=== PATIENT | male | born 1955 | race Caucasian/White ===

== ENCOUNTER → 2020-10-07 11:42 | Outpatient (BNVA) | payer OTHER, SELFPAY | PROVIDERS: PCP Internal Medicine Geriatric Medicine; Visit Provider Internal Medicine Gastroenterology | DX: Z13.89 Encounter for screening for other disorder (principal) | CPT/HCPCS: Q3014 ==

== ENCOUNTER 2021-04-17 07:57 | Outpatient (REF) | payer OTHER, SELFPAY ==
--- NOTE | ~2021-04-17 | US_ITS ---
EXAMINATION: US ABDOMEN LIMITED WITH LIVER ELASTOGRAPHY CLINICAL INFORMATION: Nonalcoholic steatohepatitis COMPARISON: Previous exam most recent March 2020 TECHNIQUE: Real-time imaging of the abdominal viscera. Noninvasive ultrasound liver fibrosis assessment is performed using Robyn ElastPQ point quantification shear wave elastography (pSWE) with a C5-2 MHz transducer. Multiple elastography samples are obtained. FINDINGS: PANCREAS: Not well visualized due to bowel gas. LIVER: Liver echotexture is increased and slightly heterogeneous. Liver is normal in size and contour. No focal lesion or intrahepatic biliary duct dilatation. The previously identified peripheral hypoechoic area in the right lobe of the liver on previous exam is not appreciated on the current exam. The right lobe measures 16 cm in length. The left lobe measures 9 cm in length. Portal flow is normal/hepatopedal Shear wave liver elastography median stiffness is 1.7 m/s (reference: normal median stiffness is 1.3 m/s or less). IQR/median stiffness to assess sampling precision is 0.18 (reference: good quality data set is IQR/median stiffness of 0.15 or less). GALLBLADDER: The gallbladder is normal in size. There is a gallstone in the gallbladder. COMMON BILE DUCT: Normal in caliber measuring 0.4 cm in diameter. RIGHT KIDNEY: Normal. No hydronephrosis. No renal calculi or focal parenchymal lesions. The kidney measures 9.4 cm in maximum dimension. FREE FLUID: None. US/US abdomen blue w elastography IMPRESSION: 1. Impression: Increased slightly heterogeneous liver echotexture. Gallstone. Limited visualization of the pancreas. 2. Liver elastography: Slightly limited due to sampling error Suggestive of compensated advanced chronic liver disease but need further test for confirmation. This is increased compared to previous exam March 2020. REFERENCE: Society of Radiologists in Ultrasound Liver Stiffness Thresholds (2020): LIVER STIFFNESS THRESHOLDS: *Liver Stiffness equal or less than 1.3 m/s: High probability of being normal. *Liver Stiffness less than 1.7 m/s: In the absence of other known clinical signs, rules out compensated advanced chronic liver disease. *Liver Stiffness 1.7-2.1 m/s: Suggestive of compensated advanced chronic liver disease but need further test for confirmation. *Liver Stiffness over 2.1 m/s: Rules in compensated advanced chronic liver disease. *Liver Stiffness over 2.4 m/s: Suggestive of clinically significant portal hypertension. QUALITY OF DATA SET: *IQR/Median value equal or less than 0.15 implies a quality data set. *IQR/Median value over 0.15 implies a poor quality data set. SIGNIFICANT CHANGE FROM PRIOR EXAM: Significant change if liver stiffness measurement is 10% or greater from prior exam. OTHER CONSIDERATIONS: The stage of liver fibrosis may be overestimated in the setting of acute hepatitis, liver inflammation, elevated liver function tests, hepatic vascular congestion, obstructive cholestasis, non-fasting state, and infiltrative diseases such as amyloidosis and lymphoma. In some patients with NAFLD, the liver stiffness thresholds for compensated advanced chronic liver disease may be lower. In causes other than viral hepatitis and NAFLD, liver stiffness thresholds are not well established.
[2021-04-17 09:02] LABS: MANUAL DIFF FLAG NO
[2021-04-17 09:12] LABS: Basophils Percent Auto 0.3 % (0-2); Eosinophils Absolute Auto 0.1 X10*3/uL (0.0-0.4); Eosinophils Percent Auto 2.3 % (0-4); Hematocrit 42.5 % (42-52); Imm Gran Abs Auto 0.01 X10*3/uL (0.00-0.03); Imm Gran Pct Auto 0.3 % (0.0-0.4); Lymphocytes Absolute Auto 1.6 X10*3/uL (1.2-4.9); Lymphocytes Percent Auto 45.7 % (20-40); Mean Corpuscular HGB Conc 32.9 g/dl (31.0-36.0); Mean Corpuscular Volume 91.2 fL (80-98); Mean Platelet Volume 10.5 fL (9.4-12.4); Monocytes Absolute Auto 0.4 X10*3/uL (0.1-1.2); Monocytes Percent Auto 11.1 % (2-11); Neutrophils Absolute Auto 1.4 X10*3/uL (2.0-8.3); Neutrophils Percent Auto 40.3 % (45-73); Platelet Count 137 X10*3/uL (160-400); Red Blood Count 4.66 X10*6/uL (4.60-5.80); Red Cell Distribution Width 13.6 % (11.0-16.0); White Blood Count 3.5 X10*3/uL (4.8-10.8)
[2021-04-17 09:42] LABS: Alanine Aminotransferase 31 U/L (0-40); Albumin Level 4.3 g/dL (3.5-5.0); Alkaline Phosphatase 105 U/L (39-117); Anion Gap 11 (12-20); Aspartate Amino Transferase 33 U/L (5-37); Bilirubin Total 0.3 mg/dL (0.0-1.0); Blood Urea Nitrogen 12 mg/dL (9-16); Calcium 9.2 mg/dL (8.4-10.2); Carbon Dioxide 23 mmol/L (22-29); Chloride 111 mmol/L (96-108); Estimated Glomerular Filt Rate > 60; Glucose Random 106 mg/dL (60-115); Potassium 4.2 mmol/L (3.3-5.1); Sodium 141 mmol/L (135-145)
[2021-04-17 09:52] LABS: HBS Num1 2.41 mIU/mL (0-7.99); HBc Num1 0.13 S/CO (0.00-0.79); HBsAGNum1 0.15 S/CO (0.00-0.99); Hepatitis B Core Antibody Nonreactive (Nonreactive); Hepatitis B Surface Antigen Negative (Negative); ~HepC Num1 0.11 S/CO (0.00-0.79); ~Hepatitis B Surface Antibody NONREACTIVE (Nonreactive); ~Hepatitis C Antibody Nonreactive (Nonreactive)
[2021-04-17 09:53] LABS: Erythrocyte Sedimentation Rate 7 MM/HR (0-15)
[2021-04-17 10:37] LABS: Ferritin 22 ng/mL (20-250)
[2021-04-19 08:26] LABS: Hepatitis A Antibody IgM 0.28 Index (0-0.79); ~Hepatitis A Antibody IgM Nonreactive (Nonreactive)
[2021-04-19 10:22] LABS: Alpha 1 Anti-trypsin 155 mg/dL (83-199)
[2021-04-20 06:28] LABS: Zinc 87 mcg/dL (60-130)
[2021-04-20 11:52] LABS: Soluble Liver Ag Autoantibody <20.1 U (0.0-20.0)
[2021-04-20 13:06] LABS: Anti Nuclear Antibody Screen NEGATIVE (NEGATIVE)
[2021-04-21 11:51] LABS: Mitochondrial Antibodies NEGATIVE (NEGATIVE); Smooth Muscle Antibody <20 U (<20)
[2021-04-22 14:42] LABS: Transglutaminase Ab IgG <1.0 U/mL; Transglutaminase IgA <1.0 U/mL
== END 2021-04-17 07:58 | disposition home or self-care (01) ==
LOC: HO.US 07:57
PROVIDERS: PCP Internal Medicine Geriatric Medicine; Visit Provider Internal Medicine Gastroenterology
DX: K75.81 Nonalcoholic steatohepatitis (NASH) (principal); R79.82 Elevated C-reactive protein (CRP)
CPT/HCPCS: 36415; 76705; 76981; 80053; 82103; 82550; 82728; 83516; 83520; 84630; 85025; 85652; 86038; 86039; 86255; 86256; 86704; 86706; 86709; 86803; 87340

== ENCOUNTER → 2021-05-30 08:22 | Outpatient (BNVA) | payer OTHER, SELFPAY | PROVIDERS: PCP Internal Medicine Geriatric Medicine; Visit Provider Internal Medicine Gastroenterology | CPT/HCPCS: Q3014 ==

== ENCOUNTER → 2021-10-30 08:32 | Outpatient (BNVA) | payer OTHER, SELFPAY | PROVIDERS: PCP Internal Medicine Geriatric Medicine; Visit Provider Internal Medicine Gastroenterology | DX: K75.81 Nonalcoholic steatohepatitis (NASH) (principal) | CPT/HCPCS: Q3014 ==

== ENCOUNTER 2021-11-01 08:40 | Outpatient (REF) | payer OTHER, SELFPAY ==
--- NOTE | ~2021-11-01 | XR_ITS ---
EXAMINATION: XR SHOULDER-BILATERAL XR HAND-LEFT CLINICAL INFORMATION: Bilateral shoulder pain and left hand pain. COMPARISON: None TECHNIQUE: 4 views each of both shoulders. 3 views of the left hand. FINDINGS: Right shoulder: The bony alignments are intact. The cortices are intact. Articular margins, joint spaces and. The soft tissues are unremarkable. Mild diffuse osteopenia. Left shoulder: The left acromioclavicular joint is widened, measures 1.3 cm. The finding may represent old postsurgical versus posttraumatic change. The glenohumeral alignment is intact. The cortices are intact. Articular margins, joint space appear unremarkable. The soft tissues are unremarkable. Left hand: Mild diffuse osteopenia is noted. The bony alignments are intact. The cortices are intact. The articular margins, joint space and. The soft tissues are unremarkable. XR/XR shoulder RT min 2V IMPRESSION: 1. Radiographically unremarkable right shoulder and left hand except for mild diffuse osteopenia. 2. Widened acromioclavicular joint space at the left shoulder, may represent old postsurgical versus old posttraumatic changes. Otherwise unremarkable radiographic appearance of the left shoulder.
--- NOTE | ~2021-11-01 | XR_ITS ---
EXAMINATION: XR SHOULDER-BILATERAL XR HAND-LEFT CLINICAL INFORMATION: Bilateral shoulder pain and left hand pain. COMPARISON: None TECHNIQUE: 4 views each of both shoulders. 3 views of the left hand. FINDINGS: Right shoulder: The bony alignments are intact. The cortices are intact. Articular margins, joint spaces and. The soft tissues are unremarkable. Mild diffuse osteopenia. Left shoulder: The left acromioclavicular joint is widened, measures 1.3 cm. The finding may represent old postsurgical versus posttraumatic change. The glenohumeral alignment is intact. The cortices are intact. Articular margins, joint space appear unremarkable. The soft tissues are unremarkable. Left hand: Mild diffuse osteopenia is noted. The bony alignments are intact. The cortices are intact. The articular margins, joint space and. The soft tissues are unremarkable. XR/XR shoulder LT min 2V IMPRESSION: 1. Radiographically unremarkable right shoulder and left hand except for mild diffuse osteopenia. 2. Widened acromioclavicular joint space at the left shoulder, may represent old postsurgical versus old posttraumatic changes. Otherwise unremarkable radiographic appearance of the left shoulder.
--- NOTE | ~2021-11-01 | XR_ITS ---
EXAMINATION: XR SHOULDER-BILATERAL XR HAND-LEFT CLINICAL INFORMATION: Bilateral shoulder pain and left hand pain. COMPARISON: None TECHNIQUE: 4 views each of both shoulders. 3 views of the left hand. FINDINGS: Right shoulder: The bony alignments are intact. The cortices are intact. Articular margins, joint spaces and. The soft tissues are unremarkable. Mild diffuse osteopenia. Left shoulder: The left acromioclavicular joint is widened, measures 1.3 cm. The finding may represent old postsurgical versus posttraumatic change. The glenohumeral alignment is intact. The cortices are intact. Articular margins, joint space appear unremarkable. The soft tissues are unremarkable. Left hand: Mild diffuse osteopenia is noted. The bony alignments are intact. The cortices are intact. The articular margins, joint space and. The soft tissues are unremarkable. XR/XR hand LT 2V IMPRESSION: 1. Radiographically unremarkable right shoulder and left hand except for mild diffuse osteopenia. 2. Widened acromioclavicular joint space at the left shoulder, may represent old postsurgical versus old posttraumatic changes. Otherwise unremarkable radiographic appearance of the left shoulder.
[2021-11-01 09:26] LABS: MANUAL DIFF FLAG NO
[2021-11-01 09:53] LABS: Basophils Percent Auto 0.2 % (0-2); Eosinophils Absolute Auto 0.1 X10*3/uL (0.0-0.4); Eosinophils Percent Auto 1.5 % (0-4); Hematocrit 42.2 % (42.0-52.0); Hemoglobin 13.9 g/dl (14.0-18.0); Imm Gran Abs Auto 0.01 X10*3/uL (0.00-0.03); Imm Gran Pct Auto 0.2 % (0.0-0.4); Lymphocytes Absolute Auto 1.6 X10*3/uL (1.2-4.9); Mean Corpuscular HGB Conc 32.9 g/dl (31.0-36.0); Mean Corpuscular Hemoglobin 29.5 pg (27.0-33.0); Mean Corpuscular Volume 89.6 fL (80.0-98.0); Mean Platelet Volume 10.8 fL (9.4-12.4); Monocytes Absolute Auto 0.5 X10*3/uL (0.1-1.2); Monocytes Percent Auto 8.6 % (2-11); Neutrophils Absolute Auto 3.3 x10*3/uL (2.0-8.3); Neutrophils Percent Auto 60.5 % (45-73); Platelet Count 133 X10*3/uL (160-400); Red Blood Count 4.71 X10*6/uL (4.60-5.80); Red Cell Distribution Width 13.4 % (11.0-16.0); White Blood Count 5.5 X10*3/uL (4.8-10.8)
[2021-11-01 09:55] LABS: Prothrombin Time 11.9 SEC (9.9-13.0)
[2021-11-01 10:11] LABS: Alanine Aminotransferase 43 U/L (0-40); Albumin Level 4.2 g/dL (3.5-5.0); Alkaline Phosphatase 86 U/L (39-117); Aspartate Amino Transferase 36 U/L (5-37); Bilirubin Direct 0.2 mg/dL (0.0-0.5); Bilirubin Total 0.5 mg/dL (0.0-1.0); Cholesterol 138 mg/dL; HDL Cholesterol 38 mg/dL; LDL Cholesterol Calculated 75 mg/dl; Total Protein 6.9 g/dL (6.5-8.0); Triglycerides 125 mg/dL
[2021-11-01 10:14] LABS: Alanine Aminotransferase 41 U/L (0-40); Albumin Level 4.1 g/dL (3.5-5.0); Alkaline Phosphatase 85 U/L (39-117); Anion Gap 12 (12-20); Aspartate Amino Transferase 37 U/L (5-37); Bilirubin Total 0.5 mg/dL (0.0-1.0); Blood Urea Nitrogen 14 mg/dL (9-16); Calcium 9.3 mg/dL (8.4-10.2); Carbon Dioxide 23 mmol/L (22-29); Chloride 110 mmol/L (96-108); Estimated Glomerular Filt Rate > 60; Glucose Random 114 mg/dL (60-115); Potassium 4.3 mmol/L (3.3-5.1); Sodium 141 mmol/L (135-145); Total Protein 6.9 g/dL (6.5-8.0)
[2021-11-01 10:34] LABS: Ferritin 14 ng/mL (20-250)
[2021-11-01 10:49] LABS: Folate 8.9 ng/mL (> or = 4.0); Vitamin B12 200 pg/mL (200-900)
[2021-11-01 10:59] LABS: Microalbum/Creatinine Ratio Ur 7.1 ug/mg cr
== END 2021-11-01 08:41 | disposition home or self-care (01) ==
LOC: HO.LAB 08:40
PROVIDERS: Absent Provider Internal Medicine Geriatric Medicine; PCP Internal Medicine Geriatric Medicine; Visit Provider Internal Medicine Gastroenterology
DX: K75.81 Nonalcoholic steatohepatitis (NASH) (principal); E11.9 Type 2 diabetes mellitus without complications; G89.29 Other chronic pain; M25.511 Pain in right shoulder; M25.512 Pain in left shoulder; M72.0 Palmar fascial fibromatosis [Dupuytren]
CPT/HCPCS: 36415; 73030; 73120; 80053; 80061; 80076; 82043; 82248; 82607; 82728; 82746; 85025; 85610

== ENCOUNTER → 2021-12-27 08:50 | Outpatient (BNVA) | payer OTHER, SELFPAY | PROVIDERS: PCP Internal Medicine Geriatric Medicine; Visit Provider Orthopaedic Surgery | DX: M72.0 Palmar fascial fibromatosis [Dupuytren] (principal); M25.642 Stiffness of left hand, not elsewhere classified | CPT/HCPCS: 97140; 99202 ==

== ENCOUNTER 2022-01-02 08:21 | Outpatient (REF) | payer OTHER, SELFPAY ==
--- NOTE | ~2022-01-02 | US_ITS ---
EXAMINATION: US ABDOMEN WITH LIVER ELASTOGRAPHY CLINICAL INFORMATION: Non-alcoholic steatohepatitis. COMPARISON: Previous ultrasound, most recent, March 2021. TECHNIQUE: Real-time imaging of the abdominal viscera. Noninvasive ultrasound liver fibrosis assessment is performed using Robyn ElastPQ point quantification shear wave elastography (2D-SWE) with a C5-2 MHz transducer. Multiple elastography samples are obtained. FINDINGS: PANCREAS: Not well visualized due to overlying bowel gas. LIVER: Liver echotexture is increased. The liver demonstrates normal size and contour. No focal lesion or intrahepatic biliary duct dilatation. The right lobe measures 15 cm in length. The left lobe measures 8.6 cm in length. Portal flow is normal/hepatopetal. Shear wave liver elastography median stiffness is 1.7 m/s (reference: normal median stiffness is 1.3 m/s or less). IQR/median stiffness to assess sampling precision is 0.1 (reference: good quality data set is IQR/median stiffness of 0.15 or less). GALLBLADDER: Normal. Previously identified gallstone not appreciated. COMMON BILE DUCT: Normal in caliber measuring 0.3 cm in diameter. RIGHT KIDNEY: Normal. No hydronephrosis. No renal calculi or focal parenchymal lesions. The kidney measures 10.2 cm in maximum dimension. LEFT KIDNEY: Normal. No hydronephrosis. No renal calculi or focal parenchymal lesions. The kidney measures 11.2 cm in maximum dimension. SPLEEN: Normal. The spleen measures 11 cm in length. FREE FLUID: None. US/US abdomen comp w elastography IMPRESSION: 1. Echogenic liver probably representing fatty infiltration. Limited visualization of the pancreas. Previously identified gallstone not appreciated. 2. Liver elastography: Adequate liver sampling. Borderline increased liver stiffness similar to most recent exam in March 2021. REFERENCE: Society of Radiologists in Ultrasound Liver Stiffness Thresholds (2020): LIVER STIFFNESS THRESHOLDS: *Liver Stiffness equal or less than 1.3 m/s: High probability of being normal. *Liver Stiffness less than 1.7 m/s: In the absence of other known clinical signs, rules out compensated advanced chronic liver disease. *Liver Stiffness 1.7-2.1 m/s: Suggestive of compensated advanced chronic liver disease but need further test for confirmation. *Liver Stiffness over 2.1 m/s: Rules in compensated advanced chronic liver disease. *Liver Stiffness over 2.4 m/s: Suggestive of clinically significant portal hypertension. QUALITY OF DATA SET: *IQR/Median value equal or less than 0.15 implies a quality data set. *IQR/Median value over 0.15 implies a poor quality data set. SIGNIFICANT CHANGE FROM PRIOR EXAM: Significant change if liver stiffness measurement is 10% or greater from prior exam. OTHER CONSIDERATIONS: The stage of liver fibrosis may be overestimated in the setting of acute hepatitis, liver inflammation, elevated liver function tests, hepatic vascular congestion, obstructive cholestasis, non-fasting state, and infiltrative diseases such as amyloidosis and lymphoma. In some patients with NAFLD, the liver stiffness thresholds for compensated advanced chronic liver disease may be lower. In causes other than viral hepatitis and NAFLD, liver stiffness thresholds are not well established.
== END 2022-01-02 08:22 | disposition home or self-care (01) ==
LOC: HO.US 08:21
PROVIDERS: PCP Internal Medicine Geriatric Medicine; Visit Provider Internal Medicine Gastroenterology
DX: K75.81 Nonalcoholic steatohepatitis (NASH) (principal)
CPT/HCPCS: 76705; 76981

== ENCOUNTER 2022-02-09 10:35 | Emergency (ER) | payer OTHER, SELFPAY ==
[2022-02-09] VITALS (9 sets, daily range): BP systolic 127–167; BP diastolic 67–82; PULSE 55–70; RESP 16–20; TEMP 36.7–36.9; O2SAT 98–100; BMI 22.6
--- NOTE | 2022-02-09 11:18 | ECG_ITS ---
Test Reason : SYNCOPE Blood Pressure : / mmHG Vent. Rate : 059 BPM Atrial Rate : 059 BPM P-R Int : 172 ms QRS Dur : 086 ms QT Int : 436 ms P-R-T Axes : 033 032 031 degrees QTc Int : 431 ms Sinus bradycardia Otherwise normal ECG When compared to the previous EKG of No significant changes seen Referred By: Liv Maldonado Electronically Signed By:ZHEN TINOCO MD
--- NOTE | 2022-02-09 11:47 | ED_ITS ---
HPI - Syncope General Chief Complaint: Syncope Stated Complaint: SYNCOPE BEFORE CATARACT SURGERY PER EMS Time Seen by Provider: 02/09/22 11:08 Source: patient and EMS Mode of arrival: EMS Limitations: no limitations History of Present Illness HPI narrative: 66 yo male with history of seizure disorder, MCCLELLAN, GERD, cataracts, diabetes, and HLD who presents to the ER via EMS for evaluation of a possible syncopal epi sode vs possible seizure while he was at the doctor's office with plan for cataract surgery today. He reportedly was standing when he suddendly became rigid and fell to the floor. His eyes remained open and he did not lose consciousness. When he came too he was confused. His reports this is exa madaiy how he has presented in the past with his seizures. Last seizure was maybe 1 year ago. He has been compliant with his zonisamide and last took it this morning. No urinary incontinence, tongue biting or other injuries. He feels back to baseline. MD complaint: collapsed Onset (ago): minute(s) -: second(s) Description of event: post-event confusion Prodromal symptoms: none Witnessed: Yes - by Bystander Context: standing up Injuries sustained associated with event: none Current symptoms: back to baseline History: seizure disorder Treatments prior to arrival: none Related Data Home Medications Medication Instructions Recorded Confirmed fluticasone propionate 115 2 puff inhalation BID 10/30/21 mcg-salmeterol 21 mcg/actuation HFA inhaler (Advair HFA) fluticasone propionate 50 spray intranasal 10/30/21 mcg/actuation nasal spray,suspension glipizide 10 mg tablet 10 mg PO BID 10/30/21 ibuprofen 800 mg tablet 800 mg PO TID PRN low back pain 10/30/21 lancets 33 gauge (TRUEplus Lancets) #100 ea 10/30/21 metformin 500 mg tablet 500 mg PO TID 10/30/21 rosuvastatin 20 mg tablet 20 mg PO BEDTIME 10/30/21 zonisamide 100 mg capsule 0 mg PO 10/30/21 sildenafil 50 mg tablet (Viagra) 50 mg PO DAILY PRN 12/27/21 Previous Rx's Medication Instructions Recorded esomeprazole magnesium 40 mg 40 mg PO QAM #30 caps 10/30/21 capsule,delayed release pentoxifylline 400 mg 400 mg PO BID #60 tabs 10/30/21 tablet,extended release cholecalciferol (vitamin D3) 25 25 mcg PO QAM #30 caps 12/04/21 mcg (1,000 unit) capsule (Vitamin D3) Allergies Allergy/AdvReac Type Severity Reaction Status Date / Time No Known Allergies Allergy Verified 12/27/21 09:32 Review of Systems Review of Systems: Constitutional: No Fever, No Chills ENT/Mouth: No sore throat, No Rhinorrhea, No Swallowing Difficulty Eyes: No Eye Pain, No Swelling, No Redness Cardiovascular: No Chest Pain, No SOB, No Orthopnea, No Edema Respiratory: No Cough, No Sputum, No Wheezing, No dyspnea Gastrointestinal: No Nausea, No Vomiting, No Diarrhea, No abdominal Pain, No Hematochezia, No Melena Genitourinary: No Dysuria, No Urinary Frequency, No Hematuria Musculoskeletal: No joint pain, No Myalgias Skin: No Skin Lesions, No rash Neuro: No Weakness, No Numbness, No Dizziness, No Headache Psych: No Anxiety/Panic, No Depression Heme/Lymph: No Bruising, No Lymphadenopathy Endocrine: No Polyuria, No Polydipsia PMFSH Past Medical History Surgical History Hx of colonoscopy Family History Family History Brother Diabetes Sister Diabetes Social History Social History (Updated 12/27/21 @ 09:33 by MERLINE Toribio) Household Members: Spouse Alcohol intake: never Patient Tobacco Use Status: Former Tobacco user Smoked in Last 30 Days: No Use of substances other than those prescribed or required for medical reasons: No Advance Directives: No Advance Directives Information Provided: Yes Current occupational status: disabled 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 Oriented X3. No acute distress. Eyes: Pupils equal, round and reactive to light. ENT: Pharynx normal. Neck: Normal inspection. Neck supple. CVS: Bradycardic hihg 50s, regular rhythm. Pulses normal. Respiratory: No respiratory distress. Breath sounds normal. Abdomen: Soft and nontender. +BS x4 Skin: Skin warm and dry. Normal skin color. Normal skin turgor. No rashes. Extremities: No lower extremity edema. Atraumatic x4. Neuro: Oriented X 3. No motor deficit. No sensory deficit. Normal speech and cognition. CN II-XII intact. Strength equal and symmetrical throughout. Course Course Course Narrative: 66 yo male with history of seizures presents to the ER for evaluation of possible seizure vs syncopal episode. Back to baseline now with nonfocal neuro exam. HR high 50s on the monitor. Not on any cardiac meds per his report. No complaints of dizziness or lightheadedness at this time. Will check labs, EKG, orthostatics. He has been NPO for the procedure. Will give food, IVF and reassess. Reevaluation(s) Reevaluation #1: Labs showing some mild pancytopenia which she has a history of in the past. Counts are similar to prior his lactic acid is 2.3, most likely due to minor se izure activity, no evidence of infection at this time. Patient had negative orthostatic vital signs but felt lightheaded when stood up. Will give p.o. food and reassess. IV fluids are infusing. Reevaluation #2: Lactic acid normalized with IV fluids. Patient continues to feel well and at his baseline. He would like to be discharged home. At this time his symptoms and description of the events seem to be consistent with his seizures. He will follow-up with his neurologist. He is stable for discharge home with outpatient follow-up. MDM - Syncope Medical Records Attestation: I reviewed the patient's medical records. Lab Data Attestation: I reviewed the patient's lab results. Result diagrams: 02/09/22 12:05 02/09/22 12:05 Labs: Lab Results 02/09/22 02/09/22 02/09/22 Range/Units 11:43 12:05 12:05 WBC 2.8 L (4.8-10.8) X10*3/uL RBC 4.65 (4.60-5.80) X10*6/uL Hgb 13.4 L (14.0-18.0) g/dl Hct 41.5 L (42.0-52.0) % MCV 89.2 (80.0-98.0) fL MCH 28.8 (27.0-33.0) pg MCHC 32.3 (31.0-36.0) g/dl RDW 13.6 (11.0-16.0) % Plt Count 120 L (160-400) X10*3/uL MPV 10.0 (9.4-12.4) fL Immature Gran % (Auto) 0.0 (0.0-0.4) % Neut % (Auto) 58.4 (45-73) % Lymph % (Auto) 30.7 (20-40) % [place] % (Auto) 9.5 (2-11) % Eos % (Auto) 1.4 (0-4) % Baso % (Auto) 0.0 (0-2) % Lymph # (Auto) 0.9 L (1.2-4.9) X10*3/uL [place] # (Auto) 0.3 (0.1-1.2) X10*3/uL Eos # (Auto) 0.0 (0.0-0.4) X10*3/uL Baso # (Auto) 0.0 (0.0-0.2) X10*3/uL Abs Immat Gran (auto) 0.00 (0.00-0.03) X10*3/uL Absolute Neuts (auto) 1.7 L (2.0-8.3) x10*3/uL Absolute Nucleated RBC 0.000 (0.0-0.012) X10*3/uL Nucleated RBC % (auto) 0.0 (0.0-0.2) /100WBC Sodium 141 (135-145) mmol/L Potassium 4.3 (3.3-5.1) mmol/L Chloride 112 H (96-108) mmol/L Carbon Dioxide 22 (22-29) mmol/L Anion Gap 11 L (12-20) BUN 8 L (9-16) mg/dL Creatinine 0.98 (0.5-1.4) mg/dL Estim Creat Clear Calc 73.7 Estimated GFR > 60 Random Glucose 135 H (60-115) mg/dL Lactic Acid (0.5-2.0) mmol/L Lactic Acid F/U @ 2Hr (0.5-2.0) mmol/L Calcium 8.4 D (8.4-10.2) mg/dL Magnesium 1.7 (1.6-2.6) mg/dL Total Bilirubin 0.4 (0.0-1.0) mg/dL Direct Bilirubin < 0.2 (0.0-0.5) mg/dL AST 34 (5-37) U/L ALT 40 (0-40) U/L Alkaline Phosphatase 99 (39-117) U/L Total Creatine Kinase 75 (38-174) U/L Total Protein 7.0 (6.5-8.0) g/dL Albumin 4.2 (3.5-5.0) g/dL Urine Color Urine Appearance Urine pH (5.0-8.0) Ur Specific [place] (1.005-1.025) Urine Protein (NEG-TRACE) MG/DL Urine Glucose (UA) (NEG) MG/DL Urine Ketones (NEG) MG/DL Urine Blood (NEG) Urine Nitrite (NEG) Ur Leukocyte Esterase (NEG) COVID-19 ([facility]) Negative (Negative) COVID-19 Clin Com See Note 02/09/22 02/09/22 02/09/22 Range/Units 12:05 12:23 15:08 WBC (4.8-10.8) X10*3/uL RBC (4.60-5.80) X10*6/uL Hgb (14.0-18.0) g/dl Hct (42.0-52.0) % MCV (80.0-98.0) fL MCH (27.0-33.0) pg MCHC (31.0-36.0) g/dl RDW (11.0-16.0) % Plt Count (160-400) X10*3/uL MPV (9.4-12.4) fL Immature Gran % (Auto) (0.0-0.4) % Neut % (Auto) (45-73) % Lymph % (Auto) (20-40) % [place] % (Auto) (2-11) % Eos % (Auto) (0-4) % Baso % (Auto) (0-2) % Lymph # (Auto) (1.2-4.9) X10*3/uL [place] # (Auto) (0.1-1.2) X10*3/uL Eos # (Auto) (0.0-0.4) X10*3/uL Baso # (Auto) (0.0-0.2) X10*3/uL Abs Immat Gran (auto) (0.00-0.03) X10*3/uL Absolute Neuts (auto) (2.0-8.3) x10*3/uL Absolute Nucleated RBC (0.0-0.012) X10*3/uL Nucleated RBC % (auto) (0.0-0.2) /100WBC Sodium (135-145) mmol/L Potassium (3.3-5.1) mmol/L Chloride (96-108) mmol/L Carbon Dioxide (22-29) mmol/L Anion Gap (12-20) BUN (9-16) mg/dL Creatinine (0.5-1.4) mg/dL Estim Creat Clear Calc Estimated GFR Random Glucose (60-115) mg/dL Lactic Acid 2.3 H* (0.5-2.0) mmol/L Lactic Acid F/U @ 2Hr 1.9 (0.5-2.0) mmol/L Calcium (8.4-10.2) mg/dL Magnesium (1.6-2.6) mg/dL Total Bilirubin (0.0-1.0) mg/dL Direct Bilirubin (0.0-0.5) mg/dL AST (5-37) U/L ALT (0-40) U/L Alkaline Phosphatase (39-117) U/L Total Creatine Kinase (38-174) U/L Total Protein (6.5-8.0) g/dL Albumin (3.5-5.0) g/dL Urine Color YELLOW Urine Appearance CLEAR Urine pH 7.0 (5.0-8.0) Ur Specific [place] 1.010 (1.005-1.025) Urine Protein NEG (NEG-TRACE) MG/DL Urine Glucose (UA) NEG (NEG) MG/DL Urine Ketones NEG (NEG) MG/DL Urine Blood NEG (NEG) Urine Nitrite NEG (NEG) Ur Leukocyte Esterase NEG (NEG) COVID-19 ([facility]) (Negative) COVID-19 Clin Com ECG Data Attestation: I personally reviewed and interpreted this ECG as follows: ECG interpretation date: 02/09/22 ECG interpretation time: 13:23 Prior ECG tracings: available for review Interpretation: sinus bradycardia, HR 59 bpm, NV interval [address] segment elevations or depressions Critical Care Time Critical Care Time Critical Care Time: No Discharge Plan Discharge Clinical Impression: Seizure Patient Disposition: Home, Self-Care Instructions: Recurrent Seizures in Adults (ED) Additional Instructions: Your lab workup today was unremarkable. Your episodes today was most likely due to a partial seizure. Recommend continue your seizure medications as previously prescribed Recommend following up with your neurologist & your PCP If you develop new or worsening symptoms call 911 or come back to the ER for further evaluation. Prescriptions: No Action cholecalciferol (vitamin D3) [Vitamin D3] 25 mcg (1,000 unit) capsule 25 mcg PO QAM Qty: 30 4RF Advair HFA 115-21 mcg/actuation HFA aerosol inhaler 2 puff inhalation BID rosuvastatin 20 mg tablet 20 mg PO BEDTIME fluticasone propionate 50 mcg/actuation spray,suspension intranasal zonisamide 100 mg capsule 0 mg PO glipizide 10 mg tablet 10 mg PO BID metformin 500 mg tablet 500 mg PO TID ibuprofen 800 mg tablet 800 mg PO TID PRN (Reason: low back pain) (DME) lancets [TRUEplus Lancets] 33 gauge misc See Rx Instructions topical .MEDSUPPLY Qty: 100 Rx Instructions: As directed pentoxifylline 400 mg tablet extended release 400 mg PO BID Qty: 60 4RF esomeprazole magnesium 40 mg capsule,delayed release(DR/EC) 40 mg PO QAM Qty: 30 5RF sildenafil [Viagra] 50 mg tablet 50 mg PO DAILY PRN Referrals: Name,MD Uriel [Primary Care Provider] -
[2022-02-09 12:06] LABS: COVID-19 Test Negative (Negative)
[2022-02-09 12:12] LABS: MANUAL DIFF FLAG NO
[2022-02-09 12:18] LABS: Eosinophils Percent Auto 1.4 % (0-4); Hematocrit 41.5 % (42.0-52.0); Hemoglobin 13.4 g/dl (14.0-18.0); Lymphocytes Absolute Auto 0.9 X10*3/uL (1.2-4.9); Lymphocytes Percent Auto 30.7 % (20-40); Mean Corpuscular HGB Conc 32.3 g/dl (31.0-36.0); Mean Corpuscular Hemoglobin 28.8 pg (27.0-33.0); Mean Corpuscular Volume 89.2 fL (80.0-98.0); Monocytes Absolute Auto 0.3 X10*3/uL (0.1-1.2); Monocytes Percent Auto 9.5 % (2-11); Neutrophils Absolute Auto 1.7 x10*3/uL (2.0-8.3); Neutrophils Percent Auto 58.4 % (45-73); Platelet Count 120 X10*3/uL (160-400); Red Blood Count 4.65 X10*6/uL (4.60-5.80); Red Cell Distribution Width 13.6 % (11.0-16.0); White Blood Count 2.8 X10*3/uL (4.8-10.8)
[2022-02-09] MEDS: 0.9 % Sodium Chloride 1,000 ML 999 ML IVCONT (12:26)
[2022-02-09 12:30] LABS: Alanine Aminotransferase 40 U/L (0-40); Albumin Level 4.2 g/dL (3.5-5.0); Alkaline Phosphatase 99 U/L (39-117); Anion Gap 11 (12-20); Aspartate Amino Transferase 34 U/L (5-37); Bilirubin Direct < 0.2 mg/dL (0.0-0.5); Bilirubin Total 0.4 mg/dL (0.0-1.0); Blood Urea Nitrogen 8 mg/dL (9-16); Calcium 8.4 mg/dL (8.4-10.2); Carbon Dioxide 22 mmol/L (22-29); Chloride 112 mmol/L (96-108); Creatinine Clr Calc Pharmacy 73.7; Estimated Glomerular Filt Rate > 60; Glucose Random 135 mg/dL (60-115); Magnesium 1.7 mg/dL (1.6-2.6); Potassium 4.3 mmol/L (3.3-5.1); Sodium 141 mmol/L (135-145)
[2022-02-09 12:35] LABS: Appearance Urine CLEAR; Color Urine YELLOW; Glucose Urine UA NEG (NEG); Leukocyte Esterase Urine NEG (NEG); Nitrite Urine NEG (NEG); Urine Blood NEG (NEG); Urine Ketones NEG (NEG); Urine Protein NEG (NEG-TRACE)
[2022-02-09 12:38] LABS: Lactic Acid 2.3 mmol/L (0.5-2.0)
[2022-02-09 14:10] LABS: Reflex Lactate? Lactic Acid Added
[2022-02-09 15:28] LABS: ~Lactic Acid-LAB USE ONLY 1.9 mmol/L (0.5-2.0)
== END 2022-02-09 16:03 | disposition home or self-care (01) ==
PROVIDERS: Physician Assistant; Emergency Provider Emergency Medicine; PCP Internal Medicine Geriatric Medicine
DX: R56.9 Unspecified convulsions (principal); R00.1 Bradycardia, unspecified; D61.818 Other pancytopenia; Z20.822 Contact with and (suspected) exposure to COVID-19; E78.5 Hyperlipidemia, unspecified; E11.9 Type 2 diabetes mellitus without complications; K75.81 Nonalcoholic steatohepatitis (NASH); Z87.891 Personal history of nicotine dependence; Z79.899 Other long term (current) drug therapy; Z79.02 Long term (current) use of antithrombotics/antiplatelets
CPT/HCPCS: 36415; 80048; 80076; 81003; 82550; 83605; 83735; 85025; 87635; 93005; 96360; 99284; 99285

== ENCOUNTER → 2022-04-30 09:13 | Outpatient (BNVA) | payer OTHER, SELFPAY | PROVIDERS: PCP Internal Medicine Geriatric Medicine; Visit Provider Internal Medicine Gastroenterology | DX: K76.0 Fatty (change of) liver, not elsewhere classified (principal); K21.9 Gastro-esophageal reflux disease without esophagitis; Z79.899 Other long term (current) drug therapy | CPT/HCPCS: Q3014 ==

== ENCOUNTER 2022-05-15 08:23 | Outpatient (REF) | payer OTHER, SELFPAY ==
[2022-05-16 13:29] LABS: H Pylori Breath Test Negative (Negative)
== END 2022-05-15 08:24 | disposition home or self-care (01) ==
LOC: CF 08:23
PROVIDERS: PCP Internal Medicine Geriatric Medicine; Visit Provider Internal Medicine Gastroenterology
DX: Z11.2 Encounter for screening for other bacterial diseases (principal)
CPT/HCPCS: 36415; 83013; 99211

== ENCOUNTER → 2022-11-19 13:28 | Outpatient (BNVA) | payer OTHER, SELFPAY | PROVIDERS: PCP Internal Medicine Geriatric Medicine; Visit Provider Internal Medicine Gastroenterology | DX: K75.81 Nonalcoholic steatohepatitis (NASH) (principal); K74.60 Unspecified cirrhosis of liver | CPT/HCPCS: 99212 ==

== ENCOUNTER 2022-12-05 13:54 | Outpatient (REF) | payer OTHER, SELFPAY ==
--- NOTE | ~2022-12-05 | US_ITS ---
EXAMINATION: US ABDOMEN LIMITED WITH LIVER ELASTOGRAPHY CLINICAL INFORMATION: Nonalcoholic steatohepatitis. COMPARISON: None available. TECHNIQUE: Real-time imaging of the abdominal viscera. Noninvasive ultrasound liver fibrosis assessment is performed using Robyn ElastPQ point quantification shear wave elastography (2D-SWE) with a C5-2 MHz transducer. Multiple elastography samples are obtained. FINDINGS: PANCREAS: Normal. The visualized pancreatic head and body are normal in appearance. The remainder of the pancreas is obscured from visualization by the overlying bowel gas. LIVER: Normal. The liver demonstrates normal size, contour and echogenicity. No focal lesion or intrahepatic biliary duct dilatation. The right lobe measures 15.6 cm in length. The left lobe measures 9.7 cm in length. Portal flow is hepatopedal. Shear wave liver elastography median stiffness is 1.92 m/s (reference: normal median stiffness is 1.3 m/s or less). IQR/median stiffness to assess sampling precision is 0.05 (reference: good quality data set is IQR/median stiffness of .15 or less). GALLBLADDER: There is an echogenic gallstone measuring 0.6 x 0.7 x 0.8 cm visualized in supine position. No wall thickening or pericholecystic fluid collection. COMMON BILE DUCT: Normal in caliber measuring 0.39, 0.4 cm in diameter. RIGHT KIDNEY: Normal. No hydronephrosis. No renal calculi or focal parenchymal lesions. The kidney measures 9.5 cm in maximum dimension. FREE FLUID: None. US/US abdomen blue w elastography IMPRESSION: 1. Mild hepatic steatosis without focal lesion. 2. Solitary gallstone without wall thickening. 3. Liver elastography: Median liver stiffness measures 1.92 m/s, corresponds to cACLD (suggestive). REFERENCE: Society of Radiologists in Ultrasound Liver Stiffness Thresholds (2020): LIVER STIFFNESS THRESHOLDS: *Liver Stiffness equal or less than 1.3 m/s: High probability of being normal. *Liver Stiffness less than 1.7 m/s: In the absence of other known clinical signs, rules out compensated advanced chronic liver disease. *Liver Stiffness 1.7-2.1 m/s: Suggestive of compensated advanced chronic liver disease but need further test for confirmation. *Liver Stiffness over 2.1 m/s: Rules in compensated advanced chronic liver disease. *Liver Stiffness over 2.4 m/s: Suggestive of clinically significant portal hypertension. QUALITY OF DATA SET: *IQR/Median value equal or less than 0.15 implies a quality data set. *IQR/Median value over 0.15 implies a poor quality data set. SIGNIFICANT CHANGE FROM PRIOR EXAM: Significant change if liver stiffness measurement is 10% or greater from prior exam. OTHER CONSIDERATIONS: The stage of liver fibrosis may be overestimated in the setting of acute hepatitis, liver inflammation, elevated liver function tests, hepatic vascular congestion, obstructive cholestasis, non-fasting state, and infiltrative diseases such as amyloidosis and lymphoma. In some patients with NAFLD, the liver stiffness thresholds for compensated advanced chronic liver disease may be lower. In causes other than viral hepatitis and NAFLD, liver stiffness thresholds are not well established.
[2022-12-05 14:06] LABS: MANUAL DIFF FLAG NO
[2022-12-05 14:58] LABS: Basophils Percent Auto 0.2 % (0-2); Eosinophils Absolute Auto 0.1 X10*3/uL (0.0-0.4); Eosinophils Percent Auto 1.7 % (0-4); Hematocrit 42.5 % (42.0-52.0); Hemoglobin 13.8 g/dl (14.0-18.0); Imm Gran Abs Auto 0.02 X10*3/uL (0.00-0.03); Imm Gran Pct Auto 0.5 % (0.0-0.4); Lymphocytes Absolute Auto 1.7 X10*3/uL (1.2-4.9); Lymphocytes Percent Auto 40.5 % (20-40); Mean Corpuscular HGB Conc 32.5 g/dl (31.0-36.0); Mean Corpuscular Hemoglobin 28.8 pg (27.0-33.0); Mean Corpuscular Volume 88.7 fL (80.0-98.0); Mean Platelet Volume 10.9 fL (9.4-12.4); Monocytes Absolute Auto 0.4 X10*3/uL (0.1-1.2); Monocytes Percent Auto 8.8 % (2-11); Neutrophils Percent Auto 48.3 % (45-73); Platelet Count 158 X10*3/uL (160-400); Red Blood Count 4.79 X10*6/uL (4.60-5.80); Red Cell Distribution Width 13.8 % (11.0-16.0); White Blood Count 4.2 X10*3/uL (4.8-10.8)
[2022-12-05 15:51] LABS: Prothrombin Time 11.7 SEC (10.0-13.1)
[2022-12-05 16:20] LABS: Alanine Aminotransferase 30 U/L (0-40); Albumin Level 4.3 g/dL (3.5-5.0); Alkaline Phosphatase 89 U/L (39-117); Anion Gap 11 (12-20); Aspartate Amino Transferase 30 U/L (5-37); Bilirubin Total 0.4 mg/dL (0.0-1.0); Blood Urea Nitrogen 10 mg/dL (9-16); Calcium 9.5 mg/dL (8.4-10.2); Carbon Dioxide 24 mmol/L (22-29); Chloride 113 mmol/L (96-108); Estimated Glomerular Filt Rate > 60; Glucose Random 104 mg/dL (60-115); Potassium 4.4 mmol/L (3.3-5.1); Sodium 144 mmol/L (135-145); Total Protein 6.9 g/dL (6.5-8.0)
== END 2022-12-05 13:55 | disposition home or self-care (01) ==
LOC: HO.US 13:54
PROVIDERS: PCP Internal Medicine Geriatric Medicine; Visit Provider Internal Medicine Gastroenterology
DX: K74.60 Unspecified cirrhosis of liver (principal); K75.81 Nonalcoholic steatohepatitis (NASH)
CPT/HCPCS: 36415; 76705; 76981; 80053; 85025; 85610

== ENCOUNTER 2023-02-07 08:20 | Day surgery (SDC) | payer OTHER, SELFPAY ==
[2023-02-05 15:00] VITALS: BMI 22.1
--- NOTE | 2023-02-07 08:37 | HO.ANESPROP2 ---
[facility] Active Problems Active Problems: All Active Problems (Updated 02/05/23 @ 14:54 by Lalita Romano RN) Nonalcoholic steatohepatitis (MCCLELLAN) (Acute) Dupuytren's disease of palm of left hand (Acute) Stiffness of left hand joint (Acute) Past Medical History Medical History (Updated 02/05/23 @ 14:54 by Lalita Romano RN) Diabetes Elevated cholesterol GERD (gastroesophageal reflux disease) MCCLELLAN (nonalcoholic steatohepatitis) Family History Family History Brother Diabetes Sister Diabetes Family history of problems with anesthesia: No Surgical History Surgical History History of esophagogastroduodenoscopy (EGD) Hx of colonoscopy Hx of shoulder surgery Hx of shoulder surgery History of Problems with Anesthesia: No Social History Social History Household Members: Spouse Alcohol intake: never Patient Tobacco Use Status: Former Tobacco user Advance Directives: No Advance Directives Information Provided: Yes Current occupational status: disabled 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 Meds Allergies Allergy/AdvReac Type Severity Reaction Status Date / Time No Known Allergies Allergy Verified 11/19/22 13:38 Active Medications: Current Medications Lactated Ringer's (Lr) 1,000 mls @ 100 mls/hr IVCONT .Q10H [facility] Home Medications Medication Instructions Recorded Confirmed Last Taken Type fluticasone propionate 115 2 puff inhalation BID 10/30/21 02/05/23 Unknown History mcg-salmeterol 21 mcg/actuation HFA inhaler (Advair HFA) glipizide 10 mg tablet 10 mg PO BID 10/30/21 02/05/23 Unknown History ibuprofen 800 mg tablet 800 mg PO TID PRN low back pain 10/30/21 02/05/23 Unknown History lancets 33 gauge (TRUEplus Lancets) #100 ea 10/30/21 Unknown History rosuvastatin 20 mg tablet 20 mg PO BEDTIME 10/30/21 02/05/23 Unknown History zonisamide 100 mg capsule 100 mg PO BID 10/30/21 02/05/23 Unknown History sildenafil 50 mg tablet (Viagra) 50 mg PO DAILY PRN Erectile 12/27/21 02/05/23 Unknown History Dysfunction albuterol sulfate 90 mcg/actuation 90 mcg inhalation Q4H PRN Wheezing 11/19/22 02/05/23 Unknown History aerosol inhaler cyanocobalamin (vitamin B-12) 1,000 mcg sublingual DAILY 11/19/22 02/05/23 Unknown History 1,000 mcg sublingual tablet metformin 500 mg tablet,extended 1,000 mg PO BID 11/19/22 02/05/23 Unknown History release 24 hr Exam Exam Date and Time: February 07, 2023 0837 Height,Weight and Vital Signs: Height 5 ft 9 in Weight 68.039 kg Airway Mallampati Class: II TM Dist: >3cm Neck ROM: Full Assessment and Plan Assessment Anesthesia Assessment: Anesthesia Plan Discussed and Chart Reviewed Final Anesthetic Review Family History of Problems with Anesthesia: No History of Problems with Anesthesia: No NPO: Yes ASA Class: III Final Preanesthetic Review: No Changes in Pt Med Stat, Meds/Allgs Chart Reviewed, Consent Obtained/Reviewed and Anes Risks/Benef Reviewed Patient Risk: Intermediate Procedure Risk: Low Anesthetic Plan Anesthetic Plan: MAC: Disposition: Standard PACU
[2023-02-07 08:40] VITALS: BMI 22.4
[2023-02-07 08:45] VITALS: BMI 22.4
--- NOTE | 2023-02-07 08:51 | P.HPSUR_ITS ---
Pre-Procedural Eval Section A Date of Service: 02/07/23 Section B Chief Complaint: anemia, screening for varices Details of Present Illness: anemia, screening for varices Relevant Family History (Specify if Yes): No Relevant Social History: None Present Medications: see Short Stay Collaborative assessment Medical History: Significant History (Diabetes Elevated cholesterol GERD ( gastroesophageal reflux disease) MCCLELLAN (nonalcoholic steatohepatitis)) History of Previous Operations: Relevant previous surgery/procedure and date(s) (History of esophagogastroduodenoscopy (EGD) Hx of colonoscopy Hx of shoulder surgery Hx of shoulder surgery) Allergies: Allergies Allergy/AdvReac Type Severity Reaction Status Date / Time No Known Allergies Allergy Verified 11/19/22 13:38 Review of Systems Sugical H&P ROS: Negative: Constitution, Cardiovascular, Respiratory, Neurological, Psychiatric, Hem-Onc, Allergic/Immunologic, Gastrointestinal, Genitourinary, Musculoskeletal, Integumentary, Endocrine and Eyes/Ears/Nose/Throat Exam Surgical H&P Exam: Normal: HEENT, Normal: Heart, Normal: Lungs, Normal: Extremities, Normal: Abdomen, Normal: Skin and Normal: Neurological Plan Diagnosis/Plan: Unchanged I have reviewed the history and physical and performed a pertinent physical examination on my patient. No changes have occurred unless specified. EGD for anemia, screening for varices Time Spent With Patient Time: Total time managing care of this patient today ____ minutes.
[2023-02-07 08:55] LABS: Glucose, Whole Blood 104 mg/dL (60-115)
[2023-02-07 09:00] VITALS: BP 159/68; PULSE 69; RESP 18; TEMP 36.1; O2SAT 98
[2023-02-07] MEDS: Lactated Ringers 1,000 ML 100 ML IVCONT (09:08)
--- NOTE | 2023-02-07 09:16 | P.OP_ITS ---
Operative Note Operative Note Date of Service: 02/07/23 Narrative: Procedure Description: EGD Indication: anemia and variceal screening Anesthesia: MAC FLEXIBLE TRANSORAL UPPER GASTROINTESTINAL ENDOSCOPY UPPER ENDOSCOPY Consent: Indications for the procedure and potential complications of bleeding, perforation, reaction to medications and missed diagnosis were discussed with the patient and informed consent was obtained. Instrument: Olympus GIF H 190 J mid size upper endoscope Monitoring: Vital signs and clinical assessment, continuous EKG monitoring, Pulse oximetry, Carbon Dioxide monitoring and blood pressure monitoring were done throughout the procedure. Procedure: The patient was placed in the left lateral decubitis position and pre-procedure medications were administered and a bite block was placed. The endoscope was inserted into the mouth and advanced under direct vision to the third part of duodenum. A careful inspection was made as the upper endoscope was withdrawn including a retroflexed examination of the proximal stomach; Findings and interventions are described below. Findings: Larynx:normal Esophagus: GE junction at 37 cm, diaphragm hiatus at 37 cm, no varices but at the GEJ junction there was a raised irregular lesion which was friable and m easured about 12-14 mm. Biopsies were taken from it and the GEJ. Stomach: Patchy gastric erythema. Biopsies were obtained. Grade 2 flap valve on retroflexed examination of the cardia. Duodenum: Normal bulb and descending duodenum, Intervention: Biopsies as noted above Impression/Findings: esophageal mass PLAN: await bx if malignant refer thoracic surgery, and oncology, if neg then bring back and remove endoscopically
[2023-02-07 09:52] VITALS: BP 130/72; PULSE 61; RESP 20; TEMP 36.2; O2SAT 100
[2023-02-07 10:07] VITALS: BP 136/74; PULSE 55; RESP 16; O2SAT 97
[2023-02-07 10:19] VITALS: BP 141/88; PULSE 56; RESP 16; TEMP 36.3; O2SAT 99
== END 2023-02-07 10:50 | disposition home or self-care (01) ==
PROVIDERS: PCP Internal Medicine Geriatric Medicine; Visit Provider Internal Medicine Gastroenterology
PROC: 0DJ08ZZ Inspection of Upper Intestinal Tract, Via Natural or Artificial Opening Endoscopic (ICD-10-PCS; CPT 43235; principal; 2023-02-07 10:00)
DX: C16.0 Malignant neoplasm of cardia (principal); D64.9 Anemia, unspecified; K75.81 Nonalcoholic steatohepatitis (NASH); K21.9 Gastro-esophageal reflux disease without esophagitis; K44.9 Diaphragmatic hernia without obstruction or gangrene; E78.00 Pure hypercholesterolemia, unspecified; E11.9 Type 2 diabetes mellitus without complications; Z79.51 Long term (current) use of inhaled steroids; Z79.84 Long term (current) use of oral hypoglycemic drugs; Z79.899 Other long term (current) drug therapy
CPT/HCPCS: 43239; 82947; 88305; 88342; 88360; J0171

== ENCOUNTER → 2023-02-07 08:20 | Outpatient (BNV) | payer OTHER, SELFPAY | PROVIDERS: PCP Internal Medicine Geriatric Medicine; Visit Provider Internal Medicine Gastroenterology | DX: D64.9 Anemia, unspecified (principal); I85.00 Esophageal varices without bleeding; C15.9 Malignant neoplasm of esophagus, unspecified | CPT/HCPCS: 43239 ==

== ENCOUNTER → 2023-02-13 11:34 | Outpatient (BNV) | payer OTHER, SELFPAY | PROVIDERS: PCP Internal Medicine Geriatric Medicine; Visit Provider Internal Medicine | DX: C15.9 Malignant neoplasm of esophagus, unspecified (principal) | CPT/HCPCS: 99202; 99204; 99213; 99214 ==

== ENCOUNTER 2023-02-18 11:28 | Outpatient (REF) | payer OTHER, SELFPAY ==
--- NOTE | ~2023-02-18 | CT_ITS ---
EXAMINATION: CT CHEST, ABDOMEN AND PELVIS WITH CONTRAST CLINICAL INFORMATION: Staging COMPARISON: CT chest 08/05/2015 and 06/28/2014 TECHNIQUE: Multidetector volumetric imaging was performed of the chest, abdomen and pelvis following administration of 100 mL Omnipaque 300 intravenous contrast. Oral contrast was administered. Sagittal and coronal reformatted images were obtained on the technologist's workstation. This CT examination was performed using dose optimization techniques as appropriate, variously including the following: *Automated exposure control *Adjustment of mA and/or kV according to patient size (this includes techniques or standardized protocols for targeted exams where dose is matched to indication/reason for exam; i.e. extremities or head) *Use of iterative reconstruction technique DLP: 459.02 mGy-cm FINDINGS: CHEST: CHEST WALL: Unremarkable. AXILLA: No lymphadenopathy. MEDIASTINUM: Heart is normal in size. No mediastinal lymphadenopathy. Mildly enlarged right hilar node measuring 1.3 cm short axis not convincingly changed from 06/28/2014. CORONARY ARTERY CALCIFICATION: Coronary artery calcification is present. PLEURA: There is no pleural effusion. LUNGS: Mild bronchial wall thickening suggesting airways inflammation. Calcified left lower lobe pulmonary granuloma. Mild paraseptal emphysema in the left lung base similar to prior. Bandlike left basilar opacities favoring atelectasis. Left upper lobe pulmonary micronodule unchanged from 2016 therefore likely benign. No new or enlarging pulmonary nodule. ABDOMEN AND PELVIS: ABDOMINAL AND PELVIC WALL: Unremarkable. LIVER AND BILIARY TREE: Hypoattenuating hepatic parenchyma compatible with hepatic steatosis. GALLBLADDER: Suspected possible tiny noncalcified gallstone, recommend confirmation with right upper quadrant ultrasound. PANCREAS: Unremarkable. SPLEEN: Calcified splenic granuloma. ADRENAL GLANDS: Unremarkable. KIDNEYS AND URETERS: Unremarkable. GASTROINTESTINAL TRACT: Colonic diverticulosis without evidence of diverticulitis. Moderate circumferential rectal wall thickening to 9 mm without surrounding inflammatory change. Normal appendix. VASCULAR: Unremarkable. LYMPH NODES: No lymphadenopathy. FREE FLUID: No free fluid. BLADDER: Unremarkable. PELVIC VISCERA: Unremarkable. OSSEOUS STRUCTURES: Status post L4-S1 posterior spinal fusion with L5 laminectomy. CT/CT abdomen pelvis w IV con IMPRESSION: * Mildly enlarged right hilar node measuring 1.3 cm short axis not convincingly changed from 06/28/2014, therefore considered unlikely to reflect metastatic disease. No new findings to suggest metastatic disease in the chest, abdomen or pelvis. * Moderate circumferential rectal wall thickening to 9 mm without surrounding inflammatory change, recommend correlation with any symptoms of proctitis and recommend correlation with current/recent screening colonoscopy to ensure no underlying lesion. * Hepatic steatosis. * Suspected possible tiny noncalcified gallstone, recommend confirmation with right upper quadrant ultrasound. * Mild bronchial wall thickening suggesting airways inflammation with mild paraseptal emphysema.
[2023-02-18] MEDS: Barium Sulfate Oral (Mocha) 450 ML ORAL.SUSP 900 ML PO (14:05)
[2023-02-18] MEDS: iohexoL 350 MG/ML 100 ML INFUS..BTL 85 ML IV (14:06)
== END 2023-02-18 11:29 | disposition home or self-care (01) ==
LOC: HO.CT 11:28
PROVIDERS: PCP Internal Medicine Geriatric Medicine; Visit Provider Internal Medicine
DX: C15.9 Malignant neoplasm of esophagus, unspecified (principal)
CPT/HCPCS: 71260; 74177; Q9967

== ENCOUNTER 2023-03-15 09:52 | Outpatient (AMB) | payer OTHER, SELFPAY ==
--- NOTE | 2023-03-15 10:12 | MHC.OFFVIS ---
Intake Vital Signs 03/15/23 10:17 Height 5 ft 8 in Weight 152 lb BMI 23.1 BP 134/64 Blood Pressure Location Lt brachial Position Sitting Pulse 67 Intake Visit Reasons: S/p egd Intake Note: Patient follow up for EGD results. Patient cc: seizures it is getting to difficult to going up stairs due the feet pain. Medical Library Assistant Required: Yes Medical Library Assistant Name: [facility] interpeter Accompanied by: Spouse Allergies No Known Allergies Allergy (Verified 03/15/23 10:06) HPI S/p egd HPI Details 67 yr old m here for f/u Hx from patient and ? RECAP- originally pt of patric: ? 2 main issues: ? MCCLELLAN with fibrosis (AST 45, ALT-48, nml bili, nml alk phos 01/2019) ? nml iron sat,ferritin ? neg Hep C 2008, neg GUS, neg Hep B ? GERD ? rept labs : 03/2021--nml LFT, neg SLA, neg GUS, borderline ferritin LABS: 01/2022-- nml LFt, mild low plts, mild low HGB Imaging: ? us 01/2019- steatosis, with fibrosis, F3 on labs US: ?03/2021-- steatosis, gallstone noted? ? ? US 2021- borderline stiffness, steatosis, EndO: colonoscopy 2018--one TA removed H pylori breath-- neg 2021 I did an EGD on him due to anemia and he had esophgeal adenoca, Onc referred for EUS and found to have T2N0 --plan is for chemo radiaiton and surgery CT scan with fatty liver and circumferential rectal thickening INTERIM: he denies dysphagia, anxious due to cancer dx appetite is good no nausea or vomiting no blood in stool or melena no blood in urine no blood from nose or gums no tenesmus ?? ? EXAM: GENERAL: The patient is well developed and nontoxic. VITAL SIGNS:see workflow HEENT: Nonicteric sclerae, PERRLA, EOMI. Oropharynx clear. Moist mucous membranes. Conjunctivae appear well perfused. No thyroid mass. CHEST: Chest wall is nontender. HEART: Regular rate and rhythm without murmurs. LUNGS: Clear to auscultation bilaterally. ABDOMEN: Soft, positive bowel sounds, nontender, no organomegaly.no flank tenderness SKIN: No rash, no excessive bruising, petechiae, or purpura. NEUROLOGIC: Cranial nerves II-XII intact without motor/sensory deficit. Assessments ? 1. Hepatic steatosis - possible early cirrhosis with low plts 2. Gastroesophageal reflux disease, controlled 3. Elevated liver function tests-stable ?4. mild anemia prob due to esophageal ca 5. Rectal thickening on CT, no symptoms PLAN: 1/ Colonoscopy next week before he starts chemorad and make sure no CRC 2/ Will send salty and kaileyjade [facility] Medical History (Updated 03/15/23 @ 10:49 by Jhonathan Oneill MD) Diabetes Elevated cholesterol GERD (gastroesophageal reflux disease) MCCLELLAN (nonalcoholic steatohepatitis) Surgical History History of esophagogastroduodenoscopy (EGD) Hx of colonoscopy Hx of shoulder surgery Hx of shoulder surgery Family History Brother Diabetes Prostate CA Sister Diabetes Brother Heart attack Social History Household Members: Spouse Housing: House Alcohol intake: never Patient Tobacco Use Status: Former Tobacco user Tobacco use type: Cigarette service: No Current occupational status: disabled 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
[2023-03-15 10:17] VITALS: BP 134/64; PULSE 67; BMI 23.1
== END 2023-03-15 10:49 | disposition home or self-care (01) ==
PROVIDERS: Visit Provider Internal Medicine Gastroenterology
DX: C15.9 Malignant neoplasm of esophagus, unspecified (principal); K62.9 Disease of anus and rectum, unspecified
CPT/HCPCS: 99213

== ENCOUNTER → 2023-03-15 09:52 | Outpatient (BNVA) | payer OTHER, SELFPAY | PROVIDERS: Visit Provider Internal Medicine Gastroenterology | DX: C15.9 Malignant neoplasm of esophagus, unspecified (principal); K62.9 Disease of anus and rectum, unspecified | CPT/HCPCS: 99212 ==

== ENCOUNTER 2023-03-19 13:54 | Day surgery (SDC) | payer OTHER, SELFPAY ==
--- NOTE | 2023-03-19 14:12 | HO.ANESPROP2 ---
HPI - Anesthesia Eval Consult details Narrative: Colonoscopy PMFSH Active Problems Active Problems: All Active Problems (Updated 03/15/23 @ 10:49 by Jhonathan Oneill MD) Rectal abnormality (Acute) Esophageal cancer (Acute) Nonalcoholic steatohepatitis (MCCLELLAN) (Acute) Dupuytren's disease of palm of left hand (Acute) Stiffness of left hand joint (Acute) Past Medical History Medical History (Updated 03/15/23 @ 10:49 by Jhonathan Oneill MD) Diabetes Elevated cholesterol GERD (gastroesophageal reflux disease) MCCLELLAN (nonalcoholic steatohepatitis) Family History Family History Brother Diabetes Prostate CA Sister Diabetes Brother Heart attack Family history of problems with anesthesia: No Surgical History Surgical History History of esophagogastroduodenoscopy (EGD) Hx of colonoscopy Hx of shoulder surgery Hx of shoulder surgery History of Problems with Anesthesia: No Social History Social History Household Members: Spouse Housing: House Alcohol intake: never Patient Tobacco Use Status: Former Tobacco user Tobacco use type: Cigarette Advance Directives: No Advance Directives Information Provided: Yes service: No Current occupational status: disabled 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 Meds Allergies Allergy/AdvReac Type Severity Reaction Status Date / Time No Known Allergies Allergy Verified 03/15/23 10:06 Home Medications Medication Instructions Recorded Confirmed Last Taken Type fluticasone propionate 115 2 puff inhalation BID 10/30/21 03/11/23 Unknown History mcg-salmeterol 21 mcg/actuation HFA inhaler (Advair HFA) glipizide 10 mg tablet 10 mg PO BID 10/30/21 03/11/23 Unknown History ibuprofen 800 mg tablet 800 mg PO TID PRN low back pain 10/30/21 03/11/23 Unknown History lancets 33 gauge (TRUEplus Lancets) #100 ea 10/30/21 03/11/23 Unknown History rosuvastatin 20 mg tablet 20 mg PO BEDTIME 10/30/21 03/11/23 Unknown History zonisamide 100 mg capsule 100 mg PO BID 10/30/21 03/11/23 Unknown History sildenafil 50 mg tablet (Viagra) 50 mg PO DAILY PRN Erectile 12/27/21 03/11/23 Unknown History Dysfunction albuterol sulfate 90 mcg/actuation 90 mcg inhalation Q4H PRN Wheezing 11/19/22 03/11/23 Unknown History aerosol inhaler cyanocobalamin (vitamin B-12) 1,000 mcg sublingual DAILY 11/19/22 03/11/23 Unknown History 1,000 mcg sublingual tablet metformin 500 mg tablet,extended 1,000 mg PO BID 11/19/22 03/11/23 Unknown History release 24 hr Exam Exam Date and Time: March 19, 2023 1412 Airway Mallampati Class: II TM Dist: >3cm Neck ROM: Limited Heart: rrr Lungs: cta Assessment and Plan Assessment Anesthesia Assessment: Anesthesia Plan Discussed and Chart Reviewed Final Anesthetic Review Family History of Problems with Anesthesia: No History of Problems with Anesthesia: No NPO: Yes ASA Class: III Final Preanesthetic Review: No Changes in Pt Med Stat, Meds/Allgs Chart Reviewed, Consent Obtained/Reviewed and Anes Risks/Benef Reviewed Patient Risk: Intermediate Procedure Risk: Low Anesthetic Plan Anesthetic Plan: MAC: and Agree w/ Assess. and Plan Disposition: Standard PACU
[2023-03-19 14:21] VITALS: BP 126/63; PULSE 50; RESP 18; TEMP 36.2; O2SAT 98; BMI 21.4
[2023-03-19 14:24] LABS: Glucose, Whole Blood 90 mg/dL (60-115)
--- NOTE | 2023-03-19 15:07 | PC.NURSE ---
Report given to Kimberlyn BURRU RN.
--- NOTE | 2023-03-19 15:10 | MHC.SHP ---
Pre-Procedural Eval Section A Date of Service: 03/19/23 The patient is an INPATIENT: No The History & Physical has been completed within 30 days and I have reviewed it.: Yes Section B Chief Complaint: Disease of anus and rectum, unspecified Allergies: Allergies Allergy/AdvReac Type Severity Reaction Status Date / Time No Known Allergies Allergy Verified 03/15/23 10:06 Plan Diagnosis/Plan: Unchanged I have reviewed the history and physical and performed a pertinent physical examination on my patient. No changes have occurred unless specified. Time Spent With Patient Time: Total time managing care of this patient today ____ minutes.
--- NOTE | 2023-03-19 15:15 | W.PM.OPN ---
Operative Note Operative Note Date of Service: 03/19/23 Narrative: Operative Information Procedure Description: Colonoscopy Indication: abn imaging Anesthesia: MAC COLONOSCOPY Instrument: Olympus variable stiffness pediatric scope 190L Colonoscopy Monitoring: Vital signs and clinical assessment, continuous EKG monitoring, Pulse oximetry, Carbon Dioxide monitoring and blood pressure monitoring were done throughout the procedure. Colon withdrawal time was 6 minutes. Procedure: The patient was placed in the left lateral decubitis position and pre-procedure medications were administered. After a digital rectal examination of the ano-rectum, the video colonoscope was inserted into the rectum and advanced through the colon to the cecum/TI. The colonoscope was slowly withdrawn in a retrograde panoramic fashion and the colon mucosa was carefully examined including a retroflexed view of the rectum. Findings and interventions are described below. Procedure Difficulty: easy Findings: Terminal Ileum-normal Cecum:normal Ascending Colon: normal Transverse Colon - x2 sessile polyps removed with cold snare, one was 4-6 mm and the other was 9-10 mm Descending Colon:normal Sigmoid Colon: normal Rectum: Retroflexion with small internal hemorrhoids, grade I Anorectum - normal Colon preparation: Hannacroix Bowel Preparation Scale Right colon; 2 Transverse colon: 3 Left colon; 3 (0 = Unprepared colon segment with mucosa not seen due to solid stool that cannot be cleared. 1 = Portion of mucosa of the colon segment seen, but other areas of the colon segment not well seen due to staining, residual stool and/or opaque liquid. 2 = Minor amount of residual staining, small fragments of stool and/or opaque liquid, but mucosa of colon segment seen well. 3 = Entire mucosa of colon segment seen well with no residual staining, small fragments of stool or opaque liquid) Impression and Post Procedure Diagnosis: polyps internal hemorrhoids Plan: High fiber diet leaflet Avoid straining at stool, epsom salts and sitz bath, anusol supps or cream Repeat Colonoscopy in 5-6 years due to adenomatous appearing polyps or earlier if clinically indicated Above findings were reviewed with the patient and relevant handouts were provided if indicated.
[2023-03-19 15:55] VITALS: BP 111/61; PULSE 56; RESP 12; TEMP 36.6; O2SAT 98
[2023-03-19 16:10] VITALS: BP 111/61; BP 130/63; PULSE 56; PULSE 57; RESP 12; RESP 14; TEMP 36.6; O2SAT 98
== END 2023-03-19 16:46 | disposition home or self-care (01) ==
PROVIDERS: PCP Internal Medicine Geriatric Medicine; Visit Provider Internal Medicine Gastroenterology
PROC: 0DJD8ZZ Inspection of Lower Intestinal Tract, Via Natural or Artificial Opening Endoscopic (ICD-10-PCS; CPT 45378; principal; 2023-03-19 15:20)
DX: K62.9 Disease of anus and rectum, unspecified (principal); K63.5 Polyp of colon; K64.0 First degree hemorrhoids; K75.81 Nonalcoholic steatohepatitis (NASH); K74.00 Hepatic fibrosis, unspecified; C15.9 Malignant neoplasm of esophagus, unspecified; K21.9 Gastro-esophageal reflux disease without esophagitis; E11.9 Type 2 diabetes mellitus without complications; E78.00 Pure hypercholesterolemia, unspecified; Z79.51 Long term (current) use of inhaled steroids; Z79.84 Long term (current) use of oral hypoglycemic drugs; Z79.899 Other long term (current) drug therapy; Z87.891 Personal history of nicotine dependence
CPT/HCPCS: 45385; 82947; 88305; J2250

== ENCOUNTER → 2023-03-19 13:54 | Outpatient (BNV) | payer OTHER, SELFPAY | PROVIDERS: PCP Internal Medicine Geriatric Medicine; Visit Provider Internal Medicine Gastroenterology | DX: R93.3 Abnormal findings on diagnostic imaging of other parts of digestive tract (principal); D12.3 Benign neoplasm of transverse colon; K64.8 Other hemorrhoids | CPT/HCPCS: 45385 ==

== ENCOUNTER 2023-04-12 12:03 | Outpatient (AMB) | payer OTHER, SELFPAY ==
--- NOTE | 2023-04-12 12:07 | A.OFFVIS_ITS ---
Intake Vital Signs 04/12/23 12:08 Height 5 ft 8 in Weight 152 lb 8.958 oz BMI 23.2 BP 115/69 Blood Pressure Location Lt brachial Position Sitting Pulse 68 Intake Visit Reasons: S/P [place]; Dr. Oneill Intake Note: Patient presents to in office visit today in follow up of colonoscopy. Pt denies having any GI concerns today. Allergies No Known Allergies Allergy (Verified 03/15/23 10:06) HPI S/P [place]; Dr. Oneill HPI Details 67 yr old m here for f/u Hx from patient and ? RECAP- originally pt of patric: ? 2 main issues: ? MCCLELLAN with fibrosis (AST 45, ALT-48, nml bili, nml alk phos 01/2019) ? nml iron sat,ferritin ? neg Hep C 2008, neg GUS, neg Hep B ? GERD ? rept labs : 03/2021--nml LFT, neg SLA, neg GUS, borderline ferritin LABS: 01/2022-- nml LFt, mild low plts, mild low HGB Imaging: ? us 01/2019- steatosis, with fibrosis, F3 on labs US: ?03/2021-- steatosis, gallstone noted? ? ? US 2021- borderline stiffness, steatosis, EndO: colonoscopy 2018--one TA removed H pylori breath-- neg 2021 I did an EGD on him due to anemia and he had esophgeal adenoca, Onc referred for EUS and found to have T2N0 --plan is for chemo radiaiton and surgery CT scan with fatty liver and circumferential rectal thickening colonoscopy-03/19-- no cancer, small polyp removed INTERIM: he is fatigued, saw [facility], plan for chmeo vs surgery first --uncertain he denies dysphagia, appetite is good no nausea or vomiting no blood in stool or melena no blood in urine no blood from nose or gums no tenesmus ?? ? EXAM: GENERAL: The patient is well developed and nontoxic. VITAL SIGNS:see workflow HEENT: Nonicteric sclerae, PERRLA, EOMI. Oropharynx clear. Moist mucous membranes. Conjunctivae appear well perfused. No thyroid mass. CHEST: Chest wall is nontender. HEART: Regular rate and rhythm without murmurs. LUNGS: Clear to auscultation bilaterally. ABDOMEN: Soft, positive bowel sounds, nontender, no organomegaly.no flank tenderness SKIN: No rash, no excessive bruising, petechiae, or purpura. NEUROLOGIC: Cranial nerves II-XII intact without motor/sensory deficit. Assessments ? 1. Hepatic steatosis - possible early ci rrhosis with low plts--stable 2. Gastroesophageal reflux disease, cont rolled 3. stable LFT ?4. mild anemia prob due to esophageal ca 5. Rectal thickening on CT, no symptoms- -no rectal masses etc on colonoscopy PLAN: 1/ f/u 6-12 months for NAFLD 2/ get notes from [facility] re-plans for cancer treatment [facility] Medical History MCCLELLAN (nonalcoholic steatohepatitis) Elevated cholesterol Diabetes GERD (gastroesophageal reflux disease) Surgical History Hx of shoulder surgery Hx of shoulder surgery History of esophagogastroduodenoscopy (EGD) Hx of colonoscopy Family History Brother Diabetes Prostate CA Sister Diabetes Brother Heart attack Social History Household Members: Spouse Housing: House Are you a primary laboratory animal caretaker to a significant other at home: No Do you presently have visiting nurse or other home services: No Alcohol intake: never Patient Tobacco Use Status: Former Tobacco user Tobacco use type: Cigarette service: No Current occupational status: disabled 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
[2023-04-12 12:08] VITALS: BP 115/69; PULSE 68; BMI 23.2
== END 2023-04-12 12:53 | disposition home or self-care (01) ==
PROVIDERS: PCP Internal Medicine Geriatric Medicine; Visit Provider Internal Medicine Gastroenterology
DX: C15.9 Malignant neoplasm of esophagus, unspecified (principal); K75.81 Nonalcoholic steatohepatitis (NASH)
CPT/HCPCS: 99213

== ENCOUNTER → 2023-04-12 12:03 | Outpatient (BNVA) | payer OTHER, SELFPAY | PROVIDERS: PCP Internal Medicine Geriatric Medicine; Visit Provider Internal Medicine Gastroenterology | DX: C15.9 Malignant neoplasm of esophagus, unspecified (principal); K75.81 Nonalcoholic steatohepatitis (NASH) | CPT/HCPCS: 99212 ==

== ENCOUNTER 2023-05-27 09:08 | Outpatient (AMB) | payer OTHER, SELFPAY ==
--- NOTE | 2023-05-27 09:16 | A.OFFVIS_ITS ---
Intake Vital Signs 05/27/23 09:20 Height 5 ft 8 in Weight 141 lb 1.533 oz BMI 21.5 BP 105/67 Blood Pressure Location Lt brachial Position Sitting Pulse 67 Intake Visit Reasons: 1 month fu Intake Note: George presents in the office as a 1 month follow up. CC: His medications for now are on hold due to his last EGD perforation. She states that he is taking Metformin and Seizure Meds. He is doing okay just waiting for pathology results. Allergies No Known Allergies Allergy (Verified 05/27/23 09:21) HPI 1 month fu HPI Details 67 yr old m here for f/u Hx from patient and ? RECAP- originally pt of patric: ? 2 main issues: ? MCCLELLAN with fibrosis (AST 45, ALT-48, nml bili, nml alk phos 01/2019) ? nml iron sat,ferritin ? neg Hep C 2008, neg GUS, neg Hep B ? GERD ? rept labs : 03/2021--nml LFT, neg SLA, neg GUS, borderline ferritin LABS: 01/2022-- nml LFt, mild low plts, mild low HGB Imaging: ? us 01/2019- steatosis, with fibrosis, F3 on labs US: ?03/2021-- steatosis, gallstone noted? ? ? US 2021- borderline stiffness, steatosis, EndO: colonoscopy 2018--one TA removed H pylori breath-- neg 2021 I did an EGD on him due to anemia and he had esophgeal adenoca, Onc referred for EUS and found to have T2N0 --plan is for chemo radiaiton and surgery CT scan with fatty liver and circumferential rectal thickening colonoscopy-03/19-- no cancer, small polyp removed INTERIM: sounds like he had ESD for removal of the esophgeal ca but had a small perf he is recovering nicely right now he is only on liquids right now no nausea or vomiting no chest pain or abdominal pain per path there was extension into one of the the lateral mucosal margins on path EXAM: GENERAL: The patient is well developed and nontoxic. VITAL SIGNS:see workflow HEENT: Nonicteric sclerae, PERRLA, EOMI. Oropharynx clear. Moist mucous membranes. Conjunctivae appear well perfused. No thyroid mass. CHEST: Chest wall is nontender. HEART: Regular rate and rhythm without murmurs. LUNGS: Clear to auscultation bilaterally. ABDOMEN: Soft, positive bowel sounds, nontender, no organomegaly.no flank tenderness SKIN: No rash, no excessive bruising, petechiae, or purpura. NEUROLOGIC: Cranial nerves II-XII intact without motor/sensory deficit. Assessments ? 1. Hepatic steatosis - possible early ci rrhosis with low plts--stable 2. Gastroesophageal reflux disease, cont rolled 3. stable LFT? 4. mild anemia prob due to esophageal ca 5. Rectal thickening on CT, no symptoms- -no rectal masses etc on colonoscopy 6. esophageal adenoca with ESD, small fo cus at the margins PLAN: 1/ f/u 6-12 months for NAFLD 2/ f/u with [facility] for ca ---?might ne ed f/u EGD and resection or imaging PFSH Medical History MCCLELLAN (nonalcoholic steatohepatitis) Elevated cholesterol Diabetes GERD (gastroesophageal reflux disease) Surgical History Hx of shoulder surgery Hx of shoulder surgery History of esophagogastroduodenoscopy (EGD) Hx of colonoscopy Family History Brother Diabetes Prostate CA Sister Diabetes Brother Heart attack Social History Household Members: Spouse Housing: House Are you a primary health care facility administrator to a significant other at home: No Do you presently have visiting nurse or other home services: No Alcohol intake: never Patient Tobacco Use Status: Former Tobacco user Tobacco use type: Cigarette service: No Current occupational status: disabled 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
[2023-05-27 09:20] VITALS: BP 105/67; PULSE 67; BMI 21.5
== END 2023-05-27 09:59 | disposition home or self-care (01) ==
PROVIDERS: Visit Provider Internal Medicine Gastroenterology
DX: C15.9 Malignant neoplasm of esophagus, unspecified (principal); K75.81 Nonalcoholic steatohepatitis (NASH)
CPT/HCPCS: 99213

== ENCOUNTER → 2023-05-27 09:08 | Outpatient (BNVA) | payer OTHER, SELFPAY | PROVIDERS: Visit Provider Internal Medicine Gastroenterology | DX: K75.81 Nonalcoholic steatohepatitis (NASH) (principal); C15.9 Malignant neoplasm of esophagus, unspecified | CPT/HCPCS: 99212 ==

== ENCOUNTER 2023-11-18 08:50 | Outpatient (AMB) | payer OTHER, SELFPAY ==
--- NOTE | 2023-11-18 08:55 | MHC.OFFVIS ---
Vital Signs 11/18/23 08:56 Height 5 ft 8 in Weight 127 lb 13.89 oz BMI 19.4 BP 105/60 Blood Pressure Location Lt brachial Position Sitting Pulse 62 Intake Visit Reasons: 6 month follow up Intake Note: George presents in the office as a 6 month follow up. CC: States he had a surgery in [facility]. He is losing weight and states that he complains of pains in his stomach whe it is full. 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 Oropharynx clear. Moist mucous membranes. Conjunctivae appear well perfused. No thyroid mass. CHEST: Chest wall is nontender. HEART: Regular rate and rhythm without murmurs. LUNGS: Clear to auscultation bilaterally. ABDOMEN: Soft, positive bowel sounds, nontender, no organomegaly.no flank tenderness SKIN: No rash, no excessive bruising, petechiae, or purpura. NEUROLOGIC: Cranial nerves II-XII intact without motor/sensory deficit. Psych: seems low affect A?P: 1/ Esophgeal cancer s/p distal esophagectomy --seems to be low mood, might have gastroparesis, unfortunately I looked at marinol and mirtazpeine, both might affect his zonisamide (had issues with seizure control after surgery) PLAN: 1/ GES and if pos maybe trial of motegrity 2/ offered psych referral but refuses 3/ Might have to consider d/w neuro about using marinol etc PFSH Medical History MCCLELLAN (nonalcoholic steatohepatitis) Elevated cholesterol Diabetes GERD (gastroesophageal reflux disease) Surgical History Hx of shoulder surgery Hx of shoulder surgery History of esophagogastroduodenoscopy (EGD) Hx of colonoscopy Family History Brother Diabetes Prostate CA Sister Diabetes Brother Heart attack Social History Household Members: Spouse Housing: House Are you a primary resident care assistant to a significant other at home: No Do you presently have visiting nurse or other home services: No Alcohol intake: never Patient Tobacco Use Status: Former Tobacco user Tobacco use type: Cigarette service: No Current occupational status: disabled 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 Physical Exam Vital Signs: Last Vital Signs Pulse 62 11/18/23 08:56 BP 105/60 11/18/23 08:56 BMI result Body Mass Index 19.4 Assessment & Plan Assessment & Plan (1) Esophageal cancer: Code(s): C15.9 - Malignant neoplasm of esophagus, unspecified Category: Medical Plan: see above Orders: Orders NM gastric emptying study Today R68.81 - Early satiety Medications: Discontinued cholecalciferol (vitamin D3) (Vitamin D3) Discontinued Reason: Patient Completed Course 25 mcg PO QAM 30 caps 4RF cyanocobalamin (vitamin B-12) Discontinued Reason: Patient Completed Course 1,000 mcg sublingual DAILY 90 tabs 1RF
[2023-11-18 08:56] VITALS: BP 105/60; PULSE 62; BMI 19.4
== END 2023-11-18 09:32 | disposition home or self-care (01) ==
PROVIDERS: PCP Internal Medicine Geriatric Medicine; Visit Provider Internal Medicine Gastroenterology
DX: C15.9 Malignant neoplasm of esophagus, unspecified (principal)
CPT/HCPCS: 99213

== ENCOUNTER → 2023-11-18 08:50 | Outpatient (BNVA) | payer OTHER, SELFPAY | PROVIDERS: PCP Internal Medicine Geriatric Medicine; Visit Provider Internal Medicine Gastroenterology | DX: C15.9 Malignant neoplasm of esophagus, unspecified (principal); R68.81 Early satiety | CPT/HCPCS: 99212 ==

== ENCOUNTER 2023-12-12 10:00 | Outpatient (REF) | payer OTHER, SELFPAY ==
--- NOTE | ~2023-12-12 | XR_ITS ---
EXAMINATION: XR CHEST CLINICAL INFORMATION: Several day history of productive cough and fever COMPARISON: CT chest 02/18/2023 and chest radiograph 10/09/2018 TECHNIQUE: 2 views of the chest were obtained. FINDINGS: The heart and pulmonary vessels appear normal. There is no evidence of CHF The configuration of the hemidiaphragms is slightly different in a bit more flattened than seen previously and small subpulmonic pleural effusions cannot be excluded. Bibasilar atelectasis is seen, left greater than right. An early infiltrate at the left lung base cannot be excluded. No gross consolidation with air bronchograms. No lung masses or pneumothorax. XR/XR chest 2V IMPRESSION: Bibasilar atelectasis, left greater than right. An early infiltrate at the left lung base cannot be excluded.
== END 2023-12-12 10:01 | disposition home or self-care (01) ==
LOC: HO.HHCX 10:00
PROVIDERS: Visit Provider Emergency Medicine
DX: R68.89 Other general symptoms and signs (principal); J45.21 Mild intermittent asthma with (acute) exacerbation
CPT/HCPCS: 71046

== ENCOUNTER 2024-03-02 09:44 | Day surgery (SDC) | payer OTHER, SELFPAY ==
[2024-02-25 14:51] VITALS: BMI 19.3
--- NOTE | 2024-02-27 15:39 | P.CONAN_ITS ---
Documented by User: Linda Brown NP 02/27/24 15:39 HPI - Anesthesia Eval Consult details Narrative: 68yo M for Right Cataract Extraction IOL Insertion No previous cataract on record PMFSH Active Problems Active Problems: All Active Problems (Updated 02/25/24 @ 14:44 by Lalita Romano RN) Rectal abnormality (Acute) Esophageal cancer (Acute) Stiffness of left hand joint (Acute) Dupuytren's disease of palm of left hand (Acute) Nonalcoholic steatohepatitis (MCCLELLAN) (Acute) Past Medical History Medical History Seizures MCCLELLAN (nonalcoholic steatohepatitis) Elevated cholesterol Diabetes GERD (gastroesophageal reflux disease) Family History Family History Brother Diabetes Prostate CA Sister Diabetes Brother Heart attack Family history of problems with anesthesia: No Surgical History Surgical History History of surgery of head History of back surgery Hx of shoulder surgery Hx of shoulder surgery History of esophagogastroduodenoscopy (EGD) Hx of colonoscopy History of Problems with Anesthesia: No Social History Social History Household Members: Spouse Housing: House Are you a primary neonatal critical care nurse to a significant other at home: No Do you presently have visiting nurse or other home services: No Alcohol intake: never Patient Tobacco Use Status: Former Tobacco user Tobacco use type: Cigarette Advance Directives: No (unknown) Advance Directives Information Provided: Yes service: No Current occupational status: disabled 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 Meds Allergies Allergy/AdvReac Type Severity Reaction Status Date / Time No Known Allergies Allergy Verified 03/02/24 11:23 Home Medications ?Medication ?Instructions ?Recorded ?Confirmed ?Last Taken ?Type fluticasone propionate 115 2 puff inhalation BID 10/30/21 02/25/24 Unknown History mcg-salmeterol 21 mcg/actuation HFA inhaler (Advair HFA) lancets 33 gauge (TRUEplus Lancets) #100 ea 10/30/21 02/25/24 Unknown History sildenafil 50 mg tablet (Viagra) 50 mg PO DAILY PRN Erectile 12/27/21 02/25/24 Unknown History Dysfunction albuterol sulfate 90 mcg/actuation 90 mcg inhalation Q4H PRN Wheezing 11/19/22 02/25/24 Unknown History aerosol inhaler glipizide 5 mg tablet 5 mg PO BID 04/12/23 02/25/24 Unknown History zonisamide 100 mg capsule 300 mg PO QAM 11/18/23 02/25/24 03/02/24 History metformin 500 mg tablet,extended 500 mg PO BID 02/25/24 02/25/24 Unknown History release 24 hr metoprolol tartrate 25 mg tablet 25 mg PO BID 02/25/24 02/25/24 03/02/24 History Exam Height,Weight and Vital Signs: Height 5 ft 8 in Weight 57.606 kg Assessment and Plan Assessment Anesthesia Assessment: Chart Reviewed Final Anesthetic Review Family History of Problems with Anesthesia: No History of Problems with Anesthesia: No Documented by User: Kamila Ley MD 03/02/24 12:01 [facility] Past Medical History Medical History Seizures MCCLELLAN (nonalcoholic steatohepatitis) Elevated cholesterol Diabetes GERD (gastroesophageal reflux disease) Family History Family History Brother Diabetes Prostate CA Sister Diabetes Brother Heart attack Surgical History Surgical History History of surgery of head History of back surgery Hx of shoulder surgery Hx of shoulder surgery History of esophagogastroduodenoscopy (EGD) Hx of colonoscopy Social History Social History Household Members: Spouse Housing: House Are you a primary neonatal critical care nurse to a significant other at home: No Do you presently have visiting nurse or other home services: No Alcohol intake: never Patient Tobacco Use Status: Former Tobacco user Tobacco use type: Cigarette Advance Directives: No (unknown) Advance Directives Information Provided: Yes service: No Current occupational status: disabled 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 Meds Allergies Allergy/AdvReac Type Severity Reaction Status Date / Time No Known Allergies Allergy Verified 03/02/24 11:23 Home Medications ?Medication ?Instructions ?Recorded ?Confirmed ?Last Taken ?Type fluticasone propionate 115 2 puff inhalation BID 10/30/21 02/25/24 Unknown History mcg-salmeterol 21 mcg/actuation HFA inhaler (Advair HFA) lancets 33 gauge (TRUEplus Lancets) #100 ea 10/30/21 02/25/24 Unknown History sildenafil 50 mg tablet (Viagra) 50 mg PO DAILY PRN Erectile 12/27/21 02/25/24 Unknown History Dysfunction albuterol sulfate 90 mcg/actuation 90 mcg inhalation Q4H PRN Wheezing 11/19/22 02/25/24 Unknown History aerosol inhaler glipizide 5 mg tablet 5 mg PO BID 04/12/23 02/25/24 Unknown History zonisamide 100 mg capsule 300 mg PO QAM 11/18/23 02/25/24 03/02/24 History metformin 500 mg tablet,extended 500 mg PO BID 02/25/24 02/25/24 Unknown History release 24 hr metoprolol tartrate 25 mg tablet 25 mg PO BID 02/25/24 02/25/24 03/02/24 History Exam Airway Mallampati Class: II TM Dist: >3cm Neck ROM: Full Heart: rrr Lungs: cta Assessment and Plan Assessment Anesthesia Assessment: Anesthesia Plan Discussed Final Anesthetic Review NPO: Yes ASA Class: III Final Preanesthetic Review: No Changes in Pt Med Stat, Meds/Allgs Chart Reviewed, Consent Obtained/Reviewed and Anes Risks/Benef Reviewed Patient Risk: Intermediate Procedure Risk: Low Anesthetic Plan Anesthetic Plan: MAC: Disposition: Standard PACU
[2024-03-02 11:24] VITALS: BP 139/64; PULSE 46; RESP 16; TEMP 36.4; O2SAT 96
[2024-03-02] MEDS: Cyclopentolate 1 % Ophth Sol 2 ML DRPBTL 1 DROP EYE-RIGHT ×3 (11:32→11:43)
[2024-03-02] MEDS: Tetracaine HCl/PF 0.5% Oph Sol 4 ML DROPS 1 DROP EYE-RIGHT (11:32)
[2024-03-02] MEDS: Tropicamide 1 % Ophth Sol 3 ML BTL 1 DROP EYE-RIGHT ×3 (11:34→11:44)
[2024-03-02] MEDS: Ketorolac Tromethamine 0.5% Op 10 ML DROPS 1 DROP EYE-RIGHT ×3 (11:35→11:45)
[2024-03-02] MEDS: Phenylephrine HCL 2.5% Oph SoL 2 ML BOTTLE 1 DROP EYE-RIGHT ×3 (11:36→11:47)
[2024-03-02] MEDS: Lactated Ringers 500 ML 50 ML IV (11:48)
[2024-03-02 11:54] LABS: Glucose, Whole Blood 85 mg/dL (60-115)
--- NOTE | 2024-03-02 12:37 | P.PCNO_ITS ---
Ophthalmology Procedure Procedure Date of Service: 03/02/24 Ophthalmology Viscoelastic: Healon Duet Dual Pack Pro Ophthalmology Lenses: IOL Acrysof MP - [id number] (23.5) Procedure Notes: PREOPERATIVE DIAGNOSIS: Decreased visual acuity right eye secondary to cataract POSTOPERATIVE DIAGNOSIS: Same PROCEDURE: Right cataract extraction with intraocular lens insertion SURGEON: Kamran Ca M.D. ANESTHESIA: Topical/MAC ESTIMATED BLOOD LOSS: None COMPLICATIONS: None After obtaining informed consent, the patient was brought to the operating room suite and placed in the supine position. After adequate sedation per anesthesia, topical drops of Tetracaine were given to the right eye. The eye was then prepped and draped in the usual sterile fashion. The operating room microscope was then positioned over the operative eye and a lid speculum placed. A paracentesis was created. Viscoelastic was then instilled into the anterior chamber. A three plane incision was then created temporally, utilizing a 2.85 mm keratome. Capsulotomy forceps were then utilized to create a circular tear capsulotomy. Hydrodissection and hydrodelineation were carried out until adequate mobilization of the nucleus occurred. Phacoemulsification was then utilized to remove the dense central nu cleus followed by removal of the cortical material utilizing the automated aspiration irrigation unit. Viscoelastic was instilled into the posterior capsular bag followed by placement of a posterior chamber intraocular lens without difficulty. The residual Viscoelastic was then removed utilizing the automated IA machine. The wound was checked and found to be watertight. The patient tolerated the procedure well and the lid speculum was removed. Intracameral injection of Vigamox 0.1 mL followed by a subtenon injection of Kenalog-40 0.2 mL were administered. The patient will be seen in the a.m.
--- NOTE | 2024-03-02 12:37 | MHC.SHP ---
Pre-Procedural Eval Section A - 24 Hr Update-Section A only Date of Service: 03/02/24 The patient is an INPATIENT: No Changes since office visit: No Cold of Flu in the past 2 weeks, No New Medical Problems, No Changes in Medication and No Patient answered all questions The patient has been examined within 24 hours of the surgical procedure. The History & Physical has been completed within 30 days and I have reviewed it.: Yes Section B - Complete if H&P > 30 days Chief Complaint: Age-related nuclear cataract, right eye Allergies: Allergies Allergy/AdvReac Type Severity Reaction Status Date / Time No Known Allergies Allergy Verified 03/02/24 11:23 Plan Diagnosis/Plan: Unchanged I have reviewed the history and physical and performed a pertinent physical examination on my patient. No changes have occurred unless specified. Time Spent With Patient Time: Total time managing care of this patient today ____ minutes.
[2024-03-02 13:10] VITALS: BP 139/63; PULSE 46; RESP 16; TEMP 36.3; O2SAT 98
== END 2024-03-02 13:20 | disposition home or self-care (01) ==
PROVIDERS: PCP Internal Medicine Geriatric Medicine; Visit Provider Ophthalmology
PROC: (CPT 66985; principal; 2024-03-02 12:10)
DX: H25.11 Age-related nuclear cataract, right eye (principal); H52.4 Presbyopia; Z83.511 Family history of glaucoma; H18.413 Arcus senilis, bilateral; H11.153 Pinguecula, bilateral; C15.9 Malignant neoplasm of esophagus, unspecified; E11.9 Type 2 diabetes mellitus without complications; E78.00 Pure hypercholesterolemia, unspecified; J45.909 Unspecified asthma, uncomplicated; R56.9 Unspecified convulsions; K21.9 Gastro-esophageal reflux disease without esophagitis; Z79.51 Long term (current) use of inhaled steroids; Z79.84 Long term (current) use of oral hypoglycemic drugs; Z79.899 Other long term (current) drug therapy; Z98.890 Other specified postprocedural states; Z87.891 Personal history of nicotine dependence
CPT/HCPCS: 66984; 82947; J2250; J3010; J3301; V2630

== ENCOUNTER 2024-03-16 08:51 | Day surgery (SDC) | payer OTHER, SELFPAY ==
[2024-02-25 14:55] VITALS: BMI 19.3
--- NOTE | 2024-03-12 12:45 | P.CONAN_ITS ---
Documented by User: Linda Brown NP 03/12/24 12:46 HPI - Anesthesia Eval Consult details Narrative: 68yo M for Left Cataract Extraction IOL Insertion Right eye 03/02/24: [facility] 2 PMFSH Active Problems Active Problems: All Active Problems Rectal abnormality (Acute) Esophageal cancer (Acute) Stiffness of left hand joint (Acute) Dupuytren's disease of palm of left hand (Acute) Nonalcoholic steatohepatitis (MCCLELLAN) (Acute) Past Medical History Medical History Seizures MCCLELLAN (nonalcoholic steatohepatitis) Elevated cholesterol Diabetes GERD (gastroesophageal reflux disease) Family History Family History Brother Diabetes Prostate CA Sister Diabetes Brother Heart attack Family history of problems with anesthesia: No Surgical History Surgical History History of surgery of head History of back surgery Hx of shoulder surgery Hx of shoulder surgery History of esophagogastroduodenoscopy (EGD) Hx of colonoscopy History of Problems with Anesthesia: No Social History Social History Household Members: Spouse Housing: House Are you a primary critical care clinical nurse specialist to a significant other at home: No Do you presently have visiting nurse or other home services: No Alcohol intake: never Patient Tobacco Use Status: Former Tobacco user Tobacco use type: Cigarette Use of substances other than those prescribed or required for medical reasons: No Are you DNR?: No Advance Directives: No (unknown) Advance Directives Information Provided: Yes service: No Current occupational status: disabled 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 Meds Allergies Allergy/AdvReac Type Severity Reaction Status Date / Time No Known Allergies Allergy Verified 03/16/24 09:34 Home Medications ?Medication ?Instructions ?Recorded ?Confirmed ?Last Taken ?Type fluticasone propionate 115 2 puff inhalation BID 10/30/21 03/16/24 Unknown History mcg-salmeterol 21 mcg/actuation HFA inhaler (Advair HFA) lancets 33 gauge (TRUEplus Lancets) #100 ea 10/30/21 03/16/24 Unknown History sildenafil 50 mg tablet (Viagra) 50 mg PO DAILY PRN Erectile 12/27/21 03/16/24 Unknown History Dysfunction albuterol sulfate 90 mcg/actuation 90 mcg inhalation Q4H PRN Wheezing 11/19/22 03/16/24 Unknown History aerosol inhaler glipizide 5 mg tablet 5 mg PO BID 04/12/23 03/16/24 Unknown History zonisamide 100 mg capsule 300 mg PO QAM 11/18/23 03/16/24 03/16/24 07:45 History metformin 500 mg tablet,extended 500 mg PO BID 02/25/24 03/16/24 Unknown History release 24 hr metoprolol tartrate 25 mg tablet 25 mg PO BID 02/25/24 03/16/24 03/02/24 History Exam Height,Weight and Vital Signs: Height 5 ft 8 in Weight 57.606 kg Assessment and Plan Assessment Anesthesia Assessment: Chart Reviewed Final Anesthetic Review Family History of Problems with Anesthesia: No History of Problems with Anesthesia: No Documented by User: Cesar Masters MD 03/16/24 10:01 [facility] Past Medical History Medical History Seizures MCCLELLAN (nonalcoholic steatohepatitis) Elevated cholesterol Diabetes GERD (gastroesophageal reflux disease) Family History Family History Brother Diabetes Prostate CA Sister Diabetes Brother Heart attack Surgical History Surgical History History of surgery of head History of back surgery Hx of shoulder surgery Hx of shoulder surgery History of esophagogastroduodenoscopy (EGD) Hx of colonoscopy Social History Social History Household Members: Spouse Housing: House Are you a primary critical care clinical nurse specialist to a significant other at home: No Do you presently have visiting nurse or other home services: No Alcohol intake: never Patient Tobacco Use Status: Former Tobacco user Tobacco use type: Cigarette Use of substances other than those prescribed or required for medical reasons: No Are you DNR?: No Advance Directives: No (unknown) Advance Directives Information Provided: Yes service: No Current occupational status: disabled 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 Meds Allergies Allergy/AdvReac Type Severity Reaction Status Date / Time No Known Allergies Allergy Verified 03/16/24 09:34 Home Medications ?Medication ?Instructions ?Recorded ?Confirmed ?Last Taken ?Type fluticasone propionate 115 2 puff inhalation BID 10/30/21 03/16/24 Unknown History mcg-salmeterol 21 mcg/actuation HFA inhaler (Advair HFA) lancets 33 gauge (TRUEplus Lancets) #100 ea 10/30/21 03/16/24 Unknown History sildenafil 50 mg tablet (Viagra) 50 mg PO DAILY PRN Erectile 12/27/21 03/16/24 Unknown History Dysfunction albuterol sulfate 90 mcg/actuation 90 mcg inhalation Q4H PRN Wheezing 11/19/22 03/16/24 Unknown History aerosol inhaler glipizide 5 mg tablet 5 mg PO BID 04/12/23 03/16/24 Unknown History zonisamide 100 mg capsule 300 mg PO QAM 11/18/23 03/16/24 03/16/24 07:45 History metformin 500 mg tablet,extended 500 mg PO BID 02/25/24 03/16/24 Unknown History release 24 hr metoprolol tartrate 25 mg tablet 25 mg PO BID 02/25/24 03/16/24 03/02/24 History Exam Airway Mallampati Class: II TM Dist: >3cm Neck ROM: Full Denture: Upper Loose/Missing/Broken Teeth: Lower Assessment and Plan Assessment Anesthesia Assessment: Anesthesia Plan Discussed Final Anesthetic Review NPO: Yes ASA Class: III Final Preanesthetic Review: No Changes in Pt Med Stat, Meds/Allgs Chart Reviewed, Consent Obtained/Reviewed and Anes Risks/Benef Reviewed Patient Risk: Intermediate Procedure Risk: Low Anesthetic Plan Anesthetic Plan: MAC: Disposition: Standard PACU
[2024-03-16 09:34] VITALS: BMI 19.0
[2024-03-16] MEDS: Tetracaine HCl/PF 0.5% Oph Sol 4 ML DROPS 1 DROP EYE-LEFT (09:38)
[2024-03-16 09:48] VITALS: BP 112/56; PULSE 47; RESP 16; TEMP 36.3; O2SAT 99
[2024-03-16] MEDS: Cyclopentolate 1 % Ophth Sol 2 ML DRPBTL 1 DROP EYE-LEFT ×3 (09:51→10:20)
[2024-03-16] MEDS: Phenylephrine HCL 2.5% Oph SoL 2 ML BOTTLE 1 DROP EYE-LEFT ×3 (09:56→10:22)
[2024-03-16 09:57] LABS: Glucose, Whole Blood 87 mg/dL (60-115)
[2024-03-16] MEDS: Ketorolac Tromethamine 0.5% Op 10 ML DROPS 1 DROP EYE-LEFT ×3 (09:58→10:24)
[2024-03-16] MEDS: Tropicamide 1 % Ophth Sol 3 ML BTL 1 DROP EYE-LEFT ×3 (10:00→10:26)
[2024-03-16] MEDS: Lactated Ringers 500 ML 50 ML IV (10:09)
[2024-03-16 10:20] VITALS: BP 89/52; PULSE 42
[2024-03-16] MEDS: Glycopyrrolate 0.2 MG/ML VIAL IV (10:33)
[2024-03-16 10:37] VITALS: BP 111/54; PULSE 48
--- NOTE | 2024-03-16 10:39 | PC.NURSE ---
Noted drop in HR to 31 after starting pt IV, recuperated to 40s. Notified Dr. Masters who evaluated pt including repeat BP which was significantly lower than admit BP. Glycopyrrolate ordered and administered. Pt chair reclined. BP improved. Pt offers no complaints of dizziness. Skin warm and dry.
--- NOTE | 2024-03-16 10:41 | MHC.SHP ---
Pre-Procedural Eval Section A - 24 Hr Update-Section A only Date of Service: 03/16/24 The patient is an INPATIENT: No Changes since office visit: No Cold of Flu in the past 2 weeks, No New Medical Problems, No Changes in Medication and No Patient answered all questions The patient has been examined within 24 hours of the surgical procedure. The History & Physical has been completed within 30 days and I have reviewed it.: Yes Section B - Complete if H&P > 30 days Chief Complaint: Age-related nuclear cataract, left eye Allergies: Allergies Allergy/AdvReac Type Severity Reaction Status Date / Time No Known Allergies Allergy Verified 03/16/24 09:34 Plan Diagnosis/Plan: Unchanged I have reviewed the history and physical and performed a pertinent physical examination on my patient. No changes have occurred unless specified. Time Spent With Patient Time: Total time managing care of this patient today ____ minutes.
--- NOTE | 2024-03-16 10:41 | HO.PNOPHT ---
Ophthalmology Procedure Procedure Date of Service: 03/16/24 Ophthalmology Viscoelastic: Healon Duet Dual Pack Pro Ophthalmology Lenses: IOL Acrysof MP - [id number] (23.5) Procedure Notes: PREOPERATIVE DIAGNOSIS: Decreased visual acuity left eye secondary to cataract POSTOPERATIVE DIAGNOSIS: Same PROCEDURE: Left cataract extraction with intraocular lens insertion SURGEON: Kamran Ca M.D. ANESTHESIA: Topical/MAC ESTIMATED BLOOD LOSS: None COMPLICATIONS: None After obtaining informed consent, the patient was brought to the operation room suite and placed in the supine position. After adequate sedation per anesthesia, topical drops of Tetracaine were given to the left eye. The eye was then prepped and draped in the usual sterile fashion. The operating room microscope was then positioned over the operative eye and a lid speculum placed. A paracentesis was created. Viscoelastic was then instilled into the anterior chamber. A three plane incision was then created temporally, utilizing a 2.85 mm keratome. Capsulotomy forceps were then utilized to create a circular tear capsulotomy. Hydrodissection and hydrodelineation were carried out until adequate mobilization of the nucleus occurred. Phacoemulsification was then utilized to remove the dense central nucleus followed by removal of the cortical material utilizing the automated aspiration irrigation unit. Viscoat elastic was instilled into the posterior capsular bag followed by placement of a posterior chamber intraocular lens without difficulty. The residual Viscoat elastic was then removed utilizing the automated IA machine. The wound was check and found to be watertight. The patient tolerated the procedure well and the lid speculum was removed. Intracameral injection of Vigamox 0.1 mL followed by a subtenon injection of Kenalog-40 0.2 mL were administered. The patient will be seen in the a.m.
[2024-03-16 10:43] VITALS: BP 111/58; PULSE 51
[2024-03-16 11:12] VITALS: BP 107/60; PULSE 54; RESP 16; TEMP 36.3; O2SAT 99
[2024-03-16 11:32] VITALS: BP 104/54; PULSE 53; RESP 16; TEMP 36.3; O2SAT 99
== END 2024-03-16 11:30 | disposition home or self-care (01) ==
PROVIDERS: PCP Internal Medicine Geriatric Medicine; Visit Provider Ophthalmology
PROC: (CPT 66985; principal; 2024-03-16 10:30)
DX: H25.12 Age-related nuclear cataract, left eye (principal); E11.9 Type 2 diabetes mellitus without complications; J45.909 Unspecified asthma, uncomplicated
CPT/HCPCS: 66984; 82947; J1596; J2250; J3301; V2630

== ENCOUNTER 2024-05-04 09:08 | Outpatient (AMB) | payer OTHER, SELFPAY ==
--- NOTE | 2024-05-04 09:09 | MHC.OFFVIS ---
Vital Signs 05/04/24 09:12 Height 5 ft 7 in Weight 119 lb 0.794 oz BMI 18.6 BP 135/70 Blood Pressure Location Lt brachial Position Sitting Pulse 47 L Intake Visit Reasons: 6 month follow up Intake Note: George presents in the office as a 6 month follow up. CC: Allergies No Known Allergies Allergy (Verified 05/04/24 09:14) HPI HPI 6 month follow up: Details: 68 yr old m with esophageal cancer RECAP: HE had distal esophagectomy 07/20 he did not require chemo or XRT he has been having poor appetite and fullness INTERIM: he is feeling better no relapse of the cancer he has good energy, occ tiredness no issues with swallowing he denies nausea or vomiting weight has been low, appetite is variable EXAM: GENERAL: The patient is well developed and nontoxic-- VITAL SIGNS:see workflow HEENT: Nonicteric sclerae, PERRLA, EOMI. Oropharynx clear. Moist mucous membranes. Conjunctivae appear well perfused. No thyroid mass. CHEST: Chest wall is nontender. HEART: Regular rate and rhythm without murmurs. LUNGS: Clear to auscultation bilaterally. ABDOMEN: Soft, positive bowel sounds, nontender, no organomegaly.no flank tenderness SKIN: No rash, no excessive bruising, petechiae, or purpura. NEUROLOGIC: Cranial nerves II-XII intact without motor/sensory deficit. Psych: seems low affect A?P: 1/ Esophageal cancer s/p distal esophagectomy --seems to be low mood, might have gastroparesis, unfortunately I looked at marinol and mirtazpeine, both might affect his zonisamide (had issues with seizure control after surgery) PLAN: 1/ [place] neuro about using marinol or remeron etc[place] [facility] [place] cont with high protein diet, get labs from [facility] Medical History Seizures MCCLELLAN (nonalcoholic steatohepatitis) Elevated cholesterol Diabetes GERD (gastroesophageal reflux disease) Surgical History History of surgery of head History of back surgery Hx of shoulder surgery Hx of shoulder surgery History of esophagogastroduodenoscopy (EGD) Hx of colonoscopy Family History Brother Diabetes Prostate CA Sister Diabetes Brother Heart attack Social History Household Members: Spouse Housing: House Are you a primary rn medicare to a significant other at home: No Do you presently have visiting nurse or other home services: No Alcohol intake: never Patient Tobacco Use Status: Former Tobacco user Tobacco use type: Cigarette service: No Current occupational status: disabled 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
[2024-05-04 09:12] VITALS: BP 135/70; PULSE 47; BMI 18.6
== END 2024-05-04 09:42 | disposition home or self-care (01) ==
PROVIDERS: PCP Internal Medicine Geriatric Medicine; Visit Provider Internal Medicine Gastroenterology
DX: C15.9 Malignant neoplasm of esophagus, unspecified (principal)
CPT/HCPCS: 99213

== ENCOUNTER → 2024-05-04 09:08 | Outpatient (BNVA) | payer OTHER, SELFPAY | PROVIDERS: PCP Internal Medicine Geriatric Medicine; Visit Provider Internal Medicine Gastroenterology | DX: C15.9 Malignant neoplasm of esophagus, unspecified (principal); Z90.49 Acquired absence of other specified parts of digestive tract | CPT/HCPCS: 99212 ==

== ENCOUNTER 2024-07-17 12:40 | Outpatient (REF) | payer OTHER, SELFPAY ==
--- NOTE | ~2024-07-17 | XR_ITS ---
EXAMINATION: XR CHEST CLINICAL INFORMATION: Dyspnea on exertion COMPARISON: Chest x-ray from 12/12/[address] from 02/18/2023 TECHNIQUE: 2 views of the chest were obtained. FINDINGS: Heart is normal in size. There is hyperexpansion of the lung parenchyma with some chronic blunting of the bilateral costophrenic angles and chronic fibrotic/emphysematous changes in the lung bases, left greater than right. No focal airspace opacities or pleural effusions XR/XR chest 2V IMPRESSION: Chronic changes as described above. No acute process. Electronically signed by: Max Urbina MD 07/19/2024 10:51 AM EST
== END 2024-07-17 12:41 | disposition home or self-care (01) ==
LOC: HO.HHCX 12:40
PROVIDERS: Visit Provider Internal Medicine Geriatric Medicine
DX: R06.09 Other forms of dyspnea (principal)
CPT/HCPCS: 71046

== ENCOUNTER 2024-07-17 13:57 | Outpatient (REF) | payer OTHER, SELFPAY ==
[2024-07-17 16:08] LABS: MANUAL DIFF FLAG NO
[2024-07-17 16:16] LABS: Eosinophils Absolute Auto 0.1 X10*3/uL (0.0-0.4); Eosinophils Percent Auto 1.7 % (0-4); Hemoglobin 11.7 g/dl (14.0-18.0); Imm Gran Abs Auto 0.01 X10*3/uL (0.00-0.03); Imm Gran Pct Auto 0.3 % (0.0-0.4); Lymphocytes Absolute Auto 0.9 X10*3/uL (1.2-4.9); Lymphocytes Percent Auto 31.8 % (20-40); Mean Corpuscular HGB Conc 32.5 g/dl (31.0-36.0); Mean Corpuscular Hemoglobin 28.6 pg (27.0-33.0); Mean Platelet Volume 10.6 fL (9.4-12.4); Monocytes Absolute Auto 0.4 X10*3/uL (0.1-1.2); Monocytes Percent Auto 12.5 % (2-11); Neutrophils Absolute Auto 1.6 x10*3/uL (2.0-8.3); Neutrophils Percent Auto 53.7 % (45-73); Platelet Count 162 X10*3/uL (160-400); Red Blood Count 4.09 X10*6/uL (4.60-5.80); Red Cell Distribution Width 14.3 % (11.0-16.0); White Blood Count 2.9 X10*3/uL (4.8-10.8)
[2024-07-17 17:11] LABS: Alanine Aminotransferase 36 U/L (0-40); Albumin Level 3.9 g/dL (3.5-5.0); Alkaline Phosphatase 141 U/L (39-117); Anion Gap 11 (12-20); Aspartate Amino Transferase 35 U/L (5-37); Bilirubin Total 0.2 mg/dL (0.0-1.0); Blood Urea Nitrogen 18 mg/dL (9-16); Calcium 8.9 mg/dL (8.4-10.2); Carbon Dioxide 24 mmol/L (22-29); Chloride 111 mmol/L (96-108); Estimated Glomerular Filt Rate 55; Glucose Random 136 mg/dL (60-115); Potassium 4.4 mmol/L (3.3-5.1); Sodium 142 mmol/L (135-145); Total Protein 7.1 g/dL (6.5-8.0)
== END 2024-07-17 13:58 | disposition home or self-care (01) ==
LOC: HO.HHCL 13:57
PROVIDERS: Visit Provider Internal Medicine Geriatric Medicine
DX: R06.09 Other forms of dyspnea (principal)
CPT/HCPCS: 36415; 80053; 85025

== ENCOUNTER → 2024-08-13 08:53 | Outpatient (REF) | payer OTHER, SELFPAY ==
--- NOTE | 2024-08-13 08:59 | CA_ITS ---
Transthoracic Echocardiogram Patient (Last, First, Middle): George Johnson A Gender: Male Date of : 1955 Age: 68 Procedure Date: 08/13/2024 Procedure Type: Transthoracic Echocardiogram Location: OP Height: 170.18 cm Weight: 53.52 kg BSA: 1.62 m2 Heart Rate: bpm BP: 137 / 70 mmHg Life Specialist: ELIF Referring MD: Uriel Woodruff MD Boat Carpenter Mechanic: Arun Pacheco MD Symptoms: [id number] Study Quality: Adequate ECG Rhythm: Sinus Conclusions: - 1. Normal LV ejection fraction of 60 65% with grade 1 diastolic dysfunction 2. Normal cardiac valvular Dopplers 3. Mildly dilated aortic root at 4.2 cm 4. No gross pericardial effusion 5. Normal RV systolic pressure Findings Left Ventricle Normal left ventricular size, thickness, and systolic function. The visually estimated ejection fraction is between 60-65%. Spectral Doppler is indicative of an impaired relaxation filling pattern. E/E prime ratio is <8, consistent with normal filling pressures. Evidence suggests grade I (mild) diastolic dysfunction. Right Ventricle Normal right ventricular cavity size and systolic function. Atria Both atria are normal in size. There is no evidence of interatrial shunt. Aortic Valve Normal aortic valve structure and function. There is no aortic valve stenosis. There is no aortic valve regurgitation. Mitral Valve Normal mitral valve structure and function. There is trace mitral valve regurgitation. There is no mitral valve stenosis. Pulmonic Valve The pulmonic valve is likely normal. Tricuspid Valve Normal tricuspid valve structure. There is trace tricuspid valve regurgitation. The right ventricular systolic pressure is normal. The right ventricular systolic pressure is 19 mmHg. Normal right atrial pressure. There is no evidence of pulmonary hypertension. Great Vessels The pulmonary artery was not well visualized. There is mild dilatation of the sinuses of Valsalva and no dilatation of the ascending aorta measuring 3.40 cm. Venous The inferior vena cava is normal in size and collapses greater than 50% with inspiration. Pericardium/Pleural There is no evidence of pericardial effusion. Prior Study Comparison No prior study available for comparison. Measurements 2D Linear Measurements IVSd: 1.03 0.6-0.9/0.6-1.0 cm LVIDd: 4.37 3.9-5.3/4.2-5.9 cm LVIDd Index: 2.70 2.4-3.2/2.2-3.1 cm/m2 LVIDs: 2.64 2.0-3.6 cm LVPWd: 0.75 0.7-1.1 cm LA Diam: 2.60 2.7-3.8/3.0-4.0 cm LAIDs Index: 1.60 1.5-2.3 cm/m2 LV Mass: 154.89 67-162/88-224 g LV Mass Index: 95.61 43-95/49-115 g/m2 LVOT Diam: 2.10 3.0+(-)1.3 cm 2D Systolic Function EF 4C: 66.30 >55% EF 2C: 65.70 >55% EF BiP: 65.60 >55% Mitral Valve MV Pk E: 0.65 MV PK A: 0.59 MV Decel Time: 229.00 E/A: 1.10 E'Lateral: 9.79 E'Medial: 7.07 E/E' Med: 9.20 E/E' Lat: 6.60 PHT: 67.00 MVA PHT: 3.28 Decel [place]: 2.83 Aortic Valve AoV Pk Freeman: 1.25 AoV Mn Freeman: 0.91 AoV VTI: 0.26 AoV Pk Grad: 6.00 Aov Mn Grad: 4.00 ANAIS Cont.VTI: 2.73 LVOT LVOT Pk Freeman: 1.12 LVOT Mn Freeman: 0.74 LVOT VTI: 0.20 LVOT Pk Grad: 5.00 LVOT Mn Grad: 3.00 LVOT Diam: 2.10 LVOT Area: 3.46 Diastolic Function MV Pk E: 0.65 MV Pk A: 0.59 E/A: 1.10 E'Medial: 7.07 E/E' Med: 9.20 E' Laterial: 9.79 E/E' Lat: 6.60 Right Ventricle TAPSE (mm): 31.10 TVS' Freeman: 17.50 Tricuspid Valve TR Pk Freeman: 2.01 TR Pk Grad: 16.00 RA Press: 3.00 RVSP: 19.00 Great Vessels Aorta Sinus of Valsalva: 4.26 2.0-3.[address] [place]: 3.18 1.7-3.4 cm Ao Asc: 3.40 2.1-3.4 cm Updated in Other Vendor System with Status of Final Arun Pacheco MD electronically signed on 08/14/2024 1:48:24 PM with status of Final
== END ==
LOC: HO.CARD 08:53
PROVIDERS: Visit Provider Internal Medicine Geriatric Medicine
DX: R06.09 Other forms of dyspnea (principal)
CPT/HCPCS: 93306

== ENCOUNTER → 2024-08-13 08:59 | Outpatient (BNV) | payer OTHER, SELFPAY | PROVIDERS: Visit Provider Internal Medicine Cardiovascular Disease | DX: I51.89 Other ill-defined heart diseases (principal) | CPT/HCPCS: 93306 ==

== ENCOUNTER 2024-09-07 08:01 | Outpatient (REF) | payer OTHER, SELFPAY ==
--- OUTSIDE RECORDS SUMMARY | 2024-09-07 08:05 | XMS_ITS | Clinical Summary ---
Author Organization [employer] Address [address] [facility] [address] [place] [address] Care Team Providers Care Director Of Personnel Name Role Phone Name, Uriel AARON Primary Care Provider [phone] Juana Samuels PharmD Unavailable [phone] Allergies No known active allergies Medications glucose 4 g chewable tabletIndication s:Type 2 diabetes mellitus with other specified complication, without long-term current use of insulin ([facility]) Chew 4 tablets (16 g) if needed for low blood sugar. 20 tablet 5 023 Active pentoxifylline (Trental) 400 MG ER tablet Take 1 tablet by mouth 2 times daily. 024 Active esomeprazole (NexIUM) [address] capsule Take 1 capsule (40 mg) by mouth before breakfast. Do not open capsule. 30 capsule 11 024 Active zonisamide (Zonegran) 100 MG capsule Take 3 capsules (300 mg) by mouth in the morning. 024 2024 Active Alcohol Swabs (Alcohol Pads) 70 % pads Use to clean skin prior to insulin use 100 each 11 024 Active Spacer/Aero-Hold ing Chambers (OptiChamber Sheri) misc 1 each every 4 (four) hours if needed (asthma). 1 each 024 Active Blood Pressure kit 1 each 2 times daily. 1 kit 024 2024 Active FREESTYLE LITE test strip TEST BLOOD SUGAR TWICE DAILY 100 strip 11 024 Active TRUEplus Lancets 33G misc USE DIRECTED TO TEST BLOOD SUGAR TWICE DAILY 100 each 11 024 Active amLODIPine (Norvasc) 5 MG tablet Take 1 tablet by mouth Once per day. Active glucagon (Baqsimi Two Pack) 3 MG/DOSE nasal powderIndication s:Type 2 diabetes mellitus without complication, without long-term current use of insulin (CMS/HCC) Administer 3 mg via 1 device into the nostril for hypoglycemia with loss of consciousness. If no response after 15 minutes administer an additional dose via 2nd device into other nostril. 2 each 1 Active Blood Glucose Monitoring Suppl (FreeStyle Lite) device Inject 1 each under the skin 2 times daily. Use to test blood sugar twice daily as directed 1 each Active albuterol 108 (90 Base) MCG/ACT inhaler INHALE 2 PUFFS BY MOUTH EVERY 4 TO 6 HOURS NEEDED 8.5 g 2 Active metFORMIN XR (Glucophage-XR) 500 MG 24 hr tabletIndication s:Type 2 diabetes mellitus without complication, without long-term current use of insulin (CMS/HCC) Take 1 tablet (500 mg) by mouth with breakfast and with evening meal. Do not crush, chew, or split. 60 tablet 5 Active fluticasone-salm eterol (Advair HFA) 115-21 MCG/ACT inhalerIndicatio ns:Mild intermittent asthma, uncomplicated INHALE 2 PUFFS BY MOUTH TWICE DAILY IN THE MORNING AND IN THE EVENING. RINSE MOUTH AFTER EACH USE. 12 g 6 Active ketorolac (Acular) 0.5 % ophthalmic solution INSTILL 1 DROP INTO THE AFFECTED EYE(S) THREE TIMES DAILY DIRECTED, START 2 DAYS BEFORE SURGERY, TAPER DIRECTED 023 2024 Discontinued(M ed list cleanup (will not trigger notification to Pharmacy)) Acetaminophen Childrens 160 MG/5ML solution 22.5 mL by Per J Tube route every 6 (six) hours. 024 2024 Discontinued(M ed list cleanup (will not trigger notification to Pharmacy)) gabapentin (Neurontin) 250 MG/5ML solution 6 mL by Per J Tube route every 8 (eight) hours. 024 2024 Discontinued(M ed list cleanup (will not trigger notification to Pharmacy)) oxyCODONE (Roxicodone) 5 MG/5ML solution 5 mL by Per J Tube route every 4 (four) hours if needed for severe pain. 024 2024 Discontinued(M ed list cleanup (will not trigger notification to Pharmacy)) glucagon (Baqsimi Two Pack) 3 MG/DOSE nasal powderIndication s:Type 2 diabetes mellitus without complication, without long-term current use of insulin ([facility]) Administer 3 mg via 1 device into the nostril for hypoglycemia with loss of consciousness. If no response after 15 minutes administer an additional dose via 2nd device into other nostril. 2 each 1 024 2024 Discontinued(R eorder (will not trigger notification to Pharmacy)) albuterol 108 (90 Base) MCG/ACT inhaler INHALE 2 PUFFS BY MOUTH EVERY 4 TO 6 HOURS NEEDED 8.5 g 3 024 2024 Discontinued(R eorder (will not trigger notification to Pharmacy)) B-D ULTRAFINE III SHORT PEN 31G X 8 MM misc USE TO INJECT INSULIN TWO TIMES A DAY OR DIRECTED 100 each 11 024 2024 Discontinued(M ed list cleanup (will not trigger notification to Pharmacy)) metFORMIN XR (Glucophage-XR) 500 MG 24 hr tablet TAKE 1 TABLET BY MOUTH TWICE DAILY IN THE MORNING AND IN THE EVENING WITH FOOD 2024 Discontinued(R eorder (will not trigger notification to Pharmacy)) fluticasone-salm eterol (Advair HFA) 115-21 MCG/ACT inhalerIndicatio ns:Mild intermittent asthma, uncomplicated INHALE 2 PUFFS BY MOUTH TWICE DAILY IN THE MORNING AND IN THE EVENING 12 g 6 024 2024 Discontinued(R eorder (will not trigger notification to Pharmacy)) amLODIPine (Norvasc) 2.5 MG tablet Take 2 tablets (5 mg) by mouth Once per day. 60 tablet 11 024 2024 Discontinued(M ed list cleanup (will not trigger notification to Pharmacy)) Active Problems Problem Noted Date Diagnosed Date NEAL (obstructive sleep apnea) 06/17/2024 Rectal abnormality 06/12/2023 06/12/2023 Acquired hammer toe of right foot 03/06/2023 Dupuytren's disease of palm of left hand 023 Stiffness of left hand joint 03/06/2023 Type 2 diabetes mellitus wit hout complication, without long-term current use of insulin 03/06/2023 Esophageal cancer 02/13/2023 Overview (02/13/2023): Gastroesophageal junction mass, biopsy: ??Superficial fragments of adenocarcinoma, ? moderately differentiated, involving gastroesophageal mucosa (see comment). EGD done at [facility] 02/07/2023 Neutropenia 08/23/2022 Non-alcoholic cirrhosis 08/23/2022 Nonalcoholic steatohepatitis ([place]) 08/23/2022 History of intracranial hemorrhage 08/23/2022 Overview (08/23/2022): subaracnoid hemorrhage from ruptured jeff aneurysm in the 1989 Mild cognitive disorder 01/13/2021 Seizure 10/09/2018 Hyperlipidemia 05/09/2012 Chronic nonalcoholic liver disease 01/23/2012 Diabetes mellitus 01/23/2012 Impotence of organic origin 01/23/2012 Intermittent asthma 01/23/2012 Encounters Date Type Department Care Team Description 08/09/[address] [facility] [address] [place] [address] Name, MD Uriel 07/27/2024 10:30 AM EST Office Visit [facility] [address] [place] [address] Vicente Reyes DMD Tooth fracture with loss of restorative material (Primary Dx) 07/17/2024 11:00 AM EST Office Visit [facility] [address] [place] [address] Name, MD Uriel Type 2 diabetes mellitus without complication, without long-term current use of insulin ([facility]) (Primary Dx); Dyspnea on exertion; Bradycardia; NEAL (obstructive sleep apnea) 07/17/[address] [facility] [address] [place] [address] Demetrio Lizarraga [place] DME- CPAP-NOTES 07/17/[address] [address] Uriel Woodruff MD 07/15/[address] [address] Elizabeth Landaverde, DEIDRA 07/15/[address] [address] Elizabeth Landaverde, DEIDRA 07/09/[address] [address] NameUriel MD Notes 07/07/[address] [address] NameUriel MD 07/01/2024 9:00 AM EST Office Visit [facility] [address] [place] [address] Vicente Reyes, DMD Dental abscess (Primary Dx) 06/30/[address] [address] NameUriel MD Durable Medical Equipment 06/23/[address] [address] Uriel Woodruff MD Durable Medical Equipment 06/18/[address] [address] Uriel Woodruff MD Durable Medical Equipment 06/15/[address] [address] NameUriel MD Durable Medical Equipment from Last 3 Months Immunizations Name Administration Dates Next Due Hep A, Adult 07/01/2023 Hep B, adult 08/16/2009, 7,08/19/2006,07/19 Moderna Covid-19 Vaccine 6+ Bivalent 08/23/2022 Pfizer Covid-19 Vaccine 12+ 09/02/2024 Pneumococcal Conjugate PCV 20 04/30/2022 Pneumococcal Polysaccharide PPSV23 05/31/2008 RSV Bivalent 07/01/2023 TD (adult), 2 Lf tetanus tox oid, preservative free, adsorbed 05/08/2007 Tdap 10/01/2014 Zoster, Recombinant 01/23/2022,11/21/2021 Social History Tobacco Use Types Packs/Day Years Used Date Smoking Tobacco: Former Cigarettes Smokeless Tobacco: Never Tobacco Cessation:Counseling Given: Not Answered Alcohol Use Standard Drinks/Week Comments Defer 0 (1 standard drink = 0.6 oz pur e alcohol) Depression Answer Date Recorded Patient Health Questionnaire-9 Score 0 08/30/2023 Patient Health Questionnaire-9 Score 0 08/30/2023 Last PHQ-9: Questionnaire Data Not on file 0 08/30/2023 Housing Stability Answer Date Recorded What is your housing situation today? I have williamanu rueda 05/13/[address] you li ve. Do you have problems with any of the following? None of the above 05/13/2023 Food Insecurity Answer Date Recorded Within the past 12 months, y ou worried that your food would run out before you got money to buy more: Never True 05/13/2023 Within the past 12 months,th e food you bought just didn't last and you didn't have enough money to get more: Never True Transportation Answer Date Recorded In the past 12 months, has l ack of transportation kept you from medical appts, meetings, work or from getting things needed for daily living? No 05/13/2023 Utilities Answer Date Recorded In the past 12 months, has t he electric, gas, oil or water company threatened to shut off services in your home? No 05/13/2023 Depression Answer Date Recorded Patient Health Questionnaire-2 Score 0 08/30/2023 Sex and Gender Information Value Date Recorded Sex Assigned at Male 05/28/2022 10:14 AM EDT Legal Sex Male 10:14 AM EDT Gender Identity Male 05/28/2022 10:14 AM EDT Sexual Orientation Straight 05/28/2022 10 :14 AM EDT Last Filed Vital Signs Vital Sign Reading Time Taken Comments Blood Pressure 125/65 07/17/2024 11:17 AM EST Pulse 46 07/17/2024 11:17 AM EST Temperature 36.1 ??C (96.9 ??F) 02/17/2024 1 0:08 AM EDT Respiratory Rate 14 07/17/2024 11:1 7 AM EST Oxygen Saturation 98% 07/17/2024 11: 17 AM EST Inhaled Oxygen Concentration - - Weight 56.6 kg (124 lb 12.8 oz) 024 11:17 AM EST Height 175.3 cm (5' 9 ) 07/17/2024 11:1 7 AM EST Body Mass Index 18.43 07/17/2024 11:17 AM EST Plan of Treatment Upcoming Encounters Date Type Department Care Team (Late st Contact Info) Description 09/16/2024 11:00 AM EST Office Visit [facility] [address] [place] [phone] Name, MD Uriel [address] [place] [address] 10/08/2024 9:00 AM EDT Medication Management [facility] [address] [place], [place] [phone] Juana Samuels, PharmD [address] [place] [address] Health Maintenance Due Date Last Done Comments CT Colonography 1956 Dental Prophylaxis 1956 Dental X-Ray: Bitewings 1955 FIT DNA/Cologuard 1955 FIT 1955 FOBT 1955 Sigmoidoscopy 1955 Diabetes: Foot Exam 1966 Diabetes: Urine Protein Screening 09/03/2023 09/03/2022, 11/01/2021, 04/17/2021, Additional history exists Lipid Panel 09/03/2023 09/03/2022, 05/19/2020 Eye Exam 12/13/2023 12/12/2022, 0501/2023, 12/12/2022, Additional history exists Hepatitis A Vaccines (2 of 2 - Risk 2-dose series) 12/31/2023 07/01/2023 Colonoscopy 02/19/2024 02/18/2019, 02/18/2019 Colorectal Cancer Screening 02/19/2024 Influenza Vaccine (#1) 2024 SDOH Screening 08/15/2024 08/15/2023 Depression Screening 08/30/2024 08/30/2023, 08/30/19 DTaP/Tdap/Td Vaccines (2 - Td or Tdap) 10/01/2024 10/01/2014, 05/08/2007 Diabetes: Hemoglobin A1C 10/15/2024 024, 02/17/2024, 08/30/2023, Additional history exists Dental Oral Exam 12/01/2024 06/02/2024 Alcohol/Substance Use Screening 02/16/2025 02/17/2024 Tobacco Screening 07/27/2025 07/27/2024 Dental X-Ray: Full Mouth 05/01/2026 04/30/2023 Hepatitis B Vaccines Completed 08/16/2009, 02/04/2007, 08/19/2006, Additional history exists Hepatitis C Screening Completed 04/17/2021, 020 Zoster Vaccines Completed 01/23/2022, 11/21/2021 Pneumococcal Vaccine: 50+ Years Completed 04/30/2022, 05/31/2008 RSV Patients and Patients Aged 60 years or older Completed 07/01/2023 COVID-19 Vaccine Completed 09/02/2024, , 07/17/2021, Additional history exists HIB Vaccines Aged Out No longer eligi ble based on patient's age to complete this topic HPV Vaccines Aged Out No longer eligi ble based on patient's age to complete this topic IPV Vaccines Aged Out No longer eligi ble based on patient's age to complete this topic Meningococcal Vaccine Aged Out No molly samaria eligible based on patient's age to complete this topic RSV under 20 months Aged Out No longe r eligible based on patient's age to complete this topic Rotavirus Vaccines Aged Out No longer eligible based on patient's age to complete this topic Goals Goal Patient Goal Type Associated Problems Recent Progress Patient-Stated? Author Hemoglobin A1c < 8 Result Component 6(07/17/2024 11:22 AM EST) No Juana Samuels, PharmD Record your blood sugar as directed Result Component No Juana Samuels, PharmD Procedures Procedure Name Priority Date/Time Associated Diagnosis Comments ADJUNCTIVE GENERAL SERVICES - PROFESSIONAL VISITS - CASE PRESENTATION, SUBSEQUENT TO DETAILED AND EXTENSIVE TREATMENT PLANNING Routine 07/27/2024 10:30 AM EST Tooth fracture with loss of restorative material 27 MIDF(V) RESIN-BASED COMPOSITE - 4 OR MORE SURFACES (ANTERIOR) Routine 07/27/2024 10:30 AM EST Tooth fracture with loss of restorative material 20 (V) RESTORATIVE - RESIN-BASED COMPOSITE RESTORATIONS - DIRECT - RESIN-BASED COMPOSITE - THREE SURFACES, POSTERIOR Routine 07/27/2024 10:30 AM EST Tooth fracture with loss of restorative material COMPREHENSIVE METABOLIC PANEL Routine 07/17/2024 1:58 PM EST Dyspnea on exertion CBC WITH AUTO DIFFERENTIAL Routine 07/17/2024 1:58 PM EST Dyspnea on exertion ECG 12-LEAD Routine 07/17/2024 1:14 PM EST Dyspnea on exertion XR CHEST 2 VIEWS Routine 07/17/2024 12:4 0 PM EST Dyspnea on exertion POCT GLYCATED HEMOGLOBIN, TOTAL Routine 07/17/2024 11:22 AM EST Type 2 diabetes mellitus without complication, without long-term current use of insulin (CMS/HCC) POCT GLUCOSE Routine 07/17/2024 11:21 AM EST Type 2 diabetes mellitus without complication, without long-term current use of insulin (CMS/HCC) ADJUNCTIVE GENERAL SERVICES - PROFESSIONAL VISITS - CASE PRESENTATION, SUBSEQUENT TO DETAILED AND EXTENSIVE TREATMENT PLANNING Routine 07/01/2024 9:00 AM EST Dental abscess 26 EXTRACTION, ERUPTED TOOTH OR EXPOSED ROOT (ELEVATION AND/OR FORCEPS REMOVAL) Routine 07/01/2024 9:00 AM EST Dental abscess 22 EXTRACTION, ERUPTED TOOTH OR EXPOSED ROOT (ELEVATION AND/OR FORCEPS REMOVAL) Routine 07/01/2024 9:00 AM EST Dental abscess 21 EXTRACTION, ERUPTED TOOTH OR EXPOSED ROOT (ELEVATION AND/OR FORCEPS REMOVAL) Routine 07/01/2024 9:00 AM EST Dental abscess PERIODIC ORAL EVALUATION - ESTABLISHED PATIENT Routine 06/02/2024 11:00 AM EST Edentulism Partial edentulism, class III PANORAMIC RADIOGRAPHIC IMAGE Routine 04/30/2023 11:30 AM EDT Dental abscess ALBUMIN, RANDOM URINE W/CREATININE Routine 09/03/2022 9:38 AM EST Type 2 diabetes mellitus with other specified complication, without long-term current use of insulin (CMS/HCC) Neutropenia, unspecified type (CMS/HCC) Hyperlipidemia associated with type 2 diabetes mellitus (CMS/HCC) Fear of flying Erectile dysfunction, unspecified erectile dysfunction type LIPID PANEL, STANDARD Routine 09/03/2022 9:38 AM EST Type 2 diabetes mellitus with other specified complication, without long-term current use of insulin (CMS/HCC) Neutropenia, unspecified type (CMS/HCC) Hyperlipidemia associated with type 2 diabetes mellitus (CMS/HCC) Fear of flying Erectile dysfunction, unspecified erectile dysfunction type ZZZ HISTORICAL HEPATITIS A,B,C PROFILE Routine 04/17/2021 8:40 AM EDT HM COLONOSCOPY Routine 02/18/2019 from Last 3 Months or Most Recently Relevant to Health Maintenance Results * (ABNORMAL) CBC auto differential (07/17/2024 1:58 PM EST) White Blood Count 2.9(L) 4.8 - 10.8 X10*3/uL [facility] Red Blood Count 4.09(L) 4.60 - 5.80 X10*6/uL [facility] Hemoglobin 11.7(L) 14.0 - 18.0 g/dl [facility] Hematocrit 36.0(L) 42.0 - 52.0 % [facility] Mean Corpuscular Volume 88.0 80.0 - 98.0 fL [facility] Mean Corpuscular Hemoglobin 28.6 27.0 - 33.0 pg [facility] Mean Corpuscular HGB Conc 32.5 31.0 - 36.0 g/dl [facility] Red Cell Distribution Width 14.3 11.0 - 16.0 % [facility] Platelet Count 162 160 - 400 X10*3/uL [facility] Mean Platelet Volume 10.6 9.4 - 12.4 fL [facility] Neutrophils Percent Auto 53.7 45 - 73 % [facility] Imm Gran Pct Auto 0.3 0.0 - 0.4 % [facility] Lymphocytes Percent Auto 31.8 20 - 40 % [facility] Monocytes Percent Auto 12.5(H) 2 - 11 % [facility] Eosinophils Percent Auto 1.7 0 - 4 % [facility] Basophils Percent Auto 0.0 0 - 2 % [facility] NRBC Pct Auto 0.0 0.0 - 0.2 /100WBC [facility] Neutrophils Absolute Auto 1.6(L) 2.0 - 8.3 x10*3/uL [facility] Imm Gran Abs Auto 0.01 0.00 - 0.03 X10*3/uL [facility] Lymphocytes Absolute Auto 0.9(L) 1.2 - 4.9 X10*3/uL [facility] Monocytes Absolute Auto 0.4 0.1 - 1.2 X10*3/uL [facility] Eosinophils Absolute Auto 0.1 0.0 - 0.4 X10*3/uL [facility] Basophils Absolute Auto 0.0 0.0 - 0.2 X10*3/uL [facility] NRBC Abs Auto 0.000 0.0 - 0.012 X10*3/uL [facility] Blood Venous blood specimen / Unknown 07/17/2024 1:58 PM EST 07/17/2024 4:05 PM EST us Uriel Woodruff MD LAB BLOOD ORDERABLES Final Resul t [facility] [address] [place] [phone] * (ABNORMAL) Comprehensive Metabolic Panel (07/17/2024 1:58 PM EST) Sodium 142 135 - 145 mmol/L [facility] Potassium 4.4 3.3 - 5.1 mmol/L [facility] Chloride 111(H) 96 - 108 mmol/L [facility] Carbon Dioxide 24 22 - 29 mmol/L [facility] Anion Gap 11(L) 12 - 20 [facility] Urea Nitrogen (BUN) 18(H) 9 - 16 mg/dL [facility] Creatinine, Serum 1.30 0.5 - 1.4 mg/dL [facility] Estimated Glomerular Filt Rate 55 [facility] Comment:Chronic Kidney Disea se: Estimated GFR < 60 mL/min/1.18v0Lscadx Kidney Disease: Estimated GFR < 15 mL/min/1.73m2 Glucose 136(H) 60 - 115 mg/dL [facility] Calcium 8.9 8.4 - 10.2 mg/dL [facility] Bilirubin, Total 0.2 0.0 - 1.0 mg/dL [facility] Aspartate Amino Transferase 35 5 - 37 U/L [facility] Alanine Aminotransferase 36 0 - 40 U/L [facility] Total Protein 7.1 6.5 - 8.0 g/dL [facility] Albumin Level 3.9 3.5 - 5.0 g/dL [facility] Alkaline Phosphatase 141(H) 39 - 117 U/L [facility] Blood Venous blood specimen / Unknown 07/17/2024 1:58 PM EST 07/17/2024 4:05 PM EST us Uriel Woodruff MD LAB BLOOD ORDERABLES Final Resul t [facility] [address] [place] [phone] * ECG 12 lead (07/17/2024 1:14 PM EST) Narrative Name, MD Uriel - 07/17/2024 1:14 PM EST Sinus bradychardia, HR 43, no ST segment elevation or depression us Uriel Woodruff MD ECG ORDERABLES Final Result * XR Chest 2 Views (07/17/2024 12:40 PM EST) Anatomical Region Laterality Modality Chest Radiographic Cari ging 07/17/2024 12:4 0 PM EST Narrative 07/19/2024 10:53 AM EST ?[facility] ?[address] ?[place] [address] ?XRay Report ? Signed ? Patient: Guillaume Harjit,Salvador ?MR#: [id number] ?? [id number] ? : 1955 ?Acct:[id number] ? Age/Sex: 68 / M ?ADM Date: 07/17/24 ? Loc: HO.HHCX ? Attending Dr: Uriel Woodruff MD ? Ordering Physician: Uriel Woodruff MD ?? Date of Service: 07/17/24 ?? Procedure(s): XR chest 2V ?? Accession Number(s): [id number] ? cc: Uriel Woodruff MD ? EXAMINATION: ?? XR CHEST ? CLINICAL INFORMATION: ?? Dyspnea on exertion ? COMPARISON: ?? Chest x-ray from 12/12/[address] from 02/18/2023 ? TECHNIQUE: ?? 2 views of the chest were obtained. ? FINDINGS: ?? Heart is normal in size. There is hyperexpansion of the lung parenchyma ?? with some chronic blunting of the bilateral costophrenic angles and ?? chronic fibrotic/emphysematous changes in the lung bases, left greater ?? than right. No focal airspace opacities or pleural effusions ? XR/XR chest 2V ?? IMPRESSION: ?? Chronic changes as described above. No acute process. ? Electronically signed by: ??Max Urbina MD ??07/19/2024 10:51 AM EST RP ? Dictated By: ?Max Urbina MD ? Signed By: ?<Electronically signed by Max Urbina MD in OV> ? 07/19/24 1051 ? DD/ 1240 ? TD/TT: 07/17/24 1250 ? Filter Operator: ? Procedure Note Arnold Holland - 07/19/[address] [address] XRay Report Signed Patient: George Jonhson AMR#: [id number] : 7Acct:[id number] Age/Sex: 68 / MADM Date: 07/17/24 Loc: HO.HHCX Attending Dr: Uriel Woodruff MD Ordering Physician: Uriel Woodruff MD Date of Service: 07/17/24 Procedure(s): XR chest 2V Accession Number(s): [id number] cc: Uriel Woodruff MD EXAMINATION: XR CHEST CLINICAL INFORMATION: Dyspnea on exertion COMPARISON: Chest x-ray from 12/12/[address] from 02/18/2023 TECHNIQUE: 2 views of the chest were obtained. FINDINGS: Heart is normal in size. There is hyperexpansion of the lung parenchyma with some chronic blunting of the bilateral costophrenic angles and chronic fibrotic/emphysematous changes in the lung bases, left greater than right. No focal airspace opacities or pleural effusions XR/XR chest 2V IMPRESSION: Chronic changes as described above. No acute process. Electronically signed by: Max Urbina MD 07/19/2024 10:51 AM EST Dictated By: Max Urbina MD Signed By: <Electronically signed by Max Urbina MD in OV> 07/19/24 1051 DD/ 1240 TD/TT: 07/17/24 1250 Filter Operator: us Uriel Woodruff MD IMG XR PROCEDURES Edited Result - Final * (ABNORMAL) POCT HGB A1C (07/17/2024 11:22 AM EST) Hemoglobin A1C 6.0 4.0 - 6.0 % QC Media Lot # [id number] Lot# Expiration Date , Blood 07/17/2024 11:2 2 AM EST Result Jordyn Woodruff MD POINT OF CARE TEST ENTER/EDIT OR DERABLES Final Result * POCT Glucose (07/17/2024 11:21 AM EST) Glucose Blood, POC 163 60 - 200 mg/dL QC Media Lot # [id number] Lot# Expiration Date 53,025 Blood Capillary blood specimen / Unknown 07/17/2024 11:21 AM EST Result Jordyn Woodruff MD POINT OF CARE TEST ENTER/EDIT OR DERABLES Final Result * Albumin, Random Urine W/Creatinine (09/03/2022 9:38 AM EST) Creatinine, Random Urine 153 20 - 320 mg/dL [facility] Albumin, Urine 1.2 See Note: mg/dL [facility] Comment: Reference Range: Reference Range Not established Albumin/Creatinin e Ratio, Random Urine 8 <30 mcg/mg creat [facility] Comment: The ADA defines abnormalities in albumin excretion as follows: Albuminuria Category ?Result (mcg/mg creatinine) Normal to Mildly increased ?? <30 Moderately increased ? 30-299 Severely increased ? > OR = 300 The ADA recommends that at least two of three specimens collected within a 3-6 month period be abnormal before considering a patient to be within a diagnostic category. 09/03/2022 9:38 AM EST 09/03/2022 9:39 AM EST Narrative [facility] - 09/03/2022 9:24 PM EST FASTING:YES FASTING: YES us Uriel Woodruff MD LAB URINE ORDERABLES Final Resul t [facility] [address], [place] [address] [facility] [address] [facility], ([address]) [place] [address] * (ABNORMAL) Lipid Panel, Standard (09/03/2022 9:38 AM EST) Cholesterol, Total 150 <200 mg/dL [facility] HDL Cholesterol 45 > OR = 40 mg/dL [facility] Triglycerides 154(H) <150 mg/dL [facility] LDL Cholesterol 79 mg/dL (calc) [facility] Comment: Reference range: <100 Desirable range <100 mg/dL for primary prevention; ?? <70 mg/dL for patients with CHD or diabetic patients with > or = 2 CHD risk factors. LDL-C is now calculated using the Marck calculation, which is a validated novel method providing better accuracy than the Friedewald equation in the estimation of LDL-C. Ivan ENCARNACION et al. SAVANAH. 2013;310(19): 3562-6813 (http://education.Integrated Diagnostics.Snackr/faq/EKR259) Chol/HDLC Ratio 3.3 <5.0 (calc) [facility] [place] [facility] Non-HDL Cholesterol 105 <130 mg/dL (calc) [employer] Comment: For patients with diabetes plus 1 major ASCVD risk factor, treating to a non-HDL-C goal of <100 mg/dL (LDL-C of <70 mg/dL) is considered a therapeutic option. Blood Venous blood specimen / Unknown 09/03/2022 9:38 AM EST 09/03/2022 9:39 AM EST Narrative QUEST - 09/03/2022 9:24 PM EST FASTING:YES FASTING: YES us Uriel Woodruff MD LAB BLOOD ORDERABLES Final Resul t Performing Organization Address City/[facility]/ZIP Co de Phone Number [address], [place] [address] [facility] [place] [facility] [address] [facility], ([address]) [place] [address] * Hepatitis A,B,C Profile (04/17/2021 8:40 AM EDT) Hepatitis B Core Antibody Nonreactive Nonreactive [facility] Hepatitis B Surface Antibody NONREACTIVE Nonreactive [facility] Comment:Nonreactive: < 8.00 mIU/mL Hepatitis B Surface Antigen Negative Negative [facility] Hepatitis C Antibody Nonreactive Nonreactive [facility] Comment: Antibodies to HCV not detected; does not exclude early acute HCV infection. 04/17/2021 8:40 AM EDT us Librado Provider HISTORICAL/NON ORDERABLE LABS Final Result Performing Organization Address City/[facility]/ZIP Co de Phone Number [facility] [address] * (ABNORMAL) Hm Colonoscopy (02/18/2019) Colonoscopy Abnormal(A ) Normal us Uriel Woodruff MD HEALTH MAINTENANCE Final Result from Last 3 Months or Most Recently Relevant to Health Maintenance Insurance [facility] - SCO DENTAL - [facility] Care Teams Director Of Personnel Relationship Specialty Start Date End Date Name, MD Uriel [address] [place] [address] [phone] PCP - General Family Medicine 05/10/20 Juana Samuels, MagnusD [address] [place] [address] [phone] Pharmacist Internal Medicine 09/02/24
--- OUTSIDE RECORDS SUMMARY | 2024-09-07 08:05 | XMS_ITS | Encounter Summary ---
Author Organization [employer] Address [address] [facility] [address]t [place] [address] Care Team Providers Care Subway Operator Name Role Phone Name, Uriel AARON Primary Care Provider [phone] Puia Juana PharmD Unavailable [phone] Puia, Juana PharmD Unavailable [phone] Reason for Visit * Reason Onset Date Comments Durable Medical Equipment 07/10/2023 Encounter Details Date Type Department Care Team (Late st Contact Info) Description 07/10/2023 Telephone [facility] [address] [place] [address] Name, MD Uriel [address] [place] [address] Durable Medical Equipment Social History Tobacco Use Types Packs/Day Years Used Date Smoking Tobacco: Former Cigarettes Smokeless Tobacco: Never Alcohol Use Standard Drinks/Week Comments Defer 0 (1 standard drink = 0.6 oz pur e alcohol) Housing Stability Answer Date Recorded What is your housing situation today? I have william rueda 05/13/[address] you [...] Date Recorded Patient Health Questionnaire-2 Score 0 08/23/2022 Sex and Gender Information Value Date Recorded Sex Assigned at Male 05/28/2022 10:14 AM EDT Legal Sex Male 10:14 AM EDT Gender Identity Male 05/28/2022 10:14 AM EDT Sexual Orientation Straight 05/28/2022 10 :14 AM EDT documented as of this encounter Miscellaneous Notes * Telephone Encounter - Brit Rose - 07/10/2023 12:33 PM EST TC from Francia with [facility] requesting a Hospital bed and Lift Recliner due to pt having an upcoming surgery on 07/24/2023 and will not be able to move or have much mobility. Please fax Script over to [facility] @ [phone] Please if any questions please Contact Francia @ [phone] documented in this encounter Plan of Treatment Upcoming Encounters Date Type Department Care Team (Late st Contact Info) Description 09/16/2024 11:00 AM EST Office Visit [address] [address] Name, MD Uriel [address] [place] [address] 10/08/2024 9:00 AM EDT Medication Management [facility] [address] [place] [address] Juana Samuels PharmD [address] [place] [address] documented as of this encounter Goals Goal Patient Goal Type Associated Problems Recent Progress Patient-Stated? Author Hemoglobin A1c < 8 Result Component 6(07/17/2024 11:22 AM EST) No Juana Samuels PharmSincere Record your blood sugar as directed Result Component No Juana Samuels PharmD documented as of this encounter Visit Diagnoses Not on filedocumented in this encounter Care Teams Subway Operator Relationship Specialty Start Date End Date Name, MD Uriel [address] [place] [address] PCP - General Family Medicine 05/10/20 Juana Samuels PharmD [address] [place] [address] Pharmacist Internal Medicine 05/03/22 09/01/23 Juana Samuels PharmD [address] [place] [phone] Pharmacist Internal Medicine 09/02/24 documented as of this encounter
--- OUTSIDE RECORDS SUMMARY | 2024-09-07 08:05 | XMS_ITS | Data Portability ---
Author Organization [employer] [facility], Ar in - [facility] Address [address] [place] [phone] Care Team Providers Care Efficiency Expert Name Role Phone [facility] Referring Provider [facility] Referring Provider Assessment No assessment recorded. Plan of Treatment Reminders Order Date Submit Date Provider Last Modified By Organization Details Last Modified Time Details Appointments None recorded. Lab rapid SARS CoV 2 Ag, QL IA, respiratory specimen 2021 [facility], [address] [place] [address], [id number], 10:40:23 rapid flu (A+B) 2021 022 [facility], [address] [place] [address], [id number], 10:40:23 Referral None recorded. Procedures None recorded. Surgeries None recorded. Imaging None recorded. Medication Orders prednisone 20 mg tablet 2021 [facility] [place] [facility], [address] [place] [address], [id number], 10:50:55 azithromyci n 500 mg tablet 2021 [facility] [place] [facility], [address] [place] [address], [id number], 10:50:56 prednisone 20 mg tablet 2021 022 [email or web address] Not available 10:39:50 azithromyci n 500 mg tablet 2021 022 [email or web address] Not available 10:39:50 Patient TargetsNo targets recorded. Patient InstructionsNo instructions recorded. Reason for Referral None Reported. Results Created Date Observation Date Name Description Value Unit Range Abnormal Flag Note LastModifiedBy Organization Detail LastModifiedTime 03/09/20 22 03/09/2022 rapid flu (A+B) Flu negati ve Not Available Main - [facility] ed [address] [place] [address], [id number], 03/09/2022 10:40:03 03/09/20 22 03/09/2022 rapid SARS CoV 2 Ag, QL IA, respi rator y speci men rapid SARS CoV 2 Ag, QL IA, respiratory specimen negati ve Not Available Main - [facility] ed [address] [place] [address], [id number], 03/09/2022 10:39:59 Result Notes None recorded. Medical Equipment None Reported. Medications Name Sig Start Date Stop Date Status Note LastModified by Organization Details LastModified Time medbox status USE DIRECTED active Not Available Not Available No t Available glipizide 10 mg tablet TAKE 1 TABLET BY MOUTH TWICE DAILY IN THE MORNING AND IN THE EVENING BEFORE MEALS active Not Available Not Available No t Available prednisone 20 mg tablet TAKE 3 TABLETS BY MOUTH DAILY FOR FOUR DAYS active Not Available Not Available No t Available Viagra 50 mg tablet TAKE 1 TABLET 1 HOUR BEFORE SEXUAL RELATIONS ONCE DAILY NEEDED. active Not Available Not Available N ot Available Sudogest 30 mg tablet TAKE 1 TABLET BY MOUTH EVERY TWELVE HOURS NEEDED active Not Available Not Available No t Available pentoxifylli ne ER 400 mg tablet,exten ded release TAKE 1 TABLET BY MOUTH TWICE DAILY IN THE MORNING AND IN THE EVENING active Not Available Not Available No t Available zonisamide 100 mg capsule TAKE 1 CAPSULE BY MOUTH TWICE DAILY IN THE MORNING AND IN THE EVENING active Not Available Not Available No t Available esomeprazole magnesium 40 mg capsule,jim yed release TAKE 1 CAPSULE BY MOUTH EVERY MORNING active Not Available Not Available No t Available cyanocobalam in (vit B-12) 1,000 mcg sublingual tablet TAKE 1 TABLET BY MOUTH EVERY MORNING (DISSOLVE) active Not Available Not Available N ot Available lorazepam 1 mg tablet TAKE 1 TABLET BY MOUTH DIRECTED 1 HOUR BEFORE PROCEDURE active Not Available Not Available No t Available albuterol sulfate HFA 90 mcg/actuatio n aerosol inhaler INHALE 2 PUFFS BY MOUTH EVERY 4 TO 6 HOURS NEEDED active Not Available Not Available No t Available fluticasone propionate 50 mcg/actuatio n nasal spray,suspen nereida USE 2 SPRAYS IN EACH NOSTRIL ONCE DAILY IN THE MORNING active Not Available Not Available No t Available metformin ER 500 mg tablet,exten ded release 24 hr TAKE 2 TABLETS BY MOUTH TWICE DAILY IN THE MORNING AND EVENING WITH FOOD active Not Available Not Available No t Available azithromycin 500 mg tablet TAKE 1 TABLET BY MOUTH DAILY FOR FOUR DAYS active Not Available Not Available No t Available Vitamin D3 25 mcg (1,000 unit) capsule TAKE 1 CAPSULE BY MOUTH EVERY MORNING active Not Available Not Available No t Available metformin ER 750 mg tablet,exten ded release 24 hr TAKE 1 TABLET BY MOUTH EVERY EVENING WITH DINNER active Not Available Not Available Not Available rosuvastatin 20 mg tablet TAKE 1 TABLET BY MOUTH EVERY EVENING active Not Available Not Available No t Available Advair HFA 115 mcg-21 mcg/actuatio n aerosol inhaler INHALE 2 PUFFS BY MOUTH TWICE DAILY IN THE MORNING AND IN THE EVENING RINSE MOUTH AFTER USING. active Not Available Not Available No t Available FreeStyle Lite Strips TEST BLOOD SUGAR TWICE DAILY active Not Available Not Available No t Available TRUEplus Lancets 33 gauge TEST BLOOD SUGAR TWICE DAILY active Not Available Not Available No t Available Trulicity 0.75 mg/0.5 mL subcutaneous pen injector INJECT ONE PEN (=0.75MG) SUBCUTANEOU SLY ONCE A WEEK DIRECTED active Not Available Not Available No t Available Vitals Date Recorded Oxygen saturation Oxygen saturation in Arterial blood by Pulse oximetry Body temperature Respiratory rate Heart rate Systolic blood pressure Diastolic blood pressure Provider Name and Address Organization Details Last Updated DateTime 2 98 % 98 % 98.2 [degF] 16 /min 103 /min 132 mm[Hg] 52 mm[Hg] Not Available [facility] - production 10:58:52 Social History None recorded. Functional Status None recorded. Mental Status None recorded. Family History Nothing Reported. Medical History No medical history recorded. Past Encounters Encounter ID Performer Location Encounter Start Date Encounter Closed Date Diagnosis/Indication Diagnosis SNOMED-CT Code Diagnosis ICD10 Code Diagnosis Note [id number] Magen Solo MD Main - [facility] [address] [place] [phone] 03/09/2022 10:33:10 04/19/2022 13:36:49 Respiratory tract congestion and cough 465971636 R05.9 Approximat edith five days of malaise, low grade fevers, and productive cough. Per vp treasurer, rhochorous throughout . Most likely bronchitis vs viral pneumonia given diffuse lung findings and low-grade fever. Less likely asthma exacerbati on given lack of wheezing. Less likely bacterial pneumonia given lack of focal rales, high grade fever, or significan t hypoxemia. Will prescribe steroid burst, course of azithromyc in to cover for atypicals. Call his PCP first thing saturday or call us back sooner if worsening. Health Concerns Section Related Observation LastModified by Organization Detai ls LastModified Time None Recorded Concern Status LastModified by Organization Details LastModified Time None Recorded Advance Directives Directive None Recorded Payers Encounter Date Sequence Insurance Name Policy Number Policy Miller Covered Member ID Miller Member ID Guarantor Name 03/09/2022 1 [facility] - DOS PRIOR TO 2022 - DUAL ELIGIBLE (MEDICARE REPLACEMENT/ADV ANTAGE - HMO) George Guillaume [id number] George Guillaume Notes Date Note Type Note Provider Name and Address Organization Details Recorded Time 03/09/2022 text/html HPI: Patient with history of Seizure Disorder, ruptured Alonzo aneurysm repaired. Asthma with daily use BID Advair. Started with cough and congestion on Saturday night. Yellow phlegm.T 101 last night. .................. .................. .................. .................. .................. .................. .................. ............... CRC Nursing Assessment: Comments: CRC RN did not require any additional information to process this visit. .................. .................. .................. .................. .................. .................. .................. ............... Enrollment Nurse Note: Vitals, resp assessment, rapid covid, rapid flu, 500mg azithro, 60mg prednisone PO .................. .................. .................. .................. .................. .................. .................. ............... Disposition: Fulfilled Magen Solo MD [address] [facility],[address] [facility], [place], [address], [employer] 03/09/2022 11:11:27
--- OUTSIDE RECORDS SUMMARY | 2024-09-07 08:05 | XMS_ITS | Encounter Summary ---
Author Organization [employer] [facility] Address [address] [place] [address] 7t [place] [address] Care Team Providers Care Chucking Lathe Operator Name Role Phone Name, Uriel AARON Primary Care Provider [phone] Puia, Juana PharmD Unavailable [phone] Puia, Juana PharmD Unavailable Reason for Visit * Reason Comments Med Refill Encounter Details Date Type Department Care Team (Late st Contact Info) Description 09/23/2022 Refill [facility] [address] [place] [address] Puia, Juana, PharmD [address] [place], [place] [phone] Type 2 diabetes mellitus with other specified complication, without long-term current use of insulin ([facility]) (Primary Dx) Social History Tobacco Use Types Packs/Day Years Used Date Smoking Tobacco: Never Smokeless Tobacco: Never Depression Answer Date Recorded Patient Health Questionnaire-2 Score 0 08/23/2022 Sex and Gender Information Value Date Recorded Sex Assigned at Male 05/28/2022 10:14 AM EDT Legal Sex Male 10:14 AM EDT Gender Identity Male 05/28/2022 10:14 AM EDT Sexual Orientation Straight 05/28/2022 10 :14 AM EDT documented as of this encounter Plan of Treatment Upcoming Encounters Date Type Department Care Team (Late Contact Info) Description 09/16/2024 11:00 AM EST Office Visit [facility] [address] [place], [place] [phone] Name, MD Uriel [address] [place] [address] 10/08/2024 9:00 AM EDT Medication Management [facility] [address] [place], [place] [phone] Juana Samuels PharmD [address] [place] [address] documented as of this encounter Visit Diagnoses Diagnosis Type 2 diabetes mellitus with other specified complication, without long-term current use of insulin ([facility])- Primary documented in this encounter Care Teams Chucking Lathe Operator Relationship Specialty Start Date End Date Name, MD Uriel [address] [place] [address] [phone] PCP - General Family Medicine 05/10/20 Juana Samuels PharmD [address] [place] [phone] Pharmacist Internal Medicine 05/03/22 09/01/23 Juana Samuels PharmD [address] [place] [phone] Pharmacist Internal Medicine 09/02/24 documented as of this encounter
--- OUTSIDE RECORDS SUMMARY | 2024-09-07 08:05 | XMS_ITS | Encounter Summary ---
Author Organization [employer] Address [address] [facility] 7t [place] [address] Care Team Providers Care Aviation Mechanic Name Role Phone Name, Uriel AARON Primary Care Provider [phone] Juana Samuels PharmD Unavailable [phone] Reason for Visit * Reason Comments Med Refill Encounter Details Date Type Department Care Team ([facility] st Contact Info) Description 08/09/2024 Refill [facility] [address] [place], [place] [phone] Name, MD Uriel [address] [place] [address] Social History Tobacco Use Types Packs/Day Years [...] Description 09/16/2024 11:00 AM EST Office Visit [facility] [address] [place] [phone] Name, MD Uriel [address] [place] [address] 10/08/2024 9:00 AM EDT Medication Management [facility] [address] [place] [phone] Juana Samuels, PharmD [address] [place] [phone] documented as of this encounter Goals Goal Patient Goal Type Associated Problems Recent Progress Patient-Stated? Author Hemoglobin A1c < 8 Result Component 6(07/17/2024 11:22 AM EST) No Puia, Juana, PharmD Record your blood sugar as directed Result Component No Puia, Juana, PharmD documented as of this encounter Visit Diagnoses Not on filedocumented in this encounter Additional Health Concerns Assessment Noted Time PHQ-9 Depression Total Score: 0 08/30/19 24 9:27 AM EST documented as of this encounter Care Teams Aviation Mechanic Relationship Specialty Start Date End Date Uriel Woodruff MD [address] [place] [phone] PCP - General Family Medicine 05/10/20 Puia, Juana, PharmD [address] [place] [address] Pharmacist Internal Medicine 09/02/24 documented as of this encounter
--- OUTSIDE RECORDS SUMMARY | 2024-09-07 08:05 | XMS_ITS | Encounter Summary ---
Author Organization [employer] Address 75 [facility] 7t [place] [address] Care Team Providers Care Plate Shop Helper Name Role Phone Name, Uriel AARON Primary Care Provider Juana Samuels PharmD Unavailable [phone] Reason for Visit * Reason Onset Date Comments [facility] 10/09/2023 Durable Medical Equipment 10/09/2023 Diabet ic shoes Encounter Details Date Type Department Care Team (Late st Contact Info) Description 10/09/2023 Telephone [facility] [address] [place] [address] Name, MD Uriel [address] [place] [address] VNA ; Durable Medical Equipment (Diabetic shoes) Social History Tobacco Use Types Packs/Day Years [...] encounter Miscellaneous Notes * Telephone Encounter - Merrill Carpenter - 10/09/2023 3:10 PM EDT Tc from [facility] with [facility] calling to let pcp know pt has been discharged from the agency. If any questions please contact Lianet at [phone] documented in this encounter Plan of Treatment Upcoming Encounters Date Type Department Care Team (Late st Contact Info) Description 09/16/2024 11:00 AM EST Office Visit [facility] [address] [place] [phone] Name, MD Uriel [address] [place] [phone] 10/08/2024 9:00 AM EDT Medication Management [facility] [address] [place] [address] Juana Samuels, PharmD [address] [place] [address] documented as of this encounter Goals Goal [...] documented as of this encounter Care Teams Plate Shop Helper Relationship Specialty Start Date End Date Name, MD Uriel [address] [place] [address] PCP - General Family Medicine 05/10/20 Juana Samuels, PharmD [address] [place] [address] Pharmacist Internal Medicine 09/02/24 documented as of this encounter
--- OUTSIDE RECORDS SUMMARY | 2024-09-07 08:05 | XMS_ITS | Patient Health Record ---
Author Organization [facility] Address [address] [place] [address] Care Team Providers Care Lubricating Engineer Name Role Phone Name Uriel AARON Primary Care Provider Melba Chin Unavailable [phone] Allergies No Known Allergies Reason For Referral No Information Medications Medication SIG (Take, Route, Frequency, Duration) Notes Start Date End Date Status glipiZIDE 10 MG 1 tablet 30 minutes before breakfast Orally Once a day Active Esomeprazole Magnesium 40 MG 1 capsule Orally Once a day Active metFORMIN HCl ER 500 MG 1 tablet with evening meal Orally Once a day Active metFORMIN HCl Active OxyCONTIN Not-Taking Zonisamide 100 MG 1 capsule Orally Once a day Active Gabapentin Not-Takin g Pentoxifylline ER 400 MG 1 tablet with meals Orally Twice a day Active Insulin Not-Taking Extra Depth Orthopedic Shoes, (1) Pair With (3) Pair Custom Heat Molded Multidensity Innersoles Dx: NIDDM/PVD(E11.51), Hammertoe Foot Deformity(M20.41,M20 .42), Preulcerative Skin Lesion(s)(L85.1) Wear Daily for 365 days Active Baqsimi Two Pack 3 MG/DOSE USE 1 SPRAY (3MG) IN ONE NOSTRIL FOR A PATIENT WITH SEVERE HYPOGLYCEMIA WHO IS NOT RESPONSIVE AND UNABLE SELF-TREAT WITH GLUCOSE. AFTERWARDS TURN ON SIDE. MAY REPEAT IN 15MINUTES IF PATIENT DOES NOT RESPOND. Nasal for 1 E119,Unavail able Not-Taking Advair HFA 115-21 MCG/ACT Inhalation for 30 Active Vitamin D3 25 MCG (1000 UT) 1 capsule Orally Once a day Not-Taking Trulicity Not-Taking Metoprolol Tartrate 25 MG Oral for 30 Active Vitamin B-12 1000 MCG 1 tablet Orally On ce a day Not-Taking Ventolin HFA 108 (90 Base) MCG/ACT INHALE 2 PUFFS BY MOUTH EVERY 4 TO 6 HOURS NEEDED Inhalation for 17 Active Rosuvastatin Calcium 20 MG 1 tablet Orally Once a day Not-Taking Extra Depth Orthopedic Shoes (1 Pair) with Customized Heat Molded Multidensity Innersoles (3 Pair) as directed Dx: NIDDM/Polyneuropathy (E11.42), Hammertoe Foot Deformity (M20.41,M20.42), Preulcerative Skin Lesion(s) (L85.1 09/06/2023 Active Immunizations Vaccine Route Administration Date Status Comme nts Influenza Unknown 02/07/2024 Refused Social History Tobacco Use: Social History Observation Description Date Details (start date - stop date) Former Smoker NA - NA Tobacco Use/Smoking Question Answer Notes Are you a: former smoker Additional Findings: Tobacco Non-User Current no n-smoker Alcohol Screen Question Answer Notes Did you have a drink containing alcohol in the p ast year? No Points 0 Interpretation Negative Tobacco use other than smoking: Question Answer Notes Are you an other tobacco user? No Problems Problem Type SNOMED Code ICD Code Onset Dates Problem Status W/U Status Risk Notes Problem Acquired hammer toe of right foot (78844392715188 05) Other hammer toe(s) (acquired), right foot (M20.41) Active confirmed Problem Acquired hammer toe of left foot (41513029046328 03) Other hammer toe(s) (acquired), left foot (M20.42) Active confirmed Problem [id number] Type 2 diabetes mellitus without complication, without long-term current use of insulin (E11.9) Active confirmed Vital Signs Height 5ft 9in in 06/24/2024 Weight 123 lbs 06/24/2024 BMI 18.16 kg/m2 06/24/2024 Encounters Encounter Location Date Provider Diagnosis [facility] [address] [place] [address] 11/15/2023 Melba Raya Type 2 diabetes mellitus without complication, without long-term current use of insulin E11.9 ; Tinea unguium B35.1 ; Pain in toe of left foot M79.675 and Pain in toe of right foot M79.[address] [facility] [address] 02/07/2024 Melba Raya Type 2 diabetes mellitus without complication, without long-term current use of insulin E11.9 ; Tinea unguium B35.1 ; Pain in toe of left foot M79.675 and Pain in toe of right foot M79.674 [facility] [address] 04/22/2024 Melba Raya Tinea unguium B35.1 ; Ingrown nail L60.0 ; Type 2 diabetes mellitus without complication, without long-term current use of insulin E11.9 ; Pain in toe of left foot M79.675 and Pain in toe of right foot M79.674 [facility] [address] 06/24/2024 Melba Raya Tinea unguium B35.1 ; Ingrown nail L60.0 ; Type 2 diabetes mellitus without complication, without long-term current use of insulin E11.9 ; Pain in toe of left foot M79.675 and Pain in toe of right foot M79.674 [facility] [address] [address] 01/31/2024 Melba Raya Assessments Encounter Date Diagnosis (ICD Code) Assessment Notes Treatment Notes Treatment Clinical Notes Section Notes 11/15/2023 Type 2 diabetes mellitus without complication, without long-term current use of insulin (ICD-10 - E11.9) 02/07/2024 Type 2 diabetes mellitus without complication, without long-term current use of insulin (ICD-10 - E11.9) 04/22/2024 Tinea unguium (ICD-10 - B35.1) 04/22/2024 Ingrown nail (ICD-10 - L60.0) 06/24/2024 Tinea unguium (ICD-10 - B35.1) 11/15/2023 Tinea unguium (ICD-10 - B35.1) 11/15/2023 Pain in toe of left foot (ICD-10 - M79.675) 04/22/2024 Type 2 diabetes mellitus without complication, without long-term current use of insulin (ICD-10 - E11.9) 06/24/2024 Ingrown nail (ICD-10 - L60.0) 02/07/2024 Tinea unguium (ICD-10 - B35.1) 02/07/2024 Pain in toe of left foot (ICD-10 - M79.675) 04/22/2024 Pain in toe of left foot (ICD-10 - M79.675) 06/24/2024 Type 2 diabetes mellitus without complication, without long-term current use of insulin (ICD-10 - E11.9) 11/15/2023 Pain in toe of right foot (ICD-10 - M79.674) 04/22/2024 Pain in toe of right foot (ICD-10 - M79.674) 06/24/2024 Pain in toe of left foot (ICD-10 - M79.675) 02/07/2024 Pain in toe of right foot (ICD-10 - M79.674) 06/24/2024 Pain in toe of right foot (ICD-10 - M79.674) 11/15/2023 Other Plan Of Treatment Next Appt Details Provider Name:Melba miller, 09/09/2024 09:00:00 AM, [address] [place] [address], [phone], Insurance Providers Payer Name Payer Address Payer Phone Subscriber Number Group Number Insured Name Patient Relationship to Insured Coverage Start Date Coverage End Date [facility] [employer] Claims [address] [facility] RAJIV Zun[place] [id number] George Guillaume Self - patient is the insured Medical (General) History Medical History History ICD Code Anxiety asthma Back,Hip,and Knee pain Cataracts Diabetic Epilepsy/Seizures Fatty liver Reflux ( GERD) Chicken pox Joint implants/screws Esophageal cancer Surgical History Surgery Date(Month/Year) Esophageal surgery- feeding tube 3 cataract surgery 2023
--- OUTSIDE RECORDS SUMMARY | 2024-09-07 08:05 | XMS_ITS ---
Author Organization [facility] Address [address] [place] [address] Care Team Providers Care Surgical Physician Assistant Name Role Phone Name Uriel AARON Primary Care Provider Melba Chin Unavailable [phone] Allergies No Known Allergies REASON FOR VISIT pcp-01/2024, At Risk Footcare, Ingrown Nail Medications Medication SIG (Take, Route, Frequency, Duration) Notes Start Date End Date Status Baqsimi Two Pack 3 MG/DOSE USE 1 SPRAY (3MG) IN ONE NOSTRIL FOR A PATIENT WITH SEVERE HYPOGLYCEMIA WHO IS NOT RESPONSIVE AND UNABLE SELF-TREAT WITH GLUCOSE. AFTERWARDS TURN ON SIDE. MAY REPEAT IN 15MINUTES IF PATIENT DOES NOT RESPOND. Nasal for 1 E119,Unavail able Not-Taking Vitamin D3 25 MCG (1000 UT) 1 capsule Orally Once a day Not-Taking Vitamin B-12 1000 MCG 1 tablet Orally On ce a day Not-Taking Rosuvastatin Calcium 20 MG 1 tablet Orally Once a day Not-Taking Trulicity Not-Taking Esomeprazole Magnesium 40 MG 1 capsule Orally Once a day Active metFORMIN HCl ER 500 MG 1 tablet with evening meal Orally Once a day Active OxyCONTIN Not-Taking Gabapentin Not-Takin g Insulin Not-Taking glipiZIDE 10 MG 1 tablet 30 minutes before breakfast Orally Once a day Active Advair HFA 115-21 MCG/ACT Inhalation for 30 Active Metoprolol Tartrate 25 MG Oral for 30 Active Ventolin HFA 108 (90 Base) MCG/ACT INHALE 2 PUFFS BY MOUTH EVERY 4 TO 6 HOURS NEEDED Inhalation for 17 Active Extra Depth Orthopedic Shoes (1 Pair) with Customized Heat Molded Multidensity Innersoles (3 Pair) as directed Dx: NIDDM/Polyneuropathy (E11.42), Hammertoe Foot Deformity (M20.41,M20.42), Preulcerative Skin Lesion(s) (L85.1 09/06/2023 Active metFORMIN HCl Active Zonisamide 100 MG 1 capsule Orally Once a day Active Pentoxifylline ER 400 MG 1 tablet with meals Orally Twice a day Active Extra Depth Orthopedic Shoes, (1) Pair With (3) Pair Custom Heat Molded Multidensity Innersoles Dx: NIDDM/PVD(E11.51), Hammertoe Foot Deformity(M20.41,M20 .42), Preulcerative Skin Lesion(s)(L85.1) Wear Daily for 365 days Active Social History Tobacco Use: Social History Observation [...] Are you an other tobacco user? No Vital Signs Height 5ft 9in in 06/24/2024 Weight 123 lbs 06/24/2024 BMI 18.16 kg/m2 06/24/2024 Encounters Encounter Location Date Provider Diagnosis [facility] [address] [address] 06/24/2024 Melba Raya Tinea unguium B35.1 ; Ingrown nail L60.0 ; Type 2 diabetes mellitus without complication, without long-term current use of insulin E11.9 ; Pain in toe of left foot M79.675 and Pain in toe of right foot M79.674 Assessments Encounter Date Diagnosis (ICD Code) Assessment Notes Treatment Notes Treatment Clinical Notes Section Notes 06/24/2024 Tinea unguium (ICD-10 - B35.1) 06/24/2024 Ingrown nail (ICD-10 - L60.0) 06/24/2024 Type 2 diabetes mellitus without complication, without long-term current use of insulin (ICD-10 - E11.9) 06/24/2024 Pain in toe of left foot (ICD-10 - M79.675) 06/24/2024 Pain in toe of right foot (ICD-10 - M79.674) Plan Of Treatment Next Appt Details Follow Up: 2 Months, Reason: Provider Name:Melba miller, 09/09/2024 09:00:00 AM, [address] [place], [address], Procedure Notes * Category Sub-Category Detail Notes Debride Nail 6-10 Nail debridement Nail debridem ent performed extensively to reduce/remove overall nail length and girth, subungual debris, and necrotic tissue, by manual and electrical means with use of a nail nipper and/or dremel, to more viable healthy nail plate or bed tissue 6-10. Silver nitrate used for any petechial bleeding as necessary. Patient chooses, no pharmaceutical tx (15736) Progress Notes * George CHANDRA ADOB:1955 (68 yo M)Acc No.[id number]:06/24/2024 Progress Note Patient:?George CHANDRA Provider:?Melba Raya DPM :1955???Age:68 Y???Sex:Male Alexis e:06/24/2024 Address:[address] [place], [place] [id number] Pcp:Uriel Woodruff MD Subjective: * Chief Complaints: * ???Pcp-t Risk Footca reIngrown Nail * HPI: ???At Risk footcare:?Pt States Last PCP Visit:?Date?02/11/2024 * ROS:?General/Constitutional:?Nausea?denies, denies.?Vomiting?denies, denies.?Hunger Thirst?denies, denies.?Loss appetite?denies, denies.?Chills?denies, denies.?Fatigue?denies, denies.?Fever?denies, denies.?Night Sweats denies, denies.?Unexplained weight loss?denies, denies.?Unexplained weight gain?denies, denies.?HEENTM:?Dentures?admits, admits.?Dizziness?denies, denies.?Glasses/contacts?admits, admits.?Retinopathy?denies, denies.?Blurred/double vision?admits, admits.?TMJ?denies, denies.?Discharge/drainage?denies, denies.?Implants?denies, denies.?Sore throat?denies, denies.?Dental implants?denies, denies.?Hard of hearing ?denies, denies.?Difficulty chewing/swallowing/speaking?denies, denies.?Nose bleeds?denies, denies.?Sore mouth?denies, denies.?Respiratory:?On Oxygen?denies, denies.?Pneumonia/pleurisy?denies, denies.?Bronchitis?denies, denies.?Emphysema?denies, denies.?Coughing?denies, denies.?Cough blood?denies, denies.?Shortness of breath?denies, denies.?Wheezing?denies, denies.?Cardiovascular:?Pacemaker?denies, denies.?MVP?denies, denies.?WPW?denies, denies.?CHF?denies, denies.?Heart attack?denies, denies.?Septal defect?denies, denies.?Rapid beat?denies, denies.?Chest pain ?denies, denies.?Atrial Fib.?denies, denies.?Murmur/Palpitations?denies, denies.?Gastrointestinal:?Hemorrhoids?denies, denies.?Stomach/Abdominal pain?denies, denies.?Dark blood stool?denies, denies.?Irritable bowel ?denies, denies.?Constipation?denies, denies.?Diarrhea?denies, denies.?Hematology:?Swelling?denies, denies.?Clots?denies, denies.?Varicose Veins?denies, denies.?Bruising?denies, denies.?Bleeding problem?denies, denies.?Genitourinary:?Blood urine?denies, denies.?Frequent/Painfu/urination/bladder control?denies, denies.?Kidney stones?denies, denies.?Infection (UTI)?denies, denies.?Nephropathy?denies, denies.?sex trans dis (STD)?denies, denies.?Prostate?denies, denies.?Musculoskeletal:?Hammertoes?denies, denies.?Bunions?denies, denies.?Back Pain?admits, admits.?Muscle Cramps/ Resting?denies, denies.?Muscle cramps / walking?denies, denies.?Generalized aches and pains?denies, denies.?Weakness?denies, denies.?Integ.:?Arnold?denies, denies.?Scars?denies, denies.?Corns/calluses?denies, denies.?Ingrown nails?admits, admits.?Painful nails?admits,admits.?Open Sores?denies, denies.?Rashes?denies, denies.?Neurologic:?Difficulty sleeping?denies, denies.?Brain disorder?denies, denies.?Numbness?denies, denies.?Balance trouble?denies, denies.?Confusion?denies, denies.?Fainting/blackouts?denies, denies.?Tingling?denies, denies.?Tremors?denies, denies.? * Medical History:? * Surgical History:?Esophageal surgery- feeding tube 07/24/23cataract surgery 2023 * Hospitalization/Major Diagno stic Procedure:?Denies Past Hospitalization * Family History:?Mother: dece ased, diagnosed with Diabetic - NIDDM.?Father: , diagnosed with Diabetic - NIDDM.?Siblings: Brother - Prostate Cancer, diagnosed with Diabetic - NIDDM, Unspecified heart disease.? * Social History:?Tobacco Use:?Tobacco Use/Smoking?Are you a:?former smoker ?Additional Findings: Tobacco Non-User?Current non-smoker ?Tobacco use other than smoking?Are you an other tobacco user??No ???Drugs/Alcohol:?Drugs?Have you used drugs other than those for medical reasons in the past 12 months??No ?Alcohol Screen?Did you have a drink containing alcohol in the past year??No ?Points?0 ?Interpretation?Negative ???Miscellaneous:?Caffeine: yes, frequency: 1 cup a day. ?Children: yes, 4. ?Exercise: yes, walking. ?Marital status: . ?Occupation: Disabled. * Medications:?TakingmetFORMIN HCl Zonisamide 100 MG Capsule 1 capsule Orally Once a day Pentoxifylline ER 400 MG Tablet Extended Release 1 tablet with meals Orally Twice a day Extra Depth Orthopedic Shoes, (1) Pair With (3) Pair Custom Heat Molded Multidensity Innersoles . 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), Hammertoe Foot Deformity (M20.41,M20.42), Preulcerative Skin Lesion(s) (L85.1 glipiZIDE 10 MG Tablet 1 tablet 30 minutes before breakfast Orally Once a day Esomeprazole Magnesium 40 MG Capsule Delayed Release 1 capsule Orally Once a day metFORMIN HCl ER 500 MG Tablet Extended Release 24 Hour 1 tablet with evening meal Orally Once a day Taking metFORMIN HCl Taking Zonisamide 100 MG Capsule 1 capsule Orally Once a day Taking Pentoxifylline ER 400 MG Tablet Extended Release 1 tablet with meals Orally Twice a day Taking Extra Depth Orthopedic Shoes, (1) Pair With (3) Pair Custom Heat Molded Multidensity Innersoles . 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 AFTERWARDS TURN ON SIDE. MAY REPEAT IN 15MINUTES IF PATIENT DOES NOT RESPOND. Nasal , Notes to Pharmacist: E119,UnavailableVitamin D3 25 MCG (1000 UT) Capsule 1 capsule Orally Once a day Vitamin B-12 1000 MCG Tablet 1 tablet Orally Once a day Rosuvastatin Calcium 20 MG Tablet 1 tablet Orally Once a day Trulicity Medication List reviewed and reconciled with the patientNot-Taking/PRN OxyCONTIN Not-Taking/PRN Gabapentin Not- Taking/PRN Insulin Not-Taking/PRN Baqsimi Two Pack 3 MG/DOSE Powder USE 1 SPRAY (3MG) IN ONE NOSTRIL FOR A PATIENT WITH SEVERE HYPOGLYCEMIA WHO IS NOT RESPONSIVE AND UNABLE SELF-TREAT WITH GLUCOSE. AFTERWARDS TURN ON SIDE. MAY REPEAT IN 15MINUTES IF PATIENT DOES NOT RESPOND. Nasal , Notes to Pharmacist: E119,UnavailableNot-Taking/PRN Vitamin D3 25 MCG (1000 UT) Capsule 1 capsule Orally Once a day Not-Taking/PRN Vitamin B-12 1000 MCG Tablet 1 tablet Orally Once a day Not-Taking/PRN Rosuvastatin Calcium 20 MG Tablet 1 tablet Orally Once a day Not-Taking/PRN Trulicity Medication List reviewed and reconciled with the patient * Allergies:?N.K.D.A.yes[Aller gies Verified] Objective: * Vitals:?Ht: 5ft 9in, Wt:123, BMI:18.16, Shoe size: 9-9.5, BS: 74, Ht-cm: 175.26 cm, Wt-k.79 kg. * ???Past Orders: ???Lab:HEMOGLOBIN A1C (GLYCO HEMOGLOBIN) (Order Date - 08/29/2023) (Collection Date & Time - 08/29/2023) ? Value Reference Range ?HEMOGLOBIN A1C (HH) 8.1 * Examination: ???Ophthalmology Referral: ?DIABETES EYE EXAM?Orthopedic: ?MUSCLE STRENGTH:?5/5 all groups in a symmetrical fashion, B/L.?DIGITAL DEFORMITIES:?Digital contracture, PIPJ, 2-5 B/L, incompl-reducible to push-up test, no over, nor underlapping, with evidence of shoe producing skin irritation.?FOOTWEAR:?worn, non-supportive, shoe gear properties exacerbate patient's foot/toe deformity , shoe gear properties exacerbate patients foot/toe deformity.?General Examination: ?FOOT EXAM:?Footwear Evaluation?Nails: ?NAILS are:?Elongated, overgrown, dystrophic, lytic, greater than 3mm thick, discolored and friable with crumbly malodorous subungual debris, with pain on palpation 1-5 B/L.?Dermatologic: ?SKIN FINDINGS:?Skin exam reveals normal texture, elasticity, and turgor. There are no masses. The interspaces are clear, B/L.?Neurological: ?SENSORY:?Neurological exam reveals intact sensorium, pain sensation normal, vibration sensation intact, pinprick sensation is normal in the lower extremities, Pt denies, anesthesia, burning, paresthesia, tingling, B/L.?Vascular: ?DP PULSES(B):?3/4, B/L.?PT PULSES(B):?3/4, B/L.?CAPILLARY FILL TIME:?immediate, all digits, B/L.?TROPHIC CONDITION-TEXTURE/ELASTICITY/TURGOR/HAIR GROWTH(B):?normal, B/L.?TEMPERTURE GRADIENT(C):?normal, warm to cool, proximal to distal, B/L, B/L.?PIGMENTATION:?normal, B/L.?EDEMA(C):?absent, B/L.?Ingrown Nail: ?INSPECTION:?Reveals nail incurvation, mild pain on palpation, groove hypertrophy, Medial nail border, TA.? Assessment: * Assessment: 1.?Tinea unguium - B35.1???2 .?Ingrown nail - L60.0 (Primary)???3.?Type 2 diabetes mellitus without complication, without long-term current use of insulin - E11.9???4.?Pain in toe of left foot - M79.675???5.?Pain in toe of right foot - M79.674??? Plan: * Treatment: * Procedures:?Debride Nail 6-10:?Nail debridement?Nail debridement performed extensively to reduce/remove overall nail length and girth, subungual debris, and necrotic tissue, by manual and electrical means with use of a nail nipper and/or dremel, to more viable healthy nail plate or bed tissue 6-10. Silver nitrate used for any petechial bleeding as necessary. Patient chooses, no pharmaceutical tx ([id number]).? * Procedure Codes:?00887 DEBRI DE NAIL, 6 OR MORE, Modifiers: XS * Preventive Medicine:? ??Counseling:?Discussion:?-12: Office or other outpatient visit for the evaluation and management of an established patient, which required a medically appropriate history and/or examination and STRAIGHTFORWARD level of MEDICAL DECISION MAKING, 1 SELF-LIMITED OR MINOR PROBLEM, MINIMAL- NO AMOUNT/COMPLEXITY OF DATA TO BE REVIEWED/ANALYZED, AND MINIMAL RISK OF COMPLICATION/MORBIDITY. The visit on the day of the encounter encompassed interpreting the data and educating the patient as to the nature of their condition, treatment options available according to their individual PMH, meds, allergies, and overall health/living conditions, as well as any potential risks or complications that may occur from a failure to adhere to, and participate in, the recommended course of therapy. The discussion included a complete verbal, and/or written explanation of the examination results, any x-rays taken, the proposed diagnosis, and outline of the treatment plan. A schedule for future care needs was also explained. The patient verbalized an understanding of the instructions at this time and agreed to be an active participant in their treatment. If the patient should think of any questions or concerns after the visit, I have encouraged the patient to call the office.?Abscess/Paraonychia/Ingrown Nails:?We discussed the possible etiologies (genetic, improper nail care, shoe gear, nail trauma) which may lead to ingrown nails and/or paronychial infections. We discussed and reviewed palliative/nonsurgical/deferring definitive treatment (vs) undergoing the treatment procedures of nail avulsion(s) or PNA, which may prevent recurrence and give more lasting results. The possible risks/complications such as worsened condition/delayed healing/nonhealing/failure/recurrence/infection, the potential benefits/advantages of decreased pain/deformity, as well as alterative treatment options including applying nail softening agents/nail groove packing were discussed. No guarantees were given regarding any outcome for any procedure. The patient was educated in the length of time for the affected nail to regrow once completely healed from a nail avulsion procedure. Once the condition has completely healed, the patient was consulted on proper nail care. Patient questions such as details of each procedure, varying time to heal, activity post procedure, and shoe gear were discussed and the answers were verbally confirmed fully understood, Pt defers NA today due to Thanksgiving tomorrow, pt relates some releif with nail cutting and filling. Advised pt to call if any increased pain or signs of infection.? * Follow Up:?2 Months * Images: * Sign off status: Completed true * Provider:?Melba Raya DPM Date:? Generated for Pavel osborn/Jairon/Sam on:?09/07/2024 08:05 AM EST History and Physical Notes * HPI (History of Present Illness) Category Sub-Category Detail Notes Category Not es At Risk footcare Pt States Last PCP Visit: Date: 4 Examination Category Sub-Category Detail Notes Category Not es Ingrown Nail INSPECTION: Reveals nail inc urvation, mild pain on palpation, groove hypertrophy, Medial nail border, TA Neurological SENSORY: Neurological exa m reveals intact sensorium, pain sensation normal, vibration sensation intact, pinprick sensation is normal in the lower extremities, Pt denies, anesthesia, burning, paresthesia, tingling, B/L Dermatologic SKIN FINDINGS: Skin exam reveal s normal texture, elasticity, and turgor. There are no masses. The interspaces are clear, B/L Orthopedic FOOTWEAR: worn, non-suppor tive, shoe gear properties exacerbate patient's foot/toe deformity , shoe gear properties exacerbate patients foot/toe deformity DIGITAL DEFORMITIES: Digital contracture , PIPJ, 2-5 B/L, incompl-reducible to push-up test, no over, nor underlapping, with evidence of shoe producing skin irritation MUSCLE STRENGTH: 5/5 all groups in a symmetrical fashion, B/L General Examination FOOT EXAM: Lower Extrem ity Neurological Exam performed:: Yes Footwear Evaluation Footwear Evaluation performe d:: Yes Ophthalmology Referral DIABETES EYE EXAM Procedure Perform ed:: Yes ?Date of Exam Performed: 02/27/2024 Findings of Diabetic Eye Exam:: no retin opathy Vascular DP PULSES (B): 3/4, B/L PT PULSES (B): 3/4, B/L CAPILLARY FILL TIME: immediate, all digi ts, B/L TEMPERTURE GRADIENT (C): normal, warm to cool, proximal to distal, B/L, B/L TROPHIC CONDITION-TEXTURE/ELASTICITY/TURGOR/HAIR GROWTH (B): normal, B/L EDEMA (C): absent, B/L PIGMENTATION: normal, B/L Nails NAILS are: Elongated, overg rown, dystrophic, lytic, greater than 3mm thick, discolored and friable with crumbly malodorous subungual debris, with pain on palpation 1-5 B/L
--- OUTSIDE RECORDS SUMMARY | 2024-09-07 08:05 | XMS_ITS | Encounter Summary ---
Author Organization [email or web address] Address [address] [facility] [address] [place] [address] Care Team Providers Care Application Integrator Name Role Phone Name, Uriel AARON Primary Care Provider [phone] Puia, Juana PharmD Unavailable [phone] Puia, Juana PharmD Unavailable [phone] Reason for Visit * Reason Comments Med Refill Encounter Details Date Type Department Care Team (Late st Contact Info) Description 08/15/2023 Refill [facility] [address] [place], [place] [id number] Name, MD Uriel [address] [place] [address] Allergic rhinitis, unspecified seasonality, unspecified trigger Social History Tobacco Use Types Packs/Day Years [...] 09/16/2024 11:00 AM EST Office Visit [facility] [address] [place] [phone] Name, MD Uriel [address] [place] [phone] 10/08/2024 9:00 AM EDT Medication Management [address] [address] PuiaEdvinJuana, PharmD [address] [place] [phone] documented as of this encounter Goals Goal Patient Goal Type Associated Problems Recent Progress Patient-Stated? Author Hemoglobin A1c < 8 Result Component 6(07/17/2024 11:22 AM EST) No Puia, Juana, PharmD Record your blood sugar as directed Result Component No Puia, Juana, PharmD documented as of this encounter Visit Diagnoses Diagnosis Allergic rhinitis, unspecified seasonality, unspecified trigger documented in this encounter Care Teams Application Integrator Relationship Specialty Start Date End Date NameUriel MD [address] [place] [phone] PCP - General Family Medicine 05/10/20 Puia, Juana, PharmD [address] [place] [phone] Pharmacist Internal Medicine 05/03/22 09/01/23 Juana Samuels, PharmD [address] [place] [phone] Pharmacist Internal Medicine 09/02/24 documented as of this encounter
--- OUTSIDE RECORDS SUMMARY | 2024-09-07 08:05 | XMS_ITS ---
[facility] Address [address] [place] [address] Care Team Providers Care Payable Processor Name Role Phone Name Uriel AARON Primary Care Provider Melba Chin Unavailable [phone] Allergies No Known Allergies REASON FOR VISIT pcp-01/2024, At Risk Footcare, Ingrown Nail Medications Medication SIG (Take, Route, Frequency, Duration) Notes Start Date End Date Status Rosuvastatin Calcium 20 MG 1 tablet Orally Once a day Not-Taking glipiZIDE 10 MG 1 tablet 30 minutes before breakfast Orally Once a day Active metFORMIN HCl ER 500 MG 1 tablet with evening meal Orally Once a day Active Esomeprazole Magnesium 40 MG 1 capsule Orally Once a day Active Trulicity Not-Taking Vitamin B-12 1000 MCG 1 tablet Orally On ce a day Not-Taking Baqsimi Two Pack 3 MG/DOSE USE 1 SPRAY (3MG) IN ONE NOSTRIL FOR A PATIENT WITH SEVERE HYPOGLYCEMIA WHO IS NOT RESPONSIVE AND UNABLE SELF-TREAT WITH GLUCOSE. AFTERWARDS TURN ON SIDE. MAY REPEAT IN 15MINUTES IF PATIENT DOES NOT RESPOND. Nasal for 1 E119,Unavail able Not-Taking Vitamin D3 25 MCG (1000 UT) 1 capsule Orally Once a day Not-Taking Gabapentin Not-Takin g Insulin Not-Taking Advair HFA 115-21 MCG/ACT Inhalation for 30 Active Extra Depth Orthopedic Shoes (1 Pair) with Customized Heat Molded Multidensity Innersoles (3 Pair) as directed Dx: NIDDM/Polyneuropathy (E11.42), Hammertoe Foot Deformity (M20.41,M20.42), Preulcerative Skin Lesion(s) (L85.1 09/06/2023 Active OxyCONTIN Not-Taking Metoprolol Tartrate 25 MG Oral for 30 Active Ventolin HFA 108 (90 Base) MCG/ACT INHALE 2 PUFFS BY MOUTH EVERY 4 TO 6 HOURS NEEDED Inhalation for 17 Active Pentoxifylline ER 400 MG 1 tablet with meals Orally Twice a day Active Extra Depth Orthopedic Shoes, (1) Pair With (3) Pair Custom Heat Molded Multidensity Innersoles Dx: NIDDM/PVD(E11.51), Hammertoe Foot Deformity(M20.41,M20 .42), Preulcerative Skin Lesion(s)(L85.1) Wear Daily for 365 days Active metFORMIN HCl Active Zonisamide 100 MG 1 capsule Orally Once a day Active Social History Tobacco Use: Social History [...] No Vital Signs Height 5ft 9in in 04/22/2024 Weight 124 lbs 04/22/2024 BMI 18.31 kg/m2 04/22/2024 Encounters Encounter Location Date Provider Diagnosis [facility] [address] [place] [address] 04/22/2024 Melba Raya Tinea unguium B35.1 ; Ingrown nail L60.0 ; Type 2 diabetes mellitus without complication, without long-term current use of insulin E11.9 ; Pain in toe of left foot M79.675 and Pain in toe of right foot M79.674 Assessments Encounter Date Diagnosis (ICD Code) Assessment Notes Treatment Notes Treatment Clinical Notes Section Notes 04/22/2024 Tinea unguium (ICD-10 - B35.1) 04/22/2024 Ingrown nail (ICD-10 - L60.0) 04/22/2024 Type 2 diabetes mellitus without complication, without long-term current use of insulin (ICD-10 - E11.9) 04/22/2024 Pain in toe of left foot (ICD-10 - M79.675) 04/22/2024 Pain in toe of right foot (ICD-10 - M79.674) Plan Of Treatment Next Appt Details Follow Up: 2 Months, Reason: Provider Name:Melba miller, 09/09/2024 09:00:00 AM, [address] [place] [address], [phone], Procedure Notes * Category Sub-Category Detail Notes Nail Avulsion Procedure A fine sterile e levator was placed between the eponychium, nail fold, and nail plate to separate the structures. A sterile nail splitter, and/or sterile 316 blade, was then used to longitudinally section the nail along its entire length through the eponychium to the area under the nail fold. The offending portion of nail was from the nail bed with a rolling action and then removed with a hemostat. No underlying bone was identified. There was minimal bleeding as hemostasis was achieved through the temporary use of either a digital tourniquet or the aforementioned local with epinephrine. A bacitracin sterile dressing was applied. Local wound aftercare instructions were discussed and dispensed. The patient was informed of both conservative and future surgical procedures to prevent recurrence. Tylenol or Motrin was recommended for pain or discomfort (14632) Anesthesia 3cc of 1 percent Lid ocaine Plain local anesthesic utilizing aseptic technique Location Lateral nail border, T5 Debride Nail 6-10 Nail debridement Nail debridem ent performed extensively to reduce/remove overall nail length and girth, subungual debris, and necrotic tissue, by manual and electrical means with use of a nail nipper and/or dremel, to more viable healthy nail plate or bed tissue 6-10. Silver nitrate used for any petechial bleeding as necessary. Patient chooses, no pharmaceutical tx (59206) Progress Notes * George CHANDRA ADOB:1955 (68 yo M)Acc No.[id number]:04/22/2024 Progress Note Patient:ItzelGeorge Chandra Provider:?Melba Raya DPM :1955???Age:68 Y???Sex:Male Alexis e:04/22/2024 Address:[address] [place], [place] [id number] Pcp:Uriel Woodruff MD Subjective: * Chief Complaints: * ???Pcp-t Risk Footca reIngrown Nail * HPI: ???At Risk footcare:?Pt States Last PCP Visit:?Date?02/11/2024 * ROS:?General/Constitutional:?Nausea?denies.?Vomiting?denies.?Hunger Thirst?denies.?Loss appetite?denies.?Chills?denies.?Fatigue?denies.?Fever?denies.?Night Sweats?denies.?Unexplained weight loss?denies.?Unexplained weight gain?denies.?HEENTM:?Dentures?admits.?Dizziness?denies.?Glasses/contacts?admits.?Retinopathy?de nies.?Blurred/double vision?admits.?TMJ?denies.?Discharge/drainage?denies.?Implants?denies.?Sore throat?denies.?Dental implants?denies.?Hard of hearing ?denies.?Difficulty chewing/swallowing/speaking?denies.?Nose bleeds?denies.?Sore mouth?denies.?Respiratory:?On Oxygen?denies.?Pneumonia/pleurisy?denies.?Bronchitis?denies.?Emphysema?denies.?C oughing?denies.?Cough blood?denies.?Shortness of breath?denies.?Wheezing?denies.?Cardiovascular:?Pacemaker?denies.?MVP?denies.?WPW?denies.?CHF?denies.?Heart attack?denies.?Septal defect?denies.?Rapid beat?denies.?Chest pain ?denies.?Atrial Fib.?denies.?Murmur/Palpitations?denies.?Gastrointestinal:?Hemorrhoids?denies.?Stomach/Abdominal pain?denies.?Dark blood stool?denies.?Irritable bowel ?denies.?Constipation?denies.?Diarrhea?denies.?Hematology:?Swelling?denies.?Clots?denies.?Varicose Veins?denies.?Bruising?denies.?Bleeding problem?denies.?Genitourinary:?Blood urine?denies.?Frequent/Painfu/urination/bladder control?denies.?Kidney stones?denies.?Infection (UTI)?denies.?Nephropathy?denies.?sex trans dis (STD)?denies.?Prostate?denies.?Musculoskeletal:?Hammertoes?denies.?Bunions?denies.?Back Pain?admits.?Muscle Cramps/ Resting?denies.?Muscle cramps / walking?denies.?Generalized aches and pains?denies.?Weakness?denies.?Integ.:?Arnold?denies.?Scars?denies.?Corns/calluses?denies.?Ingrown nails?admits.?Painful nails?admits.?Open Sores?denies.?Rashes?denies.?Neurologic:?Difficulty sleeping?denies.?Brain disorder?denies.?Numbness?denies.?Balance trouble?denies.?Confusion?denies.?Fainting/blackouts?denies.?Tingling?denies.?Tr emors?denies.? * Medical History:? * Surgical History:?Esophageal surgery- feeding tube 07/24/23cataract surgery 2023 * Hospitalization/Major Diagno stic Procedure:?Denies Past Hospitalization * Family History:?Mother: dece ased, diagnosed with Diabetic - NIDDM.?Father: , diagnosed with Diabetic - NIDDM.?Siblings: Brother - Prostate Cancer, diagnosed with Unspecified heart disease, Diabetic - NIDDM.? * Social History:?Tobacco Use:?Tobacco Use/Smoking?Are you a:?former [...] MG Capsule 1 capsule Orally Once a dayPentoxifylline ER 400 MG Tablet Extended Release 1 tablet with meals Orally Twice a dayExtra Depth Orthopedic Shoes, (1) Pair With (3) Pair Custom Heat Molded Multidensity Innersoles . Dx: NIDDM/PVD(E11.51), Hammertoe Foot Deformity(M20.41,M20.42), Preulcerative Skin Lesion(s)(L85.1) Wear DailyAdvair HFA 115-21 MCG/ACT Aerosol Inhalation Metoprolol Tartrate 25 MG Tablet Oral Ventolin HFA 108 (90 Base) MCG/ACT Aerosol Solution INHALE 2 PUFFS BY MOUTH EVERY 4 TO 6 HOURS NEEDED Inhalation Extra Depth Orthopedic Shoes (1 Pair) with Customized Heat Molded Multidensity Innersoles (3 Pair) as directed Dx: NIDDM/Polyneuropathy (E11.42), Hammertoe Foot Deformity (M20.41,M20.42), Preulcerative Skin Lesion(s) (L85.1glipiZIDE 10 MG Tablet 1 tablet 30 minutes before breakfast Orally Once a dayEsomeprazole Magnesium 40 MG Capsule Delayed Release 1 capsule Orally Once a daymetFORMIN HCl ER 500 MG Tablet Extended Release 24 Hour 1 tablet with evening meal Orally Once a dayTaking metFORMIN HCl Taking Zonisamide 100 MG Capsule 1 capsule Orally Once a dayTaking Pentoxifylline ER 400 MG Tablet Extended Release 1 tablet with meals Orally Twice a dayTaking Extra Depth Orthopedic Shoes, (1) Pair With (3) Pair Custom Heat Molded Multidensity Innersoles . Dx: NIDDM/PVD(E11.51), Hammertoe Foot Deformity(M20.41,M20.42), Preulcerative Skin Lesion(s)(L85.1) Wear DailyTaking Advair HFA 115-21 MCG/ACT Aerosol Inhalation Taking Metoprolol Tartrate 25 MG Tablet Oral Taking Ventolin HFA 108 (90 Base) MCG/ACT Aerosol Solution INHALE 2 PUFFS BY MOUTH EVERY 4 TO 6 HOURS NEEDED Inhalation Taking Extra Depth Orthopedic Shoes (1 Pair) with Customized Heat Molded Multidensity Innersoles (3 Pair) as directed Dx: NIDDM/Polyneuropathy (E11.42), Hammertoe Foot Deformity (M20.41,M20.42), Preulcerative Skin Lesion(s) (L85.1Taking glipiZIDE 10 MG Tablet 1 tablet 30 minutes before breakfast Orally Once a dayTaking Esomeprazole Magnesium 40 MG Capsule Delayed Release 1 capsule Orally Once a dayTaking metFORMIN HCl ER 500 MG Tablet Extended Release 24 Hour 1 tablet with evening meal Orally Once a dayNot- Taking/PRNOxyCONTIN Gabapentin Insulin Baqsimi Two Pack 3 MG/DOSE Powder USE 1 SPRAY (3MG) IN ONE NOSTRIL FOR A PATIENT WITH SEVERE HYPOGLYCEMIA WHO IS NOT RESPONSIVE AND UNABLE SELF- TREAT WITH GLUCOSE. AFTERWARDS TURN ON SIDE. MAY REPEAT IN 15MINUTES IF PATIENT DOES NOT RESPOND. Nasal , Notes: E119,UnavailableVitamin D3 25 MCG (1000 UT) Capsule 1 capsule Orally Once a dayVitamin B-12 1000 MCG Tablet 1 tablet Orally Once a dayRosuvastatin Calcium 20 MG Tablet 1 tablet Orally Once a dayTrulicity Medication List reviewed and reconciled with the patientNot-Taking/PRN OxyCONTIN Not-Taking/PRN Gabapentin Not-Taking/PRN Insulin Not-Taking/PRN Baqsimi Two Pack 3 MG/DOSE Powder USE 1 SPRAY (3MG) IN ONE NOSTRIL FOR A PATIENT WITH SEVERE HYPOGLYCEMIA WHO IS NOT RESPONSIVE AND UNABLE SELF-TREAT WITH GLUCOSE. AFTERWARDS TURN ON SIDE. MAY REPEAT IN 15MINUTES IF PATIENT DOES NOT RESPOND. Nasal , Notes: E119,UnavailableNot-Taking/PRN Vitamin D3 25 MCG (1000 UT) Capsule 1 capsule Orally Once a dayNot-Taking/PRN Vitamin B-12 1000 MCG Tablet 1 tablet Orally Once a dayNot-Taking/PRN Rosuvastatin Calcium 20 MG Tablet 1 tablet Orally Once a dayNot-Taking/PRN Trulicity Medication List reviewed and reconciled with the patient * Allergies:?N.K.D.A.yes[Aller gies Verified] Objective: * Vitals:?Ht: 5ft 9in, Wt:124, BMI:18.31, Shoe size: 9-9.5, BS: 64, Ht-cm: 175.26 cm, Wt-k.25 kg. * ???Past Orders: ???Lab:HEMOGLOBIN A1C (GLYCO HEMOGLOBIN) (Order Date - 08/29/2023) (Collection Date - 08/29/2023) ? Value Reference Range ?HEMOGLOBIN [...] B/L.?PIGMENTATION:?normal, B/L.?EDEMA(C):?absent, B/L.?Ingrown Nail: ?INSPECTION:?Reveals nail incurvation, pain on palpation, groove hypertrophy, Lateral nail border, T5.? Assessment: * Assessment: 1.?Tinea unguium - B35.1?2.? Ingrown nail - L60.0 (Primary)?3.?Type 2 diabetes mellitus without complication, without long-term current use of insulin - E11.9?4.?Pain in toe of left foot - M79.675?5.?Pain in toe of right foot - M79.674? Plan: * Treatment: * Procedures:?Debride Nail 6-10:?Nail debridement?Nail debridement performed extensively to reduce/remove overall nail length and girth, subungual debris, and necrotic tissue, by manual and electrical means with use of a nail nipper and/or dremel, to more viable healthy nail plate or bed tissue 6-10. Silver nitrate used for any petechial bleeding as necessary. Patient chooses, no pharmaceutical tx (89473).?Nail Avulsion:?Location?Lateral nail border, T5.?Anesthesia?3cc of 1 percent Lidocaine Plain local anesthesic utilizing aseptic technique.?Procedure?A fine sterile elevator was placed between the eponychium, nail fold, and nail plate to separate the structures. A sterile nail splitter, and/or sterile 316 blade, was then used to longitudinally section the nail along its entire length through the eponychium to the area under the nail fold. The offending portion of nail was from the nail bed with a rolling action and then removed with a hemostat. No underlying bone was identified. There was minimal bleeding as hemostasis was achieved through the temporary use of either a digital tourniquet or the aforementioned local with epinephrine. A bacitracin sterile dressing was applied. Local wound aftercare instructions were discussed and dispensed. The patient was informed of both conservative and future surgical procedures to prevent recurrence. Tylenol or Motrin was recommended for pain or discomfort (79234).? * Procedure Codes:?67310 DEBRI DE NAIL, 6 OR MORE, Modifiers: XS 58946 Avulsion Plate, Modifiers: XS * Follow Up:?2 Months * Images: * Sign off status: Completed true * Provider:?Melba Raya, ASUNCION Date:? Generated for Pavel osborn/Jairon/Sam on:?09/07/2024 08:05 AM EST History and Physical Notes * HPI (History of Present Illness) Category Sub-Category Detail Notes Category Not es At Risk footcare Pt States Last PCP Visit: Date: 4 Examination Category Sub-Category Detail Notes Category Not es Ingrown Nail INSPECTION: Reveals nail inc urvation, pain on palpation, groove hypertrophy, Lateral nail border, T5 Neurological SENSORY: Neurological exa m reveals intact [...] d:: Yes Ophthalmology Referral DIABETES EYE EXAM Diabetic Retinopa thy Screening:: Yes Findings of Diabetic Eye Exam:: retinopa thy Vascular DP PULSES (B): 3/4, B/L PT [...]
--- OUTSIDE RECORDS SUMMARY | 2024-09-07 08:05 | XMS_ITS | Encounter Summary ---
Author Organization [employer] Address [address] [facility] [address]t [place] [address] Care Team Providers Care Shoe Salesman Name Role Phone Name, Uriel AARON Primary Care Provider [phone] Juana Samuels PharmD Unavailable [phone] Reason for Visit * Reason Comments Med Refill Encounter Details Date Type Department Care Team ([facility] st Contact Info) Description 09/07/2023 Refill [facility] [address] [place], [place] [phone] Name, MD Uriel [address] [place] [address] Social History Tobacco Use Types Packs/Day Years [...] Description 09/16/2024 11:00 AM EST Office Visit [facility] [address] [place] [phone] Name, MD Uriel [address] [place] [address] 10/08/2024 9:00 AM EDT Medication Management [facility] [address] [place] [address] Juana Samuels, PharmD [address] [place] [address] documented as of this encounter Goals Goal [...] documented as of this encounter Care Teams Shoe Salesman Relationship Specialty Start Date End Date Uriel Woodruff MD [address] [place] [phone] PCP - General Family Medicine 05/10/20 Puia, Juana, PharmD [address] [place] [address] Pharmacist Internal Medicine 09/02/24 documented as of this encounter
--- OUTSIDE RECORDS SUMMARY | 2024-09-07 08:05 | XMS_ITS | Encounter Summary ---
Author Organization [facility] Address [address] [place] [address] [address] [place] [address] Care Team Providers Care Dog Day Care Attendant Name Role Phone NameUriel MD Primary Care Provider [phone] Puia, Juana PharmD Unavailable Puia, Juana PharmD Unavailable Encounter Details Date Type Department Care Team ([facility] Contact Info) Description 01/07/2023 Abstract [facility] [address] [place] [phone] Uriel Woodruff MD [address] [place] [address] Social History Tobacco Use Types Packs/Day Years Used Date Smoking Tobacco: Former Cigarettes Smokeless Tobacco: Never Depression Answer Date Recorded Patient Health Questionnaire-2 Score 0 08/23/2022 Sex and Gender Information Value Date Recorded Sex Assigned at Male 05/28/2022 10:14 AM EDT Legal Sex Male 10:14 AM EDT Gender Identity Male 05/28/2022 10:14 AM EDT Sexual Orientation Straight 05/28/2022 10 :14 AM EDT COVID-19 Exposure Response Date Recorded In the last 10 days, have yo u been in contact with someone who was confirmed or suspected to have Coronavirus/COVID-19? No / Unsure 12/12/2022 9:47 AM EDT documented as of this encounter Plan of Treatment Upcoming Encounters Date Type Department Care Team ([facility] Contact Info) Description 09/16/2024 11:00 AM EST Office Visit [facility] [address] [place] [phone] [place] [address] 10/08/2024 9:00 AM EDT Medication Management [facility] [place]ira [place] [phone] Juana Samuels PharmD [address] [place] [address] documented as of this encounter Procedures Procedure Name Priority Date/Time Associated Diagnosis Comments COLONOSCOPY Routine 02/18/2019 2:11 PM EDT documented in this encounter Results * Colonoscopy (02/18/2019 2:11 PM EDT) Colonoscopy Normal Normal Narrative Elsa Christopher - 02/18/2019 2:11 PM EDT Recommended 5 year follow up ( [facility] ) Historical Provider HEALTH MAINTENANCE Final Result documented in this encounter Visit Diagnoses Not on filedocumented in this encounter Care Teams Dog Day Care Attendant Relationship Specialty Start Date End Date Name, MD Uriel [place] [id number] PCP - General Family Medicine 05/10/20 Juana Samuels [place] [address] Pharmacist Internal Medicine 05/03/22 09/01/23 [place] [address] Pharmacist Internal Medicine 09/02/24 documented as of this encounter
--- OUTSIDE RECORDS SUMMARY | 2024-09-07 08:06 | XMS_ITS | Encounter Summary ---
Author Organization [employer] Address [address] [facility] [address] [place] [address] Care Team Providers Care Rod Finisher Name Role Phone Name, Uriel AARON Primary Care Provider [phone] Juana Samuels PharmD Unavailable [phone] Reason for Visit * Reason Onset Date Comments FYI 05/26/2024 Encounter Details Date Type Department Care Team ([facility] st Contact Info) Description 05/26/2024 Telephone [facility] [address] [place] [address] Name, MD Uriel [address] [place] [address] FYI Social History Tobacco Use Types Packs/Day Years [...] encounter Miscellaneous Notes * Telephone Encounter - Leah Costa - 05/26/2024 9:31 AM EDT Tc from [facility] with [facility] medication management requesting PCP to review pt's diabetic status and pt possibly benefiting from being prescribed a statin drug. For any questions please call [facility] at [phone] *Advised caller message sent to provider. documented in this encounter Plan of Treatment Upcoming Encounters Date Type Department Care Team (Late st Contact Info) Description 09/16/2024 11:00 AM EST Office Visit [facility] [address] [place] [phone] Name, MD Uriel [address] [place] [address] 10/08/2024 9:00 AM EDT Medication Management [facility] [address] [place] [phone] Juana Samuels PharmD [address] [place] [address] documented as of this encounter Goals Goal [...] documented as of this encounter Care Teams Rod Finisher Relationship Specialty Start Date End Date Name, MD Uriel [address] [place] [address] PCP - General Family Medicine 05/10/20 Juana Samuels, PharmD [address] [place] [address] Pharmacist Internal Medicine 09/02/24 documented as of this encounter
--- OUTSIDE RECORDS SUMMARY | 2024-09-07 08:06 | XMS_ITS | Encounter Summary ---
Author Organization [employer] Address [address] [facility] [address] [place] [address] Care Team Providers Care Personnel Security Assistant Name Role Phone Name, Uriel AARON Primary Care Provider [phone] Juana Samuels PharmD Unavailable [phone] Reason for Visit * Reason Onset Date Comments Durable Medical Equipment 05/29/2023 Transf er Chair Encounter Details Date Type Department Care Team ([facility] st Contact Info) Description 05/29/2023 Telephone [facility] [address] [place] [address] Name, MD Uriel [address] [place] [address] Durable Medical Equipment (Transfer Chair ) Social History Tobacco Use Types Packs/Day Years [...] encounter Miscellaneous Notes * Telephone Encounter - Viridiana Carpenter - 05/30/2023 9:11 AM EDT Order for DME has been generated and placed on provider desk for review and siganture * Telephone Encounter - Ariadna Brown - 05/29/2023 1:19 PM EDT Tc paige Schilling from [facility] requesting a script for a Transport wheel chair with DX code ( unsteady gate R26.81 ) Fax number [phone] documented in this encounter Plan of Treatment Upcoming Encounters Date Type Department Care Team (Late st Contact Info) Description 09/16/2024 11:00 AM EST Office Visit [facility] [address] [place] [phone] Name, MD Uriel [address] [place] [address] 10/08/2024 9:00 AM EDT Medication Management [facility] [address] [place] [address] Juana Samuels, PharmD [address] [place] [address] documented as of this encounter Goals Goal Patient Goal Type Associated Problems Recent Progress Patient-Stated? Author Hemoglobin A1c < 8 Result Component 6(07/17/2024 11:22 AM EST) No Juana Samuels PharmSincere Record your blood sugar as directed Result Component No Juana Samuels PharmD documented as of this encounter Visit Diagnoses Not on filedocumented in this encounter Care Teams Personnel Security Assistant Relationship Specialty Start Date End Date Name, MD Uriel [address] [place] [address] PCP - General Family Medicine 05/10/20 Juana Samuels PharmD [address] [place] [address] Pharmacist Internal Medicine 05/03/22 09/01/23 documented as of this encounter
--- OUTSIDE RECORDS SUMMARY | 2024-09-07 08:06 | XMS_ITS ---
Author Organization [facility] Address [address] [place] [address] Care Team Providers Care Parquetry Floor Layer Name Role Phone Name Uriel AARON Primary Care Provider Melba Chin Unavailable [phone] Allergies No Known Allergies REASON FOR VISIT At Risk Footcare Medications Medication SIG (Take, Route, Frequency, Duration) Notes Start Date End Date Status metFORMIN HCl ER 500 MG 1 tablet with evening meal Orally Once a day Not-Taking Trulicity Not-Taking Esomeprazole Magnesium 40 MG 1 capsule Orally Once a day Not-Taking glipiZIDE 10 MG 1 tablet 30 minutes before breakfast Orally Once a day Not-Taking Rosuvastatin Calcium 20 MG 1 tablet Orally Once a day Not-Taking Vitamin B-12 1000 MCG 1 tablet Orally On ce a day Not-Taking Vitamin D3 25 MCG (1000 UT) 1 capsule Orally Once a day Not-Taking Baqsimi Two Pack 3 MG/DOSE USE 1 SPRAY (3MG) IN ONE NOSTRIL FOR A PATIENT WITH SEVERE HYPOGLYCEMIA WHO IS NOT RESPONSIVE AND UNABLE SELF-TREAT WITH GLUCOSE. AFTERWARDS TURN ON SIDE. MAY REPEAT IN 15MINUTES IF PATIENT DOES NOT RESPOND. Nasal for 1 E119,Unavail able Not-Taking Insulin Not-Taking Gabapentin Not-Takin g OxyCONTIN Not-Taking Extra Depth Orthopedic Shoes (1 Pair) with Customized Heat Molded Multidensity Innersoles (3 Pair) as directed Dx: NIDDM/Polyneuropathy (E11.42), Hammertoe Foot Deformity (M20.41,M20.42), Preulcerative Skin Lesion(s) (L85.1 09/06/2023 Active Ventolin HFA 108 (90 Base) MCG/ACT INHALE 2 PUFFS BY MOUTH EVERY 4 TO 6 HOURS NEEDED Inhalation for 17 Active Metoprolol Tartrate 25 MG Oral for 30 Active Advair HFA 115-21 MCG/ACT Inhalation for 30 Active Extra Depth Orthopedic Shoes, (1) Pair With (3) Pair Custom Heat Molded Multidensity Innersoles Dx: NIDDM/PVD(E11.51), Hammertoe Foot Deformity(M20.41,M20 .42), Preulcerative Skin Lesion(s)(L85.1) Wear Daily for 365 days Active Pentoxifylline ER 400 MG 1 tablet with meals Orally Twice a day Active Zonisamide 100 MG 1 capsule Orally Once a day Active metFORMIN HCl Active Immunizations Vaccine Route Administration Date Status Comme nts Influenza Unknown 02/07/2024 Refused Social History Tobacco Use: Social History Observation Description Date Details (start date - stop date) Former Smoker NA - NA Tobacco Use/Smoking Question Answer Notes Are you a: former smoker Additional Findings: Tobacco Non-User Current no n-smoker Tobacco use other than smoking: Question Answer Notes Are you an other tobacco user? No Vital Signs Height 5ft9in in 02/07/2024 Weight 127 lbs 02/07/2024 BMI 18.75 kg/m2 02/07/2024 Encounters Encounter Location Date Provider Diagnosis [facility] [address] [address] 02/07/2024 Melba Raya Type 2 diabetes mellitus without complication, without long-term current use of insulin E11.9 ; Tinea unguium B35.1 ; Pain in toe of left foot M79.675 and Pain in toe of right foot M79.674 Assessments Encounter Date Diagnosis (ICD Code) Assessment Notes Treatment Notes Treatment Clinical Notes Section Notes 02/07/2024 Type 2 diabetes mellitus without complication, without long-term current use of insulin (ICD-10 - E11.9) 02/07/2024 Tinea unguium (ICD-10 - B35.1) 02/07/2024 Pain in toe of left foot (ICD-10 - M79.675) 02/07/2024 Pain in toe of right foot (ICD-10 - M79.674) Plan Of Treatment Next Appt Details Follow Up: 2 Months, Reason: Provider Name:Melba miller, 09/09/2024 09:00:00 AM, [address] [place], [address], Procedure Notes * Category Sub-Category Detail Notes [...] as necessary. Patient chooses, no pharmaceutical tx (76066) Progress Notes * George CHANDRA ADOB:1955 (68 yo M)Acc No.[id number]:02/07/2024 Progress Note Patient:?George Chandra Provider:?Melba Raya DPM :1955???Age:68 Y???Sex:Male Alexis e:02/07/2024 Address:[address] [place], [place] [id number] Pcp:Uriel Woodruff MD Subjective: * Chief Complaints: * ???At Risk Footcare * HPI: ???At Risk footcare:?Pt States Last PCP Visit:?Date?10/28/2023 * ROS:?General/Constitutional:?Nausea?denies, denies, denies, denies, denies.?Vomiting?denies, denies, denies, denies, denies.?Hunger Thirst?denies, denies, denies, denies, denies.?Loss appetite?denies, denies, denies, denies, denies.?Chills?denies, denies, denies, denies, denies.?Fatigue?denies, denies, denies, denies, denies.?Fever?denies, denies, denies, denies, denies.?Night Sweats?denies, denies, denies, denies, denies.?Unexplained weight loss?denies, denies, denies, denies, denies.?Unexplained weight gain?denies, denies, denies, denies, denies.?HEENTM:?Dentures?admits, admits, admits, admits, admits.?Dizziness?denies, denies, denies, denies, denies.?Glasses/contacts?admits, admits, admits, admits, admits.?Retinopathy?denies, denies, denies, denies, denies.?Blurred/double vision?admits, admits, admits, admits, admits.?TMJ?denies, denies, denies, denies, denies.?Discharge/drainage?denies, denies, denies, denies, denies.?Implants?denies, denies, denies, denies, denies.?Sore throat?denies, denies, denies, denies, denies.?Dental implants?denies, denies, denies, denies, denies.?Hard of hearing ?denies, denies, denies, denies, denies.?Difficulty chewing/swallowing/speaking?denies, denies, denies, denies, denies.?Nose bleeds?denies, denies, denies, denies, denies.?Sore mouth?denies, denies, denies, denies, denies.?Respiratory:?On Oxygen?denies, denies, denies, denies, denies.?Pneumonia/pleurisy?denies, denies, denies, denies, denies.?Bronchitis?denies, denies, denies, denies, denies.?Emphysema?denies, denies, denies, denies, denies.?Coughing?denies, denies, denies, denies, denies.?Cough blood?denies, denies, denies, denies, denies.?Shortness of breath?denies, denies, denies, denies, denies.?Wheezing?denies, denies, denies, denies, denies.?Cardiovascular:?Pacemaker?denies, denies, denies, denies, denies.?MVP?denies, denies, denies, denies, denies.?WPW?denies, denies, denies, denies, denies.?CHF?denies, denies, denies, denies, denies.?Heart attack?denies, denies, denies, denies, denies.?Septal defect?denies, denies, denies, denies, denies.?Rapid beat?denies, denies, denies, denies, denies.?Chest pain ?denies, denies, denies, denies, denies.?Atrial Fib.?denies, denies, denies, denies, denies.?Murmur/Palpitations?denies, denies, denies, denies, denies.?Gastrointestinal:?Hemorrhoids?denies, denies, denies, denies, denies.?Stomach/Abdominal pain?denies, denies, denies, denies, denies.?Dark blood stool?denies, denies, denies, denies, denies.?Irritable bowel ?denies, denies, denies, denies, denies. Constipation?denies, denies, denies, denies, denies.?Diarrhea?denies, denies, denies, denies, denies.?Hematology:?Swelling?denies, denies, denies, denies, denies.?Clots?denies, denies, denies, denies, denies.?Varicose Veins?denies, denies, denies, denies, denies.?Bruising?denies, denies, denies, denies, denies.?Bleeding problem?denies, denies, denies, denies, denies.?Genitourinary:?Blood urine?denies, denies, denies, denies, denies.?Frequent/Painfu/urination/bladder control?denies, denies, denies, denies, denies.?Kidney stones?denies, denies, denies, denies, denies.?Infection (UTI)?denies, denies, denies, denies, denies.?Nephropathy?denies, denies, denies, denies, denies.?sex trans dis (STD)?denies, denies, denies, denies, denies.?Prostate?denies, denies, denies, denies, denies.?Musculoskeletal:?Hammertoes?denies, denies, denies, denies, denies.?Bunions?denies, denies, denies, denies, denies.?Back Pain?admits, admits, admits, admits, admits.?Muscle Cramps/ Resting?denies, denies, denies, denies, denies.?Muscle cramps / walking?denies, denies, denies, denies, denies.?Generalized aches and pains?denies, denies, admits, denies, denies.?Weakness?denies, denies, denies, denies, denies.?Integ.:?Arnold?denies, denies, denies, denies, denies.?Scars?denies, denies, denies, denies, denies.?Corns/calluses?denies, denies, denies, denies, denies.?Ingrown nails?admits, admits, admits, admits, admits.?Painful nails?admits,admits,admits,admits,admits.?Open Sores?denies, denies, denies, denies, denies.?Rashes?denies, denies, denies, denies, denies.?Neurologic:?Difficulty sleeping?denies, denies, denies, denies, denies.?Brain disorder?denies, denies, denies, denies, denies.?Numbness?denies, denies, denies, denies, denies.?Balance trouble?denies, denies, denies, denies, denies.?Confusion?denies, denies, denies, denies, denies.?Fainting/blackouts?denies, denies, denies, denies, denies.?Tingling?denies, denies, denies, denies, denies.?Tremors?denies, denies, denies, denies, denies.? * Medical History:? * Surgical History:?Esophageal surgery- feeding tube 07/24/23 * Hospitalization/Major Diagno stic Procedure:?Denies Past Hospitalization * Family History:?Mother: dece ased, diagnosed with Diabetic - NIDDM.?Father: , diagnosed with Diabetic - NIDDM.?Siblings: Brother - Prostate Cancer, diagnosed with Diabetic - NIDDM, Unspecified heart disease.? * Social History:?Tobacco Use:?Tobacco Use/Smoking?Are you a:?former smoker ?Additional Findings: Tobacco Non-User?Current non-smoker ?Tobacco use other than smoking?Are you an other tobacco user??No ???Miscellaneous:?Caffeine: yes, frequency: 1 cup a day. [...] Foot Deformity (M20.41,M20.42), Preulcerative Skin Lesion(s) (L85.1Taking metFORMIN HCl Taking Zonisamide 100 MG Capsule [...] Hammertoe Foot Deformity (M20.41,M20.42), Preulcerative Skin Lesion(s) (L85.1Not-Taking/PRNOxyCONTIN Gabapentin Insulin Baqsimi Two Pack 3 MG/DOSE [...] MG Tablet 1 tablet Orally Once a dayglipiZIDE 10 MG Tablet 1 tablet 30 minutes before breakfast Orally Once a dayEsomeprazole Magnesium 40 MG Capsule Delayed Release 1 capsule Orally Once a dayTrulicity metFORMIN HCl ER 500 MG Tablet Extended Release 24 Hour 1 tablet with evening meal Orally Once a dayMedication List reviewed and reconciled with the patientNot-Taking/PRN [...] Tablet 1 tablet Orally Once a dayNot-Taking/PRN glipiZIDE 10 MG Tablet 1 tablet 30 minutes before breakfast Orally Once a dayNot-Taking/PRN Esomeprazole Magnesium 40 MG Capsule Delayed Release 1 capsule Orally Once a dayNot-Taking/PRN Trulicity Not- Taking/PRN metFORMIN HCl ER 500 MG Tablet Extended Release 24 Hour 1 tablet with evening meal Orally Once a dayMedication List reviewed and reconciled with the patient * Allergies:?N.K.D.A.yes[Aller gies Verified] Objective: * Vitals:?Ht: 5ft9in, Wt:127, BMI:18.75, Shoe size: 9-9.5, BS: 95, Ht-cm: 175.26 cm, Wt-k.61 kg. * ???Past Orders: ???Lab:HEMOGLOBIN A1C (GLYCO [...] denies, anesthesia, burning, paresthesia, tingling, B/L.?Vascular: ?DP PULSES:?3/4, B/L.?PT PULSES:?3/4, B/L.?CAPILLARY FILL TIME:?immediate, all digits, B/L.?SKIN TEMPERTURE GRADIENT OF THE LOWER EXTERMITIES:?normal, warm to cool, proximal to distal, B/L, B/L.?HAIR GROWTH/TEXTURE/ELASTICITY/TURGOR:?normal, B/L.?PIGMENTATION:?normal, B/L.?EDEMA:?absent, B/L.? Assessment: * Assessment: 1.?Type 2 diabetes mellitus without complication, without long-term current use of insulin - E11.9?2.?Tinea unguium - B35.1 (Primary)?3.?Pain in toe of left foot - M79.675?4.?Pain in toe of right foot - M79.674? [...] as necessary. Patient chooses, no pharmaceutical tx (25297).? * Immunizations:? Influenza (Not administered - Refused: Patient decision) * Procedure Codes:?52322 DEBRI DE NAIL, 6 OR MORE, Modifiers: XS * Follow Up:?2 Months * Images: * Sign off status: Completed true * Provider:?Melba Raay DPM Date:?06/2024 Generated for Pavel osborn/Jairon/Lupisitting on:?09/07/2024 08:06 AM EST History and Physical Notes * HPI (History of Present Illness) Category Sub-Category Detail Notes Category Not es At Risk footcare Pt States Last PCP Visit: Date: 4 Examination Category Sub-Category Detail Notes Category Not es Neurological SENSORY: Neurological exa m reveals intact [...] Screening:: Yes Findings of Diabetic Eye Exam:: no retin [...]
--- OUTSIDE RECORDS SUMMARY | 2024-09-07 08:06 | XMS_ITS | Encounter Summary ---
Author Organization [employer] Address [address] [facility] [address] [place] [address] Care Team Providers Care Ready To Wear Department Manager Name Role Phone Name, Uriel AARON Primary Care Provider [phone] Puia Juana PharmD Unavailable [phone] Puia, Juana PharmD Unavailable [phone] Reason for Visit * Reason Onset Date Comments Clearance 06/11/2023 Encounter Details Date Type Department Care Team (Late st Contact Info) Description 06/11/2023 Telephone [facility] [address] [place] [address] Name, MD Uriel [address] [place] [address] Clearance Social History Tobacco Use Types Packs/Day Years [...] encounter Miscellaneous Notes * Telephone Encounter - Suresh Viatle RN - 06/11/2023 3:02 PM EST T/C to Bhavna for below message, Bhavna was informed that pt. Had Hos. Follow up apt. Pt. Was not schedule for pre-op apt. Bhavna Verbally agreed and understood. * Telephone Encounter - Henna Lugo - 06/11/2023 12:54 PM EST Tc from [facility] with [facility] requesting clearance for pt surgery, pt has a Pre OP visit on 05/23/2023 and Bhavna has this appt notes but states there is no clearance on the notes. Please send clearance documented in this encounter Plan of Treatment Upcoming Encounters Date Type Department Care Team (Late st Contact Info) Description 09/16/2024 11:00 AM EST Office Visit [facility] [address] [place] [phone] Name, MD Uriel [address] [place] [phone] 10/08/2024 9:00 AM EDT Medication Management [facility] [address] [place] [phone] Juana Samuels, PharmD [address] [place] [address] documented as of this encounter Goals Goal Patient Goal Type Associated Problems Recent Progress Patient-Stated? Author Hemoglobin A1c < 8 Result Component 6(07/17/2024 11:22 AM EST) No Juana Samuels, PharmD Record your blood sugar as directed Result Component No Juana Samuels PharmD documented as of this encounter Visit Diagnoses Not on filedocumented in this encounter Care Teams Ready To Wear Department Manager Relationship Specialty Start Date End Date Name, MD Uriel [address] [place] [address] PCP - General Family Medicine 05/10/20 Juana Samuels PharmD [address] [place] [phone] Pharmacist Internal Medicine 05/03/22 09/01/23 Juana Samuels PharmD [address] [place] [phone] Pharmacist Internal Medicine 09/02/24 documented as of this encounter
--- OUTSIDE RECORDS SUMMARY | 2024-09-07 08:06 | XMS_ITS | Data Portability ---
Author Organization [facility] [employer], [employer] Address [address] [place] [phone] Care Team Providers Care [employer] Operations Man Name Role Phone NAME, NARINDER Referring Provider Unavailable NAME, NARINDER Primary Care Provider [phone] DIETER GARCIA Creative Intern Assessment Encounter Date Assessment Date Assessment LastModified by Organization Details LastModified Time 01/11/2021 01/11/2021 IMPRESSION: Seizure-free on zonisamide 100 mg twice a day. Context: Previous seizure (versus pseudoseizure/anxi ety attack) in anxiety provoking situation spring 2019. Good seizure control before that since 2 episodes in November 2015 of position specific episodes of stiffness of limbs and shaking of lower limbs and speech arrest, followed by several minutes of gait ataxia. Zonisamide which had been helping for previous episodes had been decreased through patient miscommunication before those events, as opposed to increased. 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 TO REVIEW, SEIZURE VERSUS ANXIETY ATTACK/PSEUDOSEIZU RE: He has had events in anxiety provoking circumstances, boarding an airplane. The events were similar to the event in my office at initial consultation: Speech arrest, staring, shaking of legs. At that time I did not observe any jerking quality, more a tremor quality of his legs and his arms did not have consistent stiffness. Perhaps these are panic attacks. Perhaps zonisamide is treating the panic attacks. Given my uncertainty and the benefit of zonisamide, I will continue the zonisamide, with an additional dose as needed for anxiety provoking circumstances that are anticipated. They understand there may be some tiredness side effect. ZONISAMIDE DOSING REVIEW: The events were controlled on Zonegran 200 mg twice a day in 2007, 7 years before his initial consultation with me. I believe it possible that a smaller dose could control the events, assuming they are seizures; he has not followed by directions wants to try a reduction in dose. There are no significant side effects. I will not try again. 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 His is continuing to monitor medications closely. REVIEW OF DIAGNOSTIC PATHWAY AND HISTORY OF SYMPTOMS AND TREATMENT: Brain MRI and EEG reflect data of chronic changes status post aneurysmal bleed and aneurysmal clipping. PLAN George Guillaume January 11, 2021 CONTINUE zonisamide 100 mg twice a day Also, take an additional 100 mg capsule about 1 hour before going on an airplane or any other time when you or your anticipate an anxiety provoking episode. (Your prescription has been increased so that there are enough capsules to do this.) Your will watch you take the medication at each dose. Please continue to take Nexium (esomeprazole)--th e medicine for your heartburn--one hour before your morning dose of zonisamide. Follow-up in 11 months kevin Not available 01/11/2021 10:33:43 01/03/2022 01/03/2022 IMPRESSION: Seizure-free on zonisamide 100 mg twice a day. Context: --Previous seizure (versus pseudoseizure/anxi ety attack) in anxiety provoking situation spring 2019. --Good seizure control before that since 2 episodes in November 2015 of position specific episodes of stiffness of limbs and shaking of lower limbs and speech arrest, followed by several minutes of gait ataxia. --Zonisamide which had been helping for previous episodes had been decreased through patient miscommunication before those events, as opposed to increased. 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 He has had no further episodes and there are no side effects from zonisamide. 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 TO REVIEW, SEIZURE VERSUS ANXIETY ATTACK/PSEUDOSEIZU RE: He has had events in anxiety provoking circumstances, boarding an airplane. The events were similar to the event in my office at initial consultation: Speech arrest, staring, shaking of legs. At that time I did not observe any jerking quality, more a tremor quality of his legs and his arms did not have consistent stiffness. Perhaps these are panic attacks. Perhaps zonisamide is treating the panic attacks. Given my uncertainty and the benefit of zonisamide, I will continue the zonisamide, with an additional dose as needed for anxiety provoking circumstances that are anticipated. They understand there may be some tiredness side effect. ZONISAMIDE DOSING REVIEW: The events were controlled on Zonegran 200 mg twice a day in 2007, 7 years before his initial consultation with me. I believe it possible that a smaller dose could control the events, assuming they are seizures; he has not followed by directions wants to try a reduction in dose. There are no significant side effects. I will not try again. 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 His is continuing to monitor medications closely. REVIEW OF DIAGNOSTIC PATHWAY AND HISTORY OF SYMPTOMS AND TREATMENT: Brain MRI and EEG reflect data of chronic changes status post aneurysmal bleed and aneurysmal clipping. PLAN George Guillaume January 03, 2022 CONTINUE zonisamide 100 mg twice a day Also, take an additional 100 mg capsule about 1 hour before going on an airplane or any other time when you or your anticipate an anxiety provoking episode. (Your prescription has been increased so that there are enough capsules to do this.) Your will watch you take the medication at each dose. Please continue to take Nexium (esomeprazole)--th e medicine for your heartburn--one hour before your morning dose of zonisamide. Follow-up in 11 months kevin Not available 01/03/2022 13:27:19 09/12/2022 09/12/2022 IMPRESSION: Seizure-free on zonisamide 100 mg twice a day. Context: --Previous seizure (versus pseudoseizure/anxi ety attack) in anxiety provoking situation spring 2019. --Good seizure control before that since 2 episodes in November 2015 of position specific episodes of stiffness of limbs and shaking of lower limbs and speech arrest, followed by several minutes of gait ataxia. --Zonisamide which had been helping for previous episodes had been decreased through patient miscommunication before those events, as opposed to increased. -- context of a 1996 context aneurysmal intracranial bleed with enduring memory deficits, and gait ataxia that slowly but imperfectly resolved over several years. --Two episodes, January and April 2022, the second observed by his , typical in character, and both typical in association with stressors. I remain unsure whether there is seizure related. As further events occur, this time to, each with stressors, I become more swayed that events are anxiety related rather than electrical seizure related. They lessened in frequency markedly with zonisamide which I prescribed for seizures but which theoretically may help anxiety. There are no side effects. I will continue the zonisamide without change. I will add lorazepam 1 mg as needed for procedures. They will use this patient in the context of rescheduling cataract surgery. TO REVIEW, SEIZURE VERSUS ANXIETY ATTACK/PSEUDOSEIZU RE: He has had events in anxiety provoking circumstances, boarding an airplane. The events were similar to the event in my office at initial consultation: Speech arrest, staring, shaking of legs. At that time I did not observe any jerking quality, more a tremor quality of his legs and his arms did not have consistent stiffness. Perhaps these are panic attacks. Perhaps zonisamide is treating the panic attacks. Given my uncertainty and the benefit of zonisamide, I will continue the zonisamide, with an additional dose as needed for anxiety provoking circumstances that are anticipated. They understand there may be some tiredness side effect. ZONISAMIDE DOSING REVIEW: The events were controlled on Zonegran 200 mg twice a day in 2007, 7 years before his initial consultation with me. I believe it possible that a smaller dose could control the events, assuming they are seizures; he has not followed by directions wants to try a reduction in dose. There are no significant side effects. I will not try again. 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 His is continuing to monitor medications closely. REVIEW OF DIAGNOSTIC PATHWAY AND HISTORY OF SYMPTOMS AND TREATMENT: Brain MRI and EEG reflect data of chronic changes status post aneurysmal bleed and aneurysmal clipping. PLAN George Guillaume September 12, 2022 Lorazepam 1 mg as needed 1 hour before procedure. 4 pills are prescribed. I explained that there may be significant drowsiness and some filling this. He should not pursue anything that might be dangerous for 24 hours after taking the medication. We reviewed that he does not drive. CONTINUE zonisamide 100 mg twice a day Also, take an additional 100 mg capsule about 1 hour before going on an airplane or any other time when you or your anticipate an anxiety provoking episode. (Your prescription has been increased so that there are enough capsules to do this.) Your will watch you take the medication at each dose. Please continue to take Nexium (esomeprazole)--th e medicine for your heartburn--one hour before your morning dose of zonisamide. Follow-up in 10 months kevin Not available 09/12/2022 10:26:24 Plan of Treatment Reminders Order Date Submit Date Provider Last Modified By Organization Details Last Modified Time Details Appointments None recorded. Lab None recorded. Referral None recorded. Procedures None recorded. Surgeries None recorded. Imaging None recorded. Medication Orders zonisamide 100 mg capsule 2020 021 [facility], [address] [place] [address], [id number], 1 10:25:34 zonisamide 100 mg capsule 2021 022 [facility], [address] [place] [address], [id number], 2 13:21:24 zonisamide 100 mg capsule 2022 023 [facility], [address] [place] [address], [id number], 3 09:51:18 lorazepam 1 mg tablet 2022 023 [facility], [address] [place] [address], [id number], 3 09:51:18 Patient TargetsNo targets recorded. Patient Instructions Encounter Date Encounter Id Patient Instructions Last Modified By Organization Details Last Modified Time 09/12/2022 [id number] Chronic illness posing threat to bodily function including driving, drug therapy requiring intensive monitoring for toxicity mrossen Not available 09/12/2022 10:26:00 Reason for Referral None Reported. Procedures Surgical History Date Name Laterality Status Provider Name and Address Organization Details Recorded Time 09/12/2022 DATA REVIEW completed Chris Arias MD [address] [place] [address] LORENA vIy, [phone], [facility] 09/12/2022 09:34:17 01/03/2022 DATA REVIEW completed Chris Arias MD [address] [place] [address] LORENA Ivy, [phone], [facility] 01/03/2022 13:11:53 01/11/2021 DATA REVIEW completed Chris Arias MD [address] [place] [address] LORENA Ivy, [phone], [facility] 01/11/2021 10:36:00 Imaging Results None recorded. Procedure Notes None recorded. Medical Equipment None Reported. Medications Name Sig Start Date Stop Date Status Note LastModified by Organization Details LastModified Time medbox status USE DIRECTED active Not Available Not Available No t Available amoxicillin 500 mg capsule TAKE 1 CAPSULE BY MOUTH EVERY 8 HOURS UNTIL FINISHED active Not Available Not Available No t Available metformin 500 mg tablet TAKE 2 TABLETS BY MOUTH ONCE DAILY IN THE MORNING WITH BREAKFAST and TAKE 1 TABLET BY MOUTH EVERY EVENING WITH DINNER active Not Available Not Available Not Available ibuprofen 800 mg tablet TAKE 1 TABLET BY MOUTH THREE TIMES DAILY NEEDED BACK PAIN active Not Available Not Available No t Available FreeStyle Lancets 28 gauge active Not Available Not Available Not Available glipizide 10 mg tablet TAKE 1 [...] Not Available Not Available N ot Available oxycodone 5 mg/5 mL oral solution active Not Available Not Available Not Available gabapentin 250 mg/5 mL oral solution active Not Available Not Available Not Available peg-electrol yte solution 420 gram oral solution MIX WITH WATER AND DRINK 8 OUNCES EVERY 10 MINUTES DIRECTED UNTIL FECAL EFFLUENT IS CLEAR. DO NOT EXCEED 1/2 BOTTLE. active Not Available Not Available Not Available Sudogest 30 mg tablet TAKE 1 TABLET BY MOUTH EVERY TWELVE HOURS NEEDED active Not Available Not Available No t Available pentoxifylli ne ER 400 mg tablet,exten ded release TAKE 1 TABLET BY MOUTH TWICE DAILY IN THE MORNING AND IN THE EVENING active Not Available Not Available No t Available ketorolac 0.5 % eye drops INSTILL 1 DROP IN THE AFFECTED EYE THREE TIMES DAILY DIRECTED. START 2 DAYS BEFORE PROCEDURE .TAPER DIRECTED active Not Available Not Available No t Available zonisamide 100 mg capsule TAKE 1 CAPSULE BY MOUTH TWICE DAILY IN THE MORNING AND IN THE EVENING active Not Available Not Available No t Available lorazepam 0.5 mg tablet TAKE 1 TABLET BY MOUTH 30 MINUTES BEFORE SURGERY active Not Available Not Available No t Available esomeprazole magnesium 40 mg capsule,jim yed release TAKE 1 CAPSULE BY MOUTH EVERY MORNING active Not Available Not Available No t Available glucose 4 gram chewable tablet CHEW 4 TABLETS NEEDED FOR low blood sugar (LESS THAN 70mg/dL) active Not Available Not Available No t Available cyanocobalam in (vit B-12) 1,000 mcg sublingual tablet TAKE 1 TABLET BY MOUTH EVERY MORNING (DISSOLVE) active Not Available Not Available N ot Available lorazepam 1 mg tablet TAKE 1 TABLET BY MOUTH DIRECTED 1 HOUR BEFORE PROCEDURE active Not Available Not Available No t Available ibuprofen 600 mg tablet TAKE 1 TABLET BY MOUTH EVERY 6 HOURS NEEDED FOR MILD PAIN active Not Available Not Available No t Available albuterol sulfate HFA 90 mcg/actuatio n aerosol inhaler INHALE 2 PUFFS BY MOUTH EVERY 4 TO 6 HOURS NEEDED active Not Available Not Available No t Available ondansetron 4 mg disintegrati ng tablet DISSOLVE 1 TABLET BY MOUTH EVERY 8 HOURS NEEDED FOR NAUSEA AND VOMITING active Not Available Not Available No t Available fluticasone propionate 50 mcg/actuatio n nasal spray,suspen nreeida USE 2 SPRAYS IN EACH NOSTRIL ONCE DAILY IN THE MORNING active Not Available Not Available No t Available metformin ER 500 mg tablet,exten ded release 24 hr TAKE 1 TABLET BY MOUTH TWICE DAILY IN THE MORNING AND IN THE EVENING WITH FOOD active Not Available Not Available No t Available glipizide 5 mg tablet TAKE 1 TO 2 TABLETS BY MOUTH TWICE DAILY IN THE MORNING AND IN THE EVENING DIRECTED active Not Available Not Available No [...] Available Not Available No t Available metformin 500 mg/5 mL oral solution TAKE 5 ML BY MOUTH TWICE DAILY IN THE MORNING AND IN THE EVENING WITH FOOD active Not Available Not Available No t Available mirtazapine 7.5 mg tablet TAKE 1 TABLET BY MOUTH EVERY DAY active Not Available Not Available No t Available BD Ultra-Fine Short Pen Needle 31 gauge x 5/16 active Not Available Not Available Not Available Advair HFA 115 mcg-21 mcg/actuatio n aerosol inhaler INHALE 2 PUFFS BY MOUTH TWICE DAILY IN THE MORNING AND IN THE EVENING RINSE MOUTH AFTER USING. active Not Available Not Available No t Available esomeprazole magnesium DR 40 mg granules delayed release for susp active Not Available Not Available Not Available FreeStyle Lite Strips TEST BLOOD SUGAR TWICE DAILY active Not Available Not Available No t Available Lantus Solostar U-100 Insulin 100 unit/mL (3 mL) subcutaneous pen active Not Available Not Available Not Available Ora-Plus oral suspension active Not Available Not Available N ot Available TRUEplus Lancets 33 gauge USE DIRECTED TO TEST BLOOD SUGAR TWICE DAILY active Not Available Not Available No t Available Humulin N NPH U-100 Insulin KwikPen 100 unit/mL (3 mL) subcutaneous active Not Available Not Available Not Available Trulicity 0.75 mg/0.5 mL subcutaneous pen injector INJECT ONE PEN (=0.75MG) SUBCUTANEOU SLY ONCE A WEEK DIRECTED. active Not Available Not Available No t Available Baqsimi 3 mg/actuation nasal spray USE 1 SPRAY (3MG) IN ONE NOSTRIL FOR A PATIENT WITH SEVERE HYPOGLYCEMI A WHO IS NOT RESPONSIVE AND UNABLE SELF-TREAT WITH GLUCOSE. AFTERWARDS TURN ON SIDE. MAY REPEAT IN 15MINUTES IF PATIENT DOES NOT RESPOND. active Not Available Not Available No t Available Children's Acetaminophe n 160 mg/5 mL oral liquid active Not Available Not Available Not Available Zonisade 100 mg/5 mL oral suspension TAKE 5ml (100mg) BY MOUTH TWICE DAILY active Not Available Not Available No t Available Vitals None Recorded Social History None recorded. Functional Status None recorded. Mental Status None recorded. Family History Nothing Reported. Medical History No medical history recorded. 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 Abnormal gait 99467538 R 26.81 Ruptured b erry aneurysm 624817080 I60.11 [id number] Chris Arias MD [facility] [address] [place] [address] [place] [phone] 01/03/2022 12:54:35 01/03/2022 13:45:17 Focal onset impaired awareness epileptic seizure 202176689 G40.209 Mild neuro cognitive disorder 224725434 G31.84 Abnormal gait 50673767 R 26.81 Ruptured b erry aneurysm 578589436 I60.11 [id number] Chris Arias MD [facility] [address] [place] [address] [place] [address] 09/12/2022 09:25:19 09/12/2022 10:37:48 Focal onset impaired awareness epileptic seizure 964697158 G40.209 Mild neuro cognitive disorder 723797675 G31.84 Abnormal gait 83317905 R 26.81 Ruptured b erry aneurysm 396222711 I60.11 Health Concerns Section Related Observation LastModified by Organization Detai ls LastModified Time None Recorded Concern Status LastModified by Organization Details LastModified Time None Recorded Advance Directives Directive None Recorded Payers Encounter Date Sequence Insurance Name Policy Number Policy Miller Covered Member ID Miller Member ID Guarantor Name 01/11/2021 1 [facility] - DOS PRIOR TO 2022 - DUAL ELIGIBLE (MEDICARE REPLACEMENT/ADV ANTAGE - HMO) George Guillaume [id number] George Guillaume 01/03/2022 1 [facility] - DOS PRIOR TO 2022 - DUAL ELIGIBLE (MEDICARE REPLACEMENT/ADV ANTAGE - HMO) George Guillaume [id number] George Guillaume 09/12/2022 1 [facility] PRIOR TO 10/27/2022 - DUAL ELIGIBLE (MEDICARE REPLACEMENT/ADV ANTAGE - HMO) George Guillaume [id number] George Guillaume Notes Date Note Type Note Provider Name and Address Organization Details Recorded Time 01/11/2021 text/html Follow-up for ep isodes atypical tremor versus seizure versus anxiety attack status post 1996 subarachnoid hemorrhage. He is accompanied by his . George, boyfriend of his daughter, is not present. Since November 16, 2019 neurology follow-up encounter, one year and 2 months ago, he has had none of his stereo typical episodes of gait imbalance, wide eyes, shaking of legs and nonresponsiveness. The last episode was one or 2 months before that October 2019 follow-up. He continues on zonisamide 100 mg twice a day without missing medication? w ith the help of his managing medication. There has been no worsening of his cognitive dysfunction status post aneurysmal bleed so there has been no additional burden on his the caregiving perspective. He continues without side effect and he takes Nexium before his morning dose which has helped with resolution of nausea side effect previously. He has not had to take an extra dose of zonisamide as there have been no anxiety provoking situations such as boarding an airplane over the past year. He has started pentoxifylline for some abdominal pain and abdominal pain has resolved. He has no other new medical conditions or medication changes. They have been staying mostly inside and his mood has been doing okay in the context of the Covid epidemic. Presenting symptomatology was reviewed from August 26, 2014 initial consultation: In 1996, he had episodic vomiting, followed by head pain at some point afterwards. He was admitted to the hospital with diagnosis of subarachnoid hemorrhage. He had a 3.5 months hospital and rehabilitation stay. He has metal wire in his head. Residual deficits included memory dysfunction, gait imbalance, and seizure. He was followed by Dr. Loya, neurology, with seizures controlled on Zonegran 200 mg twice a day, until 2007, when antiseizure medication was stopped as he was having no seizures. At that point, his balance has slowly improved to baseline where he walks without falling or stumbling, without his noticing any imbalance. His memory deficits were unchanged however. He has trouble remembering events even a few minutes in the past. His mood after the hemorrhage has been one of keeping to himself--he previously had been a very social person. However his would not say that he is depressed or overly anxious. He says that he is not depressed. In April 2014, he began having events concerning to his for seizure. An event always starts when he is standing. His eyes open his arms stiffen like previously, his legs shake bilaterally. He makes a sound but does not talk. An event lasts for one or 2 min. Afterwards, he has gait imbalance similar to the gait imbalance he used to have in the early years of his recovery period. He has fallen once. After several minutes, his gait returns to normal baseline He has not injured himself. Events have been happening once to several times per week. Except that they seem to happen when he has been standing for an extended period of time, she can take up no trigger. He does not have a sign that an event is about to happen. He followed up with primary care and then Dr. Troncoso, neurology and a succession of antiseizure medications were tried. Dilantin caused weight loss and was discontinued. Carbatrol and Tegretol did not help. She does not know the final dose. He missed an appointment and was discharged from the practice of Dr. Troncoso. He has not been on Tegretol since then. His does not know the final dose. Chris Arias MD [address] [place] [address] L[place], [phone], [facility] 01/11/2021 10:36:09 01/03/2022 text/html Follow-up for ep isodes atypical tremor versus seizure versus anxiety attack status post 1997 subarachnoid hemorrhage. He is accompanied by his , Nupur. George, boyfriend of his daughter, is not present. Since January 11, 2021 neurology follow-up encounter, just under 1 year ago, he is doing very well. He has had none of his stereotypical episodes of gait imbalance, white eyes, shaking legs and nonresponsiveness. The last one was ~1-2 months before October 2019 follow-up. He continues on zonisamide 100 mg twice a day without missing medication? w ith the help of his managing medication. He continues without side effect context Nexium before his morning dose which has helped with nausea side effect previously. 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 Therefore, his 's caretaking responsibilities are unchanged. She is is not feeling overwhelmed. They still are not going out context COVID epidemic. Therefore, they have not needed the extra zonisamide that is prescribed as needed for an anxiety provoking experiences such as an airplane ride. He has had no major medical events. He has no new medical diagnoses. No other healthcare provider has changed any medications. The last medication change was leading to the December 2020 neurology follow-up when another provider started and showed signs of seen for abdominal pain which resolved. His mood is good. Presenting symptomatology was reviewed from August 26, 2014 initial consultation: In 1996, he had episodic vomiting, followed by head pain at some point afterwards. He was admitted to the hospital with diagnosis of subarachnoid hemorrhage. He had a 3.5 months hospital and rehabilitation stay. He has metal wire in his head. Residual deficits included memory dysfunction, gait imbalance, and seizure. He was followed by Dr. Loya, neurology, with seizures controlled on Zonegran 200 mg twice a day, until 2007, when antiseizure medication was stopped as he was having no seizures. At that point, his balance has slowly improved to baseline where he walks without falling or stumbling, without his noticing any imbalance. His memory deficits were unchanged however. He has trouble remembering events even a few minutes in the past. His mood after the hemorrhage has been one of keeping to himself--he previously had been a very social person. However his would not say that he is depressed or overly anxious. He says that he is not depressed. In April 2014, he began having events concerning to his for seizure. An event always starts when he is standing. His eyes open his arms stiffen like previously, his legs shake bilaterally. He makes a sound but does not talk. An event lasts for one or 2 min. Afterwards, he has gait imbalance similar to the gait imbalance he used to have in the early years of his recovery period. He has fallen once. After several minutes, his gait returns to normal baseline He has not injured himself. Events have been happening once to several times per week. Except that they seem to happen when he has been standing for an extended period of time, she can take up no trigger. He does not have a sign that an event is about to happen. He followed up with primary care and then Dr. Troncoso, neurology and a succession of antiseizure medications were tried. Dilantin caused weight loss and was discontinued. Carbatrol and Tegretol did not help. She does not know the final dose. He missed an appointment and was discharged from the practice of Dr. Troncoso. He has not been on Tegretol since then. His does not know the final dose. Chris Arias MD [address] [place] [address], [phone], [facility] 01/03/2022 13:28:11 09/12/2022 text/html Follow-up for ep isodes atypical tremor versus seizure versus anxiety attack status post 1997 subarachnoid hemorrhage. He is accompanied by his , Nupur. George, boyfriend of his daughter, is not present.Since January 03, 2022 neurology follow-up encounter, he has had two of his seizure events, one in January 2022 around the time that his brother ; and one in April in the office of ophthalmology where they were preparing to do cataract surgery. They changed course and decided to hold off on cataract surgery until there was neurology consultation on this event.He does not remember either event. She was in [place] (for the ) away from him when the first event happened and does not remember details. She came in from the parking lot to observe part of the April 2022 event and it was typical: Speech arrest, staring, shaking of legs and arms, without jerking quality or consistent stiffness. It lasted a few minutes. He was without any symptoms afterwards. >>>>>>>>>>>>>>>>>>>Jonas hector 2021 neurology follow-up encounter review:Since January 11, 2021 neurology follow-up encounter, just under 1 year ago, he is doing very well. He has had none of his stereotypical episodes of gait imbalance, white eyes, shaking legs and nonresponsiveness. The last one was ~1-2 months before October 2019 follow-up. He continues on zonisamide 100 mg twice a day without missing medication? w ith the help of his managing medication. He continues without side effect context Nexium before his morning dose which has helped with nausea side effect previously. 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 Therefore, his 's caretaking responsibilities are unchanged. She is is not feeling overwhelmed. They still are not going out context COVID epidemic. Therefore, they have not needed the extra zonisamide that is prescribed as needed for an anxiety provoking experiences such as an airplane ride. He has had no major medical events. He has no new medical diagnoses. No other healthcare provider has changed any medications. The last medication change was leading to the December 2020 neurology follow-up when another provider started and showed signs of seen for abdominal pain which resolved. His mood is good. Presenting symptomatology was reviewed from August 26, 2014 initial consultation: In 1996, he had episodic vomiting, followed by head pain at some point afterwards. He was admitted to the hospital with diagnosis of subarachnoid hemorrhage. He had a 3.5 months hospital and rehabilitation stay. He has metal wire in his head. Residual deficits included memory dysfunction, gait imbalance, and seizure. He was followed by Dr. Loya, neurology, with seizures controlled on Zonegran 200 mg twice a day, until 2007, when antiseizure medication was stopped as he was having no seizures. At that point, his balance has slowly improved to baseline where he walks without falling or stumbling, without his noticing any imbalance. His memory deficits were unchanged however. He has trouble remembering events even a few minutes in the past. His mood after the hemorrhage has been one of keeping to himself--he previously had been a very social person. However his would not say that he is depressed or overly anxious. He says that he is not depressed. In April 2014, he began having events concerning to his for seizure. An event always starts when he is standing. His eyes open his arms stiffen like previously, his legs shake bilaterally. He makes a sound but does not talk. An event lasts for one or 2 min. Afterwards, he has gait imbalance similar to the gait imbalance he used to have in the early years of his recovery period. He has fallen once. After several minutes, his gait returns to normal baseline He has not injured himself. Events have been happening once to several times per week. Except that they seem to happen when he has been standing for an extended period of time, she can take up no trigger. He does not have a sign that an event is about to happen. He followed up with primary care and then Dr. Troncoso, neurology and a succession of antiseizure medications were tried. Dilantin caused weight loss and was discontinued. Carbatrol and Tegretol did not help. She does not know the final dose. He missed an appointment and was discharged from the practice of Dr. Troncoso. He has not been on Tegretol since then. His does not know the final dose. Chris Arias MD [address] [place], [place] [address], [phone], [facility] 09/12/2022 10:26:30
[2024-09-07 11:30] LABS: Cholesterol 190 mg/dL (<200); HDL Cholesterol 51 mg/dL (>40); LDL Cholesterol Calculated 114 mg/dL (<100); Triglycerides 126 mg/dL (<150)
[2024-09-07 11:37] LABS: Creatinine Urine 194.22 mg/dL; Microalbum/Creatinine Ratio Ur 11.3 ug/mg cr (<30)
[2024-09-07 11:55] LABS: Vitamin B12 358 pg/mL (200-900)
== END 2024-09-07 08:02 | disposition home or self-care (01) ==
LOC: HO.HHCL 08:01
PROVIDERS: Visit Provider Internal Medicine Geriatric Medicine
DX: E11.9 Type 2 diabetes mellitus without complications (principal); I10 Essential (primary) hypertension; E78.5 Hyperlipidemia, unspecified
CPT/HCPCS: 36415; 80061; 82043; 82570; 82607

== ENCOUNTER 2024-11-02 08:49 | Outpatient (REF) | payer OTHER, SELFPAY ==
[2024-11-02 10:04] LABS: MANUAL DIFF FLAG NO
[2024-11-02 10:07] LABS: Eosinophils Percent Auto 0.8 % (0-4); Hematocrit 35.1 % (42.0-52.0); Hemoglobin 11.7 g/dl (14.0-18.0); Imm Gran Abs Auto 0.01 X10*3/uL (0.00-0.03); Imm Gran Pct Auto 0.3 % (0.0-0.4); Lymphocytes Absolute Auto 0.5 X10*3/uL (1.2-4.9); Lymphocytes Percent Auto 12.7 % (20-40); Mean Corpuscular HGB Conc 33.3 g/dl (31.0-36.0); Mean Corpuscular Hemoglobin 28.4 pg (27.0-33.0); Mean Corpuscular Volume 85.2 fL (80.0-98.0); Mean Platelet Volume 9.2 fL (9.4-12.4); Monocytes Absolute Auto 0.4 X10*3/uL (0.1-1.2); Monocytes Percent Auto 9.1 % (2-11); Neutrophils Absolute Auto 3.1 x10*3/uL (2.0-8.3); Neutrophils Percent Auto 77.1 % (45-73); Platelet Count 203 X10*3/uL (160-400); Red Blood Count 4.12 X10*6/uL (4.60-5.80); Red Cell Distribution Width 15.1 % (11.0-16.0)
[2024-11-02 10:32] LABS: Alanine Aminotransferase 34 U/L (0-40); Albumin Level 3.9 g/dL (3.5-5.0); Alkaline Phosphatase 222 U/L (39-117); Anion Gap 13 (12-20); Aspartate Amino Transferase 29 U/L (5-37); Bilirubin Total 0.3 mg/dL (0.0-1.0); Blood Urea Nitrogen 24 mg/dL (9-16); Calcium 9.6 mg/dL (8.4-10.2); Carbon Dioxide 23 mmol/L (22-29); Chloride 108 mmol/L (96-108); Estimated Glomerular Filt Rate > 60; Glucose Random 184 mg/dL (60-115); Magnesium 1.9 mg/dL (1.6-2.6); Sodium 140 mmol/L (135-145); Total Protein 7.6 g/dL (6.5-8.0)
--- OUTSIDE RECORDS SUMMARY | 2024-11-02 10:37 | XMS_ITS | Encounter Summary ---
Author Organization [employer] Address [address] [facility] 7t [place] [address] Care Team Providers Care Roundhouse Supervisor Name Role Phone Name, Uriel AARON Primary Care Provider [phone] Juana Samuels PharmD Unavailable [phone] Reason for Visit * Reason Comments Med Refill Encounter Details Date Type Department Care Team ([facility] st Contact Info) Description 09/07/2023 Refill [facility]ICINE [address] [place], [place] [id number] Name, MD Uriel [address] [place] [address] Social History Tobacco Use Types Packs/Day Years [...] Description 11/12/2024 8:00 AM EDT Office Visit [facility] ADULT DENTAL [address] [place] [address] Vicente Reyes, DMD [address] [place] [address] 12/15/2024 9:00 AM EDT Office Visit [facility] [address] [place] [address] Name, MD Uriel [address] [place] [address] 01/08/2025 9:00 AM EDT Telemedicine [facility] [address] [place] [address] Juana Samuels, PharmD [address] [place] [address] documented as of this encounter Goals Goal [...] documented as of this encounter Care Teams Roundhouse Supervisor Relationship Specialty Start Date End Date Name, MD Uriel [address] [place] [address] PCP - General Family Medicine 05/10/20 Juana Samuels PharmD [address] [place] [address] Pharmacist Internal Medicine 09/02/24 documented as of this encounter
--- OUTSIDE RECORDS SUMMARY | 2024-11-02 10:37 | XMS_ITS | Encounter Summary ---
Author Organization [employer] Address [address] [facility] 7t [place] [address] Care Team Providers Care Drafting Detailer Name Role Phone Name, Uriel AARON Primary Care Provider [phone] Juana Samuels PharmD Unavailable [phone] Reason for Visit * Reason Onset Date Comments VNA 10/09/2023 Durable Medical Equipment 10/09/2023 Diabet ic shoes Encounter Details Date Type Department Care Team (Late st Contact Info) Description 10/09/2023 Telephone [facility] MEDICINE [address] [place] [address] Name, MD Uriel [address] [place] [address] VNA ; Durable Medical Equipment (Diabetic shoes) [...] - 10/09/2023 3:10 PM EDT Tc from [facility] with [facility] calling to let pcp know pt has been discharged from the agency. If any questions please contact Lianet at [phone] documented in this encounter Plan of Treatment Upcoming Encounters Date Type Department Care Team (Late st Contact Info) Description 11/12/2024 8:00 AM EDT Office Visit [facility] CHC ADULT DENTAL [address] [place] [address] Vicente Reyes, DMD [address] [place] [address] 12/15/2024 9:00 AM EDT Office Visit [facility] MEDICINE [address] [place] [address] Name, MD Uriel [address] [place] [address] 01/08/2025 9:00 AM EDT Telemedicine [facility] MEDICINE [address] [place] [address] Juana Samuels, PharmD [address] [place] [address] documented as of this encounter Goals Goal [...] documented as of this encounter Care Teams Drafting Detailer Relationship Specialty Start Date End Date Name, MD Uriel [address] [place] [address] PCP - General Family Medicine 05/10/20 Juana Samuels PharmD [address] [place] [address] Pharmacist Internal Medicine 09/02/24 documented as of this encounter
--- OUTSIDE RECORDS SUMMARY | 2024-11-02 10:37 | XMS_ITS | Encounter Summary ---
Author Organization [employer] Address [address] [facility] 7t [place] [address] Care Team Providers Care Network Specialist Name Role Phone Name, Uriel AARON Primary Care Provider [phone] Puia Juana PharmD Unavailable [phone] Puia, Juana PharmD Unavailable [phone] Reason for Visit * Reason Onset Date Comments Durable Medical Equipment 07/10/2023 Encounter Details Date Type Department Care Team (Late st Contact Info) Description 07/10/2023 Telephone [facility] MEDICINE [address] [place] [address] Name, MD Uriel [address] [place] [address] Durable Medical Equipment Social History Tobacco Use [...] 12:33 PM EST TC from Francia with [facility] requesting a Hospital bed and Lift Recliner due to pt having an upcoming surgery on 07/24/2023 and will not be able to move or have much mobility. Please fax Script over to [facility] @ [phone] Please if any questions please Contact [employer] @ [phone] [phone] documented in this encounter Plan of Treatment Upcoming Encounters Date Type Department Care Team (Late st Contact Info) Description 11/12/2024 8:00 AM EDT Office Visit [facility] CHC ADULT DENTAL [address] [place] [address] Vicente Reyes, DMD [address] [place] [address] 12/15/2024 9:00 AM EDT Office Visit [facility] MEDICINE [address] [place] [address] Name, MD Uriel [address] [place] [address] 01/08/2025 9:00 AM EDT Telemedicine [facility] MEDICINE [address] [place] [address] Juana Samuels, MagnusD [address] [place] [address] documented as of this encounter Goals Goal Patient Goal Type Associated Problems Recent Progress Patient-Stated? Author Hemoglobin A1c < 8 Result Component 6.7( 5 11:05 AM EST) No Juana Samuels PharmSincere Record your blood sugar as directed Result Component No Juana Samuels PharmD documented as of this encounter Visit Diagnoses Not on filedocumented in this encounter Care Teams Network Specialist Relationship Specialty Start Date End Date Name, MD Uriel [address] [place] [address] PCP - General Family Medicine 05/10/20 Juana Samuels PharmD [address] [place] [address] Pharmacist Internal Medicine 05/03/22 09/01/23 Juana Samuels PharmD [address] [place] [address] Pharmacist Internal Medicine 09/02/24 documented as of this encounter
--- OUTSIDE RECORDS SUMMARY | 2024-11-02 10:37 | XMS_ITS | Encounter Summary ---
Author Organization [employer] Address [address] [facility] 7t [place] [address] Care Team Providers Care Network Control Operator Name Role Phone Name, Uriel AARON Primary Care Provider [phone] Puia Juana PharmD Unavailable [phone] Puia, Juana PharmD Unavailable [phone] Reason for Visit * Reason Onset Date Comments Clearance 06/11/2023 Encounter Details Date Type Department Care Team (Late st Contact Info) Description 06/11/2023 Telephone [facility] MEDICINE [address] [place] [address] Name, MD Uriel [address] [place] [address] Clearance Social History Tobacco Use Types Packs/Day [...] Description 11/12/2024 8:00 AM EDT Office Visit [facility] CHC ADULT DENTAL [address] [place] [address] Vicente Reyes, COSMO [address] [place] [address] 12/15/2024 9:00 AM EDT Office Visit [facility] MEDICINE [address] [place] [address] Name, MD Uriel [address] [place] [address] 01/08/2025 9:00 AM EDT Telemedicine [facility] MEDICINE [address] [place] [address] Juana Samuels PharmD [address] [place] [address] documented as of this encounter Goals Goal Patient Goal Type Associated Problems Recent Progress Patient-Stated? Author Hemoglobin A1c < 8 Result Component 6.7( 11:05 AM EST) No Juana Samuels, PharmD Record your blood sugar as directed Result Component No Juana Samuels PharmD documented as of this encounter Visit Diagnoses Not on filedocumented in this encounter Care Teams Network Control Operator Relationship Specialty Start Date End Date Name, MD Uriel [address] [place] [address] PCP - General Family Medicine 05/10/20 Juana Samuels, PharmD [address] [place] [address] Pharmacist Internal Medicine 05/03/22 09/01/23 Juana Samuels, PharmD [address] [place] [address] Pharmacist Internal Medicine 09/02/24 documented as of this encounter
--- OUTSIDE RECORDS SUMMARY | 2024-11-02 10:37 | XMS_ITS | Encounter Summary ---
Author Organization [employer] Address [address] [facility] 7t [place] [address] Care Team Providers Care Admissions Clinician Name Role Phone Name, Uriel AARON Primary Care Provider [phone] Juana Samuels PharmD Unavailable [phone] Reason for Visit * Reason Onset Date Comments FYI 05/26/2024 Encounter Details Date Type Department Care Team ([facility] st Contact Info) Description 05/26/2024 Telephone [facility] MED[facility]INE [address] [place] [address] Name, MD Uriel [address] [place] [address] FYI Social History Tobacco Use Types Packs/Day [...] For any questions please call Loy at [phone] *Advised caller message sent to provider. documented in this encounter Plan of Treatment Upcoming Encounters Date Type Department Care Team (Late st Contact Info) Description 11/12/2024 8:00 AM EDT Office Visit [facility] ADULT DENTAL [address] [place] [address] Vicente Reyes, DMD 505 [place] [address] 12/15/2024 9:00 AM EDT Office Visit [facility] MED[facility]INE [address] [place] [address] Name, MD Uriel [address] [place] [address] 01/08/2025 9:00 AM EDT Telemedicine [facility] [address] [place] [address] Juana Samuels, PharmD [address] [place] [phone] documented as of this encounter Goals Goal [...] documented as of this encounter Care Teams Admissions Clinician Relationship Specialty Start Date End Date Name, MD Uriel [address] [place] [address] PCP - General Family Medicine 05/10/20 Juana Samuels PharmD [address] [place] [address] Pharmacist Internal Medicine 09/02/24 documented as of this encounter
--- OUTSIDE RECORDS SUMMARY | 2024-11-02 10:37 | XMS_ITS | Encounter Summary ---
Author Organization [employer] Address 75 [facility] 7t [place] [address] Care Team Providers Care Data Architect Manager Name Role Phone Name, Uriel AARON Primary Care Provider [phone] Juana Samules PharmD Unavailable [phone] Encounter Details Date Type Department Care Team (Late st Contact Info) Description 11/02/2024 Orders Only GENERIC EXTERNAL DATA DEPARTMENT Provider, Generic External Data Social History Tobacco Use Types Packs/Day Years [...] housing situation today? I have william rueda 09/16/[address] you li [...] 8:00 AM EDT Office Visit [facility] CHC ADULT DENTAL [address] [place], [place] [phone] Vicente Reyes, DMD [address] [place] [address] 12/15/2024 9:00 AM EDT Office Visit [facility] MEDICINE [address] [place] [address] Name, MD Uriel [address] [place] [address] 01/08/2025 9:00 AM EDT Telemedicine [address] [address] Puia, Juana, PharmD [address] [place] [address] Pending Results Name Type Priority Associated Diagnoses Date /Time Comprehensive Metabolic Panel Lab Routine 11/02/2024 9:51 AM EDT Magnesium Lab Routine 11/02/2024 9:5 1 AM EDT documented as of this encounter Goals Goal Patient Goal Type Associated Problems Recent Progress Patient-Stated? Author Hemoglobin A1c < 8 Result Component 6.7( 11:05 AM EST) No Puia, Juana, PharmD Record your blood sugar as directed Result Component No Puia, Juana, PharmD documented as of this encounter Procedures Procedure Name Priority Date/Time Associated Diagnosis Comments CBC WITH AUTO DIFFERENTIAL Routine 11/02/2024 9:51 AM EDT MAGNESIUM Routine 11/02/2024 9:51 AM EDT COMPREHENSIVE METABOLIC PANEL Routine 11/02/2024 9:51 AM EDT documented in this encounter Results * (ABNORMAL) CBC auto differential (11/02/2024 9:51 AM EDT) White Blood Count 4.0(L) 4.8 - 10.8 X10*3/uL [facility] Red Blood Count 4.12(L) 4.60 - 5.80 X10*6/uL [facility] Hemoglobin 11.7(L) 14.0 - 18.0 g/dl [facility] Hematocrit 35.1(L) 42.0 - 52.0 % [facility] Mean Corpuscular Volume 85.2 80.0 - 98.0 fL [facility] Mean Corpuscular Hemoglobin 28.4 27.0 - 33.0 pg [facility] Mean Corpuscular HGB Conc 33.3 31.0 - 36.0 g/dl [facility] Red Cell Distribution Width 15.1 11.0 - 16.0 % [facility] Platelet Count 203 160 - 400 X10*3/uL [facility] Mean Platelet Volume 9.2(L) 9.4 - 12.4 fL [facility] Neutrophils Percent Auto 77.1(H) 45 - 73 % [facility] Imm Gran Pct Auto 0.3 0.0 - 0.4 % [facility] Lymphocytes Percent Auto 12.7(L) 20 - 40 % [facility] Monocytes Percent Auto 9.1 2 - 11 % [facility] Eosinophils Percent Auto 0.8 0 - 4 % [facility] Basophils Percent Auto 0.0 0 - 2 % [facility] NRBC Pct Auto 0.0 0.0 - 0.2 /100WBC [facility] Neutrophils Absolute Auto 3.1 2.0 - 8.3 x10*3/uL [facility] Imm Gran Abs Auto 0.01 0.00 - 0.03 X10*3/uL [facility] Lymphocytes Absolute Auto 0.5(L) 1.2 - 4.9 X10*3/uL [facility] Monocytes Absolute Auto 0.4 0.1 - 1.2 X10*3/uL [facility] Eosinophils Absolute Auto 0.0 0.0 - 0.4 X10*3/uL [facility] Basophils Absolute Auto 0.0 0.0 - 0.2 X10*3/uL [facility] NRBC Abs Auto 0.000 0.0 - 0.012 X10*3/uL [facility] 11/02/2024 9:51 AM EDT 11/02/2024 10:02 AM EDT us Generic External Data Provider LAB BLOOD ORDERAB LES Final Result [facility] [address] [place] [phone] [phone] documented in this encounter Visit Diagnoses Not on filedocumented in this encounter Additional Health Concerns Assessment Noted Time PHQ-9 Depression Total Score: 11 025 11:36 AM EST documented as of this encounter Care Teams Data Architect Manager Relationship Specialty Start Date End Date Name, MD Uriel [address] [place] [address] PCP - General Family Medicine 05/10/20 Juana Samuels PharmD [address] [place] [address] Pharmacist Internal Medicine 09/02/24 documented as of this encounter
--- OUTSIDE RECORDS SUMMARY | 2024-11-02 10:37 | XMS_ITS | Encounter Summary ---
Author Organization [employer] Address 75 [facility] 7t [place] [address] Care Team Providers Care Driver Education Road Instructor Name Role Phone Name, Uriel AARON Primary Care Provider Puia, Juana PharmD Unavailable Puia, Juana PharmD Unavailable [phone] Encounter Details Date Type Department Care Team (Late st Contact Info) Description 01/07/2023 Abstract [facility] MED[facility]INE [address] [place] [address] Name, MD Uriel [address] [place] [address] Social History Tobacco Use Types Packs/Day Years [...] 8:00 AM EDT Office Visit [facility] CHC ADULT DENTAL [address] [place] [address] Vicente Reyes, DMD [address] [place] [address] 12/15/2024 9:00 AM EDT Office Visit [facility] [place] [address] Name, [place] [address] 01/08/2025 9:00 AM EDT Telemedicine [facility] [place] [address] Juana Samuels, [place] [address] documented as of this encounter Procedures Procedure Name Priority Date/Time Associated Diagnosis Comments COLONOSCOPY Routine 02/18/2019 2:11 PM EDT documented in this encounter Results * Colonoscopy (02/18/2019 2:11 PM EDT) Colonoscopy Normal Normal Narrative Elsa Christopher - 02/18/2019 2:11 PM EDT Recommended 5 year follow up ( [facility] [place] us Historical Provider HEALTH MAINTENANCE Final Result documented in this encounter Visit Diagnoses Not on filedocumented in this encounter Care Teams Driver Education Road Instructor Relationship Specialty Start Date End Date Name, [place] [address] PCP - General Family Medicine 05/10/20 Juana Samuels, [place] [address] Pharmacist Internal Medicine 05/03/22 09/01/23 Juana Samuels, [place] [address] Pharmacist Internal Medicine 09/02/24 documented as of this encounter
--- OUTSIDE RECORDS SUMMARY | 2024-11-02 10:37 | XMS_ITS | Clinical Summary ---
Author Organization [employer] Address [address] [facility] 7t [place] [address] Care Team Providers Care Heel Emery Buffer Name Role Phone Name, Uriel AARON Primary Care Provider [phone] Juana Samuels PharmD Unavailable [phone] Allergies No known active allergies Medications glucose 4 g chewable tabletIndication s:Type 2 diabetes mellitus with other specified complication, without long-term current use of insulin (CMS/[facility]) Chew 4 tablets (16 g) if needed [...] complication, without long-term current use of insulin ([facility]) Take 1 tablet (500 mg) by mouth [...] gastroesophageal mucosa (see comment). EGD done at [facility] 02/07/2023 Neutropenia 08/23/2022 Non-alcoholic cirrhosis 08/23/2022 Nonalcoholic steatohepatitis ([place]) 08/23/2022 History of intracranial hemorrhage 08/23/2022 Overview (08/23/2022): subaracnoid hemorrhage from ruptured jeff aneurysm in the 1989 Mild cognitive disorder 01/13/2021 Seizure 10/09/2018 Hyperlipidemia 05/09/2012 Chronic nonalcoholic liver disease 01/23/2012 Diabetes mellitus 01/23/2012 Impotence of organic origin 01/23/2012 Intermittent asthma 01/23/2012 Encounters Date Type Department Care Team Description 11/02/2024 Orders Only GENERIC EXTERNAL DATA DEPARTMENT Provider, Generic External Data 10/08/2024 9:00 AM EDT Telemedicine [facility] [address] [place] [address] Juana Samuels, PharmD Type 2 diabetes mellitus without complication, without long-term current use of insulin (CMS/HCC) (Primary Dx) 10/08/2024 Telephone [facility] [address] [place] [address] Juana Samuels, PharmSincere 09/17/2024 Telephone [facility] [address] [place] [address] Uriel Woodruff MD 09/16/2024 11:00 AM EST Office Visit [facility] [address] [place] [address] Uriel Woodruff MD Type 2 diabetes mellitus without complication, without long-term current use of insulin (CMS/HCC) (Primary Dx); Dysphagia, unspecified type; Weight loss; History of esophageal cancer; Encounter for immunization 09/15/2024 Telephone [facility] P[facility]S [address] [place], [place] [phone] Uriel Woodruff MD chartprep 09/12/2024 Refill [facility] [address] [place] [address] Uriel Woodruff MD 09/11/2024 Telephone [facility] [address] [place] [address] Name, MD Uriel Durable Medical Equipment (boost) 09/08/2024 Orders Only [facility] ADULT DENTAL [address] [place] [address] Vicente Reyes, COSMO 09/07/2024 Orders Only [facility] [address] [place], [place] [phone] NameUriel MD 08/09/2024 Refill [facility] [address] [place] [address] Name, MD Uriel from Last 3 Months [...] Description 11/12/2024 8:00 AM EDT Office Visit [facility] ADULT DENTAL 505 [place] [address] Vicente Reyes, DMD [address] [place] [address] 12/15/2024 9:00 AM EDT Office Visit [facility] [address] [place] [address] Name, MD Uriel [address] [place] [address] 01/08/2025 9:00 AM EDT Telemedicine [facility] [address] [place] [address] Juana Samuels, PharmD [address] [place], [place] [phone] Health Maintenance Due Date Last Done Comments [...] Additional history exists Lipid Panel 09/07/2025 09/07/2024, 02/0 12/2022, 05/19/2020 Depression Screening 09/16/2025 09/16/2024, 09/16/19 25 [...] Procedure Name Priority Date/Time Associated Diagnosis Comments MAGNESIUM Routine 11/02/2024 9:51 AM EDT COMPREHENSIVE METABOLIC PANEL Routine 11/02/2024 9:51 AM EDT CBC WITH AUTO DIFFERENTIAL Routine 11/02/2024 9:51 AM EDT POCT GLYCATED HEMOGLOBIN, TOTAL Routine 09/16/2024 11:05 AM EST Type 2 diabetes mellitus without complication, without long-term current use of insulin ([facility]) POCT GLUCOSE Routine 09/16/2024 11:04 AM EST Type 2 diabetes mellitus without complication, without long-term current use of insulin ([facility]) VITAMIN B12 Routine 09/07/2024 8:10 AM EST [...] Maintenance Results * (ABNORMAL) CBC auto differential (11/02/2024 9:51 AM EDT) White Blood Count 4.0(L) 4.8 - 10.8 X10*3/uL [facility] Red Blood Count 4.12(L) 4.60 - 5.80 X10*6/uL [facility] Hemoglobin 11.7(L) 14.0 - 18.0 g/dl [facility] Hematocrit 35.1(L) 42.0 - 52.0 % [facility] Mean Corpuscular Volume 85.2 80.0 - 98.0 fL [facility] Mean Corpuscular Hemoglobin 28.4 27.0 - 33.0 pg [facility] Mean Corpuscular HGB Conc 33.3 31.0 - 36.0 g/dl [facility] Red Cell Distribution Width 15.1 11.0 - 16.0 % [facility] Platelet Count 203 160 - 400 X10*3/uL [facility] Mean Platelet Volume 9.2(L) 9.4 - 12.4 fL [facility] Neutrophils Percent Auto 77.1(H) 45 - 73 % [facility] Imm Gran Pct Auto 0.3 0.0 - 0.4 % [facility] Lymphocytes Percent Auto 12.7(L) 20 - 40 % [facility] Monocytes Percent Auto 9.1 2 - 11 % [facility] Eosinophils Percent Auto 0.8 0 - 4 % [facility] Basophils Percent Auto 0.0 0 - 2 % [facility] NRBC Pct Auto 0.0 0.0 - 0.2 /100WBC [facility] Neutrophils Absolute Auto 3.1 2.0 - 8.3 x10*3/uL [facility] Imm Gran Abs Auto 0.01 0.00 - 0.03 X10*3/uL [facility] Lymphocytes Absolute Auto 0.5(L) 1.2 - 4.9 X10*3/uL [facility] Monocytes Absolute Auto 0.4 0.1 - 1.2 X10*3/uL [facility] Eosinophils Absolute Auto 0.0 0.0 - 0.4 X10*3/uL [facility] Basophils Absolute Auto 0.0 0.0 - 0.2 X10*3/uL [facility] NRBC Abs Auto 0.000 0.0 - 0.012 X10*3/uL [facility] 11/02/2024 9:51 AM EDT 11/02/2024 10:02 AM EDT us Generic External Data Provider LAB BLOOD ORDERAB LES Final Result [facility] [address] [place] [phone] * (ABNORMAL) POCT HGB A1C (09/16/2024 11:05 AM EST) Hemoglobin A1C 6.7(A) 4.0 - 6.0 % QC Media Lot # [id number] Lot# Expiration Date [id number] Blood 09/16/2024 11:0 5 AM EST us Urielrajwinder Woodruff MD POINT OF CARE TEST ENTER/EDIT OR DERABLES Final Result * (ABNORMAL) POCT Glucose (09/16/2024 11:04 AM EST) Glucose Blood, POC 218(A) 60 - 200 mg/dL QC Media Lot # [id number] Lot# Expiration Date Blood Capillary blood specimen / Unknown 09/16/2024 11:04 AM EST us Uriel Woodruff MD POINT OF CARE TEST ENTER/EDIT OR DERABLES Final Result * Albumin, Random Urine W/Creatinine (09/07/2024 8:10 AM EST) Creatinine, Urine 194.22 mg/dL [facility] Microalbumin Urine 22.0 mg/L [facility] Microalbum Creatinine Ratio Ur 11.3 <30 ug/mg cr [facility] Comment:Albumin/Creatinine R atio Reference Ranges: Normal: < 30 ug/mg creatinine Microalbuminuria: 30 - 300 ug/mg creatinineClinical Albuminuria: > 300 ug/mg creatinine 09/07/2024 8:10 AM EST 09/07/2024 11:02 AM EST us Uriel Woodruff MD LAB URINE ORDERABLES Final Resul t Performing Organization Address [facility] Co de Phone Number [facility] [address] [place] [address] [phone] * Vitamin B12 (09/07/2024 8:10 AM EST) Vitamin B12 358 200 - 900 pg/mL [facility] Comment:NORMAL 200-900 PG/M L INDETERMINATE 160-199 PG/ML DEFICIENT < 160 PG/ML 09/07/2024 8:10 AM EST 09/07/2024 11:01 AM EST us Uriel Woodruff MD LAB BLOOD ORDERABLES Final Resul t Performing Organization Address City/[facility] Co de Phone Number [facility] [address] [place] [phone] [phone] * (ABNORMAL) Lipid Panel, Standard (09/07/2024 8:10 AM EST) Triglycerides 126 <150 mg/dL [facility] Comment:Desirable Triglyceri de: less than 150 mg/dLBorderline High Triglyceride 150-199 mg/dLHigh Triglyceride: 200-499 mg/dLVery High Triglyceride: greater than or equal to 5OO mg/dL Cholesterol 190 <200 mg/dL [facility] Comment:Desirable Cholestero l: less than 200 mg/dLBorderline High Cholesterol: 200-239 mg/dLHigh Cholesterol: greater than 239 mg/dL LDL Cholesterol Calculated 114(H) <100 mg/dL [facility] Comment:Desirable LDL: less than 100 mg/dLNear Optimal/Above Optimal LDL: 110- 129 mg/dLBorderline High LDL: 130-159 mg/dLHigh LDL: 160-189 mg/dLVery High LDL: greater than or equal to 190 mg/dL HDL Cholesterol 51 >40 mg/dL [facility] Comment:Desirable HDL: great er than 40 mg/dL Note: This HDL assay may give artificially low results in patients with liver disease. 09/07/2024 8:10 AM EST 09/07/2024 11:01 AM EST us Uriel Name MD LAB BLOOD ORDERABLES Final Resul t [facility] [address] [place] [phone] * Hepatitis A,B,C Profile (04/17/2021 8:40 [...] HCV infection. 04/17/2021 8:40 AM EDT us Historical Provider HISTORICAL/NON ORDERABLE LABS Final Result [facility] [address] [place] [address] * (ABNORMAL) Colonoscopy (02/18/2019) Colonoscopy Abnormal(A ) Normal us Uriel Woodruff MD HEALTH MAINTENANCE Final Result from Last 3 Months or Most Recently Relevant to Health Maintenance Insurance - [facility] Care Teams Heel Emery Buffer Relationship Specialty Start Date End Date Name, MD Uriel [address] [place] [address] PCP - General Family Medicine 05/10/20 Juana Samuels PharmD [address] [place] [address] Pharmacist Internal Medicine 09/02/24
--- OUTSIDE RECORDS SUMMARY | 2024-11-02 10:37 | XMS_ITS | Encounter Summary ---
Author Organization [employer] Address [address] [place] [address] 7t [place] [address] Care Team Providers Care Machine Printer Hose Name Role Phone Name, Uriel AARON Primary Care Provider [phone] Puia, Juana PharmD Unavailable [phone] Puia, Juana PharmD Unavailable Reason for Visit * Reason Comments Med Refill Encounter Details Date Type Department Care Team (Late st Contact Info) Description 09/23/2022 Refill [facility] MED[facility]INE [address] [place] [address] Puia, Juana, PharmD [address] [place] [address] Type 2 diabetes mellitus with other specified complication, without long-term current use of insulin ([facility]) (Primary Dx) Social History Tobacco Use Types [...] Description 11/12/2024 8:00 AM EDT Office Visit [facility] CH[facility] ADULT DENTAL [address] [place], [place] [phone] Vicente Reyes, COSMO [address] [place], [place] [phone] 12/15/2024 9:00 AM EDT Office Visit [facility] [place] [address] Name, MD Uriel [facility] [place] [address] 01/08/2025 9:00 AM EDT Telemedicine [facility] [place] [address] Juana Samuels PharmD [facility] [place] [address] documented as of this encounter Visit Diagnoses Diagnosis Type 2 diabetes mellitus with other specified complication, without long-term current use of insulin ([facility])- Primary documented in this encounter Care Teams Machine Printer Hose Relationship Specialty Start Date End Date Name, MD Uriel [facility] [place] [address] PCP - General Family Medicine 05/10/20 Juana Samuels PharmD [facility] [place] [address] Pharmacist Internal Medicine 05/03/22 09/01/23 Juana Samuels PharmD [facility] [place] [address] Pharmacist Internal Medicine 09/02/24 documented as of this encounter
--- OUTSIDE RECORDS SUMMARY | 2024-11-02 10:37 | XMS_ITS | Encounter Summary ---
Author Organization [employer] Address 75 [facility] 7t [place] [address] Care Team Providers Care Atomic Process Engineer Name Role Phone Name, Uriel AAORN Primary Care Provider [phone] Juana Samuels PharmD Unavailable [phone] Reason for Visit * Reason Comments Med Refill Encounter Details Date Type Department Care Team ([facility] st Contact Info) Description 08/09/2024 Refill [facility] MEDICINE [address] [place], [place] [phone] Name, MD Uriel [address] [place] [address] Social History Tobacco Use Types Packs/Day Years [...] 8:00 AM EDT Office Visit [facility] CHC ADULT DENTAL [address] [place] [address] Vicente Reyes, DMD [address] [place] [address] 12/15/2024 9:00 AM EDT Office Visit [facility] MEDICINE [address] [place] [address] Name, MD Uriel [address] [place] [address] 01/08/2025 9:00 AM EDT Telemedicine [facility]INE [address] [place] [address] Juana Samuels, PharmD [address] [place] [address] documented as of this encounter Goals Goal [...] documented as of this encounter Care Teams Atomic Process Engineer Relationship Specialty Start Date End Date Name, MD Uriel [address] [place] [address] PCP - General Family Medicine 05/10/20 Juana Samuels PharmD [address] [place] [address] Pharmacist Internal Medicine 09/02/24 documented as of this encounter
--- OUTSIDE RECORDS SUMMARY | 2024-11-02 10:37 | XMS_ITS | Encounter Summary ---
Author Organization [employer] Address 75 [facility] 7t [place] [address] Care Team Providers Care Flat Sorting Machine Clerk Name Role Phone Name, Uriel AARON Primary Care Provider [phone] Puia, Juana PharmD Unavailable [phone] Puia, Juana PharmD Unavailable [phone] Reason for Visit * Reason Comments Med Refill Encounter Details Date Type Department Care Team (Late st Contact Info) Description 08/15/2023 Refill [facility]EDS [address] [place], [place] [phone] Name, MD Uriel [address] [place] [address] Allergic rhinitis, unspecified seasonality, unspecified trigger Social [...] Description 11/12/2024 8:00 AM EDT Office Visit [facility] CH[facility] ADULT DENTAL [address] [place], [place] [phone] Vicente Reyes, DMD 505 [place] [address] 12/15/2024 9:00 AM EDT Office Visit [facility] MEDICINE [address] [place] [phone] NameUriel MD [address] [place] [address] 01/08/2025 9:00 AM EDT Telemedicine [facility] [address] [place] [address] Puia, Juana, PharmD [address] [place] [address] documented as of this encounter Goals Goal Patient Goal Type Associated Problems Recent Progress Patient-Stated? Author Hemoglobin A1c < 8 Result Component 6.7( 11:05 AM EST) No Puia, Juana, PharmD Record your blood sugar as directed Result Component No Puia, Juana, PharmD documented as of this encounter Visit Diagnoses Diagnosis Allergic rhinitis, unspecified seasonality, unspecified trigger documented in this encounter Care Teams Flat Sorting Machine Clerk Relationship Specialty Start Date End Date NameUriel MD [address] [place] [address] PCP - General Family Medicine 05/10/20 Juana Samuels PharmD [address] [place] [address] Pharmacist Internal Medicine 05/03/22 09/01/23 Juana Samuels PharmD [address] [place] [address] Pharmacist Internal Medicine 09/02/24 documented as of this encounter
[2024-11-02 10:49] LABS: Ferritin 53 ng/mL (20-250); Vitamin D 25-OH Total 33.8 ng/mL (>30)
[2024-11-02 10:59] LABS: Folate 5.5 ng/mL (> or = 4.0); Vitamin B12 561 pg/mL (200-900)
[2024-11-04 18:39] LABS: Zinc 72 mcg/dL (60-130)
[2024-11-05 19:19] LABS: Vitamin A 56 mcg/dL (38-98)
[2024-11-06 01:04] LABS: Alpha-Tocopherol 14.4 mg/L (5.7-19.9); Beta-Gamma Tocopherol <1.0 mg/L (<=4.3)
[2024-11-06 20:58] LABS: Vitamin K1 530 pg/mL (130-1500)
[2024-11-07 05:24] LABS: Vitamin B6 5.5 ng/mL (2.1-21.7)
[2024-11-07 08:19] LABS: Nicotinamide <20 ng/mL (see note); Vit B3 - Nicotinic Acid <20 ng/mL (see note); Vitamin B5 (Pantothenic Acid) 44 ng/mL (<275)
[2024-11-11 16:00] LABS: Vitamin B1 8 nmol/L (8-30)
== END 2024-11-02 08:50 | disposition home or self-care (01) ==
LOC: HO.LAB 08:49
PROVIDERS: PCP Internal Medicine Geriatric Medicine; Visit Provider Internal Medicine Gastroenterology
DX: C15.9 Malignant neoplasm of esophagus, unspecified (principal); E46 Unspecified protein-calorie malnutrition; K75.81 Nonalcoholic steatohepatitis (NASH)
CPT/HCPCS: 36415; 80053; 82306; 82607; 82728; 82746; 83735; 84207; 84425; 84446; 84590; 84591; 84597; 84630; 85025; 99212

== ENCOUNTER 2024-11-02 08:49 | Outpatient (AMB) | payer OTHER, SELFPAY ==
--- NOTE | 2024-11-02 08:53 | A.OFFVIS_ITS ---
Vital Signs 11/02/24 09:01 Height 5 ft 9 in Weight 112 lb 6.972 oz BMI 16.6 BP 112/61 Blood Pressure Location Lt brachial Position Sitting Pulse 86 Intake Visit Reasons: 6 months f/u Intake Note: George presents in the office as a 6 month follow up. CC: States that the weight loss is a big problem. Had an EGD a few weeks ago. Hands have been very cold - sometimes he has constipation but denies other GI concerns. Pulley Mortiser Operator Required: Yes Allergies No Known Allergies Allergy (Verified 05/04/24 09:14) HPI HPI 6 months f/u: Details: 68 yr old m with esophageal cancer RECAP: HE had distal esophagectomy 07/20 he did not require chemo or XRT he has been having poor appetite and fullness INTERIM: he is in remission for his esophageal cancer but still losing weight taking protein shakes told by surgeon might need G tube he did require balloon dilation waiting to see neuro for f/u for seizure and memory issues EXAM: GENERAL: The patient is thin VITAL SIGNS:see workflow HEENT: Nonicteric sclerae, PERRLA, EOMI. Oropharynx clear. Moist mucous membranes. Conjunctivae appear well perfused. No thyroid mass. CHEST: Chest wall is nontender. HEART: Regular rate and rhythm without murmurs. LUNGS: Clear to auscultation bilaterally. ABDOMEN: Soft, positive bowel sounds, nontender, no organomegaly.no flank tenderness SKIN: No rash, no excessive bruising, petechiae, or purpura. NEUROLOGIC: Cranial nerves II-XII intact without motor/sensory deficit. Psych: seems low affect A?P: 1/ Esophageal cancer s/p distal esophagectomy --seems to be low mood, might have gastroparesis, unfortunately I looked at marinol and mirtazpeine last time, both might affect his zonisamide (had issues with seizure control after surgery) PLAN: 1/ d/w neuro about using marinol or remeron etc--Dr Ceja at [facility]-- will ask 2/ cont with high protein diet, f/u with surgery over there if needs G tube 3/ advised to take multivitamin, will check vitamin levels PFSH Medical History Seizures MCCLELLAN (nonalcoholic steatohepatitis) Elevated cholesterol Diabetes GERD (gastroesophageal reflux disease) Surgical History History of surgery of head History of back surgery Hx of shoulder surgery Hx of shoulder surgery History of esophagogastroduodenoscopy (EGD) Hx of colonoscopy Family History Brother Diabetes Prostate CA Sister Diabetes Brother Heart attack Social History Household Members: Spouse Housing: House Are you a primary healthcare risk control consultant to a significant other at home: No Do you presently have visiting nurse or other home services: No Alcohol intake: never Patient Tobacco Use Status: Former Tobacco user Tobacco use type: Cigarette service: No Current occupational status: disabled 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 Physical Exam Vital Signs: Last Vital Signs Pulse 86 11/02/24 09:01 BP 112/61 11/02/24 09:01 BMI result Body Mass Index 16.6 Assessment & Plan Assessment & Plan (1) Esophageal cancer: Code(s): C15.9 - Malignant neoplasm of esophagus, unspecified Category: Medical Plan: as above (2) Malnutrition: Code(s): E46 - Unspecified protein-calorie malnutrition Category: Medical Plan: as above Orders: Orders Vitamin A Today C15.9 - Malignant neoplasm of esophagus, unspecified, E46 - Unspecified protein-calorie malnutrition Vitamin B6 Today C15.9 - Malignant neoplasm of esophagus, unspecified, E46 - Unspecified protein-calorie malnutrition Vitamin C Today C15.9 - Malignant neoplasm of esophagus, unspecified, E46 - Unspecified protein-calorie malnutrition Vitamin D 25-OH Total Today C15.9 - Malignant neoplasm of esophagus, unspecified, E46 - Unspecified protein-calorie malnutrition Complete Blood Count Auto Diff Today C15.9 - Malignant neoplasm of esophagus, unspecified, E46 - Unspecified protein-calorie malnutrition Comprehensive Met. Panel Today C15.9 - Malignant neoplasm of esophagus, unspecified, E46 - Unspecified protein-calorie malnutrition, K75.81 - Nonalcoholic steatohepatitis (MCCLELLAN) Vitamin B1 Today C15.9 - Malignant neoplasm of esophagus, unspecified, E46 - Unspecified protein-calorie malnutrition Vitamin B12 and Folate Today C15.9 - Malignant neoplasm of esophagus, unspecified, E46 - Unspecified protein-calorie malnutrition Vitamin B3 (Niacin) Today C15.9 - Malignant neoplasm of esophagus, unspecified, E46 - Unspecified protein-calorie malnutrition Vitamin B5 (Pantothenic Acid) Today C15.9 - Malignant neoplasm of esophagus, unspecified, E46 - Unspecified protein-calorie malnutrition Vitamin E Today C15.9 - Malignant neoplasm of esophagus, unspecified, E46 - Unspecified protein-calorie malnutrition Vitamin K1 Today C15.9 - Malignant neoplasm of esophagus, unspecified, E46 - Unspecified protein-calorie malnutrition Zinc Today C15.9 - Malignant neoplasm of esophagus, unspecified, E46 - Unspecified protein-calorie malnutrition Ferritin Today C15.9 - Malignant neoplasm of esophagus, unspecified, E46 - Unspecified protein-calorie malnutrition Magnesium Today C15.9 - Malignant neoplasm of esophagus, unspecified, E46 - Unspecified protein-calorie malnutrition Medications: Refilled pentoxifylline ER 400 mg PO BID 60 ea 4RF esomeprazole magnesium 40 mg PO QAM 30 caps 5RF Coding Level of Care Code Est Pt Level 3 (58234) Diagnoses Esophageal cancer C15.9 Malnutrition E46
[2024-11-02 09:01] VITALS: BP 112/61; PULSE 86; BMI 16.6
--- OUTSIDE RECORDS SUMMARY | 2024-11-02 09:37 | XMS_ITS | Patient Health Record ---
Author Organization [facility] Address [address] [place] [address] Care Team Providers Care Human Resources Receptionist Name Role Phone Name Uriel AARON Primary Care Provider Melba Chin Unavailable [phone] Allergies No Known Allergies Reason For Referral No Information Medications Medication SIG (Take, Route, Frequency, Duration) Notes Start Date End Date Status Metoprolol Tartrate 25 MG Oral for 30 Active Vitamin B-12 1000 MCG 1 tablet Orally On ce a day Not-Taking Ventolin HFA 108 (90 Base) MCG/ACT INHALE 2 PUFFS BY MOUTH EVERY 4 TO 6 HOURS NEEDED Inhalation for 17 Active Zonisamide 100 MG 1 capsule Orally [...] day Active metFORMIN HCl Active OxyCONTIN Not-Taking Rosuvastatin Calcium 20 MG 1 tablet Orally Once a day Not-Taking Extra Depth Orthopedic Shoes (1 Pair) with Customized Heat Molded Multidensity Innersoles (3 Pair) as directed Dx: NIDDM/Polyneuropathy (E11.42), Hammertoe Foot Deformity (M20.41,M20.42), Preulcerative Skin Lesion(s) (L85.1 09/06/2023 Active Trulicity Not-Taking Immunizations Vaccine Route Administration Date Status Comme nts Influenza Unknown 02/07/2024 Refused Social History Tobacco Use: Social History Observation Description Date Details (start date - stop date) Never Smoker NA - NA Alcohol Screen Question Answer Notes Did you have a drink containing alcohol in the p ast year? No Points 0 Interpretation Negative Tobacco use other than smoking: Question Answer Notes Are you an other tobacco user? No Tobacco Control (Standard) Question Answer Notes Tobacco use: Nonsmoker Problems Problem Type SNOMED Code ICD Code Onset Dates Problem Status W/U Status Risk Notes Problem Acquired hammer toe of right foot (38188352057876 05) Other hammer toe(s) (acquired), right foot (M20.41) Active confirmed Problem Acquired hammer toe of left foot (79777258845508 03) Other hammer toe(s) (acquired), left foot (M20.42) Active confirmed Problem 199368681 Type 2 diabetes mellitus without complication, without long-term current use of insulin (E11.9) Active confirmed Vital Signs Blood pressure diastolic 78 mm Hg 09/09/2024 Height 5ft9in in 09/09/2024 Blood pressure systolic 121 mm Hg 09/09/2024 Weight 113 lbs 09/09/2024 BMI 16.69 kg/m2 09/09/2024 Encounters Encounter Location Date Provider Diagnosis [facility] [address] [place] [address] 11/15/2023 Melba Raya Type 2 diabetes mellitus without complication, without long-term current use of insulin E11.9 ; Tinea unguium B35.1 ; Pain in toe of left foot M79.675 and Pain in toe of right foot M79.[address] [address] 02/07/2024 Melba Raya Type 2 diabetes mellitus without complication, without long-term current use of insulin E11.9 ; Tinea unguium B35.1 ; Pain in toe of left foot M79.675 and Pain in toe of right foot M79.[address] [address] 04/22/2024 Melba Navarretea Tinea unguium B35.1 ; Ingrown nail L60.0 ; Type 2 diabetes mellitus without complication, without long-term current use of insulin E11.9 ; Pain in toe of left foot M79.675 and Pain in toe of right foot M79.[address] [address] 06/24/2024 Melba Raya Tinea unguium B35.1 ; Ingrown nail L60.0 ; Type 2 diabetes mellitus without complication, without long-term current use of insulin E11.9 ; Pain in toe of left foot M79.675 and Pain in toe of right foot M79.[address] [address] 09/09/2024 Melba Raya Tinea unguium B35.1 ; Ingrown nail L60.0 ; Type 2 diabetes mellitus without complication, without long-term current use of insulin E11.9 ; Pain in toe of left foot M79.675 and Pain in toe of right foot M79.674 [facility] [address] [address] 01/31/2024 Melba Raya Assessments Encounter Date Diagnosis [...] B35.1) 11/15/2023 Tinea unguium (ICD-10 - B35.1) 09/09/2024 Tinea unguium (ICD-10 - B35.1) 09/09/2024 Ingrown nail (ICD-10 - L60.0) 11/15/2023 Pain in toe of left foot [...] toe of right foot (ICD-10 - M79.674) 09/09/2024 Type 2 diabetes mellitus without complication, without long-term current use of insulin (ICD-10 - E11.9) 09/09/2024 Pain in toe of left foot (ICD-10 - M79.675) 04/22/2024 Pain in toe of right foot (ICD-10 - M79.674) 06/24/2024 Pain in toe of left foot (ICD-10 - M79.675) 02/07/2024 Pain in toe of right foot (ICD-10 - M79.674) 06/24/2024 Pain in toe of right foot (ICD-10 - M79.674) 09/09/2024 Pain in toe of right foot (ICD-10 - M79.674) 11/15/2023 Other Plan Of Treatment Next Appt Details Provider Name:Melba miller, 11/27/2024 01:30:00 PM, [address] [place], [address], Insurance Providers Payer Name Payer Address Payer Phone Subscriber Number Group Number Insured Name Patient Relationship to Insured Coverage Start Date Coverage End Date [facility] [employer] Claims [address] [place] [id number] George Guillaume Self - patient is the insured Medical (General) History Medical History History ICD Code Anxiety asthma Back,Hip,and Knee pain Cataracts Diabetic Epilepsy/Seizures Fatty liver Reflux ( GERD) Chicken pox Joint implants/screws Esophageal cancer Surgical History Surgery Date(Month/Year) Esophageal surgery- feeding tube 3 cataract surgery 2023
--- OUTSIDE RECORDS SUMMARY | 2024-11-02 09:37 | XMS_ITS | Encounter Summary ---
Author Organization [facility] Address [address] [facility] [address] [place] [address] Care Team Providers Care Rn Palliative Care Name Role Phone Name, Uriel AARON Primary Care Provider [phone] Juana Samuels PharmD Unavailable [phone] Reason for Visit * Reason Comments Med Refill Encounter Details Date Type Department Care Team ([facility] st Contact Info) Description 09/07/2023 Refill [facility] [address] [place], [place] [phone] Name, MD Uriel [address] [place] [address] Social History Tobacco Use Types Packs/Day Years [...] Care Team (Late st Contact Info) Description 11/12/2024 8:00 AM EDT Office Visit [facility] [address] [place] [address] Vicente Reyes, DMD [address] [place] [address] 12/15/2024 9:00 AM EDT Office Visit [facility] [address] [place] [address] Name, MD Uriel [address] [place] [address] 01/08/2025 9:00 AM EDT Telemedicine [facility] [address] [place] [address] Juana Samuels, PharmD [address] [place] [address] documented as of this encounter Goals Goal Patient Goal Type Associated Problems Recent Progress Patient-Stated? Author Hemoglobin A1c < 8 Result Component 6.7( 11:05 AM EST) No PuiaEdvinJuana, PharmD Record your blood sugar as directed Result Component No Juana Samuels, PharmD documented as of this encounter Visit Diagnoses Not on filedocumented in this encounter Additional Health Concerns Assessment Noted Time PHQ-9 Depression Total Score: 0 08/30/19 24 9:27 AM EST documented as of this encounter Care Teams Rn Palliative Care Relationship Specialty Start Date End Date Name, MD Uriel [address] [place] [address] PCP - General Family Medicine 05/10/20 Juana Samuels PharmD [address] [place] [address] Pharmacist Internal Medicine 09/02/24 documented as of this encounter
--- OUTSIDE RECORDS SUMMARY | 2024-11-02 09:37 | XMS_ITS ---
Author Organization [facility] Address [address] [place] [address] Care Team Providers Care Radio Engineer Name Role Phone Name Uriel AARON Primary Care Provider Melba Chin Unavailable [phone] Allergies No Known Allergies REASON FOR VISIT [...] 06/24/2024 Encounters Encounter Location Date Provider Diagnosis [facility] [address] [address] 06/24/2024 Melba Raya Tinea unguium B35.1 ; [...] Up: 2 Months, Reason: Provider Name:Melba miller, 11/27/2024 01:30:00 PM, [address] [place], [address], Procedure Notes * Category Sub-Category Detail Notes [...] as necessary. Patient chooses, no pharmaceutical tx (05186) Progress Notes * George CHANDRA ADOB:1955 (68 yo M)Acc No.[id number]:06/24/2024 Progress Note Patient:?George CHANDRA Provider:?Melba Raya DPM :1955???Age:68 Y???Sex:Male Alexis e:06/24/2024 Address:[address] [place], [place] [id number] Pcp:Uriel Woodruff MD Subjective: * Chief Complaints: [...] 8.1 * Examination: ???Ophthalmology Referral: ?DIABETES EYE EXAM?Procedure Performed:?Yes ?Date of Exam Performed?02/27/2024 ?Findings of Diabetic Eye Exam:?no retinopathy?Orthopedic: ?MUSCLE STRENGTH:?5/5 all groups in a symmetrical fashion, B/L.?DIGITAL DEFORMITIES:?Digital contracture, PIPJ, 2-5 B/L, incompl-reducible to push-up test, no over, nor underlapping, with evidence of shoe producing skin irritation.?FOOTWEAR:?worn, non-supportive, shoe gear properties exacerbate patient's foot/toe deformity , shoe gear properties exacerbate patients foot/toe deformity.?General Examination: ?FOOT EXAM:?Lower Extremity Neurological Exam performed:?Yes ?Footwear Evaluation?Footwear Evaluation performed:?Yes?Nails: ?NAILS are:?Elongated, overgrown, dystrophic, lytic, greater than [...] as necessary. Patient chooses, no pharmaceutical tx (07449).? * Procedure Codes:?02050 DEBRI DE NAIL, 6 OR MORE, Modifiers: [...] Raya DPM Date:? Generated for Pavel osborn/Jairon/Sam on:?11/02/2024 09:37 AM EDT History and Physical Notes * HPI (History [...] masses. The interspaces are clear, B/L Orthopedic FOOTWEAR EVALUATION: worn, non-s upportive, shoe gear properties exacerbate patient's foot/toe deformity [...]
--- OUTSIDE RECORDS SUMMARY | 2024-11-02 09:37 | XMS_ITS ---
Author Organization [facility] Address [address] [place] [address] Care Team Providers Care Patternmaker All Around Name Role Phone Name Uriel AARON Primary Care Provider Melba Chin Unavailable [phone] Allergies No Known Allergies REASON FOR VISIT [...] 04/22/2024 Encounters Encounter Location Date Provider Diagnosis [facility] [address] [place] [address] 04/22/2024 Melba Raya Tinea unguium B35.1 ; [...] Reason: Provider Name:Melba miller, 11/27/2024 01:30:00 PM, [address] [place] [address], [phone], Procedure Notes * Category Sub-Category Detail Notes [...] Motrin was recommended for pain or discomfort (20729) Anesthesia 3cc of 1 percent Lid ocaine [...] as necessary. Patient chooses, no pharmaceutical tx (00598) Progress Notes * George CHANDRA ADOB:1955 (68 yo M)Acc No.[id number]:04/22/2024 Progress Note Patient:ElvisChandraGeorge faustin Provider:?Melba Raya DPM :1955???Age:68 Y???Sex:Male Alexis e:04/22/2024 Address:[address] [place], [place] [id number] Pcp:Uriel Woodruff MD Subjective: * Chief Complaints: [...] 8.1 * Examination: ???Ophthalmology Referral: ?DIABETES EYE EXAM?Diabetic Retinopathy Screening:?Yes ?Findings of Diabetic Eye Exam:?retinopathy?Orthopedic: ?MUSCLE STRENGTH:?5/5 all groups in a symmetrical [...] as necessary. Patient chooses, no pharmaceutical tx (27558).?Nail Avulsion:?Location?Lateral nail border, T5.?Anesthesia?3cc of 1 percent [...] Motrin was recommended for pain or discomfort (53682).? * Procedure Codes:?69175 DEBRI DE NAIL, 6 OR MORE, Modifiers: XS 95218 Avulsion Plate, Modifiers: XS * Follow Up:?2 [...]
--- OUTSIDE RECORDS SUMMARY | 2024-11-02 09:37 | XMS_ITS | Encounter Summary ---
Author Organization [employer] Address [address] [facility] 7t [place] [address] Care Team Providers Care Coiled Tubing Supervisor Name Role Phone Name, Uriel AARON Primary Care Provider [phone] Juana Samuels PharmD Unavailable [phone] Reason for Visit * Reason Comments Med Refill Encounter Details Date Type Department Care Team ([facility] st Contact Info) Description 08/09/2024 Refill [facility] MEDICINE [address] [place], [place] [phone] Name, MD Uriel 230 [place] [address] Social History Tobacco Use Types Packs/Day Years [...] Description 11/12/2024 8:00 AM EDT Office Visit [facility] CHC ADULT DENTAL [address] [place] [address] Vicente Reyes, DMD 505 [place] [address] 12/15/2024 9:00 AM EDT Office Visit [facility] MEDICINE [address] [place] [address] Name, MD Uriel [address] [place] [address] 01/08/2025 9:00 AM EDT Telemedicine [facility] MEDICINE [address] [place] [address] Juana Samuels, PharmD [address] [place] [address] documented as of this encounter Goals Goal [...] documented as of this encounter Care Teams Coiled Tubing Supervisor Relationship Specialty Start Date End Date Name, MD Uriel [address] [place] [address] PCP - General Family Medicine 05/10/20 Juana Samuels PharmD [address] [place] [address] Pharmacist Internal Medicine 09/02/24 documented as of this encounter
--- OUTSIDE RECORDS SUMMARY | 2024-11-02 09:37 | XMS_ITS | Encounter Summary ---
Author Organization [employer] Address [address] [facility] 7t [place] [address] Care Team Providers Care Preparation Supervisor Canning Name Role Phone Name, Uriel AARON Primary Care Provider [phone] Puia, Juana PharmD Unavailable Puia, Juana PharmD Unavailable Encounter Details Date Type Department Care Team (Late st Contact Info) Description 01/07/2023 Abstract [facility] MEDICINE [address] [place] [address] Name, MD Uriel [address] [place] [address] Social History Tobacco Use Types Packs/Day Years [...] Description 11/12/2024 8:00 AM EDT Office Visit [facility] CHC ADULT DENTAL [address] [place] [address] Vicente Reyes, DMD [address] [place] [address] 12/15/2024 9:00 AM EDT Office Visit [facility] [place] [address] Name, [place] [address] 01/08/2025 9:00 AM EDT Telemedicine [facility] [place] [address] Juana Samuels, [place] [address] documented as of this encounter Procedures Procedure Name Priority Date/Time Associated Diagnosis Comments COLONOSCOPY Routine 02/18/2019 2:11 PM EDT documented in this encounter Results * Colonoscopy (02/18/2019 2:11 PM EDT) Colonoscopy Normal Normal Narrative Elsa Christopher - 02/18/2019 2:11 PM EDT Recommended 5 year follow up ( [facility] us Historical Provider HEALTH MAINTENANCE Final Result documented in this encounter Visit Diagnoses Not on filedocumented in this encounter Care Teams Preparation Supervisor Canning Relationship Specialty Start Date End Date Name, [place] [address] PCP - General Family Medicine 05/10/20 Juana Samuels, [place] [address] Pharmacist Internal Medicine 05/03/22 09/01/23 Juana Samuels, [place] [address] Pharmacist Internal Medicine 09/02/24 documented as of this encounter
--- OUTSIDE RECORDS SUMMARY | 2024-11-02 09:37 | XMS_ITS | Encounter Summary ---
Author Organization [employer] Address [address] [facility] 7t [place] [address] Care Team Providers Care Heel Reducer Name Role Phone Name, Uriel AARON Primary Care Provider [phone] Juana Samuels PharmD Unavailable [phone] Reason for Visit * Reason Onset Date Comments VNA 10/09/2023 Durable Medical Equipment 10/09/2023 Diabet ic shoes Encounter Details Date Type Department Care Team (Late st Contact Info) Description 10/09/2023 Telephone [facility] MEDICINE [address] [place] [address] Name, MD Uriel [address] [place] [address] VNA ; Durable Medical Equipment (Diabetic shoes) [...] Miscellaneous Notes * Telephone Encounter - Merrill Carpetner - 10/09/2023 3:10 PM EDT Tc from [facility] with [facility] calling to let pcp know pt has been discharged from the agency. If any questions please contact Lianet at [phone] documented in this encounter Plan of Treatment Upcoming Encounters Date Type Department Care Team (Late st Contact Info) Description 11/12/2024 8:00 AM EDT Office Visit [facility] CHC ADULT DENTAL [address] [place] [address] Vicente Reyes, DMD [address] [place] [address] 12/15/2024 9:00 AM EDT Office Visit [facility] MEDICINE [address] [place] [address] Name, MD Uriel [address] [place] [address] 01/08/2025 9:00 AM EDT Telemedicine [facility] MEDICINE [address] [place] [address] Juana Samuels, PharmD [address] [place] [address] documented as of this encounter Goals Goal Patient Goal Type Associated Problems Recent Progress Patient-Stated? Author Hemoglobin A1c < 8 Result Component 6.7( 5 11:05 AM EST) No Juana Samuels, PharmSincere Record your blood sugar as directed Result Component No Juana Samuels PharmSincere documented as of this encounter Visit Diagnoses Not on filedocumented in this encounter Additional Health Concerns Assessment Noted Time PHQ-9 Depression Total Score: 0 08/30/19 24 9:27 AM EST documented as of this encounter Care Teams Heel Reducer Relationship Specialty Start Date End Date Name, MD Uriel [address] [place] [address] PCP - General Family Medicine 05/10/20 Juana Samuels PharmD [address] [place] [address] Pharmacist Internal Medicine 09/02/24 documented as of this encounter
--- OUTSIDE RECORDS SUMMARY | 2024-11-02 09:37 | XMS_ITS | Encounter Summary ---
Author Organization [employer] Address [address] [place] [address] 7t [place] [address] Care Team Providers Care Inspector Hot Forgings Name Role Phone Name, Uriel AARON Primary Care Provider [phone] Puia, Juana PharmD Unavailable [phone] Puia, Juana PharmD Unavailable [phone] Reason for Visit * Reason Comments Med Refill Encounter Details Date Type Department Care Team (Late st Contact Info) Description 09/23/2022 Refill [facility] MEDICINE [address] [place] [address] Puia, Juana, PharmD 230 [place] [address] Type 2 diabetes mellitus with other specified complication, without long-term current use of insulin ([facility]) (Primary Dx) Social History Tobacco Use Types [...] Description 11/12/2024 8:00 AM EDT Office Visit [facility] CHC ADULT DENTAL 505 [place], [place] [phone] Vicente Reyes, COSMO 505 [place], [place] [phone] 12/15/2024 9:00 AM EDT Office Visit [facility] [place] [address] Name, MD Uriel [facility] [place] [address] 01/08/2025 9:00 AM EDT Telemedicine [facility] [place] [address] Juana Samuels PharmD [facility] [place] [address] documented as of this encounter Visit Diagnoses Diagnosis Type 2 diabetes mellitus with other specified complication, without long-term current use of insulin ([facility])- Primary documented in this encounter Care Teams Inspector Hot Forgings Relationship Specialty Start Date End Date Name, MD Uriel [facility] [place] [address] PCP - General Family Medicine 05/10/20 Juana Samuels PharmD [facility] [place] [address] Pharmacist Internal Medicine 05/03/22 09/01/23 Juana Samuels PharmD [facility] [place] [address] Pharmacist Internal Medicine 09/02/24 documented as of this encounter
--- OUTSIDE RECORDS SUMMARY | 2024-11-02 09:38 | XMS_ITS | Encounter Summary ---
Author Organization [email or web address] Address [address] [facility] 7t [place] [address] Care Team Providers Care Sulphate Tester Name Role Phone Name, Uriel AARON Primary Care Provider [phone] Puia, Juana PharmD Unavailable [phone] Puia, Juana PharmD Unavailable [phone] Reason for Visit * Reason Comments Med Refill Encounter Details Date Type Department Care Team (Late st Contact Info) Description 08/15/2023 Refill [facility] CHC MED & PEDS [address] [place], [place] [phone] Name, MD Uriel [address] [place] [address] Allergic rhinitis, unspecified seasonality, unspecified trigger Social [...] Description 11/12/2024 8:00 AM EDT Office Visit [facility] CHC ADULT DENTAL 505 [place], [place] [phone] Vicente Reyes, DMD 505 [place] [address] 12/15/2024 9:00 AM EDT Office Visit [facility] MEDICINE [address] [place] [address] NameUriel MD [address] [place] [address] 01/08/2025 9:00 AM EDT Telemedicine [facility] MEDICINE [address] [place] [address] Puia, Juana, PharmD [address] [place] [address] documented as of this encounter Goals Goal Patient Goal Type Associated Problems Recent Progress Patient-Stated? Author Hemoglobin A1c < 8 Result Component 6.7( 11:05 AM EST) No Puia, Juana, PharmD Record your blood sugar as directed Result Component No Puia, Juana, PharmD documented as of this encounter Visit Diagnoses Diagnosis Allergic rhinitis, unspecified seasonality, unspecified trigger documented in this encounter Care Teams Sulphate Tester Relationship Specialty Start Date End Date NameUriel MD [address] [place] [address] PCP - General Family Medicine 05/10/20 Juana Samuels PharmD [address] [place] [address] Pharmacist Internal Medicine 05/03/22 09/01/23 Juana Samuels PharmD [address] [place] [address] Pharmacist Internal Medicine 09/02/24 documented as of this encounter
--- OUTSIDE RECORDS SUMMARY | 2024-11-02 09:38 | XMS_ITS | Data Portability ---
Author Organization [facility] [employer] Address [address] [place] [id number] Care Team Providers Care Machine Chain Maker Name Role Phone NAME, NARINDER Referring Provider Unavailable NAME, NARINDER Primary Care Provider DIETER GARCIA Personnel Clerk Assessment Encounter Date Assessment Date Assessment LastModified [...] recorded. Medication Orders zonisamide 100 mg capsule 2022 023 [facility], [address] [place] [address], [id number], 3 09:51:18 lorazepam 1 mg tablet 2022 023 [facility], [address] [place] [address], [id number], 3 09:51:18 zonisamide 100 mg capsule 2021 022 [facility], [address] [place] [address], [id number], 2 13:21:24 zonisamide 100 mg capsule 2020 021 [facility], [address] [place] [address], [id number], 1 10:25:34 Patient TargetsNo targets recorded. Patient Instructions Encounter [...] 09/12/2022 DATA REVIEW completed Chris Arias MD [address] [place] [address] LORENA Ivy, [phone], [facility] Neurology [facility] 09/12/2022 09:34:17 01/03/2022 DATA REVIEW completed Chris Arias MD [address] [place] [address] LORENA Ivy, [phone], [facility] H2020 [facility] 01/03/2022 13:11:53 01/11/2021 DATA REVIEW completed Chris Arias MD [address] [place] [address] LORENA Ivy, [phone], [facility] H2020 [facility] 01/11/2021 10:36:00 Imaging Results None recorded. 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 [id number] G31.84 Abnormal gait 40858112 R 26.81 Ruptured b erry aneurysm [id number] I60.11 5390 Chris Arias MD [facility] [address] [place] [address] [place] [id number] 01/03/2022 12:54:35 01/03/2022 13:45:17 Focal onset impaired awareness epileptic seizure [id number] G40.209 Mild neuro cognitive disorder 025242365 G31.84 Abnormal gait 51783960 R 26.81 Ruptured b erry aneurysm 356427385 I60.11 7832 Chris Arias MD [facility] [address] [place] [address] [place] [id number] 09/12/2022 09:25:19 09/12/2022 10:37:48 Focal onset impaired awareness epileptic seizure 584729715 G40.209 Mild neuro cognitive disorder 561340436 G31.84 Abnormal gait 82426972 R 26.81 Ruptured b erry aneurysm 658401242 I60.11 Health Concerns Section Related Observation LastModified by Organization Detai ls LastModified Time None Recorded Concern Status LastModified by Organization Details LastModified Time None Recorded Advance Directives Directive None Recorded Payers Encounter Date Sequence Insurance Name Policy Number Policy Miller Covered Member ID Miller Member ID Guarantor Name 01/11/2021 1 [facility] - DOS PRIOR TO 2022 - DUAL ELIGIBLE (MEDICARE REPLACEMENT/ADV ANTAGE - HMO) George Guillaume [id number] George Guillaume 01/03/2022 1 [facility] - DOS PRIOR TO 2022 - DUAL ELIGIBLE (MEDICARE REPLACEMENT/ADV ANTAGE - HMO) George Guillaume [id number] George Guillaume 09/12/2022 1 [facility] PRIOR TO 10/27/2022 - DUAL ELIGIBLE (MEDICARE REPLACEMENT/ADV ANTAGE - HMO) George Guillaume [id number] George Guillaume Notes Date Note Type Note [...] know the final dose. Chris Arias MD [address] [place] [address] LORENA Ivy, [phone], [facility] Neurology [facility] 01/11/2021 10:36:09 01/03/2022 text/html Follow-up for ep [...] know the final dose. Chris Arias MD [address] [place] [address], [phone], [facility] Neurology [facility] 01/03/2022 13:28:11 09/12/2022 text/html Follow-up for ep [...] not remember either event. She was in [place] (for the ) away from him when [...] know the final dose. Chris Arias MD [address] [place], [place] [address], [phone], [facility] Neurology [facility] 09/12/2022 10:26:30
--- OUTSIDE RECORDS SUMMARY | 2024-11-02 09:38 | XMS_ITS | Clinical Summary ---
Author Organization [employer] Address [address] [facility] 7t [place] [address] Care Team Providers Care Customs Verifier Name Role Phone Name, Uriel AARON Primary Care Provider [phone] Juana Samuels PharmD Unavailable [phone] Allergies No known active allergies Medications glucose 4 g chewable tabletIndication s:Type 2 diabetes mellitus with other specified complication, without long-term current use of insulin (CMS/[facility]) Chew 4 tablets (16 g) if needed for low blood sugar. 20 tablet 5 023 Active pentoxifylline (Trental) 400 MG ER tablet Take 1 tablet by mouth 2 times daily. 024 Active zonisamide (Zonegran) 100 MG capsule Take 3 capsules (300 mg) by mouth in the morning. 024 Active Spacer/Aero-Hold ing Chambers (OptiChamber Sheri) [...] 1 tablet by mouth Once per day. 025 Active glucagon (Baqsimi Two Pack) 3 MG/DOSE nasal powderIndication s:Type 2 diabetes mellitus without complication, without long-term current use of insulin (CMS/HCC) Administer 3 mg via 1 device into the nostril for hypoglycemia with loss of consciousness. If no response after 15 minutes administer an additional dose via 2nd device into other nostril. 2 each 1 025 Active Blood Glucose Monitoring Suppl (FreeStyle Lite) device Inject 1 each under the skin 2 times daily. Use to test blood sugar twice daily as directed 1 each 025 Active albuterol 108 (90 Base) MCG/ACT inhaler INHALE 2 PUFFS BY MOUTH EVERY 4 TO 6 HOURS NEEDED 8.5 g 2 025 Active metFORMIN XR (Glucophage-XR) 500 MG 24 hr tabletIndication s:Type 2 diabetes mellitus without complication, without long-term current use of insulin ([facility]) Take 1 tablet (500 mg) by mouth with breakfast and with evening meal. Do not crush, chew, or split. 60 tablet 5 025 Active fluticasone-salm eterol (Advair HFA) 115-21 MCG/ACT inhalerIndicatio ns:Mild intermittent asthma, uncomplicated INHALE 2 PUFFS BY MOUTH TWICE DAILY IN THE MORNING AND IN THE EVENING. RINSE MOUTH AFTER EACH USE. 12 g 6 025 Active esomeprazole (NexIUM) [address] capsule TAKE 1 CAPSULE BY MOUTH EVERY MORNING BEFORE BREAKFAST. DO NOT BREAK, CRUSH, DISSOLVE OR CHEW 30 capsule 025 Active Alcohol Swabs (Alcohol Pads) 70 % pads Use to clean skin up to three times daily prior to insulin use & BG testing 100 each 11 025 Active Alcohol Swabs (Alcohol Pads) 70 % pads Use to clean skin prior to insulin use 100 each 11 024 2024 Discontinued(R eorder (will not trigger notification to Pharmacy)) Active [...] gastroesophageal mucosa (see comment). EGD done at [facility] 02/07/2023 Neutropenia 08/23/2022 Non-alcoholic cirrhosis 08/23/2022 Nonalcoholic steatohepatitis ([place]) 08/23/2022 History of intracranial hemorrhage 08/23/2022 Overview (08/23/2022): subaracnoid hemorrhage from ruptured jeff aneurysm in the 1989 Mild cognitive disorder 01/13/2021 Seizure 10/09/2018 Hyperlipidemia 05/09/2012 Chronic nonalcoholic liver disease 01/23/2012 Diabetes mellitus 01/23/2012 Impotence of organic origin 01/23/2012 Intermittent asthma 01/23/2012 Encounters Date Type Department Care Team Description 10/08/2024 9:00 AM EDT Telemedicine [facility] [address] [place] [address] Juana Samuels, PharmD Type 2 diabetes mellitus without complication, without long-term current use of insulin (CMS/HCC) (Primary Dx) 10/08/2024 Telephone [facility] [address] [place] [address] Juana Samuels PharmD 09/17/2024 Telephone [facility] [address] [place] [address] NameUriel MD 09/16/2024 11:00 AM EST Office Visit [facility] [address] [place] [address] Name, MD Uriel Type 2 diabetes mellitus without complication, without long-term current use of insulin (CMS/HCC) (Primary Dx); Dysphagia, unspecified type; Weight loss; History of esophageal cancer; Encounter for immunization 09/15/2024 Telephone [facility] [address] [place], [place] [phone] Name, MD Uriel chartprep 09/12/2024 Refill [facility] [address] [place] [address] NameUriel MD 09/11/2024 Telephone [facility] [address] [place] [address] Name, MD Uriel Durable Medical Equipment (boost) 09/08/2024 Orders Only [facility] [address] [place], [place] [address] Vicente Reyes, DMD 09/07/2024 Orders Only [facility] [address] [facility] [place] [address] Uriel Woodruff MD 08/09/2024 Refill [facility] [address] [place] [address] Name, MD Uriel from Last 3 Months Immunizations Name Administration Dates Next Due Hep A, Adult 09/16/2024,07/01/2023 Hep B, adult 08/16/2009, 7,08/19/2006,07/19 Moderna Covid-19 [...] Answer Date Recorded Patient Health Questionnaire-9 Score 11 09/16/2024 Patient Health Questionnaire-9 Score 11 09/16/2024 Last PHQ-9: Questionnaire Data Not on file 0 09/16/2024 Housing Stability Answer Date Recorded What is your housing situation today? I have william mohit 09/16/[address] you li ve. Do you have problems with any of the following? None of the above 09/16/2024 Food Insecurity Answer Date Recorded Within the past 12 months, y ou worried that your food would run out before you got money to buy more: Never True 09/16/2024 Within the past 12 months,th e food you bought just didn't last and you didn't have enough money to get more: Never True Transportation Answer Date Recorded In the past 12 months, has l ack of transportation kept you from medical appts, meetings, work or from getting things needed for daily living? No 09/16/2024 Utilities Answer Date Recorded In the past 12 months, has t he electric, gas, oil or water company threatened to shut off services in your home? I am not sure 09/16/2024 Depression Answer Date Recorded Patient Health Questionnaire-2 Score 0 09/16/2024 Internet Access Answer Date Recorded Internet Access Q1 Yes 09/16/2024 Internet Access Q2 Not on file 09/16/2024 Sex and Gender Information Value Date Recorded Sex Assigned at Male 05/28/2022 10:14 AM EDT Legal Sex Male 10:14 AM EDT Gender Identity Male 05/28/2022 10:14 AM EDT Sexual Orientation Straight 05/28/2022 10 :14 AM EDT Last Filed Vital Signs Vital Sign Reading Time Taken Comments Blood Pressure 111/67 09/16/2024 11:03 AM EST Pulse 57 09/16/2024 11:03 AM EST Temperature 37.4 ??C (99.3 ??F) 09/16/2024 11:[address] Respiratory Rate 19 09/16/2024 11:03 AM EST Oxygen Saturation 98% 09/16/2024 11:03 AM EST Inhaled Oxygen Concentration - - Weight 53.5 kg (118 lb) 09/16/2024 11:03 AM EST Height 175.3 cm (5' 9 ) 09/16/2024 11:03 AM EST Body Mass Index 17.43 09/16/2024 11:03 AM EST Plan of Treatment Upcoming Encounters Date Type Department Care Team (Late st Contact Info) Description 11/12/2024 8:00 AM EDT Office Visit [facility] [address] [place] [address] Vicente Reyes, COSMO [address] [place] [address] 12/15/2024 9:00 AM EDT Office Visit [facility] [address] [place] [address] Name, MD Uriel [address] [place] [address] 01/08/2025 9:00 AM EDT Telemedicine [facility] [address] [place] [address] Juana Samuels, PharmD [address] [place] [address] Health Maintenance Due Date Last Done Comments CT Colonography 1956 Dental Prophylaxis 1956 Dental X-Ray: Bitewings 1956 FIT DNA/Cologuard 1956 FIT 1956 FOBT 1956 Sigmoidoscopy 1956 Diabetes: Foot Exam 1966 Eye Exam 12/13/2023 12/12/2022, 11/26, 12/12/2022, Additional history exists Colonoscopy 02/19/2024 02/18/2019, 02/18/2019 Colorectal Cancer Screening 02/19/2024 Influenza Vaccine (#1) 2024 DTaP/Tdap/Td Vaccines (2 - Td or Tdap) 10/01/2024 10/01/2014, 05/08/2007 Dental Oral Exam 12/01/2024 06/02/2024 Alcohol/Substance Use Screening 02/16/2025 02/17/2024 Depression Monitoring (PHQ-9) 03/16/2025 09/16/2024, 09/16/2024 Diabetes: Hemoglobin A1C 03/16/2025 025, 07/17/2024, 02/17/2024, Additional history exists Diabetes: Urine Protein Screening 09/07/2025 09/07/2024, 09/03/2022, 11/01/2021, Additional history exists Lipid Panel 09/07/2025 09/07/2024, 02/12/2022, 05/19/2020 Depression Screening 09/16/2025 09/16/2024, 09/16/19 25 SDOH Screening 09/16/2025 09/16/2024 Tobacco Screening 09/16/2025 09/16/2024 Dental X-Ray: Full Mouth 05/01/2026 04/30/2023 Hepatitis B Vaccines Completed 08/16/2009, 02/04/2007, 08/19/2006, Additional history exists Hepatitis C Screening Completed 04/17/2021, 020 Zoster Vaccines Completed 01/23/2022, 11/21/2021 Pneumococcal Vaccine: 50+ Years Completed 04/30/2022, 05/31/2008 RSV Patients and Patients Aged 60 years or older Completed 07/01/2023 COVID-19 Vaccine Completed 09/02/2024, , 07/17/2021, Additional history exists Hepatitis A Vaccines Completed 09/16/2024, 07/01/20 23 HIB Vaccines Aged Out No longer eligi [...] Result Component 6.7( 11:05 AM EST) No Juana Samuels PharmD Record your blood sugar as directed Result Component No Juana Samuels PharmD Procedures Procedure Name Priority Date/Time Associated Diagnosis Comments POCT GLYCATED HEMOGLOBIN, TOTAL Routine 09/16/2024 11:05 AM EST Type 2 diabetes mellitus without complication, without long-term current use of insulin ([facility]) POCT GLUCOSE Routine 09/16/2024 11:04 AM EST Type 2 diabetes mellitus without complication, without long-term current use of insulin ([facility]) VITAMIN B12 Routine 09/07/2024 8:10 AM EST ALBUMIN, RANDOM URINE W/CREATININE Routine 09/07/2024 8:10 AM EST LIPID PANEL, STANDARD Routine 09/07/2024 8:10 AM EST PERIODIC ORAL EVALUATION - ESTABLISHED PATIENT Routine 06/02/2024 11:00 AM EST Edentulism Partial edentulism, class III PANORAMIC RADIOGRAPHIC IMAGE Routine 04/30/2023 11:30 AM EDT Dental abscess ZZZ HISTORICAL HEPATITIS A,B,C PROFILE Routine 04/17/2021 8:40 AM EDT HM COLONOSCOPY Routine 02/18/2019 from Last 3 Months or Most Recently Relevant to Health Maintenance Results * (ABNORMAL) POCT HGB A1C (09/16/2024 11:05 AM EST) Hemoglobin A1C 6.7(A) 4.0 - 6.0 % QC Media Lot # [id number] Lot# Expiration Date 889,591 Blood 09/16/2024 11:0 5 AM EST Uriel Woodruff MD POINT OF CARE TEST ENTER/EDIT OR DERABLES Final Result * (ABNORMAL) POCT Glucose (09/16/2024 11:04 AM EST) Glucose Blood, POC 218(A) 60 - 200 mg/dL QC Media Lot # [id number] Lot# Expiration Date ,309,419 Blood Capillary blood specimen / Unknown 09/16/2024 11:04 AM EST Uriel Woodruff MD POINT OF CARE TEST ENTER/EDIT OR DERABLES Final Result * Albumin, Random Urine W/Creatinine (09/07/2024 8:10 AM EST) Creatinine, Urine 194.22 mg/dL [facility] Microalbumin Urine 22.0 mg/L [facility] Microalbum Creatinine Ratio Ur 11.3 <30 ug/mg cr [facility] Comment:Albumin/Creatinine R atio Reference Ranges: Normal: < 30 ug/mg creatinine Microalbuminuria: 30 - 300 ug/mg creatinineClinical Albuminuria: > 300 ug/mg creatinine 09/07/2024 8:10 AM EST 09/07/2024 11:02 AM EST us Uriel Woodruff MD LAB URINE ORDERABLES Final Resul t Performing Organization Address [facility] Co de Phone Number [facility] [address] [place] [phone] * Vitamin B12 (09/07/2024 8:10 AM EST) Vitamin B12 358 200 - 900 pg/mL [facility] Comment:NORMAL 200-900 PG/ML INDETERMINATE 160-199 PG/ML DEFICIENT < 160 PG/ML 09/07/2024 8:10 AM EST 09/07/2024 11:01 AM EST us Uriel Woodruff MD LAB BLOOD ORDERABLES Final Resul t Performing Organization Address [facility] Co de Phone Number [facility] [address] [place] [phone] * (ABNORMAL) Lipid Panel, Standard (09/07/2024 8:10 AM EST) Triglycerides 126 <150 mg/dL [facility] Comment:Desirable Triglyceri de: less than 150 mg/dLBorderline High Triglyceride 150-199 mg/dLHigh Triglyceride: 200-499 mg/dLVery High Triglyceride: greater than or equal to 5OO mg/dL Cholesterol 190 <200 mg/dL [facility] Comment:Desirable Cholestero l: less than 200 mg/dLBorderline High Cholesterol: 200-239 mg/dLHigh Cholesterol: greater than 239 mg/dL LDL Cholesterol Calculated 114(H) <100 mg/dL [facility] Comment:Desirable LDL: less than 100 mg/dLNear Optimal/Above Optimal LDL: 110- 129 mg/dLBorderline High LDL: 130-159 mg/dLHigh LDL: 160-189 mg/dLVery High LDL: greater than or equal to 190 mg/dL HDL Cholesterol 51 >40 mg/dL [facility] Comment:Desirable HDL: great er than 40 mg/dL Note: This HDL assay may give artificially low results in patients with liver disease. 09/07/2024 8:10 AM EST 09/07/2024 11:01 AM EST us Uriel Woodruff MD LAB BLOOD ORDERABLES Final Resul t [facility] [address] [place] [phone] [phone] * Hepatitis A,B,C Profile (04/17/2021 8:40 AM [...] acute HCV infection. 04/17/2021 8:40 AM EDT Historical Provider HISTORICAL/NON ORDERABLE LABS Final Result Performing Organization Address [facility] Co de Phone Number [facility] [address] * (ABNORMAL) Colonoscopy (02/18/2019) Colonoscopy Abnormal(A ) Normal us Uriel Woodruff MD HEALTH MAINTENANCE Final Result from Last 3 Months or Most Recently Relevant to Health Maintenance Insurance [facility] - [facility] Care Teams Customs Verifier Relationship Specialty Start Date End Date Name, MD Uriel [address] [place] [address] PCP - General Family Medicine 05/10/20 Juana Samuels PharmD [address] [place], [place] Pharmacist Internal Medicine 09/02/24
--- OUTSIDE RECORDS SUMMARY | 2024-11-02 09:38 | XMS_ITS | Encounter Summary ---
Author Organization [employer] Address [address] [facility] 7t [place] [address] Care Team Providers Care Fur Remodeler Name Role Phone Name, Uriel AARON Primary Care Provider [phone] Puia Juana PharmD Unavailable [phone] Puia, Juana PharmD Unavailable [phone] Reason for Visit * Reason Onset Date Comments Durable Medical Equipment 07/10/2023 Encounter Details Date Type Department Care Team (Late st Contact Info) Description 07/10/2023 Telephone [facility] [address] [place] [address] Name, MD Uriel [address] [place] [address] Durable Medical Equipment Social History Tobacco Use [...] encounter Miscellaneous Notes * Telephone Encounter - Shaangela Subramanian Milton - 07/10/2023 12:33 PM EST TC from Francia with [facility] requesting a Hospital bed and Lift Recliner due to pt having an upcoming surgery on 07/24/2023 and will not be able to move or have much mobility. Please fax Script over to [facility] @ [phone] Please if any questions please Contact Francia @ [phone] documented in this encounter Plan of Treatment Upcoming Encounters Date Type Department Care Team (Late st Contact Info) Description 11/12/2024 8:00 AM EDT Office Visit [facility] [address] [place] [address] Vicente Reyes, DMD [address] [place] [address] 12/15/2024 9:00 AM EDT Office Visit [facility] [address] [place] [address] Name, MD Uriel [address] [place] [address] 01/08/2025 9:00 AM EDT Telemedicine [facility] [address] [place] [address] Juana Samuels, MagnusD [address] [place] [address] documented as of this encounter Goals Goal Patient Goal Type Associated Problems Recent Progress Patient-Stated? Author Hemoglobin A1c < 8 Result Component 6.7( 5 11:05 AM EST) No Juana Samuels PharmSincere Record your blood sugar as directed Result Component No Juana Samuels PharmD documented as of this encounter Visit Diagnoses Not on filedocumented in this encounter Care Teams Fur Remodeler Relationship Specialty Start Date End Date Name, MD Uriel [address] [place] [address] PCP - General Family Medicine 05/10/20 Juana Samuels PharmD [address] [place] [address] Pharmacist Internal Medicine 05/03/22 09/01/23 Juana Samuels PharmD [address] [place] [address] Pharmacist Internal Medicine 09/02/24 documented as of this encounter
--- OUTSIDE RECORDS SUMMARY | 2024-11-02 09:38 | XMS_ITS | Encounter Summary ---
Author Organization [employer] Address [address] [facility] 7t [place] [address] Care Team Providers Care Technical Training Coordinator Name Role Phone Name, Uriel AARON Primary Care Provider [phone] Juana Samuels PharmD Unavailable [phone] Reason for Visit * Reason Onset Date Comments FYI 05/26/2024 Encounter Details Date Type Department Care Team ([facility] st Contact Info) Description 05/26/[address] [facility] [address] [place] [address] Name, MD Uriel [address] [place] [address] FYI Social History Tobacco Use Types Packs/Day [...] For any questions please call Loy at [phone] *Advised caller message sent to provider. documented in this encounter Plan of Treatment Upcoming Encounters Date Type Department Care Team (Late st Contact Info) Description 11/12/2024 8:00 AM EDT Office Visit [facility] [address] [place] [address] Vicente Reyes, DMD [address] [place] [address] 12/15/2024 9:00 AM EDT Office Visit [facility] [address] [place] [address] Name, MD Uriel [address] [place] [address] 01/08/2025 9:[address] [facility] [address] [place] [address] Juana Samuels, PharmD [address] [place] [phone] documented as of this encounter Goals Goal Patient Goal Type Associated Problems Recent Progress Patient-Stated? Author Hemoglobin A1c < 8 Result Component 6.7( 5 11:05 AM EST) No Juana Samuels, PharmD Record your blood sugar as directed Result Component No Juana Samuels PharmD documented as of this encounter Visit Diagnoses Not on filedocumented in this encounter Additional Health Concerns Assessment Noted Time PHQ-9 Depression Total Score: 0 08/30/19 24 9:27 AM EST documented as of this encounter Care Teams Technical Training Coordinator Relationship Specialty Start Date End Date Name, MD Uriel [address] [place] [address] PCP - General Family Medicine 05/10/20 Juana Samuels PharmD [address] [place] [address] Pharmacist Internal Medicine 09/02/24 documented as of this encounter
--- OUTSIDE RECORDS SUMMARY | 2024-11-02 09:38 | XMS_ITS | Data Portability ---
Author Organization [employer] [facility], [facility] Address [address] [place] [phone] Care Team Providers Care Supervisor Rework Name Role Phone [facility] Referring Provider [facility] Referring Provider Assessment No assessment recorded. Plan of Treatment Reminders Order Date Submit Date Provider Last Modified By Organization Details Last Modified Time Details Appointments None recorded. Lab rapid SARS CoV 2 Ag, QL IA, respiratory specimen 2021 [facility], [address] [place] [address], [id number] 10:40:23 rapid flu (A+B) 2021 [facility], [address] [place] [address], [id number] 10:40:23 Referral None recorded. Procedures None recorded. Surgeries None recorded. Imaging None recorded. Medication Orders prednisone [address] [facility], [address] [place] [address], [id number], 10:50:55 azithromyci n [address] [facility], [address] [place] [address], [id number], 10:50:56 prednisone 20 mg tablet 2021 [email or web address] Not available 10:39:50 azithromyci n 500 mg tablet 2021 [email or web address] Not available 10:39:50 Patient TargetsNo targets recorded. Patient InstructionsNo instructions recorded. Reason for Referral None Reported. Results Created Date Observation Date Name Description Value Unit Range Abnormal Flag Note LastModifiedBy Organization Detail LastModifiedTime 03/09/20 22 03/09/2022 rapid flu (A+B) Flu negati ve Not Available Main - [facility] ed [address] [place] [address], [id number] 03/09/2022 10:40:03 03/09/20 22 03/09/2022 rapid SARS CoV 2 Ag, QL IA, respi rator y speci men rapid SARS CoV 2 Ag, QL IA, respiratory specimen negati ve Not Available Main - [facility] ed [address] [place] [address], [id number] 03/09/2022 10:39:59 Result Notes None recorded. Medical [...] /min 132 mm[Hg] 52 mm[Hg] Not Available [employer] - production 2 10:58:52 Social History None recorded. Functional Status None recorded. Mental Status None recorded. Family History Nothing Reported. Medical History No medical history recorded. Past Encounters Encounter ID Performer Location Encounter Start Date Encounter Closed Date Diagnosis/Indication Diagnosis SNOMED-CT Code Diagnosis ICD10 Code Diagnosis Note [id number] Magen Solo MD Main - inst [address] [place] [phone] 03/09/2022 10:33:10 04/19/2022 13:36:49 Respiratory tract congestion and cough 553718576 R05.9 Approximat edith five days of malaise, low grade fevers, and productive cough. Per quality control, rhochorous throughout . Most likely bronchitis vs [...] Miller Member ID Guarantor Name 03/09/2022 1 [facility] - DOS PRIOR TO 2022 - DUAL ELIGIBLE (MEDICARE REPLACEMENT/ADV ANTAGE - HMO) George Guillaume [id number] George Guillaume Notes Date Note Type Note [...] .................. .................. .................. .................. .................. .................. ............... Launch Operator Note: Vitals, resp assessment, rapid covid, rapid flu, 500mg azithro, 60mg prednisone PO .................. .................. .................. .................. .................. .................. .................. ............... Disposition: Fulfilled Magen Solo MD [address] [facility],[address], [place], [phone], [email or web address], JAVON 03/09/2022 11:11:27
--- OUTSIDE RECORDS SUMMARY | 2024-11-02 09:38 | XMS_ITS | Encounter Summary ---
Author Organization [employer] Address [address] [facility] 7t [place] [address] Care Team Providers Care Regional Vice President Life Sales Name Role Phone Name, Uriel AARON Primary Care Provider [phone] Puia Juana PharmD Unavailable [phone] Puia, Juana PharmD Unavailable [phone] Reason for Visit * Reason Onset Date Comments Clearance 06/11/2023 Encounter Details Date Type Department Care Team (Late st Contact Info) Description 06/11/2023 Telephone [facility] MEDICINE [address] [place] [address] Name, MD Uriel [address] [place] [address] Clearance Social History Tobacco Use Types Packs/Day [...] Miscellaneous Notes * Telephone Encounter - Suresh Vitale RN - 06/11/2023 3:02 PM EST T/C [...] Description 11/12/2024 8:00 AM EDT Office Visit [facility] CH[facility] ADULT DENTAL [address] [place] [address] Vicente Reyes, COSMO [address] [place] [address] 12/15/2024 9:00 AM EDT Office Visit [facility] MEDICINE [address] [place] [address] Name, MD Uriel [address] [place] [address] 01/08/2025 9:00 AM EDT Telemedicine [facility] MED[facility]INE [address] [place] [address] Juana Samuels PharmD [address] [place] [address] documented as of this encounter Goals Goal Patient Goal Type Associated Problems Recent Progress Patient-Stated? Author Hemoglobin A1c < 8 Result Component 6.7( 11:05 AM EST) No Juana Samuels, PharmD Record your blood sugar as directed Result Component No Juana Samuels PharmD documented as of this encounter Visit Diagnoses Not on filedocumented in this encounter Care Teams Regional Vice President Life Sales Relationship Specialty Start Date End Date Name, MD Uriel [address] [place] [address] PCP - General Family Medicine 05/10/20 Juana Samuels, PharmD [address] [place] [address] Pharmacist Internal Medicine 05/03/22 09/01/23 Juana Samuels, PharmD [address] [place] [address] Pharmacist Internal Medicine 09/02/24 documented as of this encounter
--- OUTSIDE RECORDS SUMMARY | 2024-11-02 09:38 | XMS_ITS ---
Author Organization [facility] Address [address] [place] [address] Care Team Providers Care Service Car Operator Name Role Phone Name Uriel AARON Primary Care Provider Melba Chin Unavailable [phone] Allergies No Known Allergies REASON FOR VISIT At Risk Footcare, Ingrown Nail Medications Medication SIG (Take, Route, Frequency, Duration) Notes Start Date End Date Status Vitamin B-12 1000 MCG 1 tablet Orally On ce a day Not-Taking Gabapentin Not-Takin g Insulin Not-Taking Baqsimi Two Pack 3 MG/DOSE USE 1 SPRAY (3MG) IN ONE NOSTRIL FOR A PATIENT WITH SEVERE HYPOGLYCEMIA WHO IS NOT RESPONSIVE AND UNABLE SELF-TREAT WITH GLUCOSE. AFTERWARDS TURN ON SIDE. MAY REPEAT IN 15MINUTES IF PATIENT DOES NOT RESPOND. Nasal for 1 E119,Unavail able Not-Taking Vitamin D3 25 MCG (1000 UT) 1 capsule Orally Once a day Not-Taking Extra Depth Orthopedic Shoes (1 Pair) with Customized Heat Molded Multidensity Innersoles (3 Pair) as directed Dx: NIDDM/Polyneuropathy (E11.42), Hammertoe Foot Deformity (M20.41,M20.42), Preulcerative Skin Lesion(s) (L85.1 09/06/2023 Active glipiZIDE 10 MG 1 tablet 30 minutes before breakfast Orally Once a day Active Esomeprazole Magnesium 40 MG 1 capsule Orally Once a day Active metFORMIN HCl ER 500 MG 1 tablet with evening meal Orally Once a day Active OxyCONTIN Not-Taking Metoprolol Tartrate 25 MG [...] Lesion(s)(L85.1) Wear Daily for 365 days Active Advair HFA 115-21 MCG/ACT Inhalation for 30 Active Rosuvastatin Calcium 20 MG 1 tablet Orally Once a day Not-Taking Trulicity Not-Taking Zonisamide 100 MG 1 capsule Orally Once a day Active metFORMIN HCl Active Social History Tobacco Use: Social History Observation Description Date Details (start date - stop date) Never Smoker NA - NA Tobacco use other than smoking: Question Answer Notes Are you an other tobacco user? No Tobacco Control (Standard) Question Answer Notes Tobacco use: Nonsmoker Vital Signs Height 5ft9in in 09/09/2024 Weight 113 lbs 09/09/2024 BMI 16.69 kg/m2 09/09/2024 Blood pressure systolic 121 mm Hg 09/09/19 25 Blood pressure diastolic 78 mm Hg 025 Encounters Encounter Location Date Provider Diagnosis [facility] [address] [place] [address] 09/09/2024 Melba Dorota Tinea unguium B35.1 ; Ingrown nail L60.0 ; Type 2 diabetes mellitus without complication, without long-term current use of insulin E11.9 ; Pain in toe of left foot M79.675 and Pain in toe of right foot M79.674 Assessments Encounter Date Diagnosis (ICD Code) Assessment Notes Treatment Notes Treatment Clinical Notes Section Notes 09/09/2024 Tinea unguium (ICD-10 - B35.1) 09/09/2024 Ingrown nail (ICD-10 - L60.0) 09/09/2024 Type 2 diabetes mellitus without complication, without long-term current use of insulin (ICD-10 - E11.9) 09/09/2024 Pain in toe of left foot (ICD-10 - M79.675) 09/09/2024 Pain in toe of right foot (ICD-10 - M79.674) Plan Of Treatment Next Appt Details Follow Up: 2 Months, Reason: Provider Name:Melba miller, 11/27/2024 01:30:00 PM, [address] [place] [address], [phone], Procedure Notes * Category Sub-Category Detail Notes Debride Nail 6-10 Nail debridement Due to the cl inical pathology outlined in the exam findings, performance of this nail treatment is medically necessary as its management by an unskilled/untrained nonprofessional would put this patients foot and overall health at risk. Therefore, debridement to affected nail(s), as described in exam ( TA, T1, T2, T3, T4, T5, T6, T7, T8, T9, ), was performed exclusively by the physician of record to reduce/remove overall nail length, girth, thickness, subungual debris, and necrotic tissue, by manual and/or electrical means through the use of a nail nipper and/or dremel-type snag grinder, to a more viable healthy nail plate or bed tissue 6-10 nails in total. Silver nitrate was used for any petechial bleeding as necessary. Definitive antifungal treatment options, both pharmaceutical and surgical, have been reviewed and discussed with the patient. The patient solely prefers the use of intermittent/as needed professional debridement services for their nail condition and understands the need for additional periodic treatments to maintain effectiveness in symptomatic relief - 85880 Progress Notes * George CHANDRA ADOB:1955 (68 yo M)Acc No.[id number]:09/09/2024 Progress Note Patient:?George CHANDRA Provider:?Melba Raya DPM :1955???Age:68 Y???Sex:Male Alexis e:09/09/2024 Address:[address] [place], [place] [address] Pcp:Uriel Woodruff MD Subjective: * Chief Complaints: * ???At Risk FootcareIngrown N ail * HPI: ???At Risk footcare:?Pt States Last PCP Visit:?Date?02/11/2024 ???Ingrown toenail:?Location:?Great toe, Second toe, Left foot.? * ROS:?General/Constitutional:?Nausea?denies.?Vomiting?denies.?Hunger Thirst?denies.?Loss appetite?denies.?Chills?denies.?Fatigue?denies.?Fever?denies.?Night Sweats?denies.?Unexplained weight loss?denies.?Unexplained weight gain?denies.?HEENTM:?Dentures?admits.?Dizziness?denies.?Glasses/contacts?admits.?Retinopathy?den ies.?Blurred/double vision?admits.?TMJ?denies.?Discharge/drainage?denies.?Implants?denies.?Sore throat?denies.?Dental implants?denies.?Hard of hearing ?denies.?Difficulty chewing/swallowing/speaking?denies.?Nose bleeds?denies.?Sore mouth?denies.?Respiratory:?On O xygen?denies.?Pneumonia/pleurisy?denies.?Bronchitis?denies.?Emphysema?denies.?Co ughing?denies.?Cough blood?denies.?Shortness of breath?denies.?Wheezing?denies.?Cardiovascular:?Pacemaker?denies.?MVP?denies.?WPW?denies.?CHF?denies.?Heart attack?denies.?Septal defect?denies.?Rapid beat?denies.?Chest pain ?denies.?Atrial Fib.?denies.?Murmur/Palpitations?denies.?Gastrointestinal:?Hemorrhoids?denies.?Stomach/Abdominal pain?denies.?Dark blood stool?denies.?Irritable bowel ?denies.?Constipation?denies.?Diarrhea?denies.?Hematology:?Swelling?denies.?Clots?denies.?Varicose Veins?denies.?Bruising?denies.?Bleeding problem?denies.?Genitourinary:?Blood urine?denies.?Frequent/Painfu/urination/bladder control?denies.?Kidney stones?denies.?Infection (UTI)?denies.?Nephropathy?denies.?sex trans dis (STD)?denies.?Prostate?denies.?Musculoskeletal:?Hammertoes?denies.?Bunions?denies.?Back Pain?admits.?Muscle Cramps/ Resting?denies.?Muscle cramps / walking?denies.?Generalized aches and pains?denies.?Weakness?denies.?Integ.:?Arnold?denies.?Scars?denies.?Corns/calluses?denies.?Ingrown nails?admits.?Painful nails?admits.?Open Sores?denies.?Rashes?denies.?Neurologic:?Difficulty sleeping?denies.?Brain disorder?denies.?Numbness?denies.?Balance t rouble?denies.?Confusion?denies.?Fainting/blackouts?denies.?Tingling?denies.?Duy mors?denies.? * Medical History:? * Surgical History:?Esophageal surgery- feeding tube 07/24/23cataract surgery 2023 * Hospitalization/Major Diagno stic Procedure:?Denies Past Hospitalization * Family History:?Mother: dece ased, diagnosed with Diabetic - NIDDM.?Father: , diagnosed with Diabetic - NIDDM.?Siblings: Brother - Prostate Cancer, diagnosed with Diabetic - NIDDM, Unspecified heart disease.? * Social History:?Tobacco Use:?Tobacco use other than smoking?Are you an other tobacco user??No ?Tobacco Control (Standard)?Tobacco use:?Nonsmoker ???Miscellaneous:?Caffeine: yes, frequency: 1 cup a day. [...] Allergies:?N.K.D.A.yes[Aller gies Verified] Objective: * Vitals:?Ht: 5ft9in, Wt:113, BMI:16.69, Shoe size: 9-9.5, BP:121/78mm Hg, BS: 97, Ht-cm: 175.26 cm, Wt-k.26 kg. * Examination: ???CQM Exceptions:: ?Hemoglobin A1c not performed?Reason:?No reason specified?Ophthalmology Referral: ?DIABETES EYE EXAM?Procedure Performed:?Yes ?Date of Exam Performed?06/28/2024 ?Findings of Diabetic Eye Exam:?no retinopathy?Orthopedic: ?MUSCLE STRENGTH:?5/5 all groups in a symmetrical fashion, B/L.?FOOTWEAR:?good condition.?General Examination: ?FOOT EXAM:?Lower Extremity Neurological Exam performed:?Yes ?Visual exam of foot performed:?Yes ?Date?09/09/2024 ?Footwear Evaluation?Footwear Evaluation performed:?Yes?Nails: ?NAILS are:?Elongated, overgrown, dystrophic, lytic, greater than 3mm thick, discolored and friable with crumbly malodorous subungual debris, with pain on palpation, TA, T1, T2, T3, T4, T5, T6, T7, T8, T9.?Dermatologic: ?SKIN FINDINGS:?Skin exam reveals normal texture, elasticity, and turgor. There are no masses. The interspaces are clear, B/L.?Neurological: ?SENSORY:?Neurological exam reveals intact sensorium, pain sensation normal, vibration sensation intact, pinprick sensation is normal in the lower extremities, Pt denies, anesthesia, burning, paresthesia, tingling, B/L.?Vascular: ?DP PULSES (B):?3/4, B/L.?PT PULSES (B):?3/4, B/L.?CAPILLARY FILL TIME:?immediate, all digits, B/L.?TROPHIC CONDITION-TEXTURE/ELASTICITY/TURGOR/HAIR GROWTH (B):?normal, B/L.?TEMPERTURE GRADIENT (C):?normal, warm to cool, proximal to distal, B/L, B/L.?PIGMENTATION:?normal, B/L.?EDEMA (C):?absent, B/L.?Ingrown Nail: ?INSPECTION:?Reveals nail incurvation, mild pain on palpation, groove hypertrophy, , Lateral nail border, TA, T1.? Assessment: * Assessment: 1.?Tinea unguium - B35.1???2 .?Ingrown nail - L60.0 (Primary)???3.?Type 2 diabetes mellitus without complication, without long-term current use of insulin - E11.9???4.?Pain in toe of left foot - M79.675???5.?Pain in toe of right foot - M79.674??? Plan: * Treatment: * Procedures:?Debride Nail 6-10:?Nail debridement?Due to the clinical pathology outlined in the exam findings, performance of this nail treatment is medically necessary as its management by an unskilled/untrained nonprofessional would put this patients foot and overall health at risk. Therefore, debridement to affected nail(s), as described in exam ( TA, T1, T2, T3, T4, T5, T6, T7, T8, T9, ), was performed exclusively by the physician of record to reduce/remove overall nail length, girth, thickness, subungual debris, and necrotic tissue, by manual and/or electrical means through the use of a nail nipper and/or dremel-type snag grinder, to a more viable healthy nail plate or bed tissue 6- 10 nails in total. Silver nitrate was used for any petechial bleeding as necessary. Definitive antifungal treatment options, both pharmaceutical and surgical, have been reviewed and discussed with the patient. The patient solely prefers the use of intermittent/as needed professional debridement services for their nail condition and understands the need for additional periodic treatments to maintain effectiveness in symptomatic relief - 33280.? * Procedure Codes:?18580 DEBRI DE NAIL, 6 OR MORE, Modifiers: XS * Preventive Medicine:? ??Counseling:?Discussion:?-13: Office or other outpatient visit for the evaluation and management of an established patient, which required a medically appropriate history and/or examination and LOW level of DECISION MAKING for: 1 STABLE ACUTE UNCOMPLICATED PROBLEM, 2 OR MORE MINOR PROBLEMS, OR 1 STABLE CHRONIC PROBLEM, THAT POSE(S) A LOW RISK FOR MORBIDITY/MORTALITY. The visit on the day of the [...] the answers were verbally confirmed fully understood, slant back performed with good relief of pain, pt to monitor for any signs of infection, pt should soak in warm water and epsom salts and apply antibotic ointment, call with any issues.? * Follow Up:?2 Months * Images: * Sign off status: Completed true * Provider:?Melba Raya DPM Date:?06/2025 Generated for Pavel osborn/Jairon/Sam on:?11/02/2024 09:38 AM EDT History and Physical Notes * HPI (History of Present Illness) Category Sub-Category Detail Notes Category Not es Ingrown toenail Location: Great toe, Secon d toe, Left foot At Risk footcare Pt States Last PCP Visit: Date: 4 Examination Category Sub-Category Detail Notes Category Not es Ingrown Nail INSPECTION: Reveals nail inc urvation, mild pain on palpation, groove hypertrophy, , Lateral nail border, TA, T1 Neurological SENSORY: Neurological exa m reveals intact sensorium, pain sensation normal, vibration sensation intact, pinprick sensation is normal in the lower extremities, Pt denies, anesthesia, burning, paresthesia, tingling, B/L Dermatologic SKIN FINDINGS: Skin exam reveal s normal texture, elasticity, and turgor. There are no masses. The interspaces are clear, B/L Orthopedic FOOTWEAR EVALUATION: good condition MUSCLE STRENGTH: 5/5 all groups in a symmetrical fashion, B/L General Examination FOOT EXAM: Lower Extrem ity Neurological Exam performed:: Yes Visual exam of foot performed:: Yes Date: 09/09/2024 Footwear Evaluation Footwear Evaluation performe d:: Yes Ophthalmology Referral DIABETES EYE EXAM Procedure Perform ed:: Yes ?Date of Exam Performed: 06/28/2024 Findings of Diabetic Eye Exam:: no retin [...] crumbly malodorous subungual debris, with pain on palpation, TA, T1, T2, T3, T4, T5, T6, T7, T8, T9 CQM Exceptions: Hemoglobin A1c not performed Reason:: No r jay specified
== END 2024-11-02 09:18 | disposition home or self-care (01) ==
LOC: HO.HGI 08:50
PROVIDERS: PCP Internal Medicine Geriatric Medicine; Visit Provider Internal Medicine Gastroenterology
DX: C15.9 Malignant neoplasm of esophagus, unspecified (principal); E46 Unspecified protein-calorie malnutrition
CPT/HCPCS: 99213

== ENCOUNTER 2024-11-03 08:20 | Outpatient (REF) | payer OTHER, SELFPAY ==
--- OUTSIDE RECORDS SUMMARY | 2024-11-03 08:35 | XMS_ITS ---
Author Organization [facility] Address [address] [place] [address] Care Team Providers Care Lumpia Wrapper Maker Name Role Phone Name Uriel AARON Primary Care Provider Melba Chin Unavailable [phone] Allergies No Known Allergies REASON FOR VISIT [...] 04/22/2024 Encounters Encounter Location Date Provider Diagnosis [facility] [place] [address] [place] [address] 04/22/2024 Melba Raya Tinea unguium B35.1 ; [...] Reason: Provider Name:Melba miller, 11/27/2024 01:30:00 PM, [address] [place] [address], [phone], Procedure Notes * Category Sub-Category Detail Notes [...] Motrin was recommended for pain or discomfort (32348) Anesthesia 3cc of 1 percent Lid ocaine [...] as necessary. Patient chooses, no pharmaceutical tx (09096) Progress Notes * George CHANDRA ADOB:1955 (68 yo M)Acc No.[id number]:04/22/2024 Progress Note Patient:ElvisChandraGeorge faustin Provider:?Melba Raya DPM :1955???Age:68 Y???Sex:Male Alexis e:04/22/2024 Address:[address] [place], [place] [address] Pcp:Uriel Woodruff MD Subjective: * Chief Complaints: [...] as necessary. Patient chooses, no pharmaceutical tx (33979).?Nail Avulsion:?Location?Lateral nail border, T5.?Anesthesia?3cc of 1 percent [...] Motrin was recommended for pain or discomfort (22854).? * Procedure Codes:?20639 DEBRI DE NAIL, 6 OR MORE, Modifiers: XS 00550 Avulsion Plate, Modifiers: XS * Follow Up:?2 Months * Images: * Sign off status: Completed true * Provider:?Melba Raya DPM Date:? Generated for Pavel osborn/Jairon/Sam on:?11/03/2024 08:35 AM EDT History and Physical Notes * [...]
--- OUTSIDE RECORDS SUMMARY | 2024-11-03 08:35 | XMS_ITS | Encounter Summary ---
Author Organization [employer] Address [address] [facility] 7t [place] [address] Care Team Providers Care Database Analyst Name Role Phone Name, Uriel AARON Primary Care Provider [phone] Juana Samuels PharmD Unavailable [phone] Reason for Visit * Reason Onset Date Comments VNA 10/09/2023 Durable Medical Equipment 10/09/2023 Diabet ic shoes Encounter Details Date Type Department Care Team (Late st Contact Info) Description 10/09/2023 Telephone [facility] MED[facility] [address] [place] [address] Name, MD Uriel [address] [place] [address] VNA ; Durable Medical Equipment (Diabetic shoes) [...] - 10/09/2023 3:10 PM EDT Tc from [facility] with [facility] calling to let pcp know pt has been discharged from the agency. If any questions please contact Lianet at [phone] documented in this encounter Plan of Treatment Upcoming Encounters Date Type Department Care Team (Late st Contact Info) Description 11/12/2024 8:00 AM EDT Office Visit [facility] ADULT DENTAL [address] [place] [address] Vicente Reyes, DMD [address] [place] [address] 12/15/2024 9:00 AM EDT Office Visit [facility] MEDICINE [address] [place] [address] Name, MD Uriel [address] [place] [address] 01/08/2025 9:00 AM EDT Telemedicine [facility] [address] [place] [address] Juana Samuels, PharmD [address] [place] [address] documented as of this encounter Goals Goal Patient Goal Type Associated Problems Recent Progress Patient-Stated? Author Hemoglobin A1c < 8 Result Component 6.7( 5 11:05 AM EST) No Juana Samuels, PharmSincere Record your blood sugar as directed Result Component No Juana Samuels PharmiSncere documented as of this encounter Visit Diagnoses Not on filedocumented in this encounter Additional Health Concerns Assessment Noted Time PHQ-9 Depression Total Score: 0 08/30/19 24 9:27 AM EST documented as of this encounter Care Teams Database Analyst Relationship Specialty Start Date End Date Name, MD Uriel [address] [place] [address] PCP - General Family Medicine 05/10/20 Juana Samuels PharmD [address] [place] [address] Pharmacist Internal Medicine 09/02/24 documented as of this encounter
--- OUTSIDE RECORDS SUMMARY | 2024-11-03 08:35 | XMS_ITS | Encounter Summary ---
Author Organization [employer] Address [address] [facility] 7t [place] [address] Care Team Providers Care Family Development Specialist Name Role Phone Name, Uriel AARON Primary Care Provider [phone] Juana Samuels PharmD Unavailable [phone] Reason for Visit * Reason Comments Med Refill Encounter Details Date Type Department Care Team ([facility] st Contact Info) Description 08/09/2024 Refill [facility] MED[facility] [address] [place], [place] [phone] Name, MD Uriel [address] [place] [address] Social History Tobacco Use Types Packs/Day Years [...] Description 11/12/2024 8:00 AM EDT Office Visit [facility] CHC ADULT DENTAL [address] [place] [address] Vicente Reyes, DMD [address] [place] [address] 12/15/2024 9:00 AM EDT Office Visit [facility] MEDICINE [address] [place] [address] Name, MD Uriel [address] [place] [address] 01/08/2025 9:00 AM EDT Telemedicine [facility] [address] [place] [address] Juana Samuels, PharmD [address] [place] [address] documented as of this encounter Goals Goal [...] documented as of this encounter Care Teams Family Development Specialist Relationship Specialty Start Date End Date Name, MD Uriel [address] [place] [address] PCP - General Family Medicine 05/10/20 Juana Samuels PharmD [address] [place] [address] Pharmacist Internal Medicine 09/02/24 documented as of this encounter
--- OUTSIDE RECORDS SUMMARY | 2024-11-03 08:35 | XMS_ITS | Encounter Summary ---
Author Organization [employer] Address [address] [facility] 7t [place] [address] Care Team Providers Care Lathe Setup Operator Name Role Phone Name, Uriel AARON Primary Care Provider [phone] Juana Samuels PharmD Unavailable [phone] Reason for Visit * Reason Comments Med Refill Encounter Details Date Type Department Care Team ([facility] st Contact Info) Description 09/07/2023 Refill [facility] MED[facility]INE [address] [place], [place] [phone] Name, MD Uriel [address] [place] [address] Social History Tobacco Use Types Packs/Day Years [...] Description 11/12/2024 8:00 AM EDT Office Visit [facility] CHC ADULT DENTAL [address] [place] [address] Vicente Reyes, DMD [address] [place] [address] 12/15/2024 9:00 AM EDT Office Visit [facility] MED[facility]INE [address] [place] [address] Name, MD Uriel [address] [place] [address] 01/08/2025 9:00 AM EDT Telemedicine [facility] [address] [place] [address] Juana Samuels, PharmD [address] [place] [address] documented as of this encounter Goals Goal [...] documented as of this encounter Care Teams Lathe Setup Operator Relationship Specialty Start Date End Date Name, MD Uriel [address] [place] [address] PCP - General Family Medicine 05/10/20 Juana Samuels PharmD [address] [place] [address] Pharmacist Internal Medicine 09/02/24 documented as of this encounter
--- OUTSIDE RECORDS SUMMARY | 2024-11-03 08:35 | XMS_ITS | Encounter Summary ---
Author Organization [employer] Address [address] [place] [address] 7t [place] [address] Care Team Providers Care Occ Therapist Name Role Phone Name, Uriel AARON Primary Care Provider [phone] Puia, Juana PharmD Unavailable [phone] Puia, Juana PharmD Unavailable [phone] Reason for Visit * Reason Comments Med Refill Encounter Details Date Type Department Care Team (Late st Contact Info) Description 09/23/2022 Refill [facility]INE [address] [place] [address] Puia, Juana, PharmD [address] [place] [address] Type 2 diabetes mellitus with other specified complication, without long-term current use of insulin ([facility]) (Primary Dx) Social History Tobacco Use Types [...] 11/12/2024 8:00 AM EDT Office Visit [facility] CHC ADULT DENTAL [address] [place], [place] [phone] Vicente Reyes, COSMO [address] [place], [place] [phone] 12/15/2024 9:00 AM EDT Office Visit [facility] [place] [address] Name, MD Uriel [facility] [place] [address] 01/08/2025 9:00 AM EDT Telemedicine [facility] [place] [address] Juana Samuels PharmD [facility] [place] [address] documented as of this encounter Visit Diagnoses Diagnosis Type 2 diabetes mellitus with other specified complication, without long-term current use of insulin ([facility])- Primary documented in this encounter Care Teams Occ Therapist Relationship Specialty Start Date End Date Name, MD Uriel [facility] [place] [address] PCP - General Family Medicine 05/10/20 Juana Samuels PharmD [facility] [place] [address] Pharmacist Internal Medicine 05/03/22 09/01/23 Juana Samuels PharmD [facility] [place] [address] Pharmacist Internal Medicine 09/02/24 documented as of this encounter
--- OUTSIDE RECORDS SUMMARY | 2024-11-03 08:35 | XMS_ITS | Encounter Summary ---
Author Organization [employer] Address [address] [facility] 7t [place] [address] Care Team Providers Care Hat And Cap Drying Room Attendant Name Role Phone Name, Uriel AARON Primary Care Provider [phone] Puia, Juana PharmD Unavailable Puia, Juana PharmD Unavailable Encounter Details Date Type Department Care Team (Late st Contact Info) Description 01/07/2023 Abstract [facility] MEDICINE [address] [place] [address] Name, MD Uriel [address] [place] [address] Social History Tobacco Use Types Packs/Day Years [...] 8:00 AM EDT Office Visit [facility] CHC ADULT DENTAL [address] [place] [address] Vicente Reyes, DMD [address] [place] [address] 12/15/2024 9:00 AM EDT Office Visit [facility] [place] [address] Name, [place] [address] 01/08/2025 9:00 AM EDT Telemedicine [facility] [place] [address] Juana Samuels, [place] [address] documented as of this encounter Procedures Procedure Name Priority Date/Time Associated Diagnosis Comments COLONOSCOPY Routine 02/18/2019 2:11 PM EDT documented in this encounter Results * Colonoscopy (02/18/2019 2:11 PM EDT) Colonoscopy Normal Normal Narrative Elsa Christopher - 02/18/2019 2:11 PM EDT Recommended 5 year follow up ( [facility] ) us Historical Provider HEALTH MAINTENANCE Final Result documented in this encounter Visit Diagnoses Not on filedocumented in this encounter Care Teams Hat And Cap Drying Room Attendant Relationship Specialty Start Date End Date Name, [place] [address] PCP - General Family Medicine 05/10/20 Juana Samuels, [place] [address] Pharmacist Internal Medicine 05/03/22 09/01/23 Juana Samuels, [place] [address] Pharmacist Internal Medicine 09/02/24 documented as of this encounter
--- OUTSIDE RECORDS SUMMARY | 2024-11-03 08:35 | XMS_ITS | Patient Health Record ---
Author Organization [facility] Address [address] [place] [address] Care Team Providers Care Mule Driver Name Role Phone Name Uriel AARON Primary Care Provider Melba Chin Unavailable [phone] Allergies No Known Allergies Reason For Referral [...] Problem Acquired hammer toe of right foot (22734902384493 05) Other hammer toe(s) (acquired), right foot (M20.41) Active confirmed Problem Acquired hammer toe of left foot (99209084365058 03) Other hammer toe(s) (acquired), left foot (M20.42) Active confirmed Problem [id number] Type 2 diabetes mellitus without complication, without long-term current use of insulin (E11.9) Active confirmed Vital Signs Blood pressure diastolic 78 mm Hg 09/09/2024 Height 5ft9in in 09/09/2024 Blood pressure systolic 121 mm Hg 09/09/2024 Weight 113 lbs 09/09/2024 BMI 16.69 kg/m2 09/09/2024 Encounters Encounter Location Date Provider Diagnosis [facility] [place] [address] [place] [address] 11/15/2023 Melba Raya Type 2 diabetes mellitus without complication, without long-term current use of insulin E11.9 ; Tinea unguium B35.1 ; Pain in toe of left foot M79.675 and Pain in toe of right foot M79.[address] [address] 02/07/2024 Melba Raya Type 2 diabetes mellitus without complication, without long-term current use of insulin E11.9 ; Tinea unguium B35.1 ; Pain in toe of left foot M79.675 and Pain in toe of right foot M79.[address] [address] 04/22/2024 Melba Navarretea Tinea unguium B35.1 ; Ingrown nail L60.0 ; Type 2 diabetes mellitus without complication, without long-term current use of insulin E11.9 ; Pain in toe of left foot M79.675 and Pain in toe of right foot M79.[address] [address] 06/24/2024 Melba Raya Tinea unguium B35.1 ; Ingrown nail L60.0 ; Type 2 diabetes mellitus without complication, without long-term current use of insulin E11.9 ; Pain in toe of left foot M79.675 and Pain in toe of right foot M79.[address] [address] 09/09/2024 Melba Raya Tinea unguium B35.1 ; Ingrown nail L60.0 ; Type 2 diabetes mellitus without complication, without long-term current use of insulin E11.9 ; Pain in toe of left foot M79.675 and Pain in toe of right foot M79.674 [facility] [address] [address] 01/31/2024 Melba Raya Assessments Encounter Date Diagnosis [...] Provider Name:Melba miller, 11/27/2024 01:30:00 PM, [address] [place], [address], Insurance Providers Payer Name Payer Address Payer Phone Subscriber Number Group Number Insured Name Patient Relationship to Insured Coverage Start Date Coverage End Date [facility] [employer] Claims [address] [place] [id number] George Guillaume Self - patient is the insured Medical (General) History Medical History History ICD Code Anxiety asthma Back,Hip,and Knee pain Cataracts Diabetic Epilepsy/Seizures Fatty liver Reflux ( GERD) Chicken pox Joint implants/screws Esophageal cancer Surgical History Surgery Date(Month/Year) Esophageal surgery- feeding tube 3 cataract surgery 2023
--- OUTSIDE RECORDS SUMMARY | 2024-11-03 08:36 | XMS_ITS | Encounter Summary ---
Author Organization [employer] Address [address] [facility] 7t h Floor [address] Care Team Providers Care Flagstone Layer Name Role Phone Name, Uriel AARON Primary Care Provider Puia Juana PharmD Unavailable [phone] Puia, Juana PharmD Unavailable [phone] Reason for Visit * Reason Onset Date Comments Clearance 06/11/2023 Encounter Details Date Type Department Care Team (Late st Contact Info) Description 06/11/2023 Telephone [facility] MEDICINE [address] [place] [address] Name, MD Uriel [address] [place] [address] Clearance Social History Tobacco Use Types Packs/Day [...] Description 11/12/2024 8:00 AM EDT Office Visit [facility] CHC ADULT DENTAL [address] [place] [address] Vicente Reyes, COSMO [address] [place] [address] 12/15/2024 9:00 AM EDT Office Visit [facility] MEDICINE [address] [place] [address] Name, MD Uriel [address] [place] [address] 01/08/2025 9:00 AM EDT Telemedicine [facility] [address] [place] [address] Juana Samuels PharmD [address] [place] [address] documented as of this encounter Goals Goal Patient Goal Type Associated Problems Recent Progress Patient-Stated? Author Hemoglobin A1c < 8 Result Component 6.7( 11:05 AM EST) No Juana Samuels, PharmD Record your blood sugar as directed Result Component No Juana Samuels PharmD documented as of this encounter Visit Diagnoses Not on filedocumented in this encounter Care Teams Flagstone Layer Relationship Specialty Start Date End Date Name, MD Uriel [address] [place] [address] PCP - General Family Medicine 05/10/20 Juana Samuels, PharmD [address] [place] [address] Pharmacist Internal Medicine 05/03/22 09/01/23 Juana Samuels, PharmD [address] [place] [address] Pharmacist Internal Medicine 09/02/24 documented as of this encounter
--- OUTSIDE RECORDS SUMMARY | 2024-11-03 08:36 | XMS_ITS | Encounter Summary ---
Author Organization [employer] Address [address] [facility] 7t [place] [address] Care Team Providers Care Rubber Engraver Name Role Phone Name, Uriel AARON Primary Care Provider [phone] Puia Juana PharmD Unavailable [phone] Puia, Juana PharmD Unavailable [phone] Reason for Visit * Reason Onset Date Comments Durable Medical Equipment 07/10/2023 Encounter Details Date Type Department Care Team (Late st Contact Info) Description 07/10/2023 Telephone [facility] MEDICINE [address] [place] [address] Name, MD Uriel [address] [place] [address] Durable Medical Equipment Social History Tobacco Use [...] 12:33 PM EST TC from Francia with [facility] requesting a Hospital bed and Lift Recliner due to pt having an upcoming surgery on 07/24/2023 and will not be able to move or have much mobility. Please fax Script over to [facility] @ [phone] Please if any questions please Contact Francia @ [phone] EXT [phone] documented in this encounter Plan of Treatment Upcoming Encounters Date Type Department Care Team (Late st Contact Info) Description 11/12/2024 8:00 AM EDT Office Visit [facility] CHC ADULT DENTAL [address] [place] [address] Vicente Reyes, DMD [address] [place] [address] 12/15/2024 9:00 AM EDT Office Visit [facility] MEDICINE [address] [place] [address] Name, MD Uriel [address] [place] [address] 01/08/2025 9:00 AM EDT Telemedicine [facility] MEDICINE [address] [place] [address] Juana Samuels, MagnusD [address] [place] [address] documented as of this encounter Goals Goal Patient Goal Type Associated Problems Recent Progress Patient-Stated? Author Hemoglobin A1c < 8 Result Component 6.7( 5 11:05 AM EST) No Juana Samuels PharmSincere Record your blood sugar as directed Result Component No Juana Samuels PharmD documented as of this encounter Visit Diagnoses Not on filedocumented in this encounter Care Teams Rubber Engraver Relationship Specialty Start Date End Date Name, MD Uriel [address] [place] [address] PCP - General Family Medicine 05/10/20 Juana Samuels PharmD [address] [place] [address] Pharmacist Internal Medicine 05/03/22 09/01/23 Juana Samuels PharmD [address] [place] [address] Pharmacist Internal Medicine 09/02/24 documented as of this encounter
--- OUTSIDE RECORDS SUMMARY | 2024-11-03 08:36 | XMS_ITS | Encounter Summary ---
Author Organization [employer] Address [address] [facility] 7t [place] [address] Care Team Providers Care Air Defence Officer Name Role Phone Name, Uriel AARON Primary Care Provider [phone] Juana Samuels PharmD Unavailable [phone] Reason for Visit * Reason Onset Date Comments FYI 05/26/2024 Encounter Details Date Type Department Care Team ([facility] st Contact Info) Description 05/26/2024 Telephone [facility] MEDICINE [address] [place] [address] Name, MD Uriel [address] [place] [address] FYI Social History Tobacco Use Types Packs/Day [...] For any questions please call Loy at [phone] *Advised caller message sent to provider. documented in this encounter Plan of Treatment Upcoming Encounters Date Type Department Care Team (Late st Contact Info) Description 11/12/2024 8:00 AM EDT Office Visit [facility] CHC ADULT DENTAL [address] [place] [address] Vicente Reyes, DMD 505 [place] [address] 12/15/2024 9:00 AM EDT Office Visit [facility] MEDICINE [address] [place] [address] Name, MD Uriel [address] [place] [address] 01/08/2025 9:00 AM EDT Telemedicine [facility] MEDICINE [address] [place] [address] Juana Samuels, PharmD [address] [place] [address] documented as of this encounter Goals Goal [...] documented as of this encounter Care Teams Air Defence Officer Relationship Specialty Start Date End Date Name, MD Uriel [address] [place] [address] PCP - General Family Medicine 05/10/20 Juana Samuels PharmD [address] [place] [address] Pharmacist Internal Medicine 09/02/24 documented as of this encounter
--- OUTSIDE RECORDS SUMMARY | 2024-11-03 08:36 | XMS_ITS ---
Author Organization [facility] Address [address] [place] [address] Care Team Providers Care Logistics Intern Name Role Phone Name Uriel AARON Primary Care Provider Melba Chin Unavailable [phone] Allergies No Known Allergies REASON FOR VISIT [...] 025 Encounters Encounter Location Date Provider Diagnosis [facility] [place] [address] [place] [address] 09/09/2024 Melba Dorota Tinea unguium B35.1 ; [...] Reason: Provider Name:Melba miller, 11/27/2024 01:30:00 PM, [address] [place] [address], [phone], Procedure Notes * Category Sub-Category Detail Notes [...] use of a nail nipper and/or dremel-type contact lens curve grinder, to a more viable healthy nail [...] to maintain effectiveness in symptomatic relief - 82099 Progress Notes * George CHANDRA ADOB:1955 (68 yo M)Acc No.[id number]:09/09/2024 Progress Note Patient:?George CHANDRA Provider:?Melba Raya DPM :1955???Age:68 Y???Sex:Male Alexis e:09/09/2024 Address:[address] [place], [place] [address] Pcp:Uriel Woodruff MD Subjective: * Chief Complaints: [...] use of a nail nipper and/or dremel-type contact lens curve grinder, to a more viable healthy nail [...] to maintain effectiveness in symptomatic relief - [address]756.? * Procedure Codes:?71277 DEBRI DE NAIL, 6 OR MORE, Modifiers: [...] Raya DPM Date:?06/2025 Generated for Pavel osborn/Jairon/Sam on:?11/03/2024 08:35 AM [...]
--- OUTSIDE RECORDS SUMMARY | 2024-11-03 08:36 | XMS_ITS | Clinical Summary ---
Author Organization [employer] Address [address] [facility] [address] [place] [address] Care Team Providers Care Computer Hardware Developer Name Role Phone Name, Uriel AARON Primary Care Provider Juana Samuels PharmD Unavailable [phone] Allergies No known active allergies Medications glucose 4 g chewable tabletIndication s:Type 2 diabetes mellitus with other specified complication, without long-term current use of insulin (CMS/[facility]) Chew 4 tablets (16 g) if needed [...] complication, without long-term current use of insulin ([facility]) Take 1 tablet (500 mg) by mouth [...] gastroesophageal mucosa (see comment). EGD done at [facility] 02/07/2023 Neutropenia 08/23/2022 Non-alcoholic cirrhosis 08/23/2022 [...] External Data 10/08/2024 9:00 AM EDT Telemedicine [facility] [address] [place] [phone] Juana Samuels, PharmD Type 2 diabetes mellitus without complication, without long-term current use of insulin (CMS/HCC) (Primary Dx) 10/08/2024 Telephone [facility] [address] [place] [phone] Juana Samuels, PharmSincere 09/17/2024 Telephone [facility] [address] [place] [address] Uriel Woodruff MD 09/16/2024 11:00 AM EST Office Visit [facility] [address] [place] [address] Uriel Woodruff MD Type 2 diabetes mellitus without complication, without long-term current use of insulin (CMS/HCC) (Primary Dx); Dysphagia, unspecified type; Weight loss; History of esophageal cancer; Encounter for immunization 09/15/2024 Telephone [facility] [address] [place], [place] [phone] Uriel Woodruff MD chartprep 09/12/2024 Refill [facility] [address] [place] [address] Uriel Woodruff MD 09/11/2024 Telephone [facility] [address] [place] [address] Name, MD Uriel Durable Medical Equipment (boost) 09/08/2024 Orders Only [facility] [address] [place] [address] Vicente Reyes, COSMO 09/07/2024 Orders Only [facility] [address] [place], [place] [phone] NameUriel MD 08/09/2024 Refill [facility] [address] [place] [address] Name, MD Uriel from Last 3 Months [...] Description 11/12/2024 8:00 AM EDT Office Visit [facility] [address] [place] [address] Vicente Reyes, DMD [address] [place] [address] 12/15/2024 9:00 AM EDT Office Visit [facility] [address] [place] [phone] Name, MD Uriel [address] [place] [address] 01/08/2025 9:00 AM EDT Telemedicine [facility] [address] [place] [address] Juana Samuels, PharmD [address] [place], [place] [phone] Health Maintenance Due Date Last Done Comments [...] Procedure Name Priority Date/Time Associated Diagnosis Comments VITAMIN B12/FOLATE, SERUM PANEL Routine 11/02/2024 9:51 AM EDT VITAMIN D,25-OH,TOTAL,IA Routine 11/02/2024 9:51 AM EDT FERRITIN Routine 11/02/2024 9:51 AM EDT MAGNESIUM Routine 11/02/2024 9:51 AM EDT COMPREHENSIVE METABOLIC PANEL Routine 11/02/2024 9:51 AM EDT CBC WITH AUTO DIFFERENTIAL Routine 11/02/2024 9:51 AM EDT POCT GLYCATED HEMOGLOBIN, TOTAL Routine 09/16/2024 11:05 AM EST Type 2 diabetes mellitus without complication, without long-term current use of insulin ([facility]/HCC) POCT GLUCOSE Routine 09/16/2024 11:04 AM EST Type 2 diabetes mellitus without complication, without long-term current use of insulin (CMS/[facility]) VITAMIN B12 Routine 09/07/2024 8:10 AM EST [...] Recently Relevant to Health Maintenance Results * Vitamin D, 25-Hydroxy, Total, Immunoassay (11/02/2024 9:51 AM EDT) Vitamin D 25-OH Total 33.8 >30 ng/mL [facility] Comment: Health Based Reference Values*< 20 ??ng/mL ??Hdawagrbx41-96 ng/mL ??Insufficient> 30 ??ng/mL ??Sufficient*Parmjit BECK. N Engl J Med. 2007;357:266-280There is no well-established upper level of normal vitamin Dlevels. Some laboratories use 50 ng/mL as an upper limit ofnormal. However, toxicity is patient-dependent and may occurat any level. Careful correlation with the patient'spresentation is necessary and, if there is concern forvitamin D toxicity, treatment should be consideredirrespective of the serum level.Care must be taken in interpreting Vitamin D results fromdifferent laboratories and methodologies. ??Published datademonstrated that results from patients undergoinghemodialysis may show a negative bias when tested withvarious automated 25-OH vitamin D assays when compared toLC- MS/MS.When testing samples from patients whose predominant form ofVitamin D is Vitamin D2, such as patients receiving VitaminD2 supplementation, results that are subtherapeutic shouldbe confirmed with another method such as LC-MS/MS. 11/02/2024 9:51 AM EDT 11/02/2024 10:02 AM EDT us Generic External Data Provider LAB BLOOD ORDERAB LES Final Result Performing Organization Address [facility] Co de Phone Number [facility] [address] [place] [phone] * Vitamin B12 (Cobalamin) and Folate Panel, Serum (11/02/2024 9:51 AM EDT) Vitamin B12 561 200 - 900 pg/mL [facility] Comment:NORMAL 200-900 PG/ML INDETERMINATE 160-199 PG/ML DEFICIENT < 160 PG/ML Folate 5.5 > or = 4.0 ng/mL [facility] Comment:Reference Values:> o r = 4.0 ng/mL< 4.0 ng/mL suggests folate deficiency Methotrexate, aminopterin and folinic acid(leucovorin) are chemotherapeutic agents whose molecularstructures are similar to folate; therefore, the Architectfolate assay cannot be used for patients using these drugs. 11/02/2024 9:51 AM EDT 11/02/2024 10:02 AM EDT us Generic External Data Provider LAB BLOOD ORDERAB LES Final Result Performing Organization Address [facility] Co de Phone Number [facility] [address] [place] [phone] * (ABNORMAL) CBC auto differential (11/02/2024 9:51 AM EDT) White Blood Count 4.0(L) 4.8 - 10.8 X10*3/uL [facility] Red Blood Count 4.12(L) 4.60 - 5.80 X10*6/uL [facility] Hemoglobin 11.7(L) 14.0 - 18.0 g/dl [facility] Hematocrit 35.1(L) 42.0 - 52.0 % [facility] Mean Corpuscular Volume 85.2 80.0 - 98.0 fL [facility] Mean Corpuscular Hemoglobin 28.4 27.0 - 33.0 pg [facility] Mean Corpuscular HGB Conc 33.3 31.0 - 36.0 g/dl [facility] Red Cell Distribution Width 15.1 11.0 - 16.0 % [facility] Platelet Count 203 160 - 400 X10*3/uL [facility] Mean Platelet Volume 9.2(L) 9.4 - 12.4 fL [facility] Neutrophils Percent Auto 77.1(H) 45 - 73 % [facility] Imm Gran Pct Auto 0.3 0.0 - 0.4 % [facility] Lymphocytes Percent Auto 12.7(L) 20 - 40 % [facility] Monocytes Percent Auto 9.1 2 - 11 % [facility] Eosinophils Percent Auto 0.8 0 - 4 % [facility] Basophils Percent Auto 0.0 0 - 2 % [facility] NRBC Pct Auto 0.0 0.0 - 0.2 /100WBC [facility] Neutrophils Absolute Auto 3.1 2.0 - 8.3 x10*3/uL [facility] Imm Gran Abs Auto 0.01 0.00 - 0.03 X10*3/uL [facility] Lymphocytes Absolute Auto 0.5(L) 1.2 - 4.9 X10*3/uL [facility] Monocytes Absolute Auto 0.4 0.1 - 1.2 X10*3/uL [facility] Eosinophils Absolute Auto 0.0 0.0 - 0.4 X10*3/uL [facility] Basophils Absolute Auto 0.0 0.0 - 0.2 X10*3/uL [facility] NRBC Abs Auto 0.000 0.0 - 0.012 X10*3/uL [facility] 11/02/2024 9:51 AM EDT 11/02/2024 10:02 AM EDT us Generic External Data Provider LAB BLOOD ORDERAB LES Final Result Performing Organization Address City/[facility]/ZIP Co de Phone Number [facility] [address] [place] [phone] * Magnesium (11/02/2024 9:51 AM EDT) Magnesium 1.9 1.6 - 2.6 mg/dL [facility] 11/02/2024 9:51 AM EDT 11/02/2024 10:02 AM EDT us Generic External Data Provider LAB BLOOD ORDERAB LES Final Result Performing Organization Address [facility] Co de Phone Number [facility] [address] [place] [phone] * Ferritin (11/02/2024 9:51 AM EDT) Ferritin 53 20 - 250 ng/mL [facility] 11/02/2024 9:51 AM EDT 11/02/2024 10:02 AM EDT us Generic External Data Provider LAB BLOOD ORDERAB LES Final Result Performing Organization Address [facility] de Phone Number [facility] [address] [place] [phone] * (ABNORMAL) Comprehensive Metabolic Panel (11/02/2024 9:51 AM EDT) Sodium 140 135 - 145 mmol/L [facility] Potassium 4.0 3.3 - 5.1 mmol/L [facility] Chloride 108 96 - 108 mmol/L [facility] Carbon Dioxide 23 22 - 29 mmol/L [facility] Anion Gap 13 12 - 20 [facility] Urea Nitrogen (BUN) 24(H) 9 - 16 mg/dL [facility] Creatinine, Serum 1.16 0.5 - 1.4 mg/dL [facility] Estimated Glomerular Filt Rate >60 [facility] Comment:Chronic Kidney Disea se: Estimated GFR < 60 mL/min/1.84r5Dhpbsl Kidney Disease: Estimated GFR < 15 mL/min/1.73m2 Glucose 184(H) 60 - 115 mg/dL [facility] Calcium 9.6 8.4 - 10.2 mg/dL [facility] Bilirubin, Total 0.3 0.0 - 1.0 mg/dL [facility] Aspartate Amino Transferase 29 5 - 37 U/L [facility] Alanine Aminotransferase 34 0 - 40 U/L [facility] Total Protein 7.6 6.5 - 8.0 g/dL [facility] Albumin Level 3.9 3.5 - 5.0 g/dL [facility] Alkaline Phosphatase 222(H) 39 - 117 U/L [facility] 11/02/2024 9:51 AM EDT 11/02/2024 10:02 AM EDT us Generic External Data Provider LAB BLOOD ORDERAB LES Final Result [facility] [address] [place] [phone] * (ABNORMAL) POCT HGB A1C (09/16/2024 11:05 AM EST) Hemoglobin A1C 6.7(A) 4.0 - 6.0 % QC Media Lot # [id number] Lot# Expiration Date ,863,[id number] Blood 09/16/2024 11:0 5 AM EST us Uriel Woodruff MD POINT [...] 8:10 AM EST) Creatinine, Urine 194.22 mg/dL [facility] Microalbumin Urine 22.0 mg/L [facility] Microalbum Creatinine Ratio Ur 11.3 <30 ug/mg cr [facility] Comment:Albumin/Creatinine R atio Reference Ranges: Normal: < 30 ug/mg creatinine Microalbuminuria: 30 - 300 ug/mg creatinineClinical Albuminuria: > 300 ug/mg creatinine 09/07/2024 8:10 AM EST 09/07/2024 11:02 AM EST us Uriel Woodruff MD LAB URINE ORDERABLES Final Resul t Performing Organization Address City/[facility]/ZIP Co de Phone Number [facility] [address] [place] [address] [phone] * Vitamin B12 (09/07/2024 8:10 AM EST) Vitamin B12 358 200 - 900 pg/mL [facility] Comment:NORMAL 200-900 PG/ML INDETERMINATE 160-199 PG/ML DEFICIENT < 160 PG/ML 09/07/2024 8:10 AM EST 09/07/2024 11:01 AM EST us Uriel Woodruff MD LAB BLOOD ORDERABLES Final Resul t [facility] [address] [place] [phone] * (ABNORMAL) Lipid Panel, Standard (09/07/2024 8:10 AM EST) Triglycerides 126 <150 mg/dL [facility] Comment:Desirable Triglyceri de: less than 150 mg/dLBorderline High Triglyceride 150-199 mg/dLHigh Triglyceride: 200-499 mg/dLVery High Triglyceride: greater than or equal to 5OO mg/dL Cholesterol 190 <200 mg/dL [facility] Comment:Desirable Cholestero l: less than 200 mg/dLBorderline High Cholesterol: 200-239 mg/dLHigh Cholesterol: greater than 239 mg/dL LDL Cholesterol Calculated 114(H) <100 mg/dL [facility] Comment:Desirable LDL: less than 100 mg/dLNear Optimal/Above Optimal LDL: 110- 129 mg/dLBorderline High LDL: 130-159 mg/dLHigh LDL: 160-189 mg/dLVery High LDL: greater than or equal to 190 mg/dL HDL Cholesterol 51 >40 mg/dL [facility] Comment:Desirable HDL: great er than 40 mg/dL Note: This HDL assay may give artificially low results in patients with liver disease. 09/07/2024 8:10 AM EST 09/07/2024 11:01 AM EST us Uriel Name LAB BLOOD ORDERABLES Final Resul t Performing Organization Address [facility] Co de Phone Number [facility] [address] [place] [phone] * Hepatitis A,B,C Profile (04/17/2021 8:40 [...] Historical Provider HISTORICAL/NON ORDERABLE LABS Final Result [facility] [address] * (ABNORMAL) Colonoscopy (02/18/2019) Colonoscopy Abnormal(A ) Normal us Uriel Woodruff MD HEALTH MAINTENANCE Final Result from Last 3 Months or Most Recently Relevant to Health Maintenance Insurance - [facility] Care Teams Computer Hardware Developer Relationship Specialty Start Date End Date Name, MD Uriel [address] [place] [address] PCP - General Family Medicine 05/10/20 Juana Samuels PharmD [address] [place], [place] [phone] Pharmacist Internal Medicine 09/02/24
--- OUTSIDE RECORDS SUMMARY | 2024-11-03 08:36 | XMS_ITS ---
Author Organization [facility] Address [address] [place] [address] Care Team Providers Care Assistant Teacher Primary Name Role Phone Name Uriel AARON Primary Care Provider Melba Chin Unavailable [phone] Allergies No Known Allergies REASON FOR VISIT [...] 06/24/2024 Encounters Encounter Location Date Provider Diagnosis [facility] [address] [phone] 06/24/2024 Melba Raya Tinea unguium B35.1 ; [...] Provider Name:Melba miller, 11/27/2024 01:30:00 PM, [address] [place], [phone], Procedure Notes * Category Sub-Category Detail Notes [...] as necessary. Patient chooses, no pharmaceutical tx (64078) Progress Notes * George CHANDRA ADOB:1955 (68 yo M)Acc No.[id number]:06/24/2024 Progress Note Patient:?George CHANDRA Provider:?Melba Raya DPM :1955???Age:68 Y???Sex:Male Alexis e:06/24/2024 Address:[address] [place], [place] [phone] Pcp:Uriel Woodruff MD Subjective: * Chief Complaints: [...] as necessary. Patient chooses, no pharmaceutical tx (11874).? * Procedure Codes:?11810 DEBRI DE NAIL, 6 OR MORE, Modifiers: [...]
--- OUTSIDE RECORDS SUMMARY | 2024-11-03 08:36 | XMS_ITS | Encounter Summary ---
Author Organization [employer] Address [address] [facility] [address] [place] [address] Care Team Providers Care Geological Sample Tester Name Role Phone Name, Uriel AARON Primary Care Provider [phone] Juana Samuels PharmD Unavailable [phone] Encounter Details Date Type Department Care [...] Description 11/12/2024 8:00 AM EDT Office Visit [facility] [address] [place], [place] [phone] Vicente Reyes, DMD [address] [place] [address] 12/15/2024 9:00 AM EDT Office Visit [facility] MEDICINE [address] [place] [phone] Name, MD Uriel [address] [place] [phone] 01/08/2025 9:00 AM EDT Telemedicine [address] [address] PuiaJuana, PharmD [address] [place] [phone] documented as of this encounter Goals Goal Patient Goal Type Associated Problems Recent Progress Patient-Stated? Author Hemoglobin A1c < 8 Result Component 6.7( 11:05 AM EST) No Puia, Juana, PharmD Record your blood sugar as directed Result Component No Puia, Juana, PharmD documented as of this encounter Procedures Procedure Name Priority Date/Time Associated Diagnosis Comments VITAMIN D,25-OH,TOTAL,IA Routine 11/02/2024 9:51 AM EDT VITAMIN B12/FOLATE, SERUM PANEL Routine 11/02/2024 9:51 AM EDT CBC WITH AUTO DIFFERENTIAL Routine 11/02/2024 9:51 AM EDT MAGNESIUM Routine 11/02/2024 9:51 AM EDT FERRITIN Routine 11/02/2024 9:51 AM EDT COMPREHENSIVE METABOLIC PANEL Routine 11/02/2024 9:51 AM EDT documented in this encounter Results * Vitamin B12 (Cobalamin) and Folate Panel, Serum (11/02/2024 9:51 AM EDT) Vitamin B12 561 200 - 900 pg/mL [facility] Comment:NORMAL 200-900 PG/ML INDETERMINATE 160-199 PG/ML DEFICIENT < 160 PG/ML Folate 5.5 > or = 4.0 ng/mL [facility] Comment:Reference Values:> o r = 4.0 ng/mL< 4.0 ng/mL suggests folate deficiency Methotrexate, aminopterin and folinic acid(leucovorin) are chemotherapeutic agents whose molecularstructures are similar to folate; therefore, the Architectfolate assay cannot be used for patients using these drugs. 11/02/2024 9:51 AM EDT 11/02/2024 10:02 AM EDT us Generic External Data Provider LAB BLOOD ORDERAB LES Final Result [facility] [address] [place] [phone] * Vitamin D, 25-Hydroxy, Total, Immunoassay (11/02/2024 9:51 AM EDT) Vitamin D 25-OH Total 33.8 >30 ng/mL [facility] Comment: Health Based Reference Values*< 20 ??ng/mL ??Edkqummjq89-36 ng/mL ??Insufficient> 30 ??ng/mL ??Sufficient*Parmjit BECK. N [...] 9:51 AM EDT 11/02/2024 10:02 AM EDT Generic External Data Provider LAB BLOOD ORDERAB LES Final Result Performing Organization Address [facility]/ZIP Co de Phone Number [facility] [address] [place] [phone] * Ferritin (11/02/2024 9:51 AM EDT) Ferritin 53 20 - 250 ng/mL [facility] 11/02/2024 9:51 AM EDT 11/02/2024 10:02 AM EDT Generic External Data Provider LAB BLOOD ORDERAB LES Final Result Performing Organization Address [facility] Co de Phone Number [facility] [address] [place] [phone] * Magnesium (11/02/2024 9:51 AM EDT) Magnesium 1.9 1.6 - 2.6 mg/dL [facility] 11/02/2024 9:51 AM EDT 11/02/2024 10:02 AM EDT us Generic External Data Provider LAB BLOOD ORDERAB LES Final Result Performing Organization Address City/[facility]/ZIP Co de Phone Number [facility] [address] [place] [phone] * (ABNORMAL) Comprehensive Metabolic Panel (11/02/2024 9:51 AM EDT) Sodium 140 135 - 145 mmol/L [facility] Potassium 4.0 3.3 - 5.1 mmol/L [facility] Chloride 108 96 - 108 mmol/L [facility] Carbon Dioxide 23 22 - 29 mmol/L [facility] Anion Gap 13 12 - 20 [facility] Urea Nitrogen (BUN) 24(H) 9 - 16 mg/dL [facility] Creatinine, Serum 1.16 0.5 - 1.4 mg/dL [facility] Estimated Glomerular Filt Rate >60 [facility] Comment:Chronic Kidney Disea se: Estimated GFR < 60 mL/min/1.18p1Rshaxz Kidney Disease: Estimated GFR < 15 mL/min/1.73m2 Glucose 184(H) 60 - 115 mg/dL [facility] Calcium 9.6 8.4 - 10.2 mg/dL [facility] Bilirubin, Total 0.3 0.0 - 1.0 mg/dL [facility] Aspartate Amino Transferase 29 5 - 37 U/L [facility] Alanine Aminotransferase 34 0 - 40 U/L [facility] Total Protein 7.6 6.5 - 8.0 g/dL [facility] Albumin Level 3.9 3.5 - 5.0 g/dL [facility] Alkaline Phosphatase 222(H) 39 - 117 U/L [facility] 11/02/2024 9:51 AM EDT 11/02/2024 10:02 AM EDT us Generic External Data Provider LAB BLOOD ORDERAB LES Final Result Performing Organization Address City/[facility]/ZIP Co de Phone Number [facility] [address] [place] [phone] * (ABNORMAL) CBC auto differential (11/02/2024 9:51 AM EDT) White Blood Count 4.0(L) 4.8 - 10.8 X10*3/uL [facility] Red Blood Count 4.12(L) 4.60 - 5.80 X10*6/uL [facility] Hemoglobin 11.7(L) 14.0 - 18.0 g/dl [facility] Hematocrit 35.1(L) 42.0 - 52.0 % [facility] Mean Corpuscular Volume 85.2 80.0 - 98.0 fL [facility] Mean Corpuscular Hemoglobin 28.4 27.0 - 33.0 pg [facility] Mean Corpuscular HGB Conc 33.3 31.0 - 36.0 g/dl [facility] Red Cell Distribution Width 15.1 11.0 - 16.0 % [facility] Platelet Count 203 160 - 400 X10*3/uL [facility] Mean Platelet Volume 9.2(L) 9.4 - 12.4 fL [facility] Neutrophils Percent Auto 77.1(H) 45 - 73 % [facility] Imm Gran Pct Auto 0.3 0.0 - 0.4 % [facility] Lymphocytes Percent Auto 12.7(L) 20 - 40 % [facility] Monocytes Percent Auto 9.1 2 - 11 % [facility] Eosinophils Percent Auto 0.8 0 - 4 % [facility] Basophils Percent Auto 0.0 0 - 2 % [facility] NRBC Pct Auto 0.0 0.0 - 0.2 /100WBC [facility] Neutrophils Absolute Auto 3.1 2.0 - 8.3 x10*3/uL [facility] Imm Gran Abs Auto 0.01 0.00 - 0.03 X10*3/uL [facility] Lymphocytes Absolute Auto 0.5(L) 1.2 - 4.9 X10*3/uL [facility] Monocytes Absolute Auto 0.4 0.1 - 1.2 X10*3/uL [facility] Eosinophils Absolute Auto 0.0 0.0 - 0.4 X10*3/uL [facility] Basophils Absolute Auto 0.0 0.0 - 0.2 X10*3/uL [facility] NRBC Abs Auto 0.000 0.0 - 0.012 X10*3/uL [facility] 11/02/2024 9:51 AM EDT 11/02/2024 10:02 AM EDT us Generic External Data Provider LAB BLOOD ORDERAB LES Final Result Performing Organization Address City/State/[facility] Co de Phone Number [facility] [address] [place] [phone] documented in this encounter Visit Diagnoses Not on filedocumented in this encounter Additional Health Concerns Assessment Noted Time PHQ-9 Depression Total Score: 11 025 11:36 AM EST documented as of this encounter Care Teams Geological Sample Tester Relationship Specialty Start Date End Date Name, MD Uriel [address] [place] [address] PCP - General Family Medicine 05/10/20 Juana Samuels PharmD [address] [place] [address] Pharmacist Internal Medicine 09/02/24 documented as of this encounter
--- OUTSIDE RECORDS SUMMARY | 2024-11-03 08:36 | XMS_ITS | Encounter Summary ---
Author Organization [employer] Address [address] [facility] [address]t [place] [address] Care Team Providers Care Forensic Toxicologist Name Role Phone Name, Uriel AARON Primary Care Provider [phone] Puia, Juana PharmD Unavailable [phone] Puia, Juana PharmD Unavailable [phone] Reason for Visit * Reason Comments Med Refill Encounter Details Date Type Department Care Team (Late st Contact Info) Description 08/15/2023 Refill [facility] MED & PEDS [address] [place], [place] [phone] Name, MD Uriel [address] [place] [address] Allergic rhinitis, unspecified seasonality, unspecified trigger Social [facility] [address] [place], [place] [phone] Vicente Reyes, DMD [address] [place] [address] 12/15/2024 9:00 AM EDT Office Visit [facility] MEDICINE [address] [place] [phone] NameUriel MD [address] [place] [address] 01/08/2025 9:00 AM EDT Telemedicine [facility] MEDICINE [address] [place] [phone] Puia, Juana, PharmD [address] [place] [address] documented as of this encounter Goals Goal Patient Goal Type Associated Problems Recent Progress Patient-Stated? Author Hemoglobin A1c < 8 Result Component 6.7( 11:05 AM EST) No Puia, Juana, PharmD Record your blood sugar as directed Result Component No Puia, Juana, PharmD documented as of this encounter Visit Diagnoses Diagnosis Allergic rhinitis, unspecified seasonality, unspecified trigger documented in this encounter Care Teams Forensic Toxicologist Relationship Specialty Start Date End Date NameUriel MD [address] [place] [address] PCP - General Family Medicine 05/10/20 Juana Samuels PharmD [address] [place] [address] Pharmacist Internal Medicine 05/03/22 09/01/23 Juana Samuels PharmD [address] [place] [address] Pharmacist Internal Medicine 09/02/24 documented as of this encounter
== END 2024-11-03 08:21 | disposition home or self-care (01) ==
LOC: HO.LAB 08:20
PROVIDERS: PCP Internal Medicine Geriatric Medicine; Visit Provider Internal Medicine Gastroenterology
DX: Z13.89 Encounter for screening for other disorder (principal)

== ENCOUNTER 2025-02-15 11:53 | Outpatient (REF) | payer OTHER, SELFPAY ==
--- NOTE | ~2025-02-15 | XR_ITS ---
EXAMINATION: XR CHEST 2 VIEWS HISTORY: MUNOZ, weight loss, history of esophageal cancer COMPARISON: Comparison is made with the prior examination dated 07/17/2024. FINDINGS: PA and lateral views of the chest are submitted. There is airspace opacity in the left lower lobe, consistent with pneumonia. The right lung is clear. Slight blunting of the costophrenic angles is compatible with pleural thickening. There is no pleural effusion, pneumothorax, or pulmonary vascular congestion. The heart is normal in size. The bones are intact. XR/XR chest 2V IMPRESSION: Left lower lobe pneumonia. Follow-up is recommended to document resolution. Electronically signed by: Renzo Martines MD 02/15/2025 12:51 PM EDT
--- OUTSIDE RECORDS SUMMARY | 2025-02-15 12:53 | XMS_ITS | Data Portability ---
Author Organization [employer] [facility] Address [address] [place] [address] Care Team Providers Care De Icer Installer Name Role Phone [facility] Referring Provider [facility] Referring Provider Assessment No assessment recorded. Plan of Treatment Reminders Order Date Submit Date Provider Last Modified By Organization Details Last Modified Time Details Appointments None recorded. Lab rapid SARS CoV 2 Ag, QL IA, respiratory specimen 2021 [facility], [address] [place] [address], [id number] 10:40:23 rapid flu (A+B) 2021 [facility], [address] [place] [address], [id number] 10:40:23 Referral None recorded. Procedures None recorded. Surgeries None recorded. Imaging None recorded. Medication Orders prednisone 20 mg tablet 2021 [facility], [address] [place] [address], [id number], 10:50:55 azithromyci n 500 mg tablet 2021 [facility], [address] [place] [address], [id number], 10:50:56 prednisone 20 mg tablet 2021 [email or web address] Not available 10:39:50 azithromyci n 500 mg tablet 2021 [email or web address] Not available 10:39:50 Patient TargetsNo targets recorded. Patient InstructionsNo instructions recorded. Reason for Referral None Reported. Results Created Date Observation Date Name Description Value Unit Range Abnormal Flag Note LastModifiedBy Organization Detail LastModifiedTime 03/09/20 22 03/09/2022 rapid flu (A+B) Flu negati ve Not Available [facility] ed [address] [place] [address], [id number] 03/09/2022 10:40:03 03/09/20 22 03/09/2022 rapid SARS CoV 2 Ag, QL IA, respi rator y speci men rapid SARS CoV 2 Ag, QL IA, respiratory specimen negati ve Not Available [facility] ed [address] [place] [address], [id number] 03/09/2022 10:39:59 Result Notes None recorded. 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 Functional Status None recorded. Mental Status None recorded. Family History Nothing Reported. Medical History No medical history recorded. Past Encounters Encounter ID Performer Location Encounter Start Date Encounter Closed Date Diagnosis/Indication Diagnosis SNOMED-CT Code Diagnosis ICD10 Code Diagnosis Note [id number] Magen Solo MD [address] [place] [address] 03/09/2022 10:33:10 04/19/2022 13:36:49 Respiratory tract congestion and cough 364609953 R05.9 Approximat edith five days of malaise, low grade fevers, and productive cough. Per stunner, rhochorous throughout . Most likely bronchitis vs [...] Recorded Advance Directives Directive None Recorded Payers Insurance Date Sequence Insurance Name Policy Number Policy Miller Covered Member ID Miller Member ID Guarantor Name 03/10/2024 1 [facility] - DOS PRIOR TO 2022 - DUAL ELIGIBLE (MEDICARE REPLACEMENT/ADV ANTAGE - HMO) George Guillaume [id number] George Guillaume 03/10/2024 1 [facility] - DOS ON OR AFTER 2022 - DUAL ELIGIBLE - SKILLED NURSING OPTIONS AND ONE CARE (MEDICARE REPLACEMENT/ADV ANTAGE - HMO) George Guillaume [id number] George Guillaume Notes Date Note Type Note [...] .................. .................. .................. .................. .................. .................. ............... Neon Tube Pumper Note: Vitals, resp assessment, rapid covid, rapid flu, 500mg azithro, 60mg prednisone PO .................. .................. .................. .................. .................. .................. .................. ............... Disposition: Fulfilled Magen Solo MD [address] [facility],[address], [place], [address], JAVON MCFADDEN 03/09/2022 11:11:27
--- OUTSIDE RECORDS SUMMARY | 2025-02-15 12:53 | XMS_ITS | Patient Health Record ---
Author Organization [facility] Address [address] [place] [address] Care Team Providers Care Stitcher Utility Name Role Phone Name Uriel AARON Primary Care Provider Melba Chin Unavailable [phone] Allergies No Known Allergies Results Component Value Reference Range Notes HEMOGLOBIN A1C (GLYCOHEMOGLO BIN) Reviewed date:11/27/2024 01:44:17 PM Interpretation: Performing Lab: Notes/Report: HEMOGLOBIN A1C % (HH) 6.7 Reason For Referral No Information Medications Medication SIG (Take, Route, Frequency, Duration) Notes Start Date End Date Status Vitamin D3 25 MCG (1000 UT) 1 capsule Orally Once a day Not-Taking Metoprolol Tartrate 25 MG Oral; Duration: 30 Not-Takin g Vitamin B-12 1000 MCG 1 tablet Orally On ce a day Not-Taking Ventolin HFA 108 (90 Base) MCG/ACT INHALE 2 PUFFS BY MOUTH EVERY 4 TO 6 HOURS NEEDED Inhalation; Duration: 17 Active Rosuvastatin Calcium 20 MG 1 tablet Orally Once a day Not-Taking Extra Depth Orthopedic Shoes (1 Pair) with Customized Heat Molded Multidensity Innersoles (3 Pair) as directed Dx: NIDDM/Polyneuropathy (E11.42), Hammertoe Foot Deformity (M20.41,M20.42), Preulcerative Skin Lesion(s) (L85.1 09/06/2023 Active Trulicity Not-Taking glipiZIDE 10 MG 1 tablet 30 minutes before breakfast Orally Once a day Not-Taking Esomeprazole Magnesium 40 MG 1 capsule Orally Once a day Active amLODIPine Besylate Active metFORMIN HCl ER 500 MG 1 tablet with evening meal Orally Once a day Active metFORMIN HCl Active OxyCONTIN Not-Taking Extra Depth Orthopedic Shoes (1 Pair) with Customized Heat Molded Multidensity Innersoles (3 Pair) as directed Dx: NIDDM (E11.9), Hammertoe Foot Deformity (M20.41,M20.42), Preulcerative Skin Lesion(s) (L85.1) 11/27/2024 Active Zonisamide 100 MG 1 capsule Orally Once a day Active Gabapentin Not-Takin g Pentoxifylline ER 400 MG 1 tablet with meals Orally Twice a day Active Insulin Not-Taking Extra Depth Orthopedic Shoes, (1) Pair With (3) Pair Custom Heat Molded Multidensity Innersoles Dx: NIDDM/PVD(E11.51), Hammertoe Foot Deformity(M20.41,M20 .42), Preulcerative Skin Lesion(s)(L85.1) Wear Daily; Duration: 365 days Active Baqsimi Two Pack 3 MG/DOSE USE 1 SPRAY (3MG) IN ONE NOSTRIL FOR A PATIENT WITH SEVERE HYPOGLYCEMIA WHO IS NOT RESPONSIVE AND UNABLE SELF-TREAT WITH GLUCOSE. AFTERWARDS TURN ON SIDE. MAY REPEAT IN 15MINUTES IF PATIENT DOES NOT RESPOND. Nasal; Duration: 1 E119,Unavail able Not-Taking Advair HFA 115-21 MCG/ACT Inhalation; Duration: 30 Active Immunizations Vaccine Route Administration Date Status [...] Problem Acquired hammer toe of right foot (7725806882467108 ) Other hammer toe(s) (acquired), right foot (M20.41) Active confirmed Problem Acquired hammer toe of left foot (6560971269511639 ) Other hammer toe(s) (acquired), left foot (M20.42) Active confirmed Problem Type II diabetes mellitus without complication (546764240) Type 2 diabetes mellitus without complication, without long-term current use of insulin (E11.9) Active confirmed Vital Signs Blood pressure diastolic 80 mm Hg 11/27/2024 Height 5ft9in in 11/27/2024 Blood pressure systolic 121 mm Hg 11/27/2024 Weight 112 lbs 11/27/2024 BMI 16.54 kg/m2 11/27/2024 Encounters Encounter Location Date Provider Diagnosis [address] [address] 04/22/2024 Melba Perica Tinea unguium B35.1 ; Ingrown nail L60.0 ; Type 2 diabetes mellitus without complication, without long-term current use of insulin E11.9 ; Pain in toe of left foot M79.675 and Pain in toe of right foot M79.[address] [address] 06/24/2024 Melba Perica Tinea unguium B35.1 ; Ingrown nail L60.0 ; Type 2 diabetes mellitus without complication, without long-term current use of insulin E11.9 ; Pain in toe of left foot M79.675 and Pain in toe of right foot M79.[address] [address] 09/09/2024 Melba Perica Tinea unguium B35.1 ; Ingrown nail L60.0 ; Type 2 diabetes mellitus without complication, without long-term current use of insulin E11.9 ; Pain in toe of left foot M79.675 and Pain in toe of right foot M79.[address] [address] 11/27/2024 Emlba Perica Tinea unguium B35.1 ; Other hammer toe(s) (acquired), right foot M20.41 ; Type 2 diabetes mellitus without complication, without long-term current use of insulin E11.9 ; Pain in toe of left foot M79.675 ; Pain in toe of right foot M79.674 and Other hammer toe(s) (acquired), left foot M20.42 Assessments Encounter Date Diagnosis (ICD Code) Assessment Notes Treatment Notes Treatment Clinical Notes Section Notes 04/22/2024 Tinea unguium (ICD-10 - B35.1) 04/22/2024 Ingrown nail (ICD-10 - L60.0) 06/24/2024 Tinea unguium (ICD-10 - B35.1) 09/09/2024 Tinea unguium (ICD-10 - B35.1) 11/27/2024 Other hammer toe(s) (acquired), right foot (ICD-10 - M20.41) Patient Educated with: DIABETIC FOOT CARE INSTRUCTIONS.p df (DIABETIC FOOT CARE INSTRUCTIONS.p df) 11/27/2024 Tinea unguium (ICD-10 - B35.1) 11/27/2024 Type 2 diabetes mellitus without complication, without long-term current use of insulin (ICD-10 - E11.9) 09/09/2024 Ingrown nail (ICD-10 - L60.0) 04/22/2024 Type 2 diabetes mellitus without complication, without long-term current use of insulin (ICD-10 - E11.9) 06/24/2024 Ingrown nail (ICD-10 - L60.0) 04/22/2024 Pain in toe of left foot (ICD-10 - M79.675) 06/24/2024 Type 2 diabetes mellitus without complication, without long-term current use of insulin (ICD-10 - E11.9) 09/09/2024 Type 2 diabetes mellitus without complication, without long-term current use of insulin (ICD-10 - E11.9) 11/27/2024 Pain in toe of left foot (ICD-10 - M79.675) 11/27/2024 Pain in toe of right foot (ICD-10 - M79.674) 09/09/2024 Pain in toe of left foot (ICD-10 - M79.675) 04/22/2024 Pain in toe of right foot (ICD-10 - M79.674) 06/24/2024 Pain in toe of left foot (ICD-10 - M79.675) 06/24/2024 Pain in toe of right foot (ICD-10 - M79.674) 09/09/2024 Pain in toe of right foot (ICD-10 - M79.674) 11/27/2024 Other hammer toe(s) (acquired), left foot (ICD-10 - M20.42) Plan Of Treatment Next Appt Details Provider Name:Melba Sandra miller, 02/23/2025 09:30:00 AM, [address] [place], [address], Insurance Providers Payer Name Payer Address Payer Phone Subscriber Number Group Number Insured Name Patient Relationship to Insured Coverage Start Date Coverage End Date [facility] SCO Claims [address] [address] RAJIV Zuniga [phone] [id number] George Guillaume Self - patient is the insured Medical (General) History Medical History History ICD Code Anxiety asthma Back,Hip,and Knee pain Cataracts Diabetic Epilepsy/Seizures Fatty liver Reflux ( GERD) Chicken pox Joint implants/screws Esophageal cancer Surgical History Surgery Date(Month/Year) Esophageal surgery- feeding tube 3 cataract surgery 2023
--- OUTSIDE RECORDS SUMMARY | 2025-02-15 12:53 | XMS_ITS | Encounter Summary ---
Author Organization [employer] Address [address] [place] [address] 7t [place] [address] Care Team Providers Care Income Tax Analyst Name Role Phone Name, Uriel AARON Primary Care Provider Puia, Juana PharmD Unavailable [phone] Puia, Juana PharmD Unavailable Encounter Details Date Type Department Care Team (Late st Contact Info) Description 01/07/2023 Abstract [facility] MEDICINE [address] [place] [address] Name, MD Uriel [address] [place] [address] Social History Tobacco Use Types Packs/Day Years [...] as of this encounter Plan of Treatment Not on file documented as of this encounter Procedures Procedure Name Priority Date/Time Associated Diagnosis Comments COLONOSCOPY Routine 02/18/2019 2:11 PM EDT documented in this encounter Results * Colonoscopy (02/18/2019 2:11 PM EDT) Colonoscopy Normal Normal Narrative Elsa Christopher - 02/18/2019 2:11 PM EDT [place] 5 [place] [facility] [place] Historical Provider HEALTH MAINTENANCE Final Result documented in this encounter Visit Diagnoses Not on filedocumented in this encounter Care Teams Income Tax Analyst Relationship Specialty Start Date End Date Name, MD Uriel [address] [place] [address] PCP - General Family Medicine 05/10/20 Juana Samuels PharmD [address] [place] [address] Pharmacist Internal Medicine 05/03/22 09/01/23 Juana Samuels PharmD [address] [place] [address] Pharmacist Internal Medicine 09/02/24 01/07/25 documented as of this encounter
[2025-02-15 13:01] LABS: MANUAL DIFF FLAG NO
[2025-02-15 13:09] LABS: Hematocrit 35.1 % (42.0-52.0); Hemoglobin 11.2 g/dl (14.0-18.0); Imm Gran Abs Auto 0.01 X10*3/uL (0.00-0.03); Imm Gran Pct Auto 0.3 % (0.0-0.4); Lymphocytes Absolute Auto 0.5 X10*3/uL (1.2-4.9); Mean Corpuscular HGB Conc 31.9 g/dl (31.0-36.0); Mean Corpuscular Hemoglobin 27.8 pg (27.0-33.0); Mean Corpuscular Volume 87.1 fL (80.0-98.0); NRBC Abs Auto 0.000 X10*3/uL (0.0-0.012); NRBC Pct Auto 0.0 /100WBC (0.0-0.2); Platelet Count 207 X10*3/uL (160-400); Red Blood Count 4.03 X10*6/uL (4.60-5.80); White Blood Count 3.8 X10*3/uL (4.8-10.8)
[2025-02-15 13:34] LABS: Alanine Aminotransferase 14 U/L (0-40); Albumin Level 3.6 g/dL (3.5-5.0); Alkaline Phosphatase 114 U/L (39-117); Anion Gap 13 (12-20); Aspartate Amino Transferase 23 U/L (5-37); Blood Urea Nitrogen 16 mg/dL (9-16); Calcium 8.7 mg/dL (8.4-10.2); Carbon Dioxide 22 mmol/L (22-29); Chloride 109 mmol/L (96-108); Estimated Glomerular Filt Rate > 60; Potassium 3.7 mmol/L (3.3-5.1); Sodium 140 mmol/L (135-145); Total Protein 6.8 g/dL (6.5-8.0)
== END 2025-02-15 11:54 | disposition home or self-care (01) ==
LOC: HO.HHCX 11:53
PROVIDERS: PCP Internal Medicine Geriatric Medicine; Visit Provider Internal Medicine Geriatric Medicine
DX: R63.4 Abnormal weight loss (principal); Z85.01 Personal history of malignant neoplasm of esophagus; R06.09 Other forms of dyspnea
CPT/HCPCS: 36415; 71046; 80053; 85025

== ENCOUNTER → 2025-02-15 12:38 | Outpatient (BNV) | payer OTHER, SELFPAY | PROVIDERS: PCP Internal Medicine Geriatric Medicine; Visit Provider Radiology Diagnostic Radiology | DX: J18.9 Pneumonia, unspecified organism (principal) | CPT/HCPCS: 71046 ==

== ENCOUNTER 2025-04-08 10:21 | Outpatient (REF) | payer OTHER, SELFPAY ==
--- NOTE | ~2025-04-08 | XR_ITS ---
EXAMINATION: XR CHEST CLINICAL INFORMATION: [facility] CONSOLIDATION COMPARISON: February 15, 2025 TECHNIQUE: 2 views of the chest were obtained. FINDINGS: Again seen is streaky opacity in the left lung base tenting the left hemidiaphragm. The lateral view, changes appear to be along the major fissure. Lungs are clear and well aerated otherwise. Heart size is within normal limits. XR/XR chest 2V IMPRESSION: Suspected scarring or thickening along the left major fissure with tenting of left hemidiaphragm similar to the prior examination suggests chronic scarring or pleural thickening being more likely than pneumonia. Electronically signed by: Tab Rojas MD 04/08/2025 04:36 PM EDT RP
--- OUTSIDE RECORDS SUMMARY | 2025-04-08 13:07 | XMS_ITS | Patient Health Record ---
Author Organization [facility] Address [address] [place] [address] Care Team Providers Care Manager Nursing Name Role Phone Name Uriel AARON Primary Care Provider Melba Chin Unavailable [phone] Allergies No Known Allergies Reason For Referral No Information Medications Medication SIG (Take, Route, Frequency, Duration) Notes Start Date End Date Status Gabapentin Not-Takin g Ventolin HFA 108 (90 Base) MCG/ACT INHALE 2 PUFFS BY MOUTH EVERY 4 TO 6 HOURS NEEDED Inhalation; Duration: 17 Active Vitamin D3 25 MCG (1000 UT) 1 capsule Orally Once a day Not-Taking Extra Depth Orthopedic Shoes (1 Pair) with Customized Heat Molded Multidensity Innersoles (3 Pair) as directed Dx: NIDDM/Polyneuropathy (E11.42), Hammertoe Foot Deformity (M20.41,M20.42), Preulcerative Skin Lesion(s) (L85.1 09/06/2023 Active Vitamin B-12 1000 MCG 1 tablet Orally On ce a day Not-Taking Extra Depth Orthopedic Shoes, (1) Pair With (3) Pair Custom Heat Molded Multidensity Innersoles Dx: NIDDM/PVD(E11.51), Hammertoe Foot Deformity(M20.41,M20 .42), Preulcerative Skin Lesion(s)(L85.1) Wear Daily; Duration: 365 days Active Insulin Not-Taking Advair HFA 115-21 MCG/ACT Inhalation; Duration: 30 Active Baqsimi Two Pack 3 MG/DOSE USE 1 SPRAY (3MG) IN ONE NOSTRIL FOR A PATIENT WITH SEVERE HYPOGLYCEMIA WHO IS NOT RESPONSIVE AND UNABLE SELF-TREAT WITH GLUCOSE. AFTERWARDS TURN ON SIDE. MAY REPEAT IN 15MINUTES IF PATIENT DOES NOT RESPOND. Nasal; Duration: 1 E119,Unavail able Not-Taking amLODIPine Besylate Not-Taking Metoprolol Tartrate 25 MG Oral; Duration: 30 Not-Takin g Esomeprazole Magnesium 40 MG 1 capsule Orally Once a day Active Rosuvastatin Calcium 20 MG 1 tablet Orally Once a day Not-Taking metFORMIN HCl ER 500 MG 1 tablet with evening meal Orally twice a day Active Trulicity Not-Taking Pentoxifylline ER 400 MG 1 tablet with meals Orally Twice a day Active metFORMIN HCl Active glipiZIDE 10 MG 1 tablet 30 minutes before breakfast Orally Once a day Not-Taking Extra Depth Orthopedic Shoes (1 Pair) with Customized Heat Molded Multidensity Innersoles (3 Pair) as directed Dx: NIDDM (E11.9), Hammertoe Foot Deformity (M20.41,M20.42), Preulcerative Skin Lesion(s) (L85.1) Active Zonisamide 100 MG 3 capsules Orally Once a day Active OxyCONTIN Not-Taking Immunizations Vaccine Route Administration Date Status [...] (Standard) Question Answer Notes Tobacco use: Nonsmoker AUDIT-C (Standard) Question Answer Notes Did you have a drink containing alcohol in the p ast year? No Points 0 Interpretation Negative Problems Problem Type SNOMED Code ICD Code Onset Dates Problem Status W/U Status Risk Notes Problem Acquired hammer toe of right foot (0695726336553015 ) Other hammer toe(s) (acquired), right foot (M20.41) Active confirmed Problem Acquired hammer toe of left foot (8248606016466090 ) Other hammer toe(s) (acquired), left foot (M20.42) Active confirmed Problem Type II diabetes mellitus without complication (131805506) Type 2 diabetes mellitus without complication, without long-term current use of insulin (E11.9) Active confirmed Vital Signs Blood pressure diastolic 80 mm Hg 02/23/2025 Height 5ft9in in 02/23/2025 Blood pressure systolic 119 mm Hg 02/23/2025 Weight 100 lbs 02/23/2025 BMI 14.77 kg/m2 02/23/2025 Encounters Encounter Location Date Provider Diagnosis [address] [address] 04/22/2024 Melba Perica Tinea unguium B35.1 ; Ingrown nail L60.0 ; Type 2 diabetes mellitus without complication, without long-term current use of insulin E11.9 ; Pain in toe of left foot M79.675 and Pain in toe of right foot M79.[address] [address] 06/24/2024 Melba Perica Tinea unguium B35.1 ; Ingrown nail L60.0 ; Type 2 diabetes mellitus without complication, without long-term current use of insulin E11.9 ; Pain in toe of left foot M79.675 and Pain in toe of right foot M79.[address] [address] 09/09/2024 Melba Perica Tinea unguium B35.1 ; Ingrown nail L60.0 ; Type 2 diabetes mellitus without complication, without long-term current use of insulin E11.9 ; Pain in toe of left foot M79.675 and Pain in toe of right foot M79.[address] [address] 11/27/2024 Melba Perica Tinea unguium B35.1 ; Other hammer toe(s) (acquired), right foot M20.41 ; Type 2 diabetes mellitus without complication, without long-term current use of insulin E11.9 ; Pain in toe of left foot M79.675 ; Pain in toe of right foot M79.674 and Other hammer toe(s) (acquired), left foot M20.[address] [address] 02/23/2025 Melba Perica Tinea unguium B35.1 ; Ingrown [...] df) 11/27/2024 Tinea unguium (ICD-10 - B35.1) 02/23/2025 Tinea unguium (ICD-10 - B35.1) 02/23/2025 Ingrown nail (ICD-10 - L60.0) 09/09/2024 Ingrown nail (ICD-10 - L60.0) 04/22/2024 Type 2 diabetes mellitus without complication, without long-term current use of insulin (ICD-10 - E11.9) 11/27/2024 Type 2 diabetes mellitus without complication, without long-term current use of insulin (ICD-10 - E11.9) 02/23/2025 Type 2 diabetes mellitus without complication, without long-term current use of insulin (ICD-10 - E11.9) 06/24/2024 Ingrown nail (ICD-10 - L60.0) 04/22/2024 Pain in toe of left foot (ICD-10 - M79.675) 09/09/2024 Type 2 diabetes mellitus without complication, without long-term current use of insulin (ICD-10 - E11.9) 06/24/2024 Type 2 diabetes mellitus without complication, without long-term current use of insulin (ICD-10 - E11.9) 02/23/2025 Pain in toe of left foot (ICD-10 - M79.675) 11/27/2024 Pain in toe of left foot (ICD-10 - M79.675) 11/27/2024 Pain in toe of right foot (ICD-10 - M79.674) 02/23/2025 Pain in toe of right foot (ICD-10 [...] toe(s) (acquired), left foot (ICD-10 - M20.42) 02/23/2025 Other Patient Educated with: DIABETIC FOOT CARE INSTRUCTIONS.p df (DIABETIC FOOT CARE INSTRUCTIONS.p df) Plan Of Treatment Next Appt Details Provider Name:Melba miller, 05/21/2025 09:15:00 AM, [address] [place] [address], [phone], Insurance Providers Payer Name Payer Address Payer Phone Subscriber Number Group Number Insured Name Patient Relationship to Insured Coverage Start Date Coverage End Date [facility] [employer] SCO Claims [address] RAJIV Zun[place] [id number] George Guillaume Self - patient is the insured Medical (General) History Medical History History ICD Code Anxiety asthma Back,Hip,and Knee pain Cataracts Diabetic Epilepsy/Seizures Fatty liver Reflux ( GERD) Chicken pox Joint implants/screws Esophageal cancer Surgical History Surgery Date(Month/Year) Esophageal surgery- feeding tube 3 cataract surgery 2023
== END 2025-04-08 10:22 | disposition home or self-care (01) ==
LOC: HO.HHCX 10:21
PROVIDERS: PCP Internal Medicine Geriatric Medicine; Visit Provider Internal Medicine Geriatric Medicine
DX: J18.1 Lobar pneumonia, unspecified organism (principal)
CPT/HCPCS: 71046

== ENCOUNTER → 2025-04-08 16:27 | Outpatient (BNV) | payer OTHER, SELFPAY | PROVIDERS: PCP Internal Medicine Geriatric Medicine; Visit Provider Radiology Diagnostic Radiology | DX: J92.9 Pleural plaque without asbestos (principal) | CPT/HCPCS: 71046 ==

== ENCOUNTER 2025-04-23 13:51 | Outpatient (REF) | payer OTHER, SELFPAY ==
--- OUTSIDE RECORDS SUMMARY | 2025-04-23 11:45 | XMS_ITS | Encounter Summary ---
Author Organization [employer] Address [address] [place] [address] 7t [place] [address] Care Team Providers Care Balling Head Tender Name Role Phone Name, Uriel AARON Primary Care Provider [phone] Reason for Visit * Reason Comments sick visit Encounter Details Date Type Department Care Team ([facility] Contact Info) Description 04/23/2025 11:45 AM EDT Office Visit [facility] [address] [place], [place] [phone] [facility] [address] [place], [place] [phone] Type 2 diabetes mellitus with other specified complication, without long-term current use of insulin ([facility]/HCC); Type 2 diabetes mellitus without complication, without long-term current use of insulin ([facility]) Social History Tobacco Use Types Packs/Day [...] Description 06/08/2025 9:15 AM EST Office Visit [facility] [address] [place] [address] Name, MD Uriel [address] [place] [address] Scheduled Orders Name Type Priority Associated Diagnoses Orde r Schedule Vitamin B1 Lab Routine Type 2 diabetes mellitus with other specified complication, without long-term current use of insulin ([facility]) Expected: 04/23/2025 (Approximate), Expires: 04/23/2026 Vitamin B2 (Riboflavin) Lab Routine Type 2 diabetes mellitus with other specified complication, without long-term current use of insulin (CMS/HCC) Expected: 04/23/2025 (Approximate), Expires: 04/23/2026 Vitamin B12/Folate, Serum Panel Lab Routine Type 2 diabetes mellitus with other specified complication, without long-term current use of insulin ([facility]) Expected: 04/23/2025, Expires: 04/23/2026 Vitamin B6 Lab Routine Type 2 diabetes mellitus with other specified complication, without long-term current use of insulin ([facility]) Expected: 04/23/2025, Expires: 04/23/2026 Zinc Lab Routine Type 2 diabetes mellitus with other specified complication, without long-term current use of insulin ([facility]) Expected: 04/23/2025 (Approximate), Expires: 04/23/2026 documented [...] complication, without long-term current use of insulin ([facility]) documented in this encounter Results * POCT Glucose (04/23/2025 12:02 PM EDT) Glucose Blood, POC 147 60 - 200 mg/dL Blood Capillary blood specimen / Unknown 04/23/2025 12:02 PM EDT [facility]/EDIT ORDERABLES Final Result documented in this encounter Visit Diagnoses Diagnosis Type 2 diabetes mellitus with other specified complication, without long-term current use of insulin ([facility]) documented in this encounter Additional Health Concerns Assessment Noted Time PHQ-9 Depression Total Score: 11 025 11:36 AM EST documented as of this encounter Care Teams Balling Head Tender Relationship Specialty Start Date End Date Name, MD Uriel [address] [place] [address] PCP - General Family Medicine [facility] documented as of this encounter
--- OUTSIDE RECORDS SUMMARY | 2025-04-23 15:02 | XMS_ITS | Encounter Summary ---
Author Organization [employer] Address [address] [facility] 7t [place] [address] Care Team Providers Care Checker/Stocker Name Role Phone Name, Uriel AARON Primary Care Provider [phone] Juana Samuels PharmD Unavailable [phone] Reason for Visit * Reason Comments Med Refill Encounter Details Date Type Department Care Team ([facility] st Contact Info) Description 08/09/2024 Refill [facility] [address] [place] [address] Name, MD Uriel [address] [place] [address] Social History Tobacco Use Types Packs/Day Years [...] Description 06/08/2025 9:15 AM EST Office Visit [facility] [address] [place] [address] Name, MD Uriel [address] [place] [address] documented as of this encounter Goals Goal [...] documented as of this encounter Care Teams Checker/Stocker Relationship Specialty Start Date End Date Uriel Woodruff MD [address] [place] [address] PCP - General Family Medicine 05/10/20 Juana Samuels, PharmD [address] [place] [address] Pharmacist Internal Medicine 09/02/24 [facility] documented as of this encounter
--- OUTSIDE RECORDS SUMMARY | 2025-04-23 15:02 | XMS_ITS | Patient Health Record ---
Author Organization [facility] Address [address] [place] [address] Care Team Providers Care Junior Systems Engineer Name Role Phone Name Uriel AARON Primary Care Provider Melba Chin Unavailable [phone] Allergies No Known Allergies Reason For Referral [...] Problem Acquired hammer toe of right foot ([id number] ) Other hammer toe(s) (acquired), right foot (M20.41) Active confirmed Problem Acquired hammer toe of left foot (2024721173649175 ) Other hammer toe(s) (acquired), left foot (M20.42) Active confirmed Problem Type II diabetes mellitus without complication (891674495) Type 2 diabetes mellitus without complication, without long-term current use of insulin (E11.9) Active confirmed Vital Signs Blood pressure diastolic 80 mm Hg 02/23/2025 Height 5ft9in in 02/23/2025 Blood pressure systolic 119 mm Hg 02/23/2025 Weight 100 lbs 02/23/2025 BMI 14.77 kg/m2 02/23/2025 Encounters Encounter Location Date Provider Diagnosis [address] [address] 06/24/2024 Melba Perica Tinea unguium B35.1 ; Ingrown nail L60.0 ; Type 2 diabetes mellitus without complication, without long-term current use of insulin E11.9 ; Pain in toe of left foot M79.675 and Pain in toe of right foot M79.[address] [address] 09/09/2024 Melba Perica Tinea unguium B35.1 ; Ingrown nail L60.0 ; Type 2 diabetes mellitus without complication, without long-term current use of insulin E11.9 ; Pain in toe of left foot M79.675 and Pain in toe of right foot M79.[address] [address] 11/27/2024 Melba Perica Tinea unguium B35.1 ; Other hammer toe(s) (acquired), right foot M20.41 ; Type 2 diabetes mellitus without complication, without long-term current use of insulin E11.9 ; Pain in toe of left foot M79.675 ; Pain in toe of right foot M79.674 and Other hammer toe(s) (acquired), left foot M20.[address] [address] 02/23/2025 Melba Perica Tinea unguium B35.1 ; Ingrown nail L60.0 ; Type 2 diabetes mellitus without complication, without long-term current use of insulin E11.9 ; Pain in toe of left foot M79.675 and Pain in toe of right foot M79.674 Assessments Encounter Date Diagnosis (ICD Code) Assessment Notes Treatment Notes Treatment Clinical Notes Section Notes 06/24/2024 Tinea unguium (ICD-10 - B35.1) 09/09/2024 Tinea unguium (ICD-10 - B35.1) 11/27/2024 Other hammer toe(s) (acquired), right foot (ICD-10 - M20.41) Patient Educated with: DIABETIC FOOT CARE INSTRUCTIONS.p df (DIABETIC FOOT CARE INSTRUCTIONS.p df) 11/27/2024 Tinea unguium (ICD-10 - B35.1) 02/23/2025 Tinea unguium (ICD-10 - B35.1) 02/23/2025 Ingrown nail (ICD-10 - L60.0) 09/09/2024 Ingrown nail (ICD-10 - L60.0) 11/27/2024 Type 2 diabetes mellitus without complication, without long-term current use of insulin (ICD-10 - E11.9) 02/23/2025 Type 2 diabetes mellitus without complication, without long-term current use of insulin (ICD-10 - E11.9) 06/24/2024 Ingrown nail (ICD-10 - L60.0) 09/09/2024 Type [...] - M79.675) 06/24/2024 Pain in toe of left foot [...] Details Provider Name:Melba miller, 05/21/2025 09:15:00 AM, [address] [place] [address], [id number], Insurance Providers Payer Name Payer Address Payer Phone Subscriber Number Group Number Insured Name Patient Relationship to Insured Coverage Start Date Coverage End Date [facility] [employer] Claims [address] [id number] [id number] George Gulilaume Self - patient is the insured Medical (General) History Medical History History ICD Code Anxiety asthma Back,Hip,and Knee pain Cataracts Diabetic Epilepsy/Seizures Fatty liver Reflux ( GERD) Chicken pox Joint implants/screws Esophageal cancer Surgical History Surgery Date(Month/Year) Esophageal surgery- feeding tube 3 cataract surgery 2023
--- OUTSIDE RECORDS SUMMARY | 2025-04-23 15:02 | XMS_ITS | Encounter Summary ---
Author Organization [email or web address] Address [address] [facility] 7t [place] [address] Care Team Providers Care Formulator Name Role Phone Name, Uriel AARON Primary Care Provider Juana Samuels PharmD Unavailable [phone] Reason for Visit * Reason Onset Date Comments VNA 10/09/2023 Durable Medical Equipment 10/09/2023 Diabet ic shoes Encounter Details Date Type Department Care Team (Late st Contact Info) Description 10/09/2023 Telephone [facility] [address] [place] [address] Name, MD Uriel [address] [place] [address] VNA ; Durable Medical Equipment (Diabetic shoes) [...] - 10/09/2023 3:10 PM EDT Tc from [facility] with [facility] calling to let pcp know pt has been discharged from the agency. If any questions please contact Lianet at [phone] documented in this encounter Plan of Treatment Upcoming Encounters Date Type Department Care Team (Late st Contact Info) Description 06/08/2025 9:15 AM EST Office Visit [facility] [address] [place] [address] Name, MD Uriel [address] [place] [address] documented as of this encounter Goals Goal Patient Goal Type Associated Problems Recent Progress Patient-Stated? Author Hemoglobin A1c < 8 Result Component 7.2( 10:14 AM EDT) No Puia, Juana, PharmD Record your blood sugar as directed Result Component No Puia, Juana, PharmD documented as of this encounter Visit Diagnoses Not on filedocumented in this encounter Additional Health Concerns Assessment Noted Time PHQ-9 Depression Total Score: 0 08/30/19 9:27 AM EST documented as of this encounter Care Teams Formulator Relationship Specialty Start Date End Date NameUriel MD [address] [facility] [place] [address] PCP - General Family Medicine 05/10/20 Juana Samuels PharmD [address] [facility] [place] [address] Pharmacist Internal Medicine 09/02/24 01/07/25 [facility] 03/23/25 documented as of this encounter
--- OUTSIDE RECORDS SUMMARY | 2025-04-23 15:02 | XMS_ITS | Clinical Summary ---
Author Organization [employer] Address [address] [facility] [address] [place] [address] Care Team Providers Care Fermentation Engineer Name Role Phone Name, Uriel AARON Primary Care Provider Allergies No known active allergies Medications glucose 4 g chewable tabletIndication s:Type 2 diabetes mellitus with other specified complication, without long-term current use of insulin ([facility]) Chew 4 tablets (16 g) if needed for low blood sugar. 20 tablet 5 023 Active pentoxifylline (Trental) 400 MG ER tablet Take 1 tablet by mouth in the morning and 1 tablet in the evening. 024 Active zonisamide (Zonegran) 100 MG capsule Take 3 capsules (300 mg) by mouth in the morning. 024 Active Spacer/Aero-Hold ing Chambers (OptiChamber Sheri) misc 1 each every 4 (four) hours if needed (asthma). 1 each 024 Active Blood Pressure kit 1 each 2 times daily. 1 kit 024 Active TRUEplus Lancets 33G misc USE DIRECTED TO TEST BLOOD SUGAR TWICE DAILY 100 each 024 Active Blood Glucose Monitoring Suppl (FreeStyle Lite) device Inject 1 each under the skin 2 times daily. Use to test blood sugar twice daily as directed 1 each 025 Active esomeprazole (NexIUM) [address] capsule TAKE 1 CAPSULE BY MOUTH EVERY MORNING BEFORE BREAKFAST. DO NOT BREAK, CRUSH, DISSOLVE OR CHEW 30 capsule 025 Active Alcohol Swabs (Alcohol Pads) 70 % pads Use to clean skin up to three times daily prior to insulin use & BG testing 100 each 025 Active fluticasone (Flonase) 50 MCG/ACT nasal sprayIndications :Cough in adult patient Administer 1 spray into each nostril 2 times daily. Shake gently. Before first use, prime pump. After use, clean tip and replace cap. 16 g 1 025 2025 Active albuterol 108 (90 Base) MCG/ACT inhalerIndicatio ns:Mild intermittent asthma, uncomplicated INHALE 2 PUFFS BY MOUTH EVERY 4 TO 6 HOURS NEEDED 8.5 g 2 025 Active fluticasone-salm eterol (Advair HFA) 115-21 MCG/ACT inhalerIndicatio ns:Mild intermittent asthma, uncomplicated INHALE 2 PUFFS BY MOUTH TWICE DAILY IN THE MORNING AND IN THE EVENING. RINSE MOUTH AFTER EACH USE. 12 g 6 025 Active glucagon (Baqsimi Two Pack) 3 MG/DOSE nasal powderIndication s:Type 2 diabetes mellitus without complication, without long-term current use of insulin (CMS/[facility]) Administer 3 mg via 1 device into the nostril for hypoglycemia with loss of consciousness. If no response after 15 minutes administer an additional dose via 2nd device into other nostril. 2 each 025 Active FREESTYLE LITE test stripIndications :Type 2 diabetes mellitus without complication, without long-term current use of insulin (CMS/HCC) USE DIRECTED TO TEST BLOOD SUGAR TWICE DAILY 100 strip 025 Active glipiZIDE XL (Glucotrol XL) 2.5 MG 24 hr tablet Take 1 tablet (2.5 mg) by mouth Once per day. Do not crush, chew, or split. 30 tablet 025 2025 Active metFORMIN XR (Glucophage-XR) 500 MG 24 hr tabletIndication s:Type 2 diabetes mellitus without complication, without long-term current use of insulin (CMS/HCC) Take 2 tablets (1,000 mg) by mouth with breakfast and with evening meal. Do not crush, chew, or split. 60 tablet 025 Active metFORMIN XR (Glucophage-XR) 500 MG 24 hr tabletIndication s:Type 2 diabetes mellitus without complication, without long-term current use of insulin (CMS/HCC) Take 1 tablet (500 mg) by mouth with breakfast and with evening meal. Do not crush, chew, or split. 60 tablet 5 025 2024 Discontinued(R eorder (will not trigger notification to Pharmacy)) Active Problems Problem Noted Date Diagnosed Date Underweight 12/14/2024 NEAL (obstructive sleep apnea) 06/17/2024 Rectal abnormality 06/12/2023 06/12/2023 Acquired hammer toe of right foot 03/06/2023 Dupuytren's disease of palm of left hand 023 Stiffness of left hand joint 03/06/2023 Type 2 diabetes mellitus wit hout complication, without long-term current use of insulin 03/06/2023 Esophageal cancer 02/13/2023 Overview (12/15/2024): Gastroesophageal junction mass, biopsy: Superficial fragments of adenocarcinoma, moderately differentiated, involving gastroesophageal mucosa (see comment). EGD done at [facility] 02/07/2023 Esophagectomy at [facility] June 2023 Neutropenia 08/23/2022 Non-alcoholic cirrhosis 08/23/2022 Nonalcoholic steatohepatitis ([facility]) 08/23/2022 History of intracranial hemorrhage 08/23/2022 Overview (08/23/2022): subaracnoid hemorrhage from ruptured jeff aneurysm in the 1989 Mild cognitive disorder 01/13/2021 Seizure 10/09/2018 Hyperlipidemia 05/09/2012 Chronic nonalcoholic liver disease 01/23/2012 Diabetes mellitus 01/23/2012 Impotence of organic origin 01/23/2012 Intermittent asthma 01/23/2012 Encounters Date Type Department Care Team Description 04/23/2025 11:45 AM EDT Office Visit [facility] [address] [place] [address] AssumptionCathi prasad, MALCOLM Type 2 diabetes mellitus with other specified complication, without long-term current use of insulin (CMS/HCC); Type 2 diabetes mellitus without complication, without long-term current use of insulin (CMS/HCC) 04/23/2025 Travel 04/16/2025 Telephone [facility] [address] [place] [address] Name, MD Uriel Nurse Triage 04/08/2025 10:00 AM EDT Office Visit [address] [address] Uriel Woodruff MD Type 2 diabetes mellitus with other specified complication, without long-term current use of insulin ([facility]) (Primary Dx); Malnutrition, unspecified type (CMS/[facility]); On total parenteral nutrition (TPN); History of esophageal cancer; Left lower lobe consolidation (CMS/HCC) 04/08/2025 Travel 04/05/2025 Telephone [facility] [address] [place] [address] Uriel Woodruff MD Chart Prep 03/23/[address] [address] Uriel Woodruff MD HDF 03/22/[address] [address] Uriel Woodruff MD home orders 03/16/[address] [address] Demetrio Lizarraga [place] OCT RECALLS 03/15/[address] [address] Uriel Woodruff MD Type 2 diabetes mellitus without complication, without long-term current use of insulin ([facility]) 02/15/2025 11:15 AM EDT Office Visit [address] [address] Uriel Woodruff MD Weight loss (Primary Dx); Low blood pressure reading; Dyspnea on exertion; History of esophageal cancer; Type 2 diabetes mellitus without complication, without long-term current use of insulin ([facility]/HCC) 02/15/2025 Results Follow-Up [address] [address] Uriel Woodruff MD XR Chest 2 Views 02/15/2025 Travel 02/12/[address] [address] Demetrio Lizarraga MA chart prep 02/08/2025 Patient Outreach [facility] [address] [place] [address] Name, MD Uriel Pre-visit Planning (SDOH was already completed) 01/28/2025 Telephone [facility] [address] [place], [place] [phone] Demetrio Lizarraga [place] march recalls from Last 3 Months Immunizations Immunization Administration Dates Next Due Hep A, Adult 09/16/2024,07/01/2023 Hep B, adult 08/16/2009, 7,08/19/2006,07/19 Moderna Covid-19 Vaccine 6+ Bivalent 08/23/2022 Pfizer Covid-19 Vaccine 12+ 09/02/2024 Pneumococcal Conjugate PCV 20 04/30/2022 Pneumococcal Polysaccharide PPSV23 05/31/2008 RSV Bivalent 07/01/2023 TD (adult), 2 Lf tetanus tox oid, preservative free, adsorbed 05/08/2007 Tdap 12/15/2024,10/01/2014 Zoster, Recombinant 01/23/2022,11/21/2021 Social History Tobacco Use Types Packs/Day Years Used Date Smoking Tobacco: Former Cigarettes Passive Smoke Exposure: Past Smokeless Tobacco: Never Tobacco Cessation:Counseling Given: Not [...] Mass Index 18.16 04/23/2025 12:01 PM EDT Plan of Treatment Upcoming Encounters Date Type Department Care Team (Late st Contact Info) Description 06/08/2025 9:15 AM EST Office Visit [facility] [address] [place] [address] Name, MD Uriel [address] [place] [address] Health Maintenance Due Date Last Done Comments CT Colonography 1955 Dental X-Ray: Bitewings 1955 FIT DNA/Cologuard 1955 FIT 1955 FOBT 1955 Sigmoidoscopy 1955 Diabetes: Foot Exam 1966 Eye Exam 12/13/2023 12/12/2022, 11/26, 12/12/2022, Additional history exists Colonoscopy 02/19/2024 02/18/2019, 02/18/2019 Colorectal Cancer Screening 02/19/2024 Depression Monitoring 03/16/2025 09/16/2024, 025 COVID-19 Vaccine ( season) 2025 09/02/2024, 08/23/2022, 07/17/2021, Additional history exists Influenza Vaccine (#1) 2025 Dental Prophylaxis 05/31/2025 11/27/2024 Dental Oral Exam 06/19/2025 12/16/2024, 06/02/2024 Diabetes: Hemoglobin A1C 07/08/2025 025, 02/15/2025, 09/16/2024, Additional history exists Diabetes: Urine Protein Screening 09/07/2025 09/07/2024, 09/03/2022, 11/01/2021, Additional history exists Lipid Panel 09/07/2025 09/07/2024, 02/0 12/2022, 05/19/2020 SDOH Screening 09/16/2025 09/16/2024 Alcohol/Substance Use Screening 04/08/2026 04/08/2025 Tobacco Screening 04/08/2026 04/08/2025 Dental X-Ray: Full Mouth 05/01/2026 04/30/2023 DTaP/Tdap/Td Vaccines (3 - Td or Tdap) 12/15/2034 12/15/2024, 10/01/2014, 05/08/2007 Hepatitis B Vaccines Completed 08/16/2009, 02/04/2007, 08/19/2006, Additional history exists Hepatitis C Screening Completed 04/17/2021, 020 Zoster Vaccines Completed 01/23/2022, 11/21/2021 Pneumococcal Vaccine: 50+ Years Completed 04/30/2022, 05/31/2008 RSV Patients and Patients Aged 60 years or older Completed 07/01/2023 Hepatitis A Vaccines Completed 09/16/2024, 07/01/20 23 HIB Vaccines Aged Out No longer eligi ble based on patient's age to complete this topic HPV Vaccines Aged Out No longer eligi ble based on patient's age to complete this topic IPV Vaccines Aged Out No longer eligi ble based on patient's age to complete this topic Meningococcal B Vaccine Aged Out No l onger eligible based on patient's age to complete [...] 7.2( 10:14 AM EDT) No Juana Samuels, Misty Record your blood sugar as directed Result Component No Juana Samuels PharmD Procedures Procedure Name Priority Date/Time Associated Diagnosis Comments POCT GLUCOSE Routine 04/23/2025 12:02 PM EDT Type 2 diabetes mellitus with other specified complication, without long-term current use of insulin (CMS/[facility]) XR CHEST 2 VIEWS Routine 04/08/2025 4:27 PM EDT Left lower lobe consolidation (CMS/HCC) POCT GLYCATED HEMOGLOBIN, TOTAL Routine 04/08/2025 10:14 AM EDT Type 2 diabetes mellitus with other specified complication, without long-term current use of insulin (CMS/HCC) POCT GLUCOSE Routine 04/08/2025 10:14 AM EDT Type 2 diabetes mellitus with other specified complication, without long-term current use of insulin (CMS/HCC) COMPREHENSIVE METABOLIC PANEL Routine 02/15/2025 12:03 PM EDT Weight loss CBC WITH AUTO DIFFERENTIAL Routine 02/15/2025 12:03 PM EDT Weight loss XR CHEST 2 VIEWS Routine 02/15/2025 11:5 9 AM EDT Weight loss History of esophageal cancer Dyspnea on exertion POCT GLYCATED HEMOGLOBIN, TOTAL Routine 02/15/2025 11:28 AM EDT Type 2 diabetes mellitus without complication, without long-term current use of insulin (CMS/HCC) POCT GLUCOSE Routine 02/15/2025 11:27 AM EDT Type 2 diabetes mellitus without complication, without long-term current use of insulin ([facility]) PERIODIC ORAL EVALUATION - ESTABLISHED PATIENT Routine 12/16/2024 11:00 AM EDT Partial edentulism, class III Edentulism PROPHYLAXIS - ADULT Routine 11/27/2024 1 0:00 AM EDT ALBUMIN, RANDOM URINE W/CREATININE Routine 09/07/2024 8:10 AM EST LIPID PANEL, STANDARD Routine 09/07/2024 8:10 AM EST PANORAMIC RADIOGRAPHIC IMAGE Routine 04/30/2023 11:30 AM EDT Dental abscess ZZZ HISTORICAL HEPATITIS A,B,C PROFILE Routine 04/17/2021 8:40 AM EDT HM COLONOSCOPY Routine 02/18/2019 from Last 3 Months or Most Recently Relevant to Health Maintenance Results * POCT Glucose (04/23/2025 12:02 PM EDT) Only the most recent of3 resultswithin the time period is included. Glucose Blood, POC 147 60 - 200 mg/dL Blood Capillary blood specimen / Unknown 04/23/2025 12:02 PM EDT [facility] DENTAL INSURANCE COORDINATOR POINT OF CARE TEST ENTER/EDIT ORDERABLES Final Result * XR Chest 2 Views (04/08/2025 4:27 PM EDT) Only the most recent of2 resultswithin the time period is included. Anatomical Region Laterality Modality Chest Radiographic Cari ging 04/08/2025 4:27 PM EDT Narrative 04/08/2025 4:40 PM EDT [address] [address] XRay Report Signed Patient: George Johnson MR#: [id number] : 1955 Acct:[id number] Age/Sex: 69 / M ADM Date: 04/08/25 Loc: [facility] Attending Dr: Uriel Woodruff MD Ordering Physician: Uriel Woodruff MD Date of Service: 04/08/25 Procedure(s): XR chest 2V Accession Number(s): [id number] cc: Uriel Woodruff MD Reason for Exam: LLL CONSOLIDATION EXAMINATION: XR CHEST CLINICAL INFORMATION: [facility] CONSOLIDATION COMPARISON: February 15, 2025 TECHNIQUE: 2 views of the chest were obtained. FINDINGS: Again seen is streaky opacity in the left lung base tenting the left hemidiaphragm. The lateral view, changes appear to be along the major fissure. Lungs are clear and well aerated otherwise. Heart size is within normal limits. XR/XR chest 2V IMPRESSION: Suspected scarring or thickening along the left major fissure with tenting of left hemidiaphragm similar to the prior examination suggests chronic scarring or pleural thickening being more likely than pneumonia. Electronically signed by: Tab Rojas MD 04/08/2025 04:36 PM EDT RP Dictated By: Tab Rojas MD Signed By: <Electronically signed by Tab Rojas MD in OV> 04/08/25 1636 DD/ 1627 TD/TT: 04/08/25 1628 Clinical Auditor: Procedure Note Donotuseinterpreter, Image - 04/08/[address] [address] XRay Report Signed Patient: George Johnson AMR#: [id number] : 1955cct:[id number] Age/Sex: 69 / MADM Date: 04/08/25 Loc: [facility] Attending Dr: Uriel Woodruff MD Ordering Physician: Uriel Woodruff MD Date of Service: 04/08/25 Procedure(s): XR chest 2V Accession Number(s): [id number] cc: Uriel Woodruff MD Reason for Exam: LLL CONSOLIDATION EXAMINATION: XR CHEST CLINICAL INFORMATION: [facility] CONSOLIDATION COMPARISON: February 15, 2025 TECHNIQUE: 2 views of the chest were obtained. FINDINGS: Again seen is streaky opacity in the left lung base tenting the left hemidiaphragm. The lateral view, changes appear to be along the major fissure. Lungs are clear and well aerated otherwise. Heart size is within normal limits. XR/XR chest 2V IMPRESSION: Suspected scarring or thickening along the left major fissure with tenting of left hemidiaphragm similar to the prior examination suggests chronic scarring or pleural thickening being more likely than pneumonia. Electronically signed by: Tab Rojas MD 04/08/2025 04:36 PM EDT RP Dictated By: Tab Rojas MD Signed By: <Electronically signed by Tab Rojas MD in OV> 04/08/25 1636 DD/ 1627 TD/TT: 04/08/25 1628 Clinical Auditor: us Uriel Woodruff MD IMG XR PROCEDURES Final Result * (ABNORMAL) POCT Hgb A1c (04/08/2025 10:14 AM EDT) Only the most recent of2 resultswithin the time period is included. Pathologist [facility] Hemoglobin A1C 7.2(A) 4.0 - 5.7 % QC Media Lot # [id number] Lot# Expiration Date 41,[id number] Blood 04/08/2025 10:1 4 AM EDT us Uriel Woodruff MD POINT OF CARE TEST ENTER/EDIT OR DERABLES Final Result * (ABNORMAL) CBC auto differential (02/15/2025 12:03 PM EDT) White Blood Count 3.8(L) 4.8 - 10.8 X10*3/uL [facility] Red Blood Count 4.03(L) 4.60 - 5.80 X10*6/uL [facility] Hemoglobin 11.2(L) 14.0 - 18.0 g/dl [facility] Hematocrit 35.1(L) 42.0 - 52.0 % [facility] Mean Corpuscular Volume 87.1 80.0 - 98.0 fL [facility] Mean Corpuscular Hemoglobin 27.8 27.0 - 33.0 pg [facility] Mean Corpuscular HGB Conc 31.9 31.0 - 36.0 g/dl [facility] Red Cell Distribution Width 16.5(H) 11.0 - 16.0 % [facility] Platelet Count 207 160 - 400 X10*3/uL [facility] Mean Platelet Volume 9.5 9.4 - 12.4 fL [facility] Neutrophils Percent Auto 78.8(H) 45 - 73 % [facility] Imm Gran Pct Auto 0.3 0.0 - 0.4 % [facility] Lymphocytes Percent Auto 13.0(L) 20 - 40 % [facility] Monocytes Percent Auto 7.4 2 - 11 % [facility] Eosinophils Percent Auto 0.5 0 - 4 % [facility] Basophils Percent Auto 0.0 0 - 2 % [facility] NRBC Pct Auto 0.0 0.0 - 0.2 /100WBC [facility] Neutrophils Absolute Auto 3.0 2.0 - 8.3 x10*3/uL [facility] Imm Gran Abs Auto 0.01 0.00 - 0.03 X10*3/uL [facility] Lymphocytes Absolute Auto 0.5(L) 1.2 - 4.9 X10*3/uL [facility] Monocytes Absolute Auto 0.3 0.1 - 1.2 X10*3/uL [facility] Eosinophils Absolute Auto 0.0 0.0 - 0.4 X10*3/uL [facility] Basophils Absolute Auto 0.0 0.0 - 0.2 X10*3/uL [facility] NRBC Abs Auto 0.000 0.0 - 0.012 X10*3/uL [facility] Blood Venous blood specimen / Unknown 02/15/2025 12:03 PM EDT 02/15/2025 12:57 PM EDT us Uriel Woodruff MD LAB BLOOD ORDERABLES Final Resul t Performing Organization Address City/[facility]/ZIP Co de Phone Number [facility] [address] [place] [phone] * (ABNORMAL) Comprehensive Metabolic Panel (02/15/2025 12:03 PM EDT) Sodium 140 135 - 145 mmol/L [facility] Potassium 3.7 3.3 - 5.1 mmol/L [facility] Chloride 109(H) 96 - 108 mmol/L [facility] Carbon Dioxide 22 22 - 29 mmol/L [facility] Anion Gap 13 12 - 20 [facility] Urea Nitrogen (BUN) 16 9 - 16 mg/dL [facility] Creatinine, Serum 1.05 0.5 - 1.4 mg/dL [facility] Estimated Glomerular Filt Rate >60 [facility] Comment:Chronic Kidney Disea se: Estimated GFR < 60 mL/min/1.97v5[place]owe Kidney Disease: Estimated GFR < 15 mL/min/1.73m2 Glucose 118(H) 60 - 115 mg/dL [facility] Calcium 8.7 8.4 - 10.2 mg/dL [facility] Bilirubin, Total 0.2 0.0 - 1.0 mg/dL [facility] Aspartate Amino Transferase 23 5 - 37 U/L [facility] Alanine Aminotransferase 14 0 - 40 U/L [facility] Total Protein 6.8 6.5 - 8.0 g/dL [facility] Albumin Level 3.6 3.5 - 5.0 g/dL [facility] Alkaline Phosphatase 114 39 - 117 U/L [facility] Blood Venous blood specimen / Unknown 02/15/2025 12:03 PM EDT 02/15/2025 12:57 PM EDT us Uriel Woodruff MD LAB BLOOD ORDERABLES Final Resul t Performing Organization Address [facility]/ZIP Co de Phone Number [facility] [address] [place] [address] [phone] * Albumin, Random Urine W/Creatinine (09/07/2024 8:10 AM EST) Creatinine, Urine 194.22 mg/dL [facility] Microalbumin Urine 22.0 mg/L [facility] Microalbum Creatinine Ratio Ur 11.3 <30 ug/mg cr [facility] Comment:Albumin/Creatinine R atio Reference Ranges: Normal: < 30 ug/mg creatinine Microalbuminuria: 30 - 300 ug/mg creatinineClinical Albuminuria: > 300 ug/mg creatinine 09/07/2024 8:10 AM EST 09/07/2024 11:02 AM EST us Uriel Woodruff MD LAB URINE ORDERABLES Final Resul t [facility] [address] [place] [address] [phone] * (ABNORMAL) Lipid Panel, Standard (09/07/2024 8:10 AM EST) Triglycerides 126 <150 mg/dL [facility] Comment:Desirable Triglyceri de: less than 150 mg/dLBorderline High Triglyceride 150-199 mg/dLHigh Triglyceride: 200-499 mg/dLVery High Triglyceride: greater than or equal to 5OO mg/dL Cholesterol 190 <200 mg/dL [facility] Comment:Desirable Cholestero l: less than 200 mg/dLBorderline High Cholesterol: 200-239 mg/dLHigh Cholesterol: greater than 239 mg/dL LDL Cholesterol Calculated 114(H) <100 mg/dL [facility] Comment:Desirable LDL: less than 100 mg/dLNear Optimal/Above Optimal LDL: 110- 129 mg/dLBorderline High LDL: 130-159 mg/dLHigh LDL: 160-189 mg/dLVery High LDL: greater than or equal to 190 mg/dL HDL Cholesterol 51 >40 mg/dL [facility] Comment:Desirable HDL: great er than 40 mg/dL Note: This HDL assay may give artificially low results in patients with liver disease. 09/07/2024 8:10 AM EST 09/07/2024 11:01 AM EST us Uriel Woodruff MD LAB BLOOD ORDERABLES Final Resul t Performing Organization Address City/[facility]/ZIP Co de Phone Number [facility] [address] [place] [address] [phone] * Hepatitis A,B,C Profile (04/17/2021 8:40 [...] ORDERABLE LABS Final Result Performing Organization Address City/[facility] Co de Phone Number [facility] [address] * (ABNORMAL) Colonoscopy (02/18/2019) Colonoscopy Abnormal(A ) Normal us Uriel Woodruff MD HEALTH MAINTENANCE Final Result from Last 3 Months or Most Recently Relevant to Health Maintenance Insurance [facility] OPT[employer] (O D-SNP) RAJIV PETER [id number] DENTAL - [facility] Care Teams Fermentation Engineer Relationship Specialty Start Date End Date Name, MD Uriel [address] [place] [address] PCP - General Family Medicine 05/10/20 [facility] 03/23/25
--- OUTSIDE RECORDS SUMMARY | 2025-04-23 15:02 | XMS_ITS | Encounter Summary ---
Author Organization [employer] Address [address] [facility] [address] [place] [address] Care Team Providers Care Retail Advertising Sales Manager Name Role Phone Name, Uriel AARON Primary Care Provider [phone] PuiaJuana PharmD Unavailable [phone] Puia, Juana PharmD Unavailable [phone] Reason for Visit * Reason Onset Date Comments Clearance 06/11/2023 Encounter Details Date Type Department Care Team (Late st Contact Info) Description 06/11/2023 Telephone [facility] [address] [place] [address] Name, MD Uriel [address] [place] [address] Clearance Social History Tobacco Use Types Packs/Day [...] Description 06/08/2025 9:15 AM EST Office Visit [facility] [address] [place] [address] Name, MD Uriel [address] [place] [address] documented as of this encounter Goals Goal Patient Goal Type Associated Problems Recent Progress Patient-Stated? Author Hemoglobin A1c < 8 Result Component 7.2( 10:14 AM EDT) No Juana Samuels, PharmD Record your blood sugar as directed Result Component No Juana Samuels PharmD documented as of this encounter Visit Diagnoses Not on filedocumented in this encounter Care Teams Retail Advertising Sales Manager Relationship Specialty Start Date End Date Name, MD Uriel [address] [place] [phone] PCP - General Family Medicine 05/10/20 Juana Samuels PharmD [address] [place] [phone] Pharmacist Internal Medicine 05/03/22 09/01/23 Juana Samuels PharmD [address] [place] [phone] Pharmacist Internal Medicine 09/02[facility]24 [facility] documented as of this encounter
--- OUTSIDE RECORDS SUMMARY | 2025-04-23 15:02 | XMS_ITS | Encounter Summary ---
Author Organization [employer] Address 75 [facility] 7t [place] [address] Care Team Providers Care Contract Coordinator Name Role Phone Name, Uriel AARON Primary Care Provider [phone] PuiaJuana PharmD Unavailable [phone] Puia, Juana PharmD Unavailable [phone] Reason for Visit * Reason Onset Date Comments Durable Medical Equipment 07/10/2023 Encounter Details Date Type Department Care Team (Late st Contact Info) Description 07/10/2023 Telephone [facility] [address] [place] [address] Name, MD Uriel [address] [place] [address] Durable Medical Equipment Social History Tobacco Use [...] Miscellaneous Notes * Telephone Encounter - Shaangela Moris Rose - 07/10/2023 12:33 PM EST TC from Francia with [facility] requesting a Hospital bed and Lift Recliner due to pt having an upcoming surgery on 07/24/2023 and will not be able to move or have much mobility. Please fax Script over to [facility] @ [phone] Please if any questions please Contact Francia @ [phone] [phone] documented in this encounter Plan of Treatment Upcoming Encounters Date Type Department Care Team (Late st Contact Info) Description 06/08/2025 9:15 AM EST Office Visit [facility] [address] [place] [address] Name, MD Uriel [address] [place] [address] documented as of this encounter Goals Goal Patient Goal Type Associated Problems Recent Progress Patient-Stated? Author Hemoglobin A1c < 8 Result Component 7.2( 10:14 AM EDT) No Puia, Juana, PharmD Record your blood sugar as directed Result Component No Puia, Juana, PharmD documented as of this encounter Visit Diagnoses Not on filedocumented in this encounter Care Teams Contract Coordinator Relationship Specialty Start Date End Date Name, MD Uriel [address] [place] [address] PCP - General Family Medicine 05/10/20 Juana Samuels, Misty [address] [place] [address] Pharmacist Internal Medicine 05/03/22 09/01/23 Juana Samuels PharmD [address] [place] [address] Pharmacist Internal Medicine 09/02/24 [facility] documented as of this encounter
--- OUTSIDE RECORDS SUMMARY | 2025-04-23 15:02 | XMS_ITS | Encounter Summary ---
Author Organization [employer] Address 75 [facility] 7t [place] [address] Care Team Providers Care Character Actress Name Role Phone Name, Uriel AARON Primary Care Provider [phone] Puia, Juana PharmD Unavailable [phone] Puia, Juana PharmD Unavailable [phone] Reason for Visit * Reason Comments Med Refill Encounter Details Date Type Department Care Team (Late st Contact Info) Description 08/15/2023 Refill [facility] [address] [place], [place] [phone] Name, MD Uriel [address] [place] [address] Allergic rhinitis, unspecified seasonality, unspecified trigger Social [...] Description 06/08/2025 9:15 AM EST Office Visit [facility] [address] [place] [address] Name, MD Uriel [address] [place] [address] documented as of this encounter Goals Goal Patient Goal Type Associated Problems Recent Progress Patient-Stated? Author Hemoglobin A1c < 8 Result Component 7.2( 10:14 AM EDT) No Puia, Juana, PharmD Record your blood sugar as directed Result Component No Puia, Juana, PharmD documented as of this encounter Visit Diagnoses Diagnosis Allergic rhinitis, unspecified seasonality, unspecified trigger documented in this encounter Care Teams Character Actress Relationship Specialty Start Date End Date NameUriel MD [address] [place] [address] PCP - General Family Medicine 05/10/20 Puia, Juana, PharmD [address] [place] [address] Pharmacist Internal Medicine 05/03/22 09/01/23 Puia, Juana, PharmD [address] [place] [address] Pharmacist Internal Medicine 09/02/24 01/07/25 [facility] 03/23/25 documented as of this encounter
--- OUTSIDE RECORDS SUMMARY | 2025-04-23 15:02 | XMS_ITS | Encounter Summary ---
Author Organization [employer] Address 75 [facility] 7t [place] [address] Care Team Providers Care Boat Canvas Maker Installer Name Role Phone Name, Uriel AARON Primary Care Provider [phone] Juana Samuels PharmD Unavailable [phone] Reason for Visit * Reason Onset Date Comments FYI 05/26/2024 Encounter Details Date Type Department Care Team ([facility] st Contact Info) Description 05/26/2024 Telephone [facility] [address] [place] [address] Name, MD Uriel [address] [place] [address] FYI Social History Tobacco Use Types Packs/Day [...] For any questions please call Loy at [phone] *Advised caller message sent to provider. documented in this encounter Plan of Treatment Upcoming Encounters Date Type Department Care Team (Late st Contact Info) Description 06/08/2025 9:15 AM EST Office Visit [facility] [address] [place] [address] NameUriel MD [address] [place] [address] documented as of this encounter Goals Goal [...] documented as of this encounter Care Teams Boat Canvas Maker Installer Relationship Specialty Start Date End Date NameUriel MD 230 [place] [address] PCP - General Family Medicine 05/10/20 Juana Samuels PharmD [address] [facility] [place] [address] Pharmacist Internal Medicine 09/02/24 01/07/25 [facility] documented as of this encounter
--- OUTSIDE RECORDS SUMMARY | 2025-04-23 15:02 | XMS_ITS | Encounter Summary ---
Author Organization [employer] Address 75 [facility] 7t [place] [address] Care Team Providers Care Digital Marketing Analyst Name Role Phone Name, Uriel AARON Primary Care Provider [phone] Encounter Details Date Type Department Care Team (Latest Contact Info) Description 04/23/2025 Travel Social History Tobacco Use Types Packs/Day Years [...] Description 06/08/2025 9:15 AM EST Office Visit [facility] 230 [place] [address] Name, MD Uriel 230 [place] [address] documented as of this encounter Goals Goal [...] documented as of this encounter Care Teams Digital Marketing Analyst Relationship Specialty Start Date End Date Name, MD Uriel [address] [place] [address] PCP - General Family Medicine 05/10/20 [facility] documented as of this encounter
--- OUTSIDE RECORDS SUMMARY | 2025-04-23 15:02 | XMS_ITS | Encounter Summary ---
Author Organization [employer] Address [address] [place] [address] 7t [place] [address] Care Team Providers Care Prefitter Doors Name Role Phone NameUriel MD Primary Care Provider Puia Juana PharmD Unavailable [phone] Puia, Juana PharmD Unavailable Encounter Details Date Type Department Care Team ([facility] Contact Info) Description 01/07/2023 Abstract [facility] [address] [place] [address] Uriel Woodruff MD [address] [place] [address] Social History Tobacco Use Types Packs/Day Years [...] Upcoming Encounters Date Type Department Care Team ([facility] Contact Info) Description 06/08/2025 9:15 AM EST Office Visit [facility] [address] [place] [address] [phone] Uriel Woodruff MD [address] [place] [address] documented as of this encounter Procedures Procedure Name Priority Date/Time Associated Diagnosis Comments COLONOSCOPY Routine 02/18/2019 2:11 PM EDT documented in this encounter Results * Colonoscopy (02/18/2019 2:11 PM EDT) Colonoscopy Normal Normal Narrative Elsa Christopher - 02/18/2019 2:11 PM EDT Recommended 5 year follow up ( [facility] [place] Historical Provider HEALTH MAINTENANCE Final Result documented in this encounter Visit Diagnoses Not on filedocumented in this encounter Care Teams Prefitter Doors Relationship Specialty Start Date End Date Name, MD Uriel [address] [place] [address] PCP - General Family Medicine 05/10/20 Juana Samuels PharmD [address] [place] [address] Pharmacist Internal Medicine 05/03/22 09/01/23 Juana Samuels PharmD [address] [place] [address] Pharmacist Internal Medicine 09/02/24 01/07/25 [facility] documented as of this encounter
--- OUTSIDE RECORDS SUMMARY | 2025-04-23 15:02 | XMS_ITS | Encounter Summary ---
Author Organization [employer] Address 75 [facility] 7t [place] [address] Care Team Providers Care Scaffolder Name Role Phone Name, Uriel AARON Primary Care Provider [phone] Juana Samuels PharmD Unavailable [phone] Reason for Visit * Reason Comments Med Refill Encounter Details Date Type Department Care Team ([facility] st Contact Info) Description 09/07/2023 Refill [facility] [address] [place], [place] [phone] Name, MD Uriel 230 [place] [address] Social History Tobacco Use Types Packs/Day Years [...] Description 06/08/2025 9:15 AM EST Office Visit [facility] [address] [place] [address] Name, MD Uriel [address] [place] [address] documented as of this encounter Goals Goal Patient Goal Type Associated Problems Recent Progress Patient-Stated? Author Hemoglobin A1c < 8 Result Component 7.2( 10:14 AM EDT) No Juana aSmuels, PharmD Record your blood sugar as directed Result Component No Juana Samuels, PharmD documented as of this encounter Visit Diagnoses Not on filedocumented in this encounter Additional Health Concerns Assessment Noted Time PHQ-9 Depression Total Score: 0 08/30/19 24 9:27 AM EST documented as of this encounter Care Teams Scaffolder Relationship Specialty Start Date End Date Uriel Woodruff MD [address] [place] [address] PCP - General Family Medicine 05/10/20 Juana Samuels, PharmD [address] [place] [address] Pharmacist Internal Medicine 09/02/24 01/07/25 [facility] documented as of this encounter
--- OUTSIDE RECORDS SUMMARY | 2025-04-23 15:02 | XMS_ITS | Encounter Summary ---
Author Organization [employer] Address [address] [facility] 7t [place] [address] Care Team Providers Care Barber Instructor Name Role Phone Name, Uriel AARON Primary Care Provider [phone] Reason for Visit * Reason Onset Date Comments Nurse Triage 04/16/2025 Encounter Details Date Type Department Care Team ([facility] st Contact Info) Description 04/16/2025 Telephone [facility] 230 [place] [address] Name, MD Uriel 230 [place] [address] Nurse Triage Social History Tobacco Use Types Packs/Day Years [...] encounter Miscellaneous Notes * Telephone Encounter - Leilani Chung RN - 04/19/2025 2:54 PM EDT Triage call with [facility] [place] [id number], Negar Pt reports for past 3-4 weeks , Pt is experiencing some numbness of bilateral feet which comes and goes. This is not just the toe area but, the whole foot. Pt is able to ambulate but, when this sensation comes it is difficult . Pt denies dizziness, vertigo, vision loss, headache. Pt has dx of DM. ASK apt with [facility] 04/23/25 @ 1145am. Pt agrees with disposition. Insuranance is verified as active prior to booking. Protocol Used: Neurologic Deficit (Adult) Protocol-Based Disposition: See in Office or Video Visit within 3 Days Positive Triage Question: * Numbness or tingling in one or both feet is a chronic symptom (recurrent or ongoing problem lasting > 4 weeks) * All higher-acuity triage questions were negative Care Advice Discussed: * Reasons To Call Back - Symptoms do not go away within 10 to 15 minutes - You become worse * Telephone Encounter - Terrell Lemus - 04/19/2025 2:01 PM EDT Spouse returning triage call regarding leg numbness * Telephone Encounter - Marta Mccarthy RN - 04/16/2025 2:07 PM EDT Called pt. Via S assistant corporate secretary Etelvina Brock. No answer. Transverse Abdominal Muscle Surgeon left message for pt. To call back [facility] nurses at [phone]. Transverse Abdominal Muscle Surgeon called back x2. No answer. Transverse Abdominal Muscle Surgeon did not leave a second voicemail. RE: Numbness getting worse * Telephone Encounter - Yuval Melgar - 04/16/2025 1:49 PM EDT Symptom: Numbness Outcome: Schedule an urgent appointment (within 1 hour) or talk to a nurse or provider soon Reason: Getting worse The caller accepted this outcome. Contact pt at [phone] (citizen [place] documented in this encounter Plan of Treatment Upcoming Encounters Date Type Department Care Team (Late st Contact Info) Description 06/08/2025 9:15 AM EST Office Visit [facility] [address] [place] [address] Uriel Woodruff MD [address] [place] [address] documented as of this encounter Goals Goal [...] documented as of this encounter Care Teams Barber Instructor Relationship Specialty Start Date End Date Uriel Woodruff MD [address] [place] [address] [place] [address] PCP - General Family Medicine 05/10/20 [facility] 03/23/25 documented as of this encounter
--- OUTSIDE RECORDS SUMMARY | 2025-04-23 15:02 | XMS_ITS | Encounter Summary ---
Author Organization [employer] [facility] Address [address] [place] [address] 7t [place] [address] Care Team Providers Care Operations Planner Name Role Phone Name, Uriel AARON Primary Care Provider [phone] Puia, Juana PharmD Unavailable Puia, Juana PharmD Unavailable Reason for Visit * Reason Comments Med Refill Encounter Details Date Type Department Care Team (Late st Contact Info) Description 09/23/2022 Refill [facility] 230 [place] [address] Puia, Juana, PharmD 230 [place], [place] [phone] Type 2 diabetes mellitus with other specified complication, without long-term current use of insulin ([facility] (Primary Dx) Social History Tobacco Use Types [...] Department Care Team (Late Contact Info) Description 06/08/2025 9:15 AM EST Office Visit [facility] [address] [place] [address] Name, MD Uriel 230 [place] [address] documented as of this encounter Visit Diagnoses Diagnosis Type 2 diabetes mellitus with other specified complication, without long-term current use of insulin ([facility] Primary documented in this encounter Care Teams Operations Planner Relationship Specialty Start Date End Date Name, MD Uriel 230 [place] [address] PCP - General Family Medicine 05/10/20 Juana Samuels PharmD 230 [place] [address] Pharmacist Internal Medicine 05/03/22 09/01/23 Juana Samuels PharmD 230 [place] [address] Pharmacist Internal Medicine 09/02/24 01/07/25 [facility] documented as of this encounter
--- OUTSIDE RECORDS SUMMARY | 2025-04-23 15:02 | XMS_ITS | Data Portability ---
Author Organization [facility] [employer] Address [address] [place] [address] [place] [address] Care Team Providers Care Pound Attendant Name Role Phone NAME, NARINDER Referring Provider Unavailable NAME, NARINDER Primary Care Provider DIETER GARCIA Nuclear Control Operator Assessment Encounter Date Assessment Date Assessment LastModified [...] Orders zonisamide 100 mg capsule 2022 023 [facility], [address] [place] [address], [id number], 3 09:51:18 lorazepam 1 mg tablet 2022 023 [facility], [address] [place] [address], [id number], 3 09:51:18 zonisamide 100 mg capsule 2021 022 [facility], [address] [place] [address], [id number], 2 13:21:24 zonisamide 100 mg capsule 2020 021 [facility], [address] [place] [address], [id number], 1 10:25:34 Patient TargetsNo targets recorded. Patient [...] 09/12/2022 DATA REVIEW completed Chris Arias MD [address] [place] [address] [place], [phone], [facility] 09/12/2022 09:34:17 01/03/2022 DATA REVIEW completed Chris Arias MD [address] [place], [place] [address], [address], [facility] 01/03/2022 13:11:53 01/11/2021 DATA REVIEW completed Chris Arias MD [address] [place] [address] [place], [address], [facility] 01/11/2021 10:36:00 Imaging Results None recorded. [...] Ultra-Fine Short Pen Needle 31 gauge x 16 active Not Available Not Available Not Available [...] Diagnosis SNOMED-CT Code Diagnosis ICD10 Code Diagnosis IMO Codes Diagnosis Note 897 Chris Arias MD [facility] [address] [place] [address] [place] [address] 01/11/2021 09:55:40 01/11/2021 10:40:27 Focal onset impaired awareness epileptic seizure 295479009 G40.209 Mild neuro cognitive disorder [id number] G31.84 Abnormal gait 56069876 R 26.81 Ruptured b erry aneurysm 968962526 I60.11 5390 Chris Arias MD [facility] [address] [place] [address] [place] [address] 01/03/2022 12:54:35 01/03/2022 13:45:17 Focal onset impaired awareness epileptic seizure 669837821 G40.209 Mild neuro cognitive disorder 579958031 G31.84 Abnormal gait 47444347 R 26.81 Ruptured b erry aneurysm 142249736 I60.11 7832 Chris Arias MD [facility] [address] [place] [address] [place] [address] 09/12/2022 09:25:19 09/12/2022 10:37:48 Focal onset impaired awareness epileptic seizure 797707256 G40.209 Mild neuro cognitive disorder 800725844 G31.84 Abnormal gait 06910280 R 26.81 Ruptured b erry aneurysm 983529189 I60.11 Health Concerns Section Related Observation LastModified by Organization Detai ls LastModified Time None Recorded Concern Status LastModified by Organization Details LastModified Time None Recorded Advance Directives Directive None Recorded Payers Insurance Date Sequence Insurance Name Policy Number Policy Miller Covered Member ID Miller Member ID Guarantor Name 08/12/2023 1 [facility] - DOS PRIOR TO 2022 - DUAL ELIGIBLE (MEDICARE REPLACEMENT/ADV ANTAGE - HMO) George Guillaume [id number] George Guillaume Notes Date Note Type Note Provider Name and Address Organization Details Recorded Time 01/11/2021 text/html Follow-up for episodes atypical tremor versus seizure versus anxiety attack [...] 100 mg twice a day without missing medication w ith the help of his managing [...] know the final dose. Chris Arias MD [address] [place] [address], [phone], [facility] 01/11/2021 10:36:09 01/03/2022 text/html Follow-up for episodes atypical tremor versus seizure versus anxiety attack [...] 100 mg twice a day without missing medication w ith the help of his managing [...] know the final dose. Chris Arias MD [address] [place] [address] [place], [phone], [facility] 01/03/2022 13:28:11 09/12/2022 text/html Follow-up for episodes atypical tremor versus seizure versus anxiety attack [...] not remember either event. She was in [place] (for the ) away from him when the first event happened and does not remember details. She came in from the parking lot to observe part of the April 2022 event and it was typical: Speech arrest, staring, shaking of legs and arms, without jerking quality or consistent stiffness. It lasted a few minutes. He was without any symptoms afterwards. >>>>>>>>>>>>>>>>>>>Dec neurology follow-up encounter review:Since January 11, 2021 neurology follow-up encounter, just under 1 year ago, he is doing very well. He has had none of his stereotypical episodes of gait imbalance, white eyes, shaking legs and nonresponsiveness. The last one was ~1-2 months before October 2019 follow-up. He continues on zonisamide 100 mg twice a day without missing medication w ith the help of his managing [...] know the final dose. Chris Arias MD [address] [place] [address] [place], [address], [facility] 09/12/2022 10:26:30
== END 2025-04-23 13:52 | disposition home or self-care (01) ==
LOC: HO.HHCL 13:51
PROVIDERS: PCP Internal Medicine Geriatric Medicine; Visit Provider Registered Nurse
DX: Z13.89 Encounter for screening for other disorder (principal)

== ENCOUNTER 2025-04-26 11:21 | Outpatient (REF) | payer OTHER, SELFPAY ==
--- OUTSIDE RECORDS SUMMARY | 2025-04-23 11:45 | XMS_ITS | Encounter Summary ---
Author Organization [employer] Address [address] [place] [address] 7t [place] [address] Care Team Providers Care Guide Rail Cleaner Name Role Phone Name, Uriel AARON Primary Care Provider [phone] Reason for Visit * Reason Comments sick visit Encounter Details Date Type Department Care Team ([facility] Contact Info) Description 04/23/2025 11:45 AM EDT Office Visit [facility] [address] [place], [place] [phone] [facility] [address] [place], [place] [phone] Type 2 diabetes mellitus with other specified complication, without long-term current use of insulin ([facility]/HCC); Type 2 diabetes mellitus without complication, without long-term current use of insulin ([facility]) Social History Tobacco Use Types Packs/Day Years Used Date Smoking Tobacco: Former Cigarettes Passive Smoke Exposure: Past Smokeless Tobacco: Never Alcohol Use Standard Drinks/Week [...] AM EDT documented as of this encounter Last Filed Vital Signs Vital Sign Reading Time Taken Comments Blood Pressure 112/60 04/23/2025 12:01 PM EDT Pulse 63 04/23/2025 12:01 PM EDT Temperature 36.4 C (97.6 F) 04/23/2025 12:01 PM EDT Respiratory Rate 20 04/23/2025 12:01 PM EDT Oxygen Saturation 98% 04/23/2025 12:01 PM EDT Inhaled Oxygen Concentration - - Weight 55.8 kg (123 lb) 04/23/2025 12:01 PM EDT Height 175.3 cm (5' 9 ) 04/23/2025 12:01 PM EDT Body Mass Index 18.16 04/23/2025 12:01 PM EDT documented in this encounter Plan of Treatment Upcoming Encounters Date Type Department Care Team (Late st Contact Info) Description 06/08/2025 9:15 AM EST Office Visit [facility] [address] [place] [address] Name, MD Uriel [address] [place] [address] Scheduled Orders Name Type Priority Associated Diagnoses Orde r Schedule Vitamin B1 Lab Routine Type 2 diabetes mellitus with other specified complication, without long-term current use of insulin ([facility]) Expected: 04/23/2025 (Approximate), Expires: 04/23/2026 Vitamin B2 (Riboflavin) Lab Routine Type 2 diabetes mellitus with other specified complication, without long-term current use of insulin (CMS/HCC) Expected: 04/23/2025 (Approximate), Expires: 04/23/2026 Vitamin B12/Folate, Serum Panel Lab Routine Type 2 diabetes mellitus with other specified complication, without long-term current use of insulin ([facility]/HCC) Expected: 04/23/2025, Expires: 04/23/2026 Vitamin B6 Lab Routine Type 2 diabetes mellitus with other specified complication, without long-term current use of insulin ([facility]) Expected: 04/23/2025, Expires: 04/23/2026 Zinc Lab Routine Type 2 diabetes mellitus with other specified complication, without long-term current use of insulin ([facility]) Expected: 04/23/2025 (Approximate), Expires: 04/23/2026 documented as of this encounter Goals Goal Patient Goal Type Associated Problems Recent Progress Patient-Stated? Author Hemoglobin A1c < 8 Result Component 7.2( 10:14 AM EDT) No Juana Samuels, PharmD Record your blood sugar as directed Result Component No Juana Samuels, PharmD documented as of this encounter Procedures Procedure Name Priority Date/Time Associated Diagnosis Comments POCT GLUCOSE Routine 04/23/2025 12:02 PM EDT Type 2 diabetes mellitus with other specified complication, without long-term current use of insulin ([facility]) documented in this encounter Results * POCT Glucose (04/23/2025 12:02 PM EDT) Glucose Blood, POC 147 60 - 200 mg/dL Blood Capillary blood specimen / Unknown 04/23/2025 12:02 PM EDT [facility]EDIT ORDERABLES Final Result documented in this encounter Visit Diagnoses Diagnosis Type 2 diabetes mellitus with other specified complication, without long-term current use of insulin ([facility]) documented in this encounter Additional Health Concerns Assessment Noted Time PHQ-9 Depression Total Score: 11 025 11:36 AM EST documented as of this encounter Care Teams Guide Rail Cleaner Relationship Specialty Start Date End Date Name, MD Uriel [address] [place] [address] PCP - General Family Medicine [facility] documented as of this encounter
--- OUTSIDE RECORDS SUMMARY | 2025-04-26 12:51 | XMS_ITS | Encounter Summary ---
Author Organization [employer] Address 75 [facility] 7t [place] [address] Care Team Providers Care Vapor Coater Name Role Phone Name, Uriel AARON Primary Care Provider [phone] Juana Samuels PharmD Unavailable [phone] Reason for Visit * Reason Onset Date Comments FYI 05/26/2024 Encounter Details Date Type Department Care Team ([facility] st Contact Info) Description 05/26/2024 Telephone [facility] [address] [place] [address] Name, MD Uriel [address] [place] [address] FYI Social History Tobacco Use Types Packs/Day [...] For any questions please call Loy at [phone] *Advised caller message sent to provider. documented in this encounter Plan of Treatment Upcoming Encounters Date Type Department Care Team (Late st Contact Info) Description 06/08/2025 9:15 AM EST Office Visit [facility] [address] [place] [address] NameUriel MD [address] [place] [address] documented as of this encounter Goals Goal [...] documented as of this encounter Care Teams Vapor Coater Relationship Specialty Start Date End Date NameUriel MD 230 [place] [address] PCP - General Family Medicine 05/10/20 Juana Samuels PharmD 230 [facility] [place] [address] Pharmacist Internal Medicine 09/02/24 01/07/25 [facility] documented as of this encounter
--- OUTSIDE RECORDS SUMMARY | 2025-04-26 12:51 | XMS_ITS | Encounter Summary ---
Author Organization [employer] Address [address] [place] [address] 7t [place] [address] Care Team Providers Care Meteorologist In Charge Name Role Phone NameUriel MD Primary Care Provider Puia Juana PharmD Unavailable Puia, Juana PharmD Unavailable [phone] Encounter Details Date Type Department Care Team ([facility] Contact Info) Description 01/07/2023 Abstract [facility] [address] [place] [address] Uriel Woodruff MD [address] [place] [address] Social History Tobacco Use Types Packs/Day Years [...] Upcoming Encounters Date Type Department Care Team ([facility] Contact Info) Description 06/08/2025 9:15 AM EST Office Visit [facility] [address] [place] [address] [phone] Uriel Woodruff MD [address] [place] [address] documented as of this encounter Procedures Procedure Name Priority Date/Time Associated Diagnosis Comments COLONOSCOPY Routine 02/18/2019 2:11 PM EDT documented in this encounter Results * Colonoscopy (02/18/2019 2:11 PM EDT) Colonoscopy Normal Normal Narrative Elsa Christopher - 02/18/2019 2:11 PM EDT Recommended 5 year follow up ( [facility] [place] Historical Provider HEALTH MAINTENANCE Final Result documented in this encounter Visit Diagnoses Not on filedocumented in this encounter Care Teams Meteorologist In Charge Relationship Specialty Start Date End Date Name, MD Uriel [address] [place] [address] PCP - General Family Medicine 05/10/20 Juana Samuels PharmD [address] [place] [address] Pharmacist Internal Medicine 05/03/22 09/01/23 Juana Samuels PharmD [address] [place] [address] Pharmacist Internal Medicine 09/02/24 01/07/25 [facility] documented as of this encounter
--- OUTSIDE RECORDS SUMMARY | 2025-04-26 12:51 | XMS_ITS | Clinical Summary ---
Author Organization [employer] Address [address] [facility] 7t [place] [address] Care Team Providers Care Artisan Plasterer Name Role Phone Name, Uriel AARON Primary Care Provider [phone] Allergies No known active allergies Medications glucose 4 g chewable tabletIndication s:Type 2 diabetes mellitus with other specified complication, without long-term current use of insulin (HCC) Chew 4 tablets (16 g) if needed [...] complication, without long-term current use of insulin ([facility]) Administer 3 mg via 1 device into the nostril for hypoglycemia with loss of consciousness. If no response after 15 minutes administer an additional dose via 2nd device into other nostril. 2 each 1 025 Active FREESTYLE LITE test stripIndications :Type 2 diabetes mellitus without complication, without long-term current use of insulin (HCC) USE DIRECTED TO TEST BLOOD SUGAR TWICE DAILY 100 strip 025 Active glipiZIDE XL (Glucotrol XL) 2.5 MG 24 hr tablet Take 1 tablet (2.5 mg) by mouth Once per day. Do not crush, chew, or split. 30 tablet 025 2025 Active metFORMIN XR (Glucophage-XR) 500 MG 24 hr tabletIndication s:Type 2 diabetes mellitus without complication, without long-term current use of insulin (HCC) Take 2 tablets (1,000 mg) by mouth with breakfast and with evening meal. Do not crush, chew, or split. 60 tablet 025 Active metFORMIN XR (Glucophage-XR) 500 MG 24 hr tabletIndication s:Type 2 diabetes mellitus without complication, without long-term current use of insulin ([facility]) Take 1 tablet (500 mg) [...] gastroesophageal mucosa (see comment). 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 Mild cognitive disorder 01/13/2021 Seizure (CMS/HCC) 10/09/2018 Hyperlipidemia 05/09/2012 Chronic nonalcoholic liver disease 01/23/2012 Diabetes mellitus 01/23/2012 Impotence of organic origin 01/23/2012 Intermittent asthma 01/23/2012 Encounters Date Type Department Care Team Description 04/23/2025 11:45 AM EDT Office Visit [facility] [address] [place] [address] [place], Cathi, MALCOLM Type 2 diabetes mellitus with other specified complication, without long-term current use of insulin (CMS/HCC); Type 2 diabetes mellitus without complication, without long-term current use of insulin (CMS/HCC) 04/23/2025 Travel 04/16/2025 Telephone [facility] [address] [place] [address] Name, MD Uriel Nurse Triage 04/08/2025 10:00 AM EDT Office Visit [address] [address] Uriel Woodruff MD Type 2 diabetes mellitus with other specified complication, without long-term current use of insulin ([facility]) (Primary Dx); Malnutrition, unspecified type (CMS/[facility]); On total parenteral nutrition (TPN); History of esophageal cancer; Left lower lobe consolidation (CMS/HCC) 04/08/2025 Travel 04/05/2025 Telephone [facility] [address] [place] [address] Uriel Woodruff MD Chart Prep 03/23/[address] [address] Uriel Woodruff MD HDF 03/22/[address] [address] Uriel Woodruff MD home orders 03/16/[address] [address] Demetrio Lizarraga MA OCT RECALLS 03/15/[address] [address] Uriel Woodruff MD Type 2 diabetes mellitus without complication, without long-term current use of insulin ([facility]) 02/15/2025 11:15 AM EDT Office Visit [address] [address] Uriel Woodruff MD Weight loss (Primary Dx); Low blood pressure reading; Dyspnea on exertion; History of esophageal cancer; Type 2 diabetes mellitus without complication, without long-term current use of insulin ([facility]/HCC) 02/15/2025 Results Follow-Up [address] [address] Uriel Woodruff MD XR Chest 2 Views 02/15/2025 Travel 02/12/[address] [address] Demetrio Lizarraga MA chart prep 02/08/2025 Patient Outreach [facility] [address] [place] [address] Name, MD Ureil Pre-visit Planning (SDOH was already completed) 01/28/2025 Telephone [facility] [address] [place], [place] [phone] Demetrio Lizarraga MA march recalls from Last [...] 06/08/2025 9:15 AM EST Office Visit [facility] [address] [place] [address] Name, MD Uriel [address] [place] [address] Health Maintenance Due Date Last Done Comments [...] complication, without long-term current use of insulin (CMS/[facility]) XR CHEST 2 VIEWS Routine 04/08/2025 4:27 [...] complication, without long-term current use of insulin ([facility]) PERIODIC ORAL EVALUATION - ESTABLISHED PATIENT Routine [...] specimen / Unknown 04/23/2025 12:02 PM EDT [facility] POINT OF CARE TEST ENTER/EDIT ORDERABLES Final Result * XR Chest 2 Views (04/08/2025 4:27 PM EDT) Only the most recent of2 resultswithin the time period is included. Anatomical Region Laterality Modality Chest Radiographic Cari ging 04/08/2025 4:27 PM EDT Narrative 04/08/2025 4:40 PM EDT [address] [address] XRay Report Signed Patient: George Johnson MR#: [id number] : 1955 Acct:[id number] Age/Sex: 69 / M ADM Date: 04/08/25 Loc: [facility] Attending Dr: Uriel Woodruff MD Ordering Physician: Uriel Woodruff MD Date of Service: 04/08/25 Procedure(s): XR chest 2V Accession Number(s): [id number] cc: Uriel Woodruff MD Reason for Exam: [...] 04/08/25 1636 DD/ 1627 TD/TT: 04/08/25 1628 Health Care Specialist: Procedure Note Donotuseinterpreter, Image - 04/08/[address] [address] XRay Report Signed Patient: George Johnson AMR#: [id number] : 1955cct:[id number] Age/Sex: 69 / MADM Date: 04/08/25 Loc: [facility] Attending Dr: Uriel Woodruff MD Ordering Physician: Uriel Woodruff MD Date of Service: 04/08/25 Procedure(s): XR chest 2V Accession Number(s): [id number] cc: Uriel Woodruff MD Reason for Exam: [...] 04/08/25 1636 DD/ 1627 TD/TT: 04/08/25 1628 Health Care Specialist: us Uriel Woodruff MD IMG XR PROCEDURES Final Result * (ABNORMAL) POCT Hgb A1c (04/08/2025 10:14 AM EDT) Only the most recent of2 resultswithin the time period is included. Pathologist [facility] Hemoglobin A1C 7.2(A) 4.0 - 5.7 % QC Media Lot # [id number] Lot# Expiration Date 41,62 Blood 04/08/2025 10:1 4 AM EDT us Uriel Woodruff MD POINT OF CARE TEST ENTER/EDIT OR DERABLES Final Result * (ABNORMAL) CBC auto differential (02/15/2025 12:03 PM EDT) White Blood Count 3.8(L) 4.8 - 10.8 X10*3/uL [facility] Red Blood Count 4.03(L) 4.60 - 5.80 X10*6/uL [facility] Hemoglobin 11.2(L) 14.0 - 18.0 g/dl [facility] Hematocrit 35.1(L) 42.0 - 52.0 % [facility] Mean Corpuscular Volume 87.1 80.0 - 98.0 fL [facility] Mean Corpuscular Hemoglobin 27.8 27.0 - 33.0 pg [facility] Mean Corpuscular HGB Conc 31.9 31.0 - 36.0 g/dl [facility] Red Cell Distribution Width 16.5(H) 11.0 - 16.0 % [facility] Platelet Count 207 160 - 400 X10*3/uL [facility] Mean Platelet Volume 9.5 9.4 - 12.4 fL [facility] Neutrophils Percent Auto 78.8(H) 45 - 73 % [facility] Imm Gran Pct Auto 0.3 0.0 - 0.4 % [facility] Lymphocytes Percent Auto 13.0(L) 20 - 40 % [facility] Monocytes Percent Auto 7.4 2 - 11 % [facility] Eosinophils Percent Auto 0.5 0 - 4 % [facility] Basophils Percent Auto 0.0 0 - 2 % [facility] NRBC Pct Auto 0.0 0.0 - 0.2 /100WBC [facility] Neutrophils Absolute Auto 3.0 2.0 - 8.3 x10*3/uL [facility] Imm Gran Abs Auto 0.01 0.00 - 0.03 X10*3/uL [facility] Lymphocytes Absolute Auto 0.5(L) 1.2 - 4.9 X10*3/uL [facility] Monocytes Absolute Auto 0.3 0.1 - 1.2 X10*3/uL [facility] Eosinophils Absolute Auto 0.0 0.0 - 0.4 X10*3/uL [facility] Basophils Absolute Auto 0.0 0.0 - 0.2 X10*3/uL [facility] NRBC Abs Auto 0.000 0.0 - 0.012 X10*3/uL [facility] Blood Venous blood specimen / Unknown 02/15/2025 12:03 PM EDT 02/15/2025 12:57 PM EDT us Uriel Woodruff MD LAB BLOOD ORDERABLES Final Resul t Performing Organization Address City/[facility]/ZIP Co de Phone Number [facility] [address] [place] [phone] * (ABNORMAL) Comprehensive Metabolic Panel (02/15/2025 12:03 PM EDT) Sodium 140 135 - 145 mmol/L [facility] Potassium 3.7 3.3 - 5.1 mmol/L [facility] Chloride 109(H) 96 - 108 mmol/L [facility] Carbon Dioxide 22 22 - 29 mmol/L [facility] Anion Gap 13 12 - 20 [facility] Urea Nitrogen (BUN) 16 9 - 16 mg/dL [facility] Creatinine, Serum 1.05 0.5 - 1.4 mg/dL [facility] Estimated Glomerular Filt Rate >60 [facility] Comment:Chronic Kidney Disea se: Estimated GFR < 60 mL/min/1.99v5Gitpys Kidney Disease: Estimated GFR < 15 mL/min/1.73m2 Glucose 118(H) 60 - 115 mg/dL [facility] Calcium 8.7 8.4 - 10.2 mg/dL [facility] Bilirubin, Total 0.2 0.0 - 1.0 mg/dL [facility] Aspartate Amino Transferase 23 5 - 37 U/L [facility] Alanine Aminotransferase 14 0 - 40 U/L [facility] Total Protein 6.8 6.5 - 8.0 g/dL [facility] Albumin Level 3.6 3.5 - 5.0 g/dL [facility] Alkaline Phosphatase 114 39 - 117 U/L [facility] Blood Venous blood specimen / Unknown 02/15/2025 12:03 PM EDT 02/15/2025 12:57 PM EDT us Uriel Woodruff MD LAB BLOOD ORDERABLES Final Resul t Performing Organization Address [facility]/ZIP Co de Phone Number [facility] [address] [place] [address] [phone] * Albumin, Random Urine W/Creatinine (09/07/2024 8:10 AM EST) Creatinine, Urine 194.22 mg/dL [facility] Microalbumin Urine 22.0 mg/L [facility] Microalbum Creatinine Ratio Ur 11.3 <30 ug/mg cr [facility] Comment:Albumin/Creatinine R atio Reference Ranges: Normal: < 30 ug/mg creatinine Microalbuminuria: 30 - 300 ug/mg creatinineClinical Albuminuria: > 300 ug/mg creatinine 09/07/2024 8:10 AM EST 09/07/2024 11:02 AM EST us Uriel Woodruff MD LAB URINE ORDERABLES Final Resul t [facility] [address] [place] [address] [phone] * (ABNORMAL) Lipid Panel, Standard (09/07/2024 8:10 AM EST) Triglycerides 126 <150 mg/dL [facility] Comment:Desirable Triglyceri de: less than 150 mg/dLBorderline High Triglyceride 150-199 mg/dLHigh Triglyceride: 200-499 mg/dLVery High Triglyceride: greater than or equal to 5OO mg/dL Cholesterol 190 <200 mg/dL [facility] Comment:Desirable Cholestero l: less than 200 mg/dLBorderline High Cholesterol: 200-239 mg/dLHigh Cholesterol: greater than 239 mg/dL LDL Cholesterol Calculated 114(H) <100 mg/dL [facility] Comment:Desirable LDL: less than 100 mg/dLNear Optimal/Above Optimal LDL: 110- 129 mg/dLBorderline High LDL: 130-159 mg/dLHigh LDL: 160-189 mg/dLVery High LDL: greater than or equal to 190 mg/dL HDL Cholesterol 51 >40 mg/dL [facility] Comment:Desirable HDL: great er than 40 mg/dL Note: This HDL assay may give artificially low results in patients with liver disease. 09/07/2024 8:10 AM EST 09/07/2024 11:01 AM EST us Uriel Woodruff MD LAB BLOOD ORDERABLES Final Resul t Performing Organization Address City/[facility]/ZIP Co de Phone Number [facility] [address] [place] [address] [phone] * Hepatitis A,B,C Profile (04/17/2021 8:40 [...] ORDERABLE LABS Final Result Performing Organization Address City/[facility] Co de Phone Number [facility] [address] * (ABNORMAL) Colonoscopy (02/18/2019) Colonoscopy Abnormal(A ) Normal us Uriel Woodruff MD HEALTH MAINTENANCE Final Result from Last 3 Months or Most Recently Relevant to Health Maintenance Insurance [facility] [employer] OPTIONS (O D-SNP) RAJIV PETER [id number] DENTAL - [facility] Care Teams Artisan Plasterer Relationship Specialty Start Date End Date Name, MD Uriel [address] [place] [address] PCP - General Family Medicine 05/10/20 [facility] 03/23/25
--- OUTSIDE RECORDS SUMMARY | 2025-04-26 12:51 | XMS_ITS | Encounter Summary ---
Author Organization [employer] Address [address] [facility] 7t [place] [address] Care Team Providers Care Wellness Coach Name Role Phone Name, Uriel AARON Primary Care Provider [phone] Encounter Details Date Type Department Care Team [...] Description 06/08/2025 9:15 AM EST Office Visit [facility] [address] [place] [address] Name, MD Uriel [address] [place] [address] documented as of this encounter Goals Goal [...] documented as of this encounter Care Teams Wellness Coach Relationship Specialty Start Date End Date Name, MD Uriel [address] [place] [address] PCP - General Family Medicine [facility] documented as of this encounter
--- OUTSIDE RECORDS SUMMARY | 2025-04-26 12:51 | XMS_ITS | Patient Health Record ---
Author Organization [facility] Address [address] [place] [address] Care Team Providers Care Test Automation Architect Name Role Phone Name Uriel AARON Primary Care Provider Melba Chin Unavailable [phone] Allergies No Known Allergies Reason For Referral [...] Problem Acquired hammer toe of right foot (7857893705621342 ) Other hammer toe(s) (acquired), right foot (M20.41) Active confirmed Problem Acquired hammer toe of left foot (8898937704085836 ) Other hammer toe(s) (acquired), left foot (M20.42) Active confirmed Problem Type II diabetes mellitus without complication (830615165) Type 2 diabetes mellitus without complication, without long-term current use of insulin (E11.9) Active confirmed Vital Signs Blood pressure diastolic 80 mm Hg 02/23/2025 Height 5ft9in in 02/23/2025 Blood pressure systolic 119 mm Hg 02/23/2025 Weight 100 lbs 02/23/2025 BMI 14.77 kg/m2 02/23/2025 Encounters Encounter Location Date Provider Diagnosis [address] [address] 06/24/2024 Melba Perica Tinea unguium B35.1 ; Ingrown nail L60.0 ; Type 2 diabetes mellitus without complication, without long-term current use of insulin E11.9 ; Pain in toe of left foot M79.675 and Pain in toe of right foot M79.[address] [address] 09/09/2024 Melba Perica Tinea unguium B35.1 ; Ingrown nail L60.0 ; Type 2 diabetes mellitus without complication, without long-term current use of insulin E11.9 ; Pain in toe of left foot M79.675 and Pain in toe of right foot M79.[address] [address] 11/27/2024 Melba Perica Tinea unguium B35.1 ; Other hammer toe(s) (acquired), right foot M20.41 ; Type 2 diabetes mellitus without complication, without long-term current use of insulin E11.9 ; Pain in toe of left foot M79.675 ; Pain in toe of right foot M79.674 and Other hammer toe(s) (acquired), left foot M20.[address] [address] 02/23/2025 Melba Perica Tinea unguium B35.1 ; [...] Details Provider Name:Melba miller, 05/21/2025 09:15:00 AM, [address] [place] [address], [phone], Insurance Providers Payer Name Payer Address Payer Phone Subscriber Number Group Number Insured Name Patient Relationship to Insured Coverage Start Date Coverage End Date [facility] [employer] Claims [address] RAJIV Zun[place] [id number] Geroge Guillaume Self - patient is the insured Medical (General) History Medical History History ICD Code Anxiety asthma Back,Hip,and Knee pain Cataracts Diabetic Epilepsy/Seizures Fatty liver Reflux ( GERD) Chicken pox Joint implants/screws Esophageal cancer Surgical History Surgery Date(Month/Year) Esophageal surgery- feeding tube 3 cataract surgery 2023
--- OUTSIDE RECORDS SUMMARY | 2025-04-26 12:51 | XMS_ITS | Encounter Summary ---
Author Organization [email or web address] [facility] Address [address] [place] [address] 7t [place] [address] Care Team Providers Care Adjunct Psychology Professor Name Role Phone Name, Uriel AARON Primary Care Provider Puia, Juana PharmD Unavailable Puia, Juana PharmD Unavailable [phone] Reason for Visit * Reason Comments Med Refill Encounter Details Date Type Department Care Team (Late st Contact Info) Description 09/23/2022 Refill [facility] [address] [place] [address] Puia, Juana, PharmD [address] [place], [place] [phone] Type 2 diabetes mellitus with other specified complication, without long-term current use of insulin ([facility]) (Primary Dx) Social History Tobacco [...] Description 06/08/2025 9:15 AM EST Office Visit [facility] [address] [place] [address] Name, MD Uriel [address] [place] [address] documented as of this encounter Visit Diagnoses Diagnosis Type 2 diabetes mellitus with other specified complication, without long-term current use of insulin (HCC)- Primary documented in this encounter Care Teams Adjunct Psychology Professor Relationship Specialty Start Date End Date Name, MD Uriel [address] [place] [address] PCP - General Family Medicine 05/10/20 Juana Samuels PharmD [address] [place] [address] Pharmacist Internal Medicine 05/03/22 09/01/23 Juana Samuels PharmD [address] [place] [address] Pharmacist Internal Medicine 09/02/24 [facility]07[facility]25 [facility] documented as of this encounter
--- OUTSIDE RECORDS SUMMARY | 2025-04-26 12:52 | XMS_ITS | Encounter Summary ---
Author Organization [employer] Address [address] [facility] 7t [place] [address] Care Team Providers Care Bonded Strand Operator Name Role Phone Name, Uriel AARON Primary Care Provider [phone] Juana Samuels PharmD Unavailable [phone] Reason for Visit * Reason Comments Med Refill Encounter Details Date Type Department Care Team ([facility] st Contact Info) Description 08/09/2024 Refill [facility] [address] [place] [address] Name, MD Uriel [address] [place] [address] Social History Tobacco Use Types Packs/Day Years [...] Description 06/08/2025 9:15 AM EST Office Visit [facility] [address] [place] [address] Name, MD Uriel [address] [place] [address] documented as of this encounter Goals Goal [...] documented as of this encounter Care Teams Bonded Strand Operator Relationship Specialty Start Date End Date Uriel Woodruff MD [address] [place] [address] PCP - General Family Medicine 05/10/20 Juana Samuels, PharmD [address] [place] [address] Pharmacist Internal Medicine 09/02/24 [facility] documented as of this encounter
--- OUTSIDE RECORDS SUMMARY | 2025-04-26 12:52 | XMS_ITS | Encounter Summary ---
Author Organization [employer] Address [address] [facility] 7t [place] [address] Care Team Providers Care Rehabilitation Liaison Name Role Phone Name, Uriel AARON Primary Care Provider [phone] PuiaJuana PharmD Unavailable [phone] Puia, Juana PharmD Unavailable [phone] Reason for Visit * Reason Onset Date Comments Durable Medical Equipment 07/10/2023 Encounter Details Date Type Department Care Team (Late st Contact Info) Description 07/10/[address] [facility] [address] [place] [address] Name, MD Uriel [address] [place] [address] Durable Medical Equipment Social History Tobacco Use [...] EST TC from Francia with [facility] requesting a Hospital bed and Lift Recliner due to pt having an upcoming surgery on 07/24/2023 and will not be able to move or have much mobility. Please fax Script over to [facility] @ [phone] Please if any questions please Contact Francia @ [phone] documented in this encounter Plan of Treatment Upcoming Encounters Date Type Department Care Team (Late st Contact Info) Description 06/08/2025 9:15 AM EST Office Visit [facility] [address] [place] [address] Name, MD Uriel [address] [place] [address] documented as of this encounter Goals Goal Patient Goal Type Associated Problems Recent Progress Patient-Stated? Author Hemoglobin A1c < 8 Result Component 7.2( 10:14 AM EDT) No Puia, Juana, PharmD Record your blood sugar as directed Result Component No Puia, Juana, PharmD documented as of this encounter Visit Diagnoses Not on filedocumented in this encounter Care Teams Rehabilitation Liaison Relationship Specialty Start Date End Date Name, MD Uriel [address] [place] [address] PCP - General Family Medicine 05/10/20 Juana Samuels, Misty [address] [place] [address] Pharmacist Internal Medicine 05/03/22 09/01/23 Juana Samuels PharmD [address] [place] [address] Pharmacist Internal Medicine 09/02/24 [facility] documented as of this encounter
--- OUTSIDE RECORDS SUMMARY | 2025-04-26 12:52 | XMS_ITS | Encounter Summary ---
Author Organization [employer] Address [address] [facility] 7t [place] [address] Care Team Providers Care Stock Unloader Name Role Phone Name, Uriel AARON Primary Care Provider [phone] Juana Samuels PharmD Unavailable [phone] Reason for Visit * Reason Onset Date Comments [facility] 10/09/2023 Durable Medical Equipment 10/09/2023 Diabet ic shoes Encounter Details Date Type Department Care Team (Late st Contact Info) Description 10/09/2023 Telephone [facility] [address] [place] [address] Name, MD Uriel [address] [place] [address] [facility] ; Durable Medical Equipment (Diabetic shoes) [...] - 10/09/2023 3:10 PM EDT Tc from [facility] with [facility] calling to let pcp know pt has been discharged from the agency. If any questions please contact Lianet at [phone] documented in this encounter Plan of Treatment Upcoming Encounters Date Type Department Care Team (Late st Contact Info) Description 06/08/2025 9:15 AM EST Office Visit [facility] [address] [place] [address] Name, MD Uriel [address] [place] [address] documented as of this encounter Goals Goal [...] documented as of this encounter Care Teams Stock Unloader Relationship Specialty Start Date End Date NameUriel MD [address] [facility] [address] PCP - General Family Medicine 05/10/20 Juana Samuels PharmD [address] [facility] [address] Pharmacist Internal Medicine 09/02/24 01/07/25 [facility] 03/23/25 documented as of this encounter
--- OUTSIDE RECORDS SUMMARY | 2025-04-26 12:52 | XMS_ITS | Encounter Summary ---
Author Organization [employer] Address [address] [facility] 7t [place] [address] Care Team Providers Care Program Engineer Name Role Phone Name, Uriel AARON Primary Care Provider [phone] PuiaJuana PharmD Unavailable [phone] Puia, Juana PharmD Unavailable [phone] Reason for Visit * Reason Onset Date Comments Clearance 06/11/2023 Encounter Details Date Type Department Care Team (Late st Contact Info) Description 06/11/2023 Telephone [facility] [address] [place] [address] Name, MD Uriel [address] [place] [address] Clearance Social History Tobacco Use Types Packs/Day [...] Description 06/08/2025 9:15 AM EST Office Visit [facility] [address] [place] [address] Name, MD Uriel [address] [place] [address] documented as of this encounter Goals Goal Patient Goal Type Associated Problems Recent Progress Patient-Stated? Author Hemoglobin A1c < 8 Result Component 7.2( 10:14 AM EDT) No Juana Samuels, PharmD Record your blood sugar as directed Result Component No Juana Samuels PharmD documented as of this encounter Visit Diagnoses Not on filedocumented in this encounter Care Teams Program Engineer Relationship Specialty Start Date End Date Name, MD Uriel [address] [place] [address] PCP - General Family Medicine 05/10/20 Juana Samuels PharmD [address] [place] [phone] Pharmacist Internal Medicine 05/03/22 09/01/23 Juana Samuels PharmD [address] [place] [address] Pharmacist Internal Medicine 09/02/24 [facility]07[facility] documented as of this encounter
--- OUTSIDE RECORDS SUMMARY | 2025-04-26 12:52 | XMS_ITS | Encounter Summary ---
Author Organization [employer] Address [address] [facility] 7t [place] [address] Care Team Providers Care Test Rack Operator Name Role Phone Name, Uriel AARON Primary Care Provider [phone] Juana Samuels PharmD Unavailable [phone] Reason for Visit * Reason Comments Med Refill Encounter Details Date Type Department Care Team ([facility] st Contact Info) Description 09/07/2023 Refill [facility] [address] [place], [place] [phone] Name, MD Uriel [address] [place] [address] Social History Tobacco Use Types Packs/Day Years [...] 9:15 AM EST Office Visit [facility] [address] [place] [phone] Name, MD Uriel [address] [place] [address] documented as of this encounter Goals Goal [...] documented as of this encounter Care Teams Test Rack Operator Relationship Specialty Start Date End Date Uriel Woodruff MD [address] [place] [address] PCP - General Family Medicine 05/10/20 Juana Samuels, PharmD [address] [place] [address] Pharmacist Internal Medicine 09/02/24 [facility]/07/25 [facility] documented as of this encounter
--- OUTSIDE RECORDS SUMMARY | 2025-04-26 12:52 | XMS_ITS | Encounter Summary ---
Author Organization [employer] Address [address] [facility] 7t [place] [address] Care Team Providers Care Road Cutter Name Role Phone Name, Uriel AARON Primary Care Provider [phone] Puia, Juana PharmD Unavailable [phone] Puia, Juana PharmD Unavailable [phone] Reason for Visit * Reason Comments Med Refill Encounter Details Date Type Department Care Team (Late st Contact Info) Description 08/15/2023 Refill [facility] [address] [place], [place] [phone] Name, MD Uriel [address] [place] [address] Allergic rhinitis, unspecified seasonality, unspecified trigger Social [...] Description 06/08/2025 9:15 AM EST Office Visit [facility] [address] [place] [address] Name, MD Uriel [address] [place] [address] documented as of this encounter Goals Goal Patient Goal Type Associated Problems Recent Progress Patient-Stated? Author Hemoglobin A1c < 8 Result Component 7.2( 10:14 AM EDT) No Puia, Juana, PharmD Record your blood sugar as directed Result Component No Puia, Juana, PharmD documented as of this encounter Visit Diagnoses Diagnosis Allergic rhinitis, unspecified seasonality, unspecified trigger documented in this encounter Care Teams Road Cutter Relationship Specialty Start Date End Date NameUriel MD [address] [place] [address] PCP - General Family Medicine 05/10/20 Puia, Juana, PharmD [address] [place] [address] Pharmacist Internal Medicine 05/03/22 09/01/23 Puia, Juana, PharmD [address] [place] [address] Pharmacist Internal Medicine 09/02/24 01/07/25 [facility] 03/23/25 documented as of this encounter
[2025-04-26 13:31] LABS: Folate 12.6 ng/mL (> or = 4.0); Vitamin B12 495 pg/mL (200-900)
== END 2025-04-26 11:22 | disposition home or self-care (01) ==
LOC: HO.LAB 11:21
PROVIDERS: PCP Internal Medicine Geriatric Medicine; Visit Provider Registered Nurse
DX: E11.69 Type 2 diabetes mellitus with other specified complication (principal)
CPT/HCPCS: 36415; 82607; 82746; 84207; 84252; 84425; 84630

== ENCOUNTER 2025-06-08 09:49 | Outpatient (REF) | payer OTHER, SELFPAY ==
--- OUTSIDE RECORDS SUMMARY | 2024-02-04 06:15 | XMS_ITS ---
Author Organization [facility] Address [address] [place] [id number] Care Team Providers Care Press Offbearer Name Role Phone Name Uriel AARON Primary Care Provider Melba Chin [phone] Encounters Encounter Location Date Provider Diagnosis [address] [phone] 02/04/2024 Melba Raya Plan Of Treatment Next Appt Details Provider Name:Melba miller, 08/13/2025 10:00:00 AM, [address] [place] [address], [phone], Progress Notes * George CHANDRA ADOB:1955 (69 yo M)Acc No.[id number]:02/04/2024 Progress Note Patient: Deion CONCEPCION George Miller Provider: Gino Raya DPM :1955 A ge:68 Y S ex:Male Date:02/04/2024 Address:[address] [place], [place] [id number] Pcp:Uriel Woodruff MD Subjective: * Chief Complaints: * * Medical History: Objective: * Vitals: Assessment: Plan: * Treatment: * Images: * The named appointment provid er may or may not be the originator of this progress note, and it is not deemed complete until electronically signed by the appointment provider. Sign off status: Pending * Provider: Gino Raya DPM Date: 0 02/04/2024 Generated for Pavel osborn/Jairon/Sam on: 1 08/08/2024 11:04 AM EST
--- OUTSIDE RECORDS SUMMARY | 2025-06-08 09:15 | XMS_ITS | Encounter Summary ---
Author Organization [employer] Address [address] [place] [address] 7t [place] [address] Care Team Providers Care Dance Historian Name Role Phone Uriel Woodruff MD Primary Care Provider [phone] Reason for Referral * Imaging (Routine) - Pending Review Specialty Diagnoses / Procedures Referred By Contac t Referred To Contact Radiology Diagnoses Headache, unspecified headache type Procedures CT Head w/ and w/o Contrast Uriel Woodruff MD [address] [place] [address] Phone: tel: fax: [facility] [address] [place] [address] Phone: tel: fax: Referral ID Status Reason Start Date Expiration Date V isits Requested Visits Authorized [id number] Pending Review 06/08/2025 06/08/2026 1 1 Reason for Visit * Reason Comments Follow-up Encounter Details Date Type Department Care Team (Late st Contact Info) Description 06/08/2025 9:15 AM EST Office Visit [facility] [address] [place] [address] [phone] Uriel Woodruff MD [address] [place] [address] [phone] Headache, unspecified headache type (Primary Dx); Malignant [...] in this encounter Progress Notes * Uriel Woodruff MD - 06/08/2025 9:15 AM EST Subjective [...] Future Encounter for vaccination - COVID-19 VACCINE [id number] (Comirnaty) 19 yrs + documented in this encounter Plan of Treatment Scheduled Orders Name Type Priority Associated Diagnoses Orde r Schedule CT Head w/ and w/o Contrast Imaging Routine Headache, unspecified headache type Expected: 06/08/2025, Expires: 06/08/2026 Basic Metabolic Panel Lab Routine Type 2 diabetes mellitus with other specified complication, without long-term current use of insulin (HCC) Headache, unspecified headache type Expected: 06/08/2025 (Approximate), Expires: 06/08/2026 documented as of this encounter Goals Goal Patient Goal Type Associated Problems Recent Progress Patient-Stated? Author Hemoglobin A1c < 8 Result Component 7.1( 9:20 AM EST) No Juana Samuels, PharmD Record your blood sugar as directed Result Component No Juana Samuels, PharmD documented as of this encounter Procedures Procedure Name Priority Date/Time Associated Diagnosis Comments POCT GLYCATED HEMOGLOBIN, TOTAL Routine 06/08/2025 9:20 AM EST Type 2 diabetes mellitus with other specified complication, without long-term current use of insulin (HCC) POCT GLUCOSE Routine 06/08/2025 9:18 AM EST Type 2 diabetes mellitus with other specified complication, without long-term current use of insulin (HCC) documented in this encounter Results * (ABNORMAL) POCT Hgb A1c (06/08/2025 9:20 AM EST) Hemoglobin A1C 7.1(A) 4.0 - 5.7 % QC Media Lot # [id number] Lot# Expiration Date 51,227 Blood 06/08/2025 9:20 AM EST us Uriel Woodruff MD POINT OF CARE TEST ENTER/EDIT OR DERABLES Final Result * POCT Glucose (06/08/2025 9:18 AM EST) Glucose Blood, POC 158 60 - 200 mg/dL QC Media Lot # [id number] Lot# Expiration Date 22,726 Blood Capillary blood specimen / Unknown 06/08/2025 9:18 AM EST us Uriel Woodruff MD POINT [...] Assessment Noted Time PHQ-9 Depression Total Score: 025 11:36 AM EST documented as of this encounter Care Teams Dance Historian Relationship Specialty Start Date End Date Name, MD Uriel [address] [place] [address] PCP - General Family Medicine 05/10/20 [facility] 03/23/25 documented as of this encounter
--- OUTSIDE RECORDS SUMMARY | 2025-06-08 11:05 | XMS_ITS | Clinical Summary ---
Author Organization [employer] Address [address] [facility] [address] [place] [address] Care Team Providers Care Testing Engineer Name Role Phone Name, Uriel AARON Primary Care Provider [phone] Allergies No known active allergies Medications glucose 4 g chewable tabletIndications :Type 2 diabetes mellitus with other specified complication, without long-term current use of insulin (HCC) Chew 4 tablets (16 g) if needed for low blood sugar. 20 tablet 5 02/26/20 23 Active pentoxifylline (Trental) 400 MG ER tablet Take 1 tablet by mouth in the morning and 1 tablet in the evening. 08/15/19 24 Active zonisamide (Zonegran) 100 MG capsule Take 3 capsules (300 mg) by mouth in the morning. 10/02/19 24 Active Spacer/Aero-Holdi ng Chambers (OptiChamber Sheri) misc 1 each every 4 (four) hours if needed (asthma). 1 each 12/11/19 24 Active Blood Pressure kit 1 each 2 times daily. 1 kit 12/11/19 24 Active TRUEplus Lancets 33G misc USE DIRECTED TO TEST BLOOD SUGAR TWICE DAILY 100 each 07/17/20 24 Active Blood Glucose Monitoring Suppl (FreeStyle Lite) device Inject 1 each under the skin 2 times daily. Use to test blood sugar twice daily as directed 1 each 09/02/19 25 Active esomeprazole (NexIUM) [address] capsule TAKE 1 CAPSULE BY MOUTH EVERY MORNING BEFORE BREAKFAST. DO NOT BREAK, CRUSH, DISSOLVE OR CHEW 30 capsule 09/15/19 25 Active Alcohol Swabs (Alcohol Pads) 70 % pads Use to clean skin up to three times daily prior to insulin use & BG testing 100 each 10/09/19 25 Active fluticasone (Flonase) 50 MCG/ACT nasal sprayIndications: Cough in adult patient Administer 1 spray into each nostril 2 times daily. Shake gently. Before first use, prime pump. After use, clean tip and replace cap. 16 g 1 12/24/19 25 026 Active albuterol 108 (90 Base) MCG/ACT inhalerIndication s:Mild intermittent asthma, uncomplicated INHALE 2 PUFFS BY MOUTH EVERY 4 TO 6 HOURS NEEDED 8.5 g 2 01/09/20 25 Active fluticasone-salme terol (Advair HFA) 115-21 MCG/ACT inhalerIndication s:Mild intermittent asthma, uncomplicated INHALE 2 PUFFS BY MOUTH TWICE DAILY IN THE MORNING AND IN THE EVENING. RINSE MOUTH AFTER EACH USE. 12 g 6 01/09/20 25 Active glucagon (Baqsimi Two Pack) 3 MG/DOSE nasal powderIndications :Type 2 diabetes mellitus without complication, without long-term current use of insulin ([facility]) Administer 3 mg via 1 device into the nostril for hypoglycemia with loss of consciousness. If no response after 15 minutes administer an additional dose via 2nd device into other nostril. 2 each 1 01/09/20 25 Active FREESTYLE LITE test stripIndications: Type 2 diabetes mellitus without complication, without long-term current use of insulin ([facility]) USE DIRECTED TO TEST BLOOD SUGAR TWICE DAILY 100 strip 03/16/20 25 Active metFORMIN XR (Glucophage-XR) 500 MG 24 hr tabletIndications :Type 2 diabetes mellitus with other specified complication, without long-term current use of insulin ([facility]) TAKE 2 TABLETS BY MOUTH TWICE DAILY IN THE MORNING AND EVENING WITH MEALS DO NOT BREAK, CRUSH, DISSOLVE OR CHEW 120 tablet 5 05/04/20 25 Active zinc gluconate 50 MG tabletIndications :Zinc deficiency Take 1 tablet (50 mg) by mouth Once per day. 30 tablet 11 05/05/20 25 026 Active glipiZIDE XL (Glucotrol XL) 2.5 MG 24 hr tablet Take 1 tablet (2.5 mg) by mouth Once per day. Do not crush, chew, or split. 30 tablet 11 04/08/20 25 025 Discontin ued(Side effects) Active Problems Problem Noted Date Diagnosed Date [...] gastroesophageal mucosa (see comment). 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 Mild cognitive disorder 01/13/2021 Seizure (CMS/HCC) 10/09/2018 Hyperlipidemia 05/09/2012 Chronic nonalcoholic liver disease 01/23/2012 Diabetes mellitus 01/23/2012 Impotence of organic origin 01/23/2012 Intermittent asthma 01/23/2012 Encounters Date Type Department Care Team Description 06/08/2025 9:15 AM EST Office Visit [facility] [address] [place] [phone] Name, MD Uriel Headache, unspecified headache type (Primary Dx); Malignant neoplasm of esophagus, unspecified location (HCC); Type 2 diabetes mellitus with other specified complication, without long-term current use of insulin (HCC); Encounter for vaccination 06/08/2025 Travel 06/07/2025 Telephone [facility] [address] [place] [phone] Demetrio Lizarraga MA chart prep 05/05/2025 Results Follow-Up [facility] [address] [place], [place] [phone] Cathi Westbrook FNP POCT Glucose, Vitamin B1, Vitamin B2 (Riboflavin), Additional followed-up results: 3 05/05/2025 Orders Only [facility] [address] [place] [phone] Cathi Westbrook, [employer]ENCH WORK[employer] APPRENTICE Zinc deficiency (Primary Dx) 05/04/[address] [address] Uriel Woodruff MD Type 2 diabetes mellitus with other specified complication, without long-term current use of insulin (HCC) 05/03/[address] [address] Uriel Woodruff MD Medication Question 04/23/2025 11:45 AM EDT Office Visit [address] [address] Cathi Westbrook [employer]EN[employer] WORKER APPRENTICE Numbness and tingling of both lower extremities (Primary Dx); Type 2 diabetes mellitus with other specified complication, without long-term current use of insulin (CMS/[facility]); Seizure disorder ([facility]); On total parenteral nutrition (TPN) 04/23/2025 Travel 04/16/[address] [address] Uriel Woodruff MD Nurse Triage 04/08/2025 10:00 AM EDT Office Visit [address] [address] Uriel Woodruff MD Type 2 diabetes mellitus with other specified complication, without long-term current use of insulin (CMS/[facility]) (Primary Dx); Malnutrition, unspecified type (CMS/HCC); On total parenteral nutrition (TPN); History of esophageal cancer; Left lower lobe consolidation (CMS/HCC) 04/08/2025 Travel 04/05/[address] [facility] [address] [place], [place] [phone] Uriel Woodruff MD Chart Prep 03/23/[address] [address] Uriel Woodruff MD HDF 03/22/[address] [address] Uriel Woodruff MD home orders 03/16/2025 Telephone [facility] [address] [place] [address] Demetrio Lizarraga MA OCT RECALLS 03/15/2025 Refill [facility] [address] [place] [address] Name, MD Uriel Type 2 diabetes mellitus without complication, without long-term current use of insulin ([facility]) from Last 3 Months Immunizations Immunization Administration Dates Next Due Hep A, Adult 09/16/2024,07/01/2023 Hep B, adult 08/16/2009, 7,08/19/2006,07/19 Moderna Covid-19 Vaccine 6+ Bivalent 08/23/2022 Pfizer Covid-19 Vaccine 12+ 06/08/2025, Pneumococcal Conjugate PCV 20 04/30/2022 Pneumococcal Polysaccharide [...] (118 lb) 06/08/2025 9:17 AM EST Height 175.3 cm (5' 9 ) 04/23/2025 12:01 PM EDT Body Mass Index 17.43 04/23/2025 12:01 PM EDT Plan of Treatment Health Maintenance Due Date Last Done Comments CT Colonography 1955 Dental X-Ray: Bitewings 1955 FIT DNA/Cologuard 1955 FIT 1955 FOBT 1955 Sigmoidoscopy 1955 Eye Exam 12/13/2023 12/12/2022, 11/26, 12/12/2022, Additional history exists Colonoscopy 02/19/2024 02/18/2019, 02/18/2019 Colorectal Cancer Screening 02/19/2024 Depression Monitoring 03/16/2025 09/16/2024, 025 Influenza Vaccine (#1) 2025 Dental Prophylaxis 05/31/2025 11/27/2024 Dental Oral Exam 06/19/2025 12/16/2024, 06/02/2024 Diabetes: Urine Protein Screening 09/07/2025 09/07/2024, 09/03/2022, 11/01/2021, Additional history exists Lipid Panel 09/07/2025 09/07/2024, 0212/2022, 05/19/2020 Diabetes: Hemoglobin A1C 09/08/2025 025, 04/08/2025, 02/15/2025, Additional history exists SDOH Screening 09/16/2025 09/16/2024 Alcohol/Substance Use Screening 04/08/2026 04/08/2025 Diabetes: Foot Exam 04/23/2026 04/23/2025, Dental X-Ray: Full Mouth 05/01/2026 04/30/2023 Tobacco Screening 06/08/2026 06/08/2025 DTaP/Tdap/Td Vaccines (3 - Td or Tdap) 12/15/2034 12/15/2024, 10/01/2014, 05/08/2007 Hepatitis B Vaccines Completed 08/16/2009, 02/04/2007, 08/19/2006, Additional history exists Hepatitis C Screening Completed 04/17/2021, 020 Zoster Vaccines Completed 01/23/2022, 11/21/2021 Pneumococcal Vaccine: 50+ Years Completed 04/30/2022, 05/31/2008 RSV Patients and Patients Aged 60 years or older Completed 07/01/2023 Hepatitis A Vaccines Completed 09/16/2024, 07/01/20 23 COVID-19 Vaccine Completed 06/08/2025, 11/2024, 08/23/2022, Additional history exists HIB Vaccines Aged Out [...] 7.1( 9:20 AM EST) No Juana Samuels, Misty Record your blood sugar as directed Result Component No Juana Samuels PharmD Procedures Procedure Name Priority Date/Time Associated Diagnosis Comments POCT GLYCATED HEMOGLOBIN, TOTAL Routine 06/08/2025 9:20 AM EST Type 2 diabetes mellitus with other specified complication, without long-term current use of insulin ([facility]) POCT GLUCOSE Routine 06/08/2025 9:18 AM EST Type 2 diabetes mellitus with other specified complication, without long-term current use of insulin ([facility]) ZINC Routine 04/26/2025 11:39 AM EDT Type 2 diabetes mellitus with other specified complication, without long-term current use of insulin ([facility]) VITAMIN B6 Routine 04/26/2025 11:39 AM EDT Type 2 diabetes mellitus with other specified complication, without long-term current use of insulin ([facility]) VITAMIN B12/FOLATE, SERUM PANEL Routine 04/26/2025 11:39 AM EDT Type 2 diabetes mellitus with other specified complication, without long-term current use of insulin ([facility]) VITAMIN B2 (RIBOFLAVIN), PLASMA Routine 04/26/2025 11:39 AM EDT Type 2 diabetes mellitus with other specified complication, without long-term current use of insulin ([facility]) VITAMIN B1 Routine 04/26/2025 11:39 AM EDT Type 2 diabetes mellitus with other specified complication, without long-term current use of insulin ([facility]) POCT GLUCOSE Routine 04/23/2025 12:02 PM EDT Type 2 diabetes mellitus with other specified complication, without long-term current use of insulin (CMS/HCC) XR CHEST 2 VIEWS Routine 04/08/2025 4:27 PM EDT Left lower lobe consolidation (CMS/HCC) POCT GLYCATED HEMOGLOBIN, TOTAL Routine 04/08/2025 10:14 AM EDT Type 2 diabetes mellitus with other specified complication, without long-term current use of insulin (CMS/HCC) POCT GLUCOSE Routine 04/08/2025 10:14 AM EDT Type 2 diabetes mellitus with other specified complication, without long-term current use of insulin (CMS/HCC) PERIODIC ORAL EVALUATION - ESTABLISHED PATIENT Routine [...] to Health Maintenance Results * (ABNORMAL) POCT Hgb A1c (06/08/2025 9:20 AM EST) Only the most recent of2 resultswithin the time period is included. Hemoglobin A1C 7.1(A) 4.0 - 5.7 % QC Media Lot # [id number] Lot# Expiration Date Blood 06/08/2025 9:20 AM EST Uriel Name POINT OF CARE TEST ENTER/EDIT OR DERABLES Final Result * POCT Glucose (06/08/2025 9:18 AM EST) Only the most recent of3 resultswithin the time period is included. Pathologist [facility] Glucose Blood, POC 158 60 - 200 mg/dL QC Media Lot # [id number] Lot# Expiration Date Blood Capillary blood specimen / Unknown 06/08/2025 9:18 AM EST Uriel Woodruff MD POINT OF CARE TEST ENTER/EDIT OR DERABLES Final Result * (ABNORMAL) Vitamin B2 (Riboflavin) (04/26/2025 11:39 AM EDT) Pathologist [facility] Vitamin B2 (Riboflavin) 46.6(A) 6.2 - 39.0 nmol/L [facility] Comment:Vitamin supplementat ion within 24 hours prior to blooddraw may affect the accuracy of results.This test was developed and its analyticalperformance characteristics have been determinedby [facility], [place], [place].It has not been cleared or approved by the FDA. Thisassay has been validated pursuant to the CLIAregulations and is used for clinical purposes.THIS TEST WAS PERFORMED AT:[employer]/[facility]manda [facility] [employer] [id number] [place] [address]FGHRDVEFRANK ALEXANDER MD,PHD Blood 04/26/2025 11:3 9 AM EDT 04/26/2025 11:39 AM EDT [facility] [employer] WORK[employer]PRENTICE LAB BLOOD ORDERABLES Final Re sult [facility] [address] [place] [phone] * Vitamin B12/Folate, Serum Panel (04/26/2025 11:39 AM EDT) Pathologist [facility] Vitamin B12 495 200 - 900 pg/mL [facility] Comment:NORMAL 200-900 PG/ML INDETERMINATE 160-199 PG/ML DEFICIENT < 160 PG/ML Folate 12.6 > or = 4.0 ng/mL [facility] Comment:Reference Values:> o r = 4.0 ng/mL< 4.0 ng/mL suggests folate deficiency Methotrexate, aminopterin and folinic acid(leucovorin) are chemotherapeutic agents whose molecularstructures are similar to folate; therefore, the Architectfolate assay cannot be used for patients using these drugs. Blood Venous blood specimen / Unknown 04/26/2025 11:39 AM EDT 04/26/2025 11:39 AM EDT [facility] LAB BLOOD ORDERABLES Final Re sult Performing Organization Address [facility]/ZIP Co de Phone Number [facility] [address] [place], [place] [phone] * (ABNORMAL) Zinc (04/26/2025 11:39 AM EDT) Zinc 51(A) 60 - 130 mcg/dL [facility] Comment:This test was develo ped and its analytical performancecharacteristics have been determined by [facility] [place], [place]. It hasnot been cleared or approved by the U.S. Food and DrugAdministration. This assay has been validated pursuantto the CLIA regulations and is used for clinicalpurposes.THIS TEST WAS PERFORMED AT:[id number] [place] [address]XVWOHASFRANK ALEXANDER MD,PHD Blood Venous blood specimen / Unknown 04/26/2025 11:39 AM EDT 04/26/2025 11:39 AM EDT [facility] LAB BLOOD ORDERABLES Final Re sult Performing Organization Address [facility] Co de Phone Number [facility] [address] [place], [place] [phone] * (ABNORMAL) Vitamin B1 (04/26/2025 11:39 AM EDT) Vitamin B1 57(A) 8 - 30 nmol/L [facility] Comment:Vitamin supplementat ion within 24 hours prior toblood draw may affect the accuracy of the results.This test was developed and its analytical performancecharacteristics have been determined by [employer] [place]. It hasnot been cleared or approved by the U.S. Food and DrugAdministration. This assay has been validated pursuantto the CLIA regulations and is used for clinicalpurposes.THIS TEST WAS PERFORMED AT:[employer]/[id number] [place] [address]PUYBUOQFRANK ALEXANDER MD,PHD Blood Venous blood specimen / Unknown 04/26/2025 11:39 AM EDT 04/26/2025 11:39 AM EDT [facility] LAB BLOOD ORDERABLES Final Re sult Performing Organization Address [facility] de Phone Number [facility] [address] [place] [phone] * (ABNORMAL) Vitamin B6 (04/26/2025 11:39 AM EDT) Vitamin B6 27.8(A) 2.1 - 21.7 ng/mL [facility] Comment:Vitamin supplementat ion within 24 hours prior toblood draw may affect the accuracy of the results.This test was developed and its analytical performancecharacteristics have been determined by [facility] [place], [place]. It hasnot been cleared or approved by the U.S. Food and DrugAdministration. This assay has been validated pursuantto the CLIA regulations and is used for clinicalpurposes.THIS TEST WAS PERFORMED AT:[employer]/[id number] [place] [address]PEGVZAIFRANK ALEXANDER MD,PHD Blood Venous blood specimen / Unknown 04/26/2025 11:39 AM EDT 04/26/2025 11:39 AM EDT [facility] LAB BLOOD ORDERABLES Final Re sult [facility] [address] [place] [phone] * XR Chest 2 Views (04/08/2025 4:27 PM EDT) Anatomical Region Laterality Modality Chest Radiographic Cari ging 04/08/2025 4:27 PM EDT Narrative 04/08/2025 4:40 PM EDT [address] [address] XRay Report Signed Patient: George Johnson MR#: [id number] : 1955 Acct:[id number] Age/Sex: 69 / M ADM Date: 04/08/25 Loc: .HHCX Attending Dr: Uriel Woodruff MD Ordering Physician: Uriel Woodruff MD Date of Service: 04/08/25 Procedure(s): XR chest 2V Accession Number(s): [id number] cc: Uriel Woodruff MD Reason for Exam: [...] Tab Rojas MD 04/08/2025 04:36 PM EDT Dictated By: Tab Rojas MD Signed By: <Electronically signed by Tab Rojas MD in OV> 04/08/25 1636 DD/ 1627 TD/TT: 04/08/25 1628 Braille Proofreader: Procedure Note Donotuseinterpreter, Image - 04/08/2025 [facility] [address] [place] [address] XRay Report Signed Patient: George Johnson AMR#: [id number] : 7Acct:[id number] Age/Sex: 69 / MADM Date: 04/08/25 Loc: .HHCX Attending Dr: Uriel Woodruff MD Ordering Physician: Uriel Woodruff MD Date of Service: 04/08/25 Procedure(s): XR chest 2V Accession Number(s): [id number] cc: Uriel Woodruff MD Reason for Exam: [...] Tab Rojas MD 04/08/2025 04:36 PM EDT Dictated By: Tab Rojas MD Signed By: <Electronically signed by Tab Rojas MD in OV> 04/08/25 1636 DD/ 1627 TD/TT: 04/08/25 1628 Braille Proofreader: Uriel Woodruff MD IMG XR PROCEDURES Final Result * Albumin, Random Urine W/Creatinine (09/07/2024 8:10 AM EST) Creatinine, Urine 194.22 mg/dL [facility] Microalbumin Urine 22.0 mg/L [facility] Microalbum Creatinine Ratio Ur 11.3 <30 ug/mg cr [facility] Comment:Albumin/Creatinine R atio Reference Ranges: Normal: < 30 ug/mg creatinine Microalbuminuria: 30 - 300 ug/mg creatinineClinical Albuminuria: > 300 ug/mg creatinine 09/07/2024 8:10 AM EST 09/07/2024 11:02 AM EST us Uriel Woodruff MD LAB URINE ORDERABLES Final Resul t Performing Organization Address [facility] Co de Phone Number [facility] [address] [place] [phone] * (ABNORMAL) Lipid Panel, Standard (09/07/2024 8:10 AM EST) Triglycerides 126 <150 mg/dL [facility] Comment:Desirable Triglyceri de: less than 150 mg/dLBorderline High Triglyceride 150-199 mg/dLHigh Triglyceride: 200-499 mg/dLVery High Triglyceride: greater than or equal to 5OO mg/dL Cholesterol 190 <200 mg/dL [facility] Comment:Desirable Cholestero l: less than 200 mg/dLBorderline High Cholesterol: 200-239 mg/dLHigh Cholesterol: greater than 239 mg/dL LDL Cholesterol Calculated 114(H) <100 mg/dL [facility] Comment:Desirable LDL: less than 100 mg/dLNear Optimal/Above Optimal LDL: 110- 129 mg/dLBorderline High LDL: 130-159 mg/dLHigh LDL: 160-189 mg/dLVery High LDL: greater than or equal to 190 mg/dL HDL Cholesterol 51 >40 mg/dL [facility] Comment:Desirable HDL: great er than 40 mg/dL Note: This HDL assay may give artificially low results in patients with liver disease. 09/07/2024 8:10 AM EST 09/07/2024 11:01 AM EST us Uriel Woodruff MD LAB BLOOD ORDERABLES Final Resul t Performing Organization Address [facility] Co de Phone Number [facility] [address] [place] [phone] * Hepatitis A,B,C Profile (04/17/2021 8:40 AM EDT) Hepatitis B Core Antibody Nonreactive Nonreactive [facility] Hepatitis B Surface Antibody NONREACTIVE Nonreactive [facility] Comment:Nonreactive: < 8.00 mIU/mL Hepatitis B Surface Antigen Negative Negative [facility] Hepatitis C Antibody Nonreactive Nonreactive [facility] Comment: Antibodies to HCV not detected; does not exclude early acute HCV infection. 04/17/2021 8:40 AM EDT Historical Provider HISTORICAL/NON ORDERABLE LABS Final Result [facility] [address] * (ABNORMAL) Colonoscopy (02/18/2019) Colonoscopy Abnormal(A ) Normal Uriel Woodruff MD HEALTH MAINTENANCE Final Result from Last 3 Months or Most Recently Relevant to Health Maintenance Insurance [facility] [employer] OPT[employer] (O D-SNP) RAJIV PETER [id number] [facility] Care Teams Testing Engineer Relationship Specialty Start Date End Date Name, MD Uriel [address] [place] [address] PCP - General Family Medicine 05/10/20 [facility] 03/23/25
--- OUTSIDE RECORDS SUMMARY | 2025-06-08 11:05 | XMS_ITS | Patient Health Record ---
Author Organization [facility] Address [address] [place] [address] Care Team Providers Care Software Installer Name Role Phone Name Uriel AARON Primary Care Provider Melba Chin Unavailable [phone] Allergies No Known Allergies Results Component Value Reference Range Notes HEMOGLOBIN A1C (GLYCOHEMOGLO BIN) Reviewed date:05/21/2025 09:12:05 AM Interpretation: Performing Lab: Notes/Report: HEMOGLOBIN A1C % (HH) 6.7 Reason For Referral No Information Medications Medication SIG (Take, Route, Frequency, Duration) Notes Start Date End Date Status Advair HFA 115-21 MCG/ACT Inhalation; Duration: 30 Active Insulin Not-Taking Extra Depth Orthopedic Shoes, (1) Pair With (3) Pair Custom Heat Molded Multidensity Innersoles Dx: NIDDM/PVD(E11.51), Hammertoe Foot Deformity(M20.41,M20 .42), Preulcerative Skin Lesion(s)(L85.1) Wear Daily; Duration: 365 days Active Gabapentin Not-Takin g OxyCONTIN Not-Taking metFORMIN HCl ER 500 MG 1 tablet with evening meal Orally twice a day Active Rosuvastatin Calcium 20 MG 1 tablet Orally Once a day Not-Taking Esomeprazole Magnesium 40 MG 1 capsule Orally Once a day Active Vitamin B-12 1000 MCG 1 tablet Orally On ce a day Not-Taking Extra Depth Orthopedic Shoes (1 Pair) with Customized Heat Molded Multidensity Innersoles (3 Pair) as directed Dx: NIDDM/Polyneuropathy (E11.42), Hammertoe Foot Deformity (M20.41,M20.42), Preulcerative Skin Lesion(s) (L85.1 09/06/2023 Active Vitamin D3 25 MCG (1000 UT) 1 capsule Orally Once a day Not-Taking Ventolin HFA 108 (90 Base) MCG/ACT INHALE 2 PUFFS BY MOUTH EVERY 4 TO 6 HOURS NEEDED Inhalation; Duration: 17 Active Baqsimi Two Pack 3 MG/DOSE USE 1 SPRAY (3MG) IN ONE NOSTRIL FOR A PATIENT WITH SEVERE HYPOGLYCEMIA WHO IS NOT RESPONSIVE AND UNABLE SELF-TREAT WITH GLUCOSE. AFTERWARDS TURN ON SIDE. MAY REPEAT IN 15MINUTES IF PATIENT DOES NOT RESPOND. Nasal; Duration: 1 E119,Unavail able Not-Taking Zonisamide 100 MG 3 capsules Orally 4 times a day Active glipiZIDE 10 MG 1 tablet 30 minutes before breakfast Orally Once a day Not-Taking metFORMIN HCl Active Metoprolol Tartrate 25 MG Oral; Duration: 30 Not-Takin g amLODIPine Besylate Not-Taking Extra Depth Orthopedic Shoes (1 Pair) with Customized Heat Molded Multidensity Innersoles (3 Pair) as directed Dx: NIDDM (E11.9), Hammertoe Foot Deformity (M20.41,M20.42), Preulcerative Skin Lesion(s) (L85.1) Active Trulicity Not-Taking Pentoxifylline ER 400 MG 1 tablet with meals Orally Twice a day Active Immunizations Vaccine Route Administration Date Status Comme nts Influenza Unknown 02/07/2024 Refused Influenza Unknown 05/21/2025 Refused Social History Tobacco Use: Social History [...] Problem Acquired hammer toe of right foot (2986239249474732 ) Other hammer toe(s) (acquired), right foot (M20.41) Active confirmed Problem Acquired hammer toe of left foot ([id number] ) Other hammer toe(s) (acquired), left foot (M20.42) Active confirmed Problem Type II diabetes mellitus without complication (173426387) Type 2 diabetes mellitus without complication, without long-term current use of insulin (E11.9) Active confirmed Vital Signs Blood pressure diastolic 78 mm Hg 05/21/2025 Height 5ft9in in 05/21/2025 Blood pressure systolic 118 mm Hg 05/21/2025 Weight 118 lbs 05/21/2025 BMI 17.42 kg/m2 05/21/2025 Encounters Encounter Location Date Provider Diagnosis [address] [address] 06/24/2024 Melba Perica Tinea unguium B35.1 ; Ingrown nail L60.0 ; Type 2 diabetes mellitus without complication, without long-term current use of insulin E11.9 ; Pain in toe of left foot M79.675 and Pain in toe of right foot M79.[address] [address] 09/09/2024 Melba Perica Tinea unguium B35.1 ; Ingrown nail L60.0 ; Type 2 diabetes mellitus without complication, without long-term current use of insulin E11.9 ; Pain in toe of left foot M79.675 and Pain in toe of right foot M79.[address] [address] 11/27/2024 Melba Perica Tinea unguium B35.1 ; Other hammer toe(s) (acquired), right foot M20.41 ; Type 2 diabetes mellitus without complication, without long-term current use of insulin E11.9 ; Pain in toe of left foot M79.675 ; Pain in toe of right foot M79.674 and Other hammer toe(s) (acquired), left foot M20.[address] [address] 02/23/2025 Melba Perica Tinea unguium B35.1 ; Ingrown nail L60.0 ; Type 2 diabetes mellitus without complication, without long-term current use of insulin E11.9 ; Pain in toe of left foot M79.675 and Pain in toe of right foot M79.674 [facility] [place] [address] [place] [address] 05/21/2025 Melba Raya Tinea unguium B35.1 ; Type 2 diabetes mellitus without complication, [...] B35.1) 02/23/2025 Ingrown nail (ICD-10 - L60.0) 05/21/2025 Tinea unguium (ICD-10 - B35.1) 05/21/2025 Type 2 diabetes mellitus without complication, without long-term current use of insulin (ICD-10 - E11.9) 02/23/2025 Type 2 diabetes mellitus without complication, without long-term current use of insulin (ICD-10 - E11.9) 05/21/2025 Pain in toe of left foot (ICD-10 - M79.675) 11/27/2024 Type 2 diabetes mellitus without complication, without long-term current use of insulin (ICD-10 - E11.9) 09/09/2024 Ingrown nail (ICD-10 - L60.0) 06/24/2024 Ingrown nail (ICD-10 - L60.0) 06/24/2024 Type 2 diabetes mellitus without complication, without long-term current use of insulin (ICD-10 - E11.9) 02/23/2025 Pain in toe of left foot (ICD-10 - M79.675) 11/27/2024 Pain in toe of left foot (ICD-10 - M79.675) 09/09/2024 Type 2 diabetes mellitus without complication, without long-term current use of insulin (ICD-10 - E11.9) 05/21/2025 Pain in toe of right foot (ICD-10 - M79.674) 11/27/2024 Pain in toe of right foot [...] INSTRUCTIONS.p df (DIABETIC FOOT CARE INSTRUCTIONS.p df) 05/21/2025 Other Plan Of Treatment Next Appt Details Provider Name:Melba miller, 08/13/2025 10:00:00 AM, [address] [place] [address], [phone], Insurance Providers Payer Name Payer Address Payer Phone Subscriber Number Group Number Insured Name Patient Relationship to Insured Coverage Start Date Coverage End Date [facility] [employer] Claims [address] [id number] [id number] George Guillaume Self - patient is the insured Medical (General) History Medical History History ICD Code Anxiety asthma Back,Hip,and Knee pain Cataracts Diabetic Epilepsy/Seizures Fatty liver Reflux ( GERD) Chicken pox Joint implants/screws Esophageal cancer Surgical History Surgery Date(Month/Year) Esophageal surgery- feeding tube 3 cataract surgery 2023
--- OUTSIDE RECORDS SUMMARY | 2025-06-08 11:05 | XMS_ITS | Encounter Summary ---
Author Organization [employer] Address [address] [place] [address] 7t [place] [address] Care Team Providers Care Electromechanisms Design Drafter Name Role Phone Name, Uriel AARON Primary Care Provider [phone] Puia, Juana PharmD Unavailable Puia, Juana PharmD Unavailable Reason for Visit * Reason Comments Med Refill Encounter Details Date Type Department Care Team (Late st Contact Info) Description 09/23/2022 Refill [facility] MEDICINE [address] [place] [address] Puia, Juana, PharmD [address] [place], [place] [id number] Type 2 diabetes mellitus with other specified complication, without long-term current use of insulin (CMS/HCC) (Primary Dx) Social History Tobacco Use Types [...] on file documented as of this encounter Visit Diagnoses Diagnosis Type 2 diabetes mellitus with other specified complication, without long-term current use of insulin (HCC)- Primary documented in this encounter Care Teams Electromechanisms Design Drafter Relationship Specialty Start Date End Date Name, MD Uriel [address] [place] [address] PCP - General Family Medicine 05/10/20 Juana Samuels PharmD [address] [place] [address] Pharmacist Internal Medicine 05/03/22 09/01/23 Juana Samuels PharmD [address] [place] [address] Pharmacist Internal Medicine 09/02/24 [facility] documented as of this encounter
--- OUTSIDE RECORDS SUMMARY | 2025-06-08 11:05 | XMS_ITS | Encounter Summary ---
Author Organization [employer] Address [address] [facility] 7t [place] [address] Care Team Providers Care Agricultural Economist Name Role Phone Name, Uriel AARON Primary Care Provider PuiaJuana PharmD Unavailable [phone] Puia, Juana PharmD Unavailable [phone] Reason for Visit * Reason Onset Date Comments Clearance 06/11/2023 Encounter Details Date Type Department Care Team (Late st Contact Info) Description 06/11/2023 Telephone [facility] MEDICINE [address] [place] [address] Name, MD Uriel [address] [place] [address] Clearance Social History Tobacco Use Types Packs/Day [...] documented in this encounter Plan of Treatment Not on file documented as of this encounter Goals Goal Patient Goal Type Associated Problems Recent Progress Patient-Stated? Author Hemoglobin A1c < 8 Result Component 7.1( 9:20 AM EST) No Puia, Juana, PharmD Record your blood sugar as directed Result Component No Puia, Juana, PharmD documented as of this encounter Visit Diagnoses Not on filedocumented in this encounter Care Teams Agricultural Economist Relationship Specialty Start Date End Date Name, MD Uriel [address] [place] [address] PCP - General Family Medicine 05/10/20 Juana Samuels, MagnusD [address] [place] [address] Pharmacist Internal Medicine 05/03/22 09/01/23 Juana Samuels, MagnusD [address] [place] [address] Pharmacist Internal Medicine 09/02/24 01/07/25 [facility] 03/23/25 documented as of this encounter
--- OUTSIDE RECORDS SUMMARY | 2025-06-08 11:05 | XMS_ITS | Encounter Summary ---
Author Organization [employer] Address [address] [facility] 7t [place] [address] Care Team Providers Care Vocational School Teacher Name Role Phone Name, Uriel AARON Primary Care Provider [phone] Juana Samuels PharmD Unavailable [phone] Reason for Visit * Reason Comments Med Refill Encounter Details Date Type Department Care Team ([facility] st Contact Info) Description 08/09/2024 Refill [facility] MEDICINE [address] [place] [address] Name, MD Uriel [address] [place] [address] Social History Tobacco Use Types Packs/Day Years [...] documented as of this encounter Care Teams Vocational School Teacher Relationship Specialty Start Date End Date Name, MD Uriel [address] [place] [address] PCP - General Family Medicine 05/10/20 Juana Samuels, PharmD [address] [place] [address] Pharmacist Internal Medicine 09/02/24 01/07/25 [facility] 03/23/25 documented as of this encounter
--- OUTSIDE RECORDS SUMMARY | 2025-06-08 11:05 | XMS_ITS | Encounter Summary ---
Author Organization [employer] Address [address] [facility] 7t [place] [address] Care Team Providers Care Chemotherapist Name Role Phone Name, Uriel AARON Primary Care Provider Juana Samuels PharmD Unavailable [phone] Reason for Visit * Reason Onset Date Comments FYI 05/26/2024 Encounter Details Date Type Department Care Team ([facility] st Contact Info) Description 05/26/2024 Telephone [facility] MEDICINE [address] [place] [address] Name, MD Uriel [address] [place] [address] FYI Social History Tobacco Use Types Packs/Day [...] For any questions please call Loy at [phone] *Advised caller message sent to provider. documented in this encounter Plan of Treatment Not on file documented as of this encounter Goals Goal Patient Goal Type Associated Problems Recent Progress Patient-Stated? Author Hemoglobin A1c < 8 Result Component 7.1( 5 9:20 AM EST) No Puia, Juana, PharmD Record your blood sugar as directed Result Component No Johania Juana, PharmD documented as of this encounter Visit Diagnoses Not on filedocumented in this encounter Additional Health Concerns Assessment Noted Time PHQ-9 Depression Total Score: 0 08/30/19 24 9:27 AM EST documented as of this encounter Care Teams Chemotherapist Relationship Specialty Start Date End Date Name, MD Uriel [address] [place] [address] PCP - General Family Medicine 05/10/20 JohaniaJuana, PharmD [address] [place] [address] Pharmacist Internal Medicine 09/02/24 [facility]07[facility] documented as of this encounter
--- OUTSIDE RECORDS SUMMARY | 2025-06-08 11:05 | XMS_ITS | Encounter Summary ---
Author Organization [employer] Address [address] [facility] 7t [place] [address] Care Team Providers Care Mercerizer Name Role Phone Name, Uriel AARON Primary Care Provider [phone] Puia, Juana PharmD Unavailable [phone] Puia, Juana PharmD Unavailable [phone] Reason for Visit * Reason Comments Med Refill Encounter Details Date Type Department Care Team (Late st Contact Info) Description 08/15/2023 Refill [facility] [address] [place], [place] [phone] Name, MD Uriel [address] [place] [address] Allergic rhinitis, unspecified seasonality, unspecified trigger Social [...] trigger documented in this encounter Care Teams Mercerizer Relationship Specialty Start Date End Date Name, MD Uriel [address] [place] [address] PCP - General Family Medicine 05/10/20 Juana Samuels, PharmD [address] [place] [address] Pharmacist Internal Medicine 05/03/22 09/01/23 Juana Samuels PharmD [address] [place] [address] Pharmacist Internal Medicine 09/02/24 01/07/25 [facility] documented as of this encounter
--- OUTSIDE RECORDS SUMMARY | 2025-06-08 11:05 | XMS_ITS | Encounter Summary ---
Author Organization [employer] Address [address] [facility] 7t [place] [address] Care Team Providers Care Therapy Site Coordinator Name Role Phone Name, Uriel AARON Primary Care Provider [phone] Reason for Visit * Reason Onset Date Comments chart prep 06/07/2025 Encounter Details Date Type Department Care Team ([facility] st Contact Info) Description 06/07/2025 Telephone [facility] MEDICINE [address] [place] [address] Demetrio Lizarraga MA chart prep Social History Tobacco Use Types Packs/Day Years [...] encounter Miscellaneous Notes * Telephone Encounter - Demetrio Lizarraga MA - 06/07/2025 11:34 AM EST Chart Prep Labs: done Images: done Referrals: complete Sat01/08/25 9:00 AM [facility] Medicine Juana Samuels PharmD Cdtm Telehealth Completed Sat10/08/24 9:00 AM [facility] Medicine Juana Samuels PharmD Cdtm Telehealth Completed Sat09/02/24 9:00 AM [facility] Medicine Juana Samuels PharmSincere Cdtm Completed completed Sat08/13/24 9:00 AM [facility] Vaccines due: Covid and Flu Screenings: colonoscopy and eye exam Overdue care gaps: A1c and Glucose documented in this encounter Plan of Treatment Not on file documented as of this encounter Goals Goal Patient Goal Type Associated Problems Recent Progress Patient-Stated? Author Hemoglobin A1c < 8 Result Component 7.1( 9:20 AM EST) No Puia Juana, PharmD Record your blood sugar as directed Result Component No Puia Juana, PharmD documented as of this encounter Visit Diagnoses Not on filedocumented in this encounter Additional Health Concerns Assessment Noted Time PHQ-9 Depression Total Score: 11 025 11:36 AM EST documented as of this encounter Care Teams Therapy Site Coordinator Relationship Specialty Start Date End Date Name, MD Uriel [address] [place] [address] [place] [address] PCP - General Family Medicine 05/10/20 [facility] 03/23/25 documented as of this encounter
--- OUTSIDE RECORDS SUMMARY | 2025-06-08 11:05 | XMS_ITS | Encounter Summary ---
Author Organization [email or web address] Address [address] [facility] 7t [place] [address] Care Team Providers Care Art Therapy Certified Supervisor Name Role Phone Name, Uriel AARON Primary Care Provider [phone] Juana Samuels PharmD Unavailable [phone] Reason for Visit * Reason Onset Date Comments [facility] 10/09/2023 Durable Medical Equipment 10/09/2023 Diabet ic shoes Encounter Details Date Type Department Care Team (Late st Contact Info) Description 10/09/2023 Telephone [facility] MEDICINE [address] [place] [address] Name, MD Uriel [address] [place] [address] VNA ; Durable Medical Equipment (Diabetic shoes) [...] - 10/09/2023 3:10 PM EDT Tc from Lianet with [facility] calling to let pcp know pt has been discharged from the agency. If any questions please contact Lianet at [phone] documented in this encounter Plan of Treatment [...] documented as of this encounter Care Teams Art Therapy Certified Supervisor Relationship Specialty Start Date End Date Name, MD Uriel [address] [place] [address] PCP - General Family Medicine 05/10/20 Puia, Juana, PharmD [address] [place], [place] [phone] Pharmacist Internal Medicine 09/02/24 01/07/25 [facility] 03/23/25 documented as of this encounter
--- OUTSIDE RECORDS SUMMARY | 2025-06-08 11:05 | XMS_ITS | Encounter Summary ---
Author Organization [employer] Address [address] [place] [address] 7t [place] [address] Care Team Providers Care Procedures Rn Name Role Phone Name, Uriel AARON Primary Care Provider [phone] Puia, Juana PharmD Unavailable Puia, Juana PharmD Unavailable Encounter Details Date Type Department Care Team (Late st Contact Info) Description 01/07/2023 Abstract [facility] MEDICINE [address] [place] [address] Name, MD Uriel [address] [place] [address] Social History Tobacco Use Types Packs/Day Years [...] EDT Recommended 5 year follow up ( [facility] ) us Historical Provider HEALTH MAINTENANCE Final Result documented in this encounter Visit Diagnoses Not on filedocumented in this encounter Care Teams Procedures Rn Relationship Specialty Start Date End Date Name, MD Uriel [address] [place] [address] PCP - General Family Medicine 05/10/20 Juana Samuels, MagnusD [address] [place] [address] Pharmacist Internal Medicine 05/03/22 09/01/23 Juana Samuels PharmD [address] [place] [address] Pharmacist Internal Medicine 09/02/24 01/07/25 [facility] 03/23/25 documented as of this encounter
--- OUTSIDE RECORDS SUMMARY | 2025-06-08 11:05 | XMS_ITS | Encounter Summary ---
Author Organization [employer] Address [address] [facility] 7t [place] [address] Care Team Providers Care Reed Cleaner Name Role Phone Name, Uriel AARON Primary Care Provider [phone] Juana Samuels PharmD Unavailable [phone] Reason for Visit * Reason Comments Med Refill Encounter Details Date Type Department Care Team ([facility] st Contact Info) Description 09/07/2023 Refill [facility] MEDICINE [address] [place] [address] Name, MD Uriel [address] [place] [address] Social History Tobacco Use Types Packs/Day Years [...] documented as of this encounter Care Teams Reed Cleaner Relationship Specialty Start Date End Date Name, MD Uriel [address] [place] [address] PCP - General Family Medicine 05/10/20 Juana Samuels, PharmD [address] [place] [address] Pharmacist Internal Medicine 09/02/24 01/07/25 [facility] 03/23/25 documented as of this encounter
--- OUTSIDE RECORDS SUMMARY | 2025-06-08 11:05 | XMS_ITS | Data Portability ---
Author Organization [facility] [employer] Address [address] [place] [address] [place] [address] Care Team Providers Care Berry Grower Name Role Phone NAME, NARINDER Referring Provider Unavailable NAME, NARINDER Primary Care Provider DIETER GARCIA Colorist Dyer Assessment Encounter Date Assessment Date Assessment LastModified [...] Orders zonisamide 100 mg capsule 2022 023 [facility], [address] [place] [address], [id number], 3 09:51:18 lorazepam 1 mg tablet 2022 023 [facility], [address] [place] [address], [id number], 3 09:51:18 zonisamide 100 mg capsule 2021 022 [facility], [address] [place] [address], [id number], 2 13:21:24 zonisamide 100 mg capsule 2020 021 [facility], [address] [place] [address], [id number], 1 10:25:34 Patient TargetsNo targets recorded. Patient [...] 09/12/2022 DATA REVIEW completed Chris Arias MD [address] [place] [address] [place], [phone], [facility] [employer] [facility] 09/12/2022 09:34:17 01/03/2022 DATA REVIEW completed Chris Arias MD [address] [place], [place] [address], [phone], [facility] [employer] [facility] 01/03/2022 13:11:53 01/11/2021 DATA REVIEW completed Chris Arias MD [address] [place] [address] [place], [phone], [facility] [employer] [facility] 01/11/2021 10:36:00 Imaging Results None recorded. Procedure [...] Codes Diagnosis Note 897 Chris Arias MD [facility] [address] [place] [address] [place] [address] 01/11/2021 09:55:40 01/11/2021 10:40:27 Focal onset impaired awareness epileptic seizure 782365922 G40.209 Mild neuro cognitive disorder 115681240 G31.84 Abnormal gait 84116457 R 26.81 Ruptured b erry aneurysm [id number] I60.11 5390 Chris Arias MD [facility] [address] [place] [address] [place] [address] 01/03/2022 12:54:35 01/03/2022 13:45:17 Focal onset impaired awareness epileptic seizure 261129608 G40.209 Mild neuro cognitive disorder 052659212 G31.84 Abnormal gait 72850122 R 26.81 Ruptured b erry aneurysm 610634044 I60.11 7832 Chris Arias MD [facility] [address] [place] [address] [place] [address] 09/12/2022 09:25:19 09/12/2022 10:37:48 Focal onset impaired awareness epileptic seizure 420601398 G40.209 Mild neuro cognitive disorder 071515447 G31.84 Abnormal gait 00053771 R 26.81 Ruptured b erry aneurysm 474351039 I60.11 Health Concerns Section Related Observation LastModified by Organization Detai ls LastModified Time None Recorded Concern Status LastModified by Organization Details LastModified Time None Recorded Advance Directives Directive None Recorded Payers Insurance Date Sequence Insurance Name Policy Number Policy Miller Covered Member ID Miller Member ID Guarantor Name 08/12/2023 1 [facility] - DOS PRIOR TO 2022 - DUAL ELIGIBLE (MEDICARE REPLACEMENT/ADV ANTAGE - HMO) George Guillaume [id number] George Guillaume Notes Date Note Type Note [...] the final dose. Chris Arias MD [address] [place] [address], [phone], [facility] 01/11/2021 10:36:09 01/03/2022 text/html Follow-up for episodes [...] know the final dose. Chris Arias MD [address] [place] [address] [place], [phone], [facility] 01/03/2022 13:28:11 09/12/2022 text/html Follow-up for [...] not remember either event. She was in [place] (for the ) away from him when [...] know the final dose. Chris Arias MD [address] [place] [address] [place], [phone], [facility] 09/12/2022 10:26:30
--- OUTSIDE RECORDS SUMMARY | 2025-06-08 11:05 | XMS_ITS | Encounter Summary ---
Author Organization [employer] Address [address] [facility] 7t [place] [address] Care Team Providers Care Spool Fixer Name Role Phone Name, Uriel AARON Primary Care Provider PuiaJuana PharmD Unavailable [phone] Puia, Juana PharmD Unavailable [phone] Reason for Visit * Reason Onset Date Comments Durable Medical Equipment 07/10/2023 Encounter Details Date Type Department Care Team (Late st Contact Info) Description 07/10/2023 Telephone [facility] [address] [place] [address] Name, MD Uriel [address] [place] [address] Durable Medical Equipment Social History Tobacco Use [...] 12:33 PM EST TC from Francia with [facility] requesting a Hospital bed and Lift Recliner due to pt having an upcoming surgery on 07/24/2023 and will not be able to move or have much mobility. Please fax Script over to [facility] @ [phone] Please if any questions please Contact Francia @ [phone] EXT [phone] documented in this encounter Plan of Treatment [...] on filedocumented in this encounter Care Teams Spool Fixer Relationship Specialty Start Date End Date Name, MD Uriel [address] [place] [address] PCP - General Family Medicine 05/10/20 Puia, Juana, PharmD [address] [place] [address] Pharmacist Internal Medicine 05/03/22 09/01/23 Juana Samuels, MagnusD [address] [place] [phone] Pharmacist Internal Medicine 09/02/24 01/07/25 [facility] documented as of this encounter
--- OUTSIDE RECORDS SUMMARY | 2025-06-08 11:05 | XMS_ITS | Data Portability ---
Author Organization [place] [employer] [facility], [facility] Address [address] [place] [phone] Care Team Providers Care Contract Assistant Name Role Phone Unavailable Referring Provider [facility] Referring Provider [phone] Assessment No assessment recorded. Plan of Treatment Reminders Order Date Submit Date Provider Last Modified By Organization Details Last Modified Time Details Appointments None recorded. Lab rapid SARS CoV 2 Ag, QL IA, respiratory specimen 2021 [facility], [address] [place] [address], [id number] 10:40:23 rapid flu (A+B) 2021 [facility], [address] [place] [address], [id number] 10:40:23 Referral None recorded. Procedures None recorded. Surgeries None recorded. Imaging None recorded. Medication Orders prednisone 20 mg tablet 2021 [facility], [address] [place] [address], [id number], 10:50:55 azithromyci n 500 mg tablet 2021 [facility], [address] [place] [address], [id number], 10:50:56 prednisone 20 mg tablet 2021 [email or web address] Not available 10:39:50 azithromyci n 500 mg tablet 2021 [email or web address] Not available 10:39:50 Patient TargetsNo targets recorded. Patient InstructionsNo instructions recorded. Reason for Referral None Reported. Results Created Date Observation Date Name Description Value Unit Range Abnormal Flag Note LastModifiedBy Organization Detail LastModifiedTime 03/09/20 22 03/09/2022 rapid flu (A+B) Flu negati ve Not Available [facility] ed [address] [place] [address], [id number] 03/09/2022 10:40:03 03/09/20 22 03/09/2022 rapid SARS CoV 2 Ag, QL IA, respi rator y speci men rapid SARS CoV 2 Ag, QL IA, respiratory specimen negati ve Not Available [facility] ed [address] [place] [address], [id number] 03/09/2022 10:39:59 Result Notes None recorded. Medical [...] /min 103 /min 132/52 mm[Hg] Not Available [employer] - production 2 10:58:52 Social History None recorded. Functional Status None recorded. Mental Status None recorded. Family History Nothing Reported. Medical History No medical history recorded. Past Encounters Encounter ID Performer Location Encounter Start Date Encounter Closed Date Diagnosis/Indication Diagnosis SNOMED-CT Code Diagnosis ICD10 Code Diagnosis IMO Codes Diagnosis Note [id number] Magen Solo MD Main - inst [address] [place] [address] 03/09/2022 10:33:10 04/19/2022 13:36:49 Respiratory tract congestion and cough 464486823 R05.9 Approximat edith five days of malaise, low grade fevers, and productive cough. Per envelope addresser, rhochorous throughout . Most likely bronchitis vs [...] Miller Member ID Guarantor Name 03/10/2024 1 [facility] - DOS PRIOR TO 2022 - DUAL ELIGIBLE (MEDICARE REPLACEMENT/ADV ANTAGE - HMO) George Guillaume [id number] George Guillaume 03/10/2024 1 [facility] - DOS ON OR AFTER 2022 - DUAL ELIGIBLE - JAIL OPTIONS AND ONE CARE (MEDICARE REPLACEMENT/ADV ANTAGE - HMO) George Guillaume [id number] George Guillaume Notes Date Note Type Note [...] .................. .................. .................. .................. .................. .................. ............... Supervisor Pre Wave Note: Vitals, resp assessment, rapid covid, rapid flu, 500mg azithro, 60mg prednisone PO .................. .................. .................. .................. .................. .................. .................. ............... Disposition: Fulfilled Magen Solo MD [address] [facility],[address], [place], [address], JAVON MCFADDEN 03/09/2022 11:11:27
--- OUTSIDE RECORDS SUMMARY | 2025-06-08 11:05 | XMS_ITS | Encounter Summary ---
Author Organization [employer] Address [address] [facility] 7t [place] [address] Care Team Providers Care Systems Project Manager Name Role Phone Name, Uriel AARON Primary Care Provider [phone] Encounter Details Date Type Department Care Team (Latest Contact Info) Description 06/08/2025 Travel Social History Tobacco Use Types Packs/Day [...] documented as of this encounter Care Teams Systems Project Manager Relationship Specialty Start Date End Date Name, MD Uriel [address] [place] [address] PCP - General Family Medicine 05/10/20 [facility] 03/23/25 documented as of this encounter
[2025-06-08 11:56] LABS: Anion Gap 13 (12-20); Blood Urea Nitrogen 18 mg/dL (9-16); Calcium 9.3 mg/dL (8.4-10.2); Carbon Dioxide 22 mmol/L (22-29); Chloride 109 mmol/L (96-108); Estimated Glomerular Filt Rate > 60; Potassium 3.6 mmol/L (3.3-5.1); Sodium 140 mmol/L (135-145)
== END 2025-06-08 09:50 | disposition home or self-care (01) ==
LOC: HO.HHCL 09:49
PROVIDERS: PCP Internal Medicine Geriatric Medicine; Visit Provider Internal Medicine Geriatric Medicine
DX: E11.69 Type 2 diabetes mellitus with other specified complication (principal); R51.9 Headache, unspecified
CPT/HCPCS: 36415; 80048

== ENCOUNTER 2025-06-21 14:08 | Outpatient (AMB) | payer OTHER, SELFPAY ==
[2025-06-21 14:12] VITALS: BP 117/70; PULSE 58; BMI 16.5
--- NOTE | 2025-06-21 14:12 | A.OFFVIS_ITS ---
Vital Signs 06/21/25 14:12 Height 5 ft 9 in Weight 112 lb BMI 16.5 BP 117/70 Blood Pressure Location Rt brachial Position Sitting Pulse 58 Intake Visit Reasons: 6 month follow up Intake Note: George presents to in office today in follow up of 6 months. CC: Patient was on TPN and was d/c in March and per his ever since the TPN was d/c the patient has been loosing weight. Endoscopy Specialty Technician Required: No Accompanied by: Allergies No Known Allergies Allergy (Verified 05/04/24 09:14) HPI HPI 6 month follow up: Details: 69 yr old m with esophageal cancer RECAP: HE had distal esophagectomy 07/20 he did not require chemo or XRT he has been having poor appetite and fullness INTERIM: he is in remission for his esophageal cancer having issues with poor appetite and weight gain taking protein shakes just started mirtazepine no abdominal pain or nausea had tpn for short whil e but LFT were going up so was stopped, it was helping his weight EXAM: GENERAL: The patient is thin VITAL SIGNS:see workflow HEENT: Nonicteric sclerae, PERRLA, EOMI. Oropharynx clear. Moist mucous membranes. Conjunctivae appear well perfused. No thyroid mass. CHEST: Chest wall is nontender. HEART: Regular rate and rhythm without murmurs. LUNGS: Clear to auscultation bilaterally. ABDOMEN: Soft, positive bowel sounds, nontender, no organomegaly.no flank tenderness SKIN: No rash, no excessive bruising, petechiae, or purpura. NEUROLOGIC: Cranial nerves II-XII intact without motor/sensory deficit. Psych: seems low affect A?P: 1/ Esophageal cancer s/p distal esophagectomy --seems to be low mood, just commenced mirtazepine by his surgeon 15 mg PLAN: 1/ cont remeron, will talk to neuro abt using marinol as well 2/ may need G tube if ongoing issues PFSH Medical History Seizures MCCLELLAN (nonalcoholic steatohepatitis) Elevated cholesterol Diabetes GERD (gastroesophageal reflux disease) Surgical History History of surgery of head History of back surgery Hx of shoulder surgery Hx of shoulder surgery History of esophagogastroduodenoscopy (EGD) Hx of colonoscopy Family History Brother Diabetes Prostate CA Sister Diabetes Brother Heart attack Social History Household Members: Spouse Housing: House Are you a primary director long term care to a significant other at home: No Do you presently have visiting nurse or other home services: No Alcohol intake: never Patient Tobacco Use Status: Former Tobacco user Tobacco use type: Cigarette service: No Current occupational status: disabled 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
== END 2025-06-21 14:30 | disposition home or self-care (01) ==
LOC: HO.HGI 14:09
PROVIDERS: PCP Internal Medicine Geriatric Medicine; Visit Provider Internal Medicine Gastroenterology
DX: C15.9 Malignant neoplasm of esophagus, unspecified (principal)
CPT/HCPCS: 99213

== ENCOUNTER → 2025-06-21 14:08 | Outpatient (BNVA) | payer OTHER, SELFPAY | PROVIDERS: PCP Internal Medicine Geriatric Medicine; Visit Provider Internal Medicine Gastroenterology | DX: C15.9 Malignant neoplasm of esophagus, unspecified (principal) | CPT/HCPCS: 99212 ==

== ENCOUNTER 2025-07-16 10:37 | Outpatient (REF) | payer OTHER, SELFPAY ==
--- OUTSIDE RECORDS SUMMARY | 2024-02-04 06:15 | XMS_ITS ---
Author Organization [facility] Address [address] [place] [id number] Care Team Providers Care Molding Sander Name Role Phone Name Uriel AARON Primary Care Provider Melba Chin [phone] Encounters Encounter Location Date Provider Diagnosis [address] [phone] 02/04/2024 Melba Raya Plan Of Treatment Next Appt Details Provider Name:Melba miller, 08/13/2025 10:00:00 AM, [address] [place] [address], [phone], Progress Notes * George CHANDRA ADOB:1955 (69 yo M)Acc No.[id number]:02/04/2024 Progress Note Patient: Deion CONCEPCION George Miller Provider: Gino Raya DPM :1955 A ge:68 Y S ex:Male Date:02/04/2024 Address:[address] [place], [place] [id number] Pcp:Uriel Woodruff MD Subjective: * Chief Complaints: [...] 02/04/2024 Generated for Pavel osborn/Jairon/Sam on: 1 09/16/2024 09:09 AM EST
--- OUTSIDE RECORDS SUMMARY | 2025-06-08 09:15 | XMS_ITS | Encounter Summary ---
Author Organization [facility] [facility] Address [address] [place] [address] 7t [place] [address] Care Team Providers Care Goodyear Stitcher Name Role Phone NameUriel MD Primary Care Provider [phone] Reason for Referral * Imaging (Routine) - Pending Review Specialty Diagnoses / Procedures Referred By Contelisa t Referred To Contact Radiology Diagnoses Headache, unspecified headache type Malignant neoplasm of esophagus, unspecified location (HCC) Procedures CT Head w/o Contrast NameUriel MD [address] [place] [address] Phone: tel: fax: [facility] [address] [place] [address] Phone: tel: fax: Referral ID Status Reason Start Date Expiration Date V isits Requested Visits Authorized [id number] Pending Review 07/14/2025 07/14/2026 1 1 Reason for Visit * Reason Comments Follow-up Encounter Details Date Type Department Care Team (Late st Contact Info) Description 06/08/2025 9:15 AM EST Office Visit [facility] [address] [place] [address] [phone] Uriel Meyer MD [address] [place] [address] [phone] Headache, unspecified headache type (Primary Dx); Malignant neoplasm of esophagus, unspecified location (HCC); Type 2 diabetes mellitus with other specified complication, without long-term current use of insulin (HCC); Encounter for vaccination Social History Tobacco Use Types Packs/Day Years [...] Sign Reading Time Taken Comments Blood Pressure 122/60 06/08/2025 9:17 AM EST Pulse 62 06/08/2025 9:17 AM EST Temperature 36.3 C (97.3 F) 06/08/2025 9:17 AM EST Respiratory Rate 12 06/08/2025 9:17 AM EST Oxygen Saturation 99% 06/08/2025 9:17 AM EST Inhaled Oxygen Concentration - - Weight 53.5 kg (118 lb) 06/08/2025 9:17 AM EST Height - - Body Mass Index 17.43 04/23/2025 12:01 PM EDT documented in this encounter Progress Notes * Uriel Meyer MD - 06/08/2025 9:15 AM EST Subjective Patient ID: George Guillaume is a 69 y.o. male who presents for Follow-up. Patient comes accompanied by his and is complaining of recurrent severe headaches. The patientis been having the headaches for the past month. Headaches are relieved by the use of ibuprofen andrest. He denies any associated photophobia, no nausea or vomiting. He does not have a headache during his visit. No recent seizure. No focal neurological deficits. On his previous appointment he had some foot paresthesias that have resolved. He denies any episodes of hypoglycemia preceding the headaches. He has a personal history of esophageal cancer and a remote history of intracranial bleed back in the s that required neurosurgery and clipping of a bleeding vessel. He explains to me that hecannot have MRIs done because it is not clear what type of clip was used and information was never found out. Review of Systems Constitutional: Negative for chills, fatigue and fever. HENT: Negative for sore throat. Respiratory: Negative for cough, chest tightness and shortness of breath. Cardiovascular: Negative for chest pain, palpitations and leg swelling. Gastrointestinal: Negative for abdominal pain and blood in stool. Neurological: Positive for headaches. Negative for weakness and numbness. Objective Vitals: 06/08/25 0917 BP: 122/60 BP Location: Left arm Patient Position: Sitting BP Cuff Size: Adult Pulse: 62 Resp: 12 Temp: 97.3 ??F (36.3 ??C) TempSrc: Temporal SpO2: 99% Weight: 118 lb (53.5 kg) Physical Exam Constitutional: Appearance: Normal appearance. Cardiovascular: Rate and Rhythm: Normal rate and regular rhythm. Heart sounds: No murmur heard. Pulmonary: Effort: Pulmonary effort is normal. No respiratory distress. Breath sounds: No wheezing, rhonchi or rales. Abdominal: Palpations: Abdomen is soft. Tenderness: There is no abdominal tenderness. Musculoskeletal: Right lower leg: No edema. Left lower leg: No edema. Neurological: General: No focal deficit present. Mental Status: He is alert. Motor: No weakness. Assessment/Plan Diagnoses and all orders for this visit: Headache, unspecified headache type Comments: Patient with recurrent severe headaches. Because of his past medical history of esophageal cancer and remote history of intracranial bleed I recommended evaluation with CT scan of the head with and without contrast. I initially suggested MRI but he explains to me that he cannot do MRI because of the intracranial surgery he had done many years ago required use of some sort of metal clips and is not clear what type. I recommended to go for BMP today. Orders: - CT Head w/ and w/o Contrast; Future - Basic Metabolic Panel; Future Malignant neoplasm of esophagus, unspecified location (HCC) Type 2 diabetes mellitus with other specified complication, without long-term current use of insulin (HCC) Comments: At the moment is only treated with metformin. I did not recommend any med changes. Blood sugar is well-controlled based on his hemoglobin A1c. Orders: - POCT Glucose - POCT Hgb A1c - Basic Metabolic Panel; Future Encounter for vaccination - COVID-19 VACCINE [id number] (Comirnaty) 19 yrs + documented in this encounter Miscellaneous Notes * Addendum Note - Uriel Meyer MD - 06/08/2025 9:15 AM ESTAddended by: URIEL MEYER on: 07/14/2025 06:49 AM Modules accepted: Orders documented in this encounter Plan of Treatment Upcoming Encounters Date Type Department Care Team (Late st Contact Info) Description 10/12/2025 10:00 AM EDT Office Visit [facility] [address] [place] [address] Uriel Meyer MD [address] [place] [address] Scheduled Orders Name Type Priority Associated Diagnoses Orde r Schedule CT Head w/o Contrast Imaging Routine Headache, unspecified headache type Malignant neoplasm of esophagus, unspecified location (HCC) Expected: 07/14/2025, Expires: 07/14/2026 documented as of this encounter Goals Goal Patient Goal Type Associated Problems Recent Progress Patient-Stated? Author Hemoglobin A1c < 8 Result Component 7.1(06/08/20 25 9:20 AM EST) No Juana Samuels PharmD Record your blood sugar as directed Result Component No Juana Samuels PharmD Help patients manage their type 2 diabetes Care Plan Help patients manage their type 2 diabetes No Moises Qureshi Patient has chronic kidney disease Care Plan Patient has chronic kidney disease No Moises Qureshi Patient has chronic kidney disease Care Plan Patient has chronic kidney disease [place], MD Uriel documented as of this encounter Procedures Procedure Name Priority Date/Time Associated Diagnosis Comments BASIC METABOLIC PANEL Routine 06/08/2025 10:39 AM EST Type 2 diabetes mellitus with other specified complication, without long-term current use of insulin (HCC) Headache, unspecified headache type POCT GLYCATED HEMOGLOBIN, TOTAL Routine 06/08/2025 9:20 AM EST Type 2 diabetes mellitus with other specified complication, without long-term current use of insulin (HCC) POCT GLUCOSE Routine 06/08/2025 9:18 AM EST Type 2 diabetes mellitus with other specified complication, without long-term current use of insulin ([facility]) documented in this encounter Results * (ABNORMAL) Basic Metabolic Panel (06/08/2025 10:39 AM EST) Sodium 140 135 - 145 mmol/L [facility] Potassium 3.6 3.3 - 5.1 mmol/L [facility] Chloride 109(H) 96 - 108 mmol/L [facility] Carbon Dioxide 22 22 - 29 mmol/L [facility] Anion Gap 13 12 - 20 [facility] Urea Nitrogen (BUN) 18(H) 9 - 16 mg/dL [facility] Creatinine, Serum 1.09 0.5 - 1.4 mg/dL [facility] Estimated Glomerular Filt Rate >60 [facility] Comment:Chronic Kidney Disea se: Estimated GFR < 60 mL/min/1.86l7Bbkchr Kidney Disease: Estimated GFR < 15 mL/min/1.73m2 Glucose 178(H) 60 - 115 mg/dL [facility] Calcium 9.3 8.4 - 10.2 mg/dL [facility] Blood Venous blood specimen / Unknown 06/08/2025 10:39 AM EST 06/08/2025 10:39 AM EST Result Jordyn Meyer MD LAB BLOOD ORDERABLES Final Resul t [facility] [address] [place] [address] [phone] * (ABNORMAL) POCT Hgb A1c (06/08/2025 9:20 AM EST) Hemoglobin A1C 7.1(A) 4.0 - 5.7 % QC Media Lot # [id number] Lot# Expiration Date 51,227 Blood 06/08/2025 9:20 AM EST Result Jordyn Meyer MD POINT OF CARE TEST ENTER/EDIT OR DERABLES Final Result * POCT Glucose (06/08/2025 9:18 AM EST) Glucose Blood, POC 158 60 - 200 mg/dL QC Media Lot # [id number] Lot# Expiration Date 22,726 Blood Capillary blood specimen / Unknown 06/08/2025 9:18 AM EST Result Jordyn Meyer MD POINT OF CARE TEST ENTER/EDIT OR DERABLES Final Result documented in this encounter Visit Diagnoses Diagnosis Headache, unspecified headache type- Primary Malignant neoplasm of esophagus, unspecified location (HCC) Type 2 diabetes mellitus with other specified complication, without long-term current use of insulin (HCC) Encounter for vaccination documented in this encounter Additional Health Concerns Active Problems Noted Date Diagnosed Date Help patients manage their type 2 diabetes 07/12 Patient has chronic kidney disease 07/12/2025 Patient has chronic kidney disease 07/14/2025 Assessment Noted Time PHQ-9 Depression Total Score: 11 025 11:36 AM EST documented as of this encounter Care Teams Goodyear Stitcher Relationship Specialty Start Date End Date Name, MD Uriel [address] [place] [address] PCP - General Family Medicine [facility] documented as of this encounter
--- NOTE | ~2025-07-16 | XR_ITS ---
EXAMINATION: XR CHEST CLINICAL INFORMATION: 69 y.o male with productive cough, r/o consolidation COMPARISON: 04/08/2025 TECHNIQUE: 2 views of the chest were obtained. FINDINGS: There is increasing wedge-shaped density in the posterior left lung base partially obscuring the hemidiaphragm. Lungs are mildly hyperexpanded otherwise. There is no pneumothorax. The cardiac size is within normal limits. XR/XR chest 2V IMPRESSION: Posterior left lower lobe pneumonia and/or atelectasis. Electronically signed by: Tab Rojas MD 07/16/2025 11:01 AM [facility]
--- OUTSIDE RECORDS SUMMARY | 2025-07-16 09:40 | XMS_ITS | Encounter Summary ---
Author Organization [employer] Address 75 [facility] 7t [place] [address] Care Team Providers Care Electrolog Operator Name Role Phone Name, Uriel AARON Primary Care Provider [phone] Reason for Visit * Reason Comments Cough Encounter Details Date Type Department Care Team (Latest Contact Info) Description 07/16/2025 9:40 AM EST Office Visit [facility] [address] [place], [place] [phone] Productive cough (Primary Dx); Cough in adult; Left lower lobe consolidation Social History Tobacco Use Types Packs/Day Years [...] Sign Reading Time Taken Comments Blood Pressure 90/54 07/16/2025 9:49 AM EST Pulse 80 07/16/2025 9:49 AM EST Temperature 37.1 C (98.8 F) 07/16/2025 9:49 AM EST Respiratory Rate 16 07/16/2025 9:49 AM EST Oxygen Saturation 95% 07/16/2025 9:49 AM EST Inhaled Oxygen Concentration - - Weight 49.9 kg (110 lb) 07/16/2025 9:49 AM EST Height - - Body Mass Index 16.24 04/23/2025 12:01 PM EDT documented in this encounter Plan of Treatment Upcoming Encounters Date Type Department Care Team (Late st Contact Info) Description 10/12/2025 10:00 AM EDT Office Visit [facility] [address] [place] [phone] Name, MD Uriel [address] [place] [address] documented as of this encounter Goals Goal Patient Goal Type Associated Problems Recent Progress Patient-Stated? Author Hemoglobin A1c < 8 Result Component 7.1(06/08/20 9:20 AM EST) No Puia, Juana, PharmD Record your blood sugar as directed Result Component No Puia, Juana, PharmD Help patients manage their type 2 diabetes Care Plan Help patients manage their type 2 diabetes No Moises Qureshi Patient has chronic kidney disease Care Plan Patient has chronic kidney disease No Varoxanazortiz, Providencia Patient has chronic kidney disease Care Plan Patient has chronic kidney disease MundenUriel Woodruff MD Patient has chronic kidney disease Care Plan Patient has chronic kidney disease Tim Oneill [place] documented as of this encounter Procedures Procedure Name Priority Date/Time Associated Diagnosis Comments XR CHEST 2 VIEWS Routine 07/16/2025 10:5 0 AM EST POCT INFLUENZA B (ID NOW RAPID MOLECULAR) Routine 07/16/2025 10:19 AM EST Cough in adult POCT INFLUENZA A (ID NOW RAPID MOLECULAR) Routine 07/16/2025 10:19 AM EST Cough in adult POCT RAPID COVID ANTIGEN Routine 07/16/2025 10:19 AM EST Cough in adult documented in this encounter Results * XR Chest 2 Views (07/16/2025 10:50 AM EST) Anatomical Region Laterality Modality Chest Radiographic Cari ging 07/16/2025 10:5 0 AM EST Narrative 07/16/2025 11:03 AM EST [address] [address] XRay Report Signed Patient: George Johnson MR#: [id number] : 1955 Acct:[id number] Age/Sex: 69 / M ADM Date: 07/16/25 Loc: [facility] Attending Dr: Cathi FOWLER Ordering Physician: Cathi Westbrook Date of Service: 07/16/25 Procedure(s): XR chest 2V Accession Number(s): [id number] cc: Ranjan,Uriel AARON; Cathi Westbrook Reason for Exam: 69 y.o male with productive cough, r/o consolidation EXAMINATION: XR CHEST CLINICAL INFORMATION: 69 y.o male with productive cough, r/o consolidation COMPARISON: 04/08/2025 TECHNIQUE: 2 views of the chest were obtained. FINDINGS: There is increasing wedge-shaped density in the posterior left lung base partially obscuring the hemidiaphragm. Lungs are mildly hyperexpanded otherwise. There is no pneumothorax. The cardiac size is within normal limits. XR/XR chest 2V IMPRESSION: Posterior left lower lobe pneumonia and/or atelectasis. Electronically signed by: Tab Rojas MD 07/16/2025 11:01 AM EST RP Dictated By: Tab Rojas MD Signed By: <Electronically signed by Tab Rojas MD in OV> 07/16/25 1101 DD/ 1050 TD/TT: 07/16/25 1056 Behavioral Health Worker: Procedure Note Donotuseinterpreter, Image - 07/16/2025 [place] [address] XRay Report Signed Patient: George Johnson AMR#: [id number] : 1955cct:[id number] Age/Sex: 69 / MADM Date: 07/16/25 [facility]: [facility] Attending Dr: Cathi Westbrook [facility] Ordering Physician: Cathi Westbrook UNIT AIDE TECH Date of Service: 07/16/25 Procedure(s): XR chest 2V Accession Number(s): [id number] cc: Name,Uriel AARON; Cathi Westbrook [facility] Reason for Exam: 69 y.o male with productive cough, r/o consolidation EXAMINATION: XR CHEST CLINICAL INFORMATION: 69 y.o male with productive cough, r/o consolidation COMPARISON: 04/08/2025 TECHNIQUE: 2 views of the chest were obtained. FINDINGS: There is increasing wedge-shaped density in the posterior left lung base partially obscuring the hemidiaphragm. Lungs are mildly hyperexpanded otherwise. There is no pneumothorax. The cardiac size is within normal limits. XR/XR chest 2V IMPRESSION: Posterior left lower lobe pneumonia and/or atelectasis. Electronically signed by: Tab Rojas MD 07/16/2025 11:01 AM EST RP Dictated By: Tab Rojas MD Signed By: <Electronically signed by Tab Rojas MD in OV> 07/16/25 1101 DD/ 1050 TD/TT: 07/16/25 1056 Behavioral Health Worker: [facility] IMG XR PROCEDURES Final Resul t * POCT Rapid COVID Ag (07/16/2025 10:19 AM EST) [facility] Rapid COVID Ag Negative Swab 07/16/2025 10:1 9 AM EST [facility] POINT OF CARE TEST ENTER/EDIT ORDERABLES Final Result * Influenza A (ID NOW Rapid Molecular) (07/16/2025 10:19 AM EST) [facility] Influenza A Negative Negative, Indeterminate [facility] Swab 07/16/2025 10:1 9 AM EST [facility] POINT OF CARE TEST ENTER/EDIT ORDERABLES Final Result Performing Organization Address [facility] Co de Phone Number [facility] [address] [place] [phone] * Influenza B (ID NOW Rapid Molecular) (07/16/2025 10:19 AM EST) [facility] Influenza B Negative Negative, Indeterminate [facility] Swab 07/16/2025 10:1 9 AM EST [facility] POINT OF CARE TEST ENTER/EDIT ORDERABLES Final Result Performing Organization Address [facility] de Phone Number [facility] [address] [place] [phone] documented in this encounter Visit Diagnoses Diagnosis Productive cough- Primary Cough Cough in adult Left lower lobe consolidation documented in this encounter Additional Health Concerns Active Problems Noted Date Diagnosed Date Help patients manage their type 2 diabetes 07/12 Patient has chronic kidney disease 07/12/2025 Patient has chronic kidney disease 07/14/2025 Patient has chronic kidney disease 07/16/2025 Assessment Noted Time PHQ-9 Depression Total Score: 11 02/19/2 025 11:36 AM EST documented as of this encounter Care Teams Electrolog Operator Relationship Specialty Start Date End Date Name, MD Uriel [address] [place] [address] PCP - General Family Medicine [facility]10[facility]20 [facility] documented as of this encounter
--- OUTSIDE RECORDS SUMMARY | 2025-07-16 12:17 | XMS_ITS | Encounter Summary ---
Author Organization [employer] Address [address] [facility] 7t [place] [address] Care Team Providers Care Restaurant Hostess Name Role Phone Name, Uriel AARON Primary Care Provider [phone] Juana Samuels PharmD Unavailable [phone] Reason for Visit * Reason Comments Med Refill Encounter Details Date Type Department Care Team ([facility] st Contact Info) Description 08/09/2024 Refill [facility] [address] [place] [address] Name, MD Uriel [address] [place] [address] Social History Tobacco Use Types Packs/Day Years [...] Description 10/12/2025 10:00 AM EDT Office Visit [facility] [address] [place] [phone] NameUriel MD [address] [place] [address] documented as of this encounter Goals Goal [...] documented as of this encounter Care Teams Restaurant Hostess Relationship Specialty Start Date End Date NameUriel MD [address] [place] [address] PCP - General Family Medicine 05/10/20 Juana Samuels, PharmD [address] [place] [phone] Pharmacist Internal Medicine 09/02/24 01/07/25 [facility] 03/23/25 documented as of this encounter
--- OUTSIDE RECORDS SUMMARY | 2025-07-16 12:17 | XMS_ITS | Encounter Summary ---
Author Organization [employer] Address 75 [facility] 7t [place] [address] Care Team Providers Care Wafer Fabrication Technician Name Role Phone Name, Uriel AARON Primary Care Provider [phone] Puia, Juana PharmD Unavailable [phone] Puia, Juana PharmD Unavailable [phone] Reason for Visit * Reason Onset Date Comments Durable Medical Equipment 07/10/2023 Encounter Details Date Type Department Care Team (Late st Contact Info) Description 07/10/2023 Telephone [facility] MEDICINE [address] [place] [address] Name, MD Uriel [address] [place] [address] Durable Medical Equipment Social History Tobacco Use [...] EST TC from Francia with [facility] requesting a Hospital bed and Lift Recliner due to pt having an upcoming surgery on 07/24/2023 and will not be able to move or have much mobility. Please fax Script over to [facility] @ [phone] Please if any questions please Contact Francia @ [phone] EXT [phone] documented in this encounter Plan of Treatment Upcoming Encounters Date Type Department Care Team (Late st Contact Info) Description 10/12/2025 10:00 AM EDT Office Visit [facility]ICINE [address] [place] [phone] Name, MD Uriel [address] [place] [address] documented as of this encounter Goals Goal Patient Goal Type Associated Problems Recent Progress Patient-Stated? Author Hemoglobin A1c < 8 Result Component 7.1( 9:20 AM EST) No Puia, Juana, PharmD Record your blood sugar as directed Result Component No Puia, Juana, PharmD documented as of this encounter Visit Diagnoses Not on filedocumented in this encounter Care Teams Wafer Fabrication Technician Relationship Specialty Start Date End Date NameUriel MD [address] [place] [address] PCP - General Family Medicine 05/10/20 Juana Samuels, PharmD [address] [place] [address] Pharmacist Internal Medicine 05/03/22 09/01/23 Juana Samuels PharmD [address] [place] [address] Pharmacist Internal Medicine 09/02/24 01/07/25 [facility] 03/23/25 documented as of this encounter
--- OUTSIDE RECORDS SUMMARY | 2025-07-16 12:17 | XMS_ITS | Encounter Summary ---
Author Organization [employer] Address [address] [facility] 7t [place] [address] Care Team Providers Care Business Education Instructor Name Role Phone Name, Uriel AARON Primary Care Provider [phone] Juana Samuels PharmD Unavailable [phone] Reason for Visit * Reason Comments Med Refill Encounter Details Date Type Department Care Team ([facility] st Contact Info) Description 09/07/2023 Refill [facility] [address] [place] [address] Name, MD Uriel [address] [place] [address] Social History Tobacco Use Types Packs/Day Years [...] Description 10/12/2025 10:00 AM EDT Office Visit [facility] [address] [place] [address] NameUriel MD [address] [place] [address] documented as of this encounter Goals Goal [...] documented as of this encounter Care Teams Business Education Instructor Relationship Specialty Start Date End Date NameUriel MD [address] [place] [address] PCP - General Family Medicine 05/10/20 Juana Samuels, PharmD [address] [place] [phone] Pharmacist Internal Medicine 09/02/24 01/07/25 [facility] 03/23/25 documented as of this encounter
--- OUTSIDE RECORDS SUMMARY | 2025-07-16 12:17 | XMS_ITS | Encounter Summary ---
Author Organization [facility] Address [address] [place] [address] 7t [place] [address] Care Team Providers Care Bagger And Stock Handler Helper Name Role Phone Name, Uriel AARON Primary Care Provider Puia, Juana PharmD Unavailable Puia, Juana PharmD Unavailable Reason for Visit * Reason Comments Med Refill Encounter Details Date Type Department Care Team (Late Contact Info) Description 09/23/2022 Refill [facility]INE [address] [place] [address] Puia, Juana, PharmD [address] [place], [place] [phone] Type 2 diabetes mellitus with other specified complication, without long-term current use of insulin ([facility]) (Primary Dx) Social History Tobacco Use Types [...] Department Care Team (Late Contact Info) Description 10/12/2025 10:00 AM EDT Office Visit [facility] [address] [place], [place] [phone] Name, MD Uriel [address] [place] [address] documented as of this encounter Visit Diagnoses Diagnosis Type 2 diabetes mellitus with other specified complication, without long-term current use of insulin (HCC)- Primary documented in this encounter Care Teams Bagger And Stock Handler Helper Relationship Specialty Start Date End Date Name, MD Uriel [address] [place] [address] PCP - General Family Medicine 05/10/20 Juana Samuels PharmD [address] [place] [address] Pharmacist Internal Medicine 05/03/22 09/01/23 Juana Samuels PharmD [address] [place] [address] Pharmacist Internal Medicine 09/02/24 [facility]07[facility]25 [facility] documented as of this encounter
--- OUTSIDE RECORDS SUMMARY | 2025-07-16 12:17 | XMS_ITS | Encounter Summary ---
Author Organization [employer] Address [address] [facility] 7t [place] [address] Care Team Providers Care Terminal Makeup Operator Name Role Phone Name, Uriel AARON Primary Care Provider Puia, Juana PharmD Unavailable [phone] Puia, Juana PharmD Unavailable [phone] Reason for Visit * Reason Onset Date Comments Clearance 06/11/2023 Encounter Details Date Type Department Care Team ([facility] st Contact Info) Description 06/11/2023 Telephone [facility] MEDICINE [address] [place] [address] Name, MD Uriel [address] [place] [address] Clearance Social History Tobacco Use Types Packs/Day [...] Description 10/12/2025 10:00 AM EDT Office Visit [facility] MED[facility]INE [address] [place] [address] Name, MD Uriel [address] [place] [address] documented as of this encounter Goals Goal Patient Goal Type Associated Problems Recent Progress Patient-Stated? Author Hemoglobin A1c < 8 Result Component 7.1( 9:20 AM EST) No PuJuaan barbosa, PharmD Record your blood sugar as directed Result Component No Puia, Juana, PharmD documented as of this encounter Visit Diagnoses Not on filedocumented in this encounter Care Teams Terminal Makeup Operator Relationship Specialty Start Date End Date Name, MD Uriel [address] [place] [address] PCP - General Family Medicine 05/10/20 Juana Samuels PharmD [address] [place] [address] Pharmacist Internal Medicine 05/03/22 09/01/23 Juana Samuels PharmD [address] [place] [address] Pharmacist Internal Medicine 09/02/24 01/07/25 [facility] documented as of this encounter
--- OUTSIDE RECORDS SUMMARY | 2025-07-16 12:17 | XMS_ITS | Encounter Summary ---
Author Organization [employer] Address [address] [facility] 7t [place] [address] Care Team Providers Care Sales Representative Raw Fibers Name Role Phone Name, Uriel AARON Primary Care Provider [phone] Juana Samuels PharmD Unavailable [phone] Reason for Visit * Reason Onset Date Comments VNA 10/09/2023 Durable Medical Equipment 10/09/2023 Diabet ic shoes Encounter Details Date Type Department Care Team ([facility] st Contact Info) Description 10/09/2023 Telephone [facility] MEDICINE [address] [place] [address] Name, MD Uriel [address] [place] [address] VNA ; Durable Medical Equipment (Diabetic shoes) [...] - 10/09/2023 3:10 PM EDT Tc from [facility] with [facility] calling to let pcp know pt has been discharged from the agency. If any questions please contact Lianet at [phone] documented in this encounter Plan of Treatment Upcoming Encounters Date Type Department Care Team (Late st Contact Info) Description 10/12/2025 10:00 AM EDT Office Visit [facility] MEDICINE [address] [place] [address] NameUriel MD [address] [place] [address] documented as of this encounter Goals Goal [...] documented as of this encounter Care Teams Sales Representative Raw [employer] Relationship Specialty Start Date End Date NameUriel MD [address] [place] [address] PCP - General Family Medicine 05/10/20 Juana Samuels PharmD [address] [place] [address] Pharmacist Internal Medicine 09/02/24 [facility]07[facility] documented as of this encounter
--- OUTSIDE RECORDS SUMMARY | 2025-07-16 12:17 | XMS_ITS | Encounter Summary ---
Author Organization [employer] Address 75 [facility] 7t [place] [address] Care Team Providers Care Pinion Sorter Name Role Phone Name, Uriel AARON Primary Care Provider [phone] Juana Samuels PharmD Unavailable [phone] Reason for Visit * Reason Onset Date Comments FYI 05/26/2024 Encounter Details Date Type Department Care Team ([facility] Contact Info) Description 05/26/2024 Telephone [facility] MEDICINE [address] [place], [place] [phone] Name, MD Uriel [address] [place] [address] FYI Social History Tobacco Use Types Packs/Day [...] For any questions please call Loy at [phone] *Advised caller message sent to provider. documented in this encounter Plan of Treatment Upcoming Encounters Date Type Department Care Team (Late st Contact Info) Description 10/12/2025 10:00 AM EDT Office Visit [facility] MEDICINE [address] [place] [address] NameUriel MD [address] [place] [address] documented as of this encounter Goals Goal [...] documented as of this encounter Care Teams Pinion Sorter Relationship Specialty Start Date End Date NameUriel MD [address] [place] [address] PCP - General Family Medicine 05/10/20 Juana Samuels PharmD [address] [place] [address] Pharmacist Internal Medicine 09/02/24 01/07/25 [facility] documented as of this encounter
--- OUTSIDE RECORDS SUMMARY | 2025-07-16 12:17 | XMS_ITS | Encounter Summary ---
Author Organization [employer] Address 75 [facility] 7t [place] [address] Care Team Providers Care Wheel Borer Name Role Phone Name, Uriel AARON Primary Care Provider Reason for Visit * Reason Comments Med Refill Encounter Details Date Type Department Care Team ([facility] st Contact Info) Description 07/12/2025 Refill [facility] MEDICINE [address] [place] [address] Juana Samuels, PharmD [address] [place] [address] Type 2 diabetes mellitus without complication, without long-term current use of insulin (HCC) Social History Tobacco Use Types Packs/Day Years [...] 10/12/2025 10:00 AM EDT Office Visit [facility] MEDICINE [address] [place] [address] Uriel Woodruff MD [address] [place] [address] documented as of this encounter Goals Goal Patient Goal Type Associated Problems Recent Progress Patient-Stated? Author Hemoglobin A1c < 8 Result Component 7.1(06/08/20 25 9:20 AM EST) No Juana Samuels, PharmD Record your blood sugar as directed Result Component No Juana Samuels, PharmD Help patients manage their type 2 diabetes Care Plan Help patients manage their type 2 diabetes No Moises Qureshi Patient has chronic kidney disease Care Plan Patient has chronic kidney disease No Moises Qureshi documented as of this encounter Visit Diagnoses Diagnosis Type 2 diabetes mellitus without complication, without long-term current use of insulin (HCC) documented in this encounter Additional Health Concerns Active Problems Noted Date Diagnosed Date Help patients manage their type 2 diabetes 07/12 Patient has chronic kidney disease 07/12/2025 Assessment Noted Time PHQ-9 Depression Total Score: 11 025 11:36 AM EST documented as of this encounter Care Teams Wheel Borer Relationship Specialty Start Date End Date Uriel Woodruff MD [address] [place] [address] PCP - General Family Medicine 05/10/20 [facility] 03/23/25 documented as of this encounter
--- OUTSIDE RECORDS SUMMARY | 2025-07-16 12:17 | XMS_ITS | Encounter Summary ---
Author Organization [employer] Address [address] [facility] 7t [place] [address] Care Team Providers Care Cdl A Driver Name Role Phone Name, Uriel AARON Primary Care Provider [phone] Encounter Details Date Type Department Care Team ([facility] st Contact Info) Description 07/12/2025 Telephone [employer] [facility] [address] [place], [place] [id number] Name, MD Uriel [address] [place] [address] Social History Tobacco Use Types Packs/Day Years [...] encounter Miscellaneous Notes * Telephone Encounter - Moises Qureshi - 07/12/2025 8:26 AM EST [facility] is requesting Ct Scan order to be update to Ct Head Without Contrast. Please advise! documented in this encounter Plan of Treatment Upcoming Encounters Date Type Department Care Team (Late st Contact Info) Description 10/12/2025 10:00 AM EDT Office Visit [facility] MEDICINE [address] [place] [address] Name, MD Uriel [address] [place] [address] documented as of this encounter Goals Goal Patient Goal Type Associated Problems Recent Progress Patient-Stated? Author Hemoglobin A1c < 8 Result Component 7.1(06/08/20 25 9:20 AM EST) No Edvin Samuelsyssa, PharmD Record your blood sugar as directed Result Component No Arvind Juana, PharmD Help patients manage their type 2 diabetes Care Plan Help patients manage their type 2 diabetes No Moises Qureshi Patient has chronic kidney disease Care Plan Patient has chronic kidney disease No Moises Qureshi documented as of this encounter Visit Diagnoses Not on filedocumented in this encounter Additional Health Concerns Active Problems Noted Date Diagnosed Date Help patients manage their type 2 diabetes 07/12 Patient has chronic kidney disease 07/12/2025 Assessment Noted Time PHQ-9 Depression Total Score: 11 09/16/ 025 11:36 AM EST documented as of this encounter Care Teams Cdl A Driver Relationship Specialty Start Date End Date Name, MD Uriel [address] [place] [address] PCP - General Family Medicine 05/10/20 [facility] documented as of this encounter
--- OUTSIDE RECORDS SUMMARY | 2025-07-16 12:17 | XMS_ITS | Patient Health Record ---
Author Organization [facility] Address [address] [place] [address] Care Team Providers Care Gum Rolling Machine Tender Name Role Phone Name Uriel AARON Primary Care Provider Melba Chin Unavailable [phone] Allergies No Known Allergies Results Component Value [...] Problem Acquired hammer toe of right foot (6127890154230559 ) Other hammer toe(s) (acquired), right foot (M20.41) Active confirmed Problem Acquired hammer toe of left foot (1470817108573870 ) Other hammer toe(s) (acquired), left foot (M20.42) Active confirmed Problem Type II diabetes mellitus without complication (466071143) Type 2 diabetes mellitus without complication, without long-term current use of insulin (E11.9) Active confirmed Vital Signs Blood pressure diastolic 78 mm Hg 05/21/2025 Height 5ft9in in 05/21/2025 Blood pressure systolic 118 mm Hg 05/21/2025 Weight 118 lbs 05/21/2025 BMI 17.42 kg/m2 05/21/2025 Encounters Encounter Location Date Provider Diagnosis [address] [address] 09/09/2024 Melba Perica Tinea unguium B35.1 ; Ingrown nail L60.0 ; Type 2 diabetes mellitus without complication, without long-term current use of insulin E11.9 ; Pain in toe of left foot M79.675 and Pain in toe of right foot M79.[address] [address] 11/27/2024 Melba Perica Tinea unguium B35.1 ; Other hammer toe(s) (acquired), right foot M20.41 ; Type 2 diabetes mellitus without complication, without long-term current use of insulin E11.9 ; Pain in toe of left foot M79.675 ; Pain in toe of right foot M79.674 and Other hammer toe(s) (acquired), left foot M20.[address] [address] 02/23/2025 Melba Perica Tinea unguium B35.1 ; Ingrown nail L60.0 ; Type 2 diabetes mellitus without complication, without long-term current use of insulin E11.9 ; Pain in toe of left foot M79.675 and Pain in toe of right foot M79.[address] [address] 05/21/2025 Melba Perica Tinea unguium B35.1 ; Type 2 diabetes mellitus without complication, without long-term current use of insulin E11.9 ; Pain in toe of left foot M79.675 and Pain in toe of right foot M79.674 Assessments Encounter Date Diagnosis (ICD Code) Assessment Notes Treatment Notes Treatment Clinical Notes Section Notes 09/09/2024 Tinea unguium (ICD-10 - B35.1) 11/27/2024 [...] E11.9) 09/09/2024 Ingrown nail (ICD-10 - L60.0) 02/23/2025 Pain in toe of left foot [...] Of Treatment Next Appt Details Provider Name:Melba Miller Rosalba miller, 08/13/2025 10:00:00 AM, [address] [place] [address], [phone], Insurance Providers Payer Name Payer Address Payer Phone Subscriber Number Group Number Insured Name Patient Relationship to Insured Coverage Start Date Coverage End Date [facility] [employer] Claims [address] [id number] [id number] George Guillaume Self - patient is the insured Medical (General) History Medical History History ICD Code Anxiety asthma Back,Hip,and Knee pain Cataracts Diabetic Epilepsy/Seizures Fatty liver Reflux ( GERD) Chicken pox Joint implants/screws Esophageal cancer Surgical History Surgery Date(Month/Year) Esophageal surgery- feeding tube 3 cataract surgery 2023
--- OUTSIDE RECORDS SUMMARY | 2025-07-16 12:17 | XMS_ITS | Encounter Summary ---
Author Organization [employer] Address [address] [facility] 7t [place] [address] Care Team Providers Care Electronics Assembler Name Role Phone Name, Uriel AARON Primary Care Provider [phone] Puia, Juana PharmD Unavailable [phone] Puia, Juana PharmD Unavailable [phone] Reason for Visit * Reason Comments Med Refill Encounter Details Date Type Department Care Team (Late st Contact Info) Description 08/15/2023 Refill [facility] [address] [place], [place] [phone] Name, MD Uriel [address] [place] [address] Allergic rhinitis, unspecified seasonality, unspecified trigger Social [...] Description 10/12/2025 10:00 AM EDT Office Visit [facility] MEDICINE [address] [place] [address] Name, MD Uriel [address] [place] [address] documented as of this encounter Goals Goal Patient Goal Type Associated Problems Recent Progress Patient-Stated? Author Hemoglobin A1c < 8 Result Component 7.1( 9:20 AM EST) No Puia, Juana, PharmD Record your blood sugar as directed Result Component No Puia, Juana, PharmD documented as of this encounter Visit Diagnoses Diagnosis Allergic rhinitis, unspecified seasonality, unspecified trigger documented in this encounter Care Teams Electronics Assembler Relationship Specialty Start Date End Date Name, MD Uriel [address] [place] [address] PCP - General Family Medicine 05/10/20 Puia, Juana, PharmD [address] [place] [address] Pharmacist Internal Medicine 05/03/22 09/01/23 Puia, Juana, PharmD [address] [place] [address] Pharmacist Internal Medicine 09/02/24 01/07/25 [facility] 03/23/25 documented as of this encounter
--- OUTSIDE RECORDS SUMMARY | 2025-07-16 12:17 | XMS_ITS | Clinical Summary ---
Author Organization [employer] Address [address] [facility] 7t [place] [address] Care Team Providers Care Locksmith Helper Name Role Phone Name, Uriel AARON Primary Care Provider [phone] Allergies No known active allergies Medications glucose [...] BREAK, CRUSH, DISSOLVE OR CHEW 30 capsule 11 025 Active Alcohol Swabs (Alcohol Pads) 70 % pads Use to clean skin up to three times daily prior to insulin use & BG testing 100 each 11 5 10:06 AM EST 025 Active fluticasone (Flonase) 50 MCG/ACT nasal [...] MOUTH AFTER EACH USE. 12 g 6 5 10:06 AM EST 025 Active FREESTYLE LITE test stripIndications :Type 2 diabetes mellitus without complication, without long-term current use of insulin (HCC) USE DIRECTED TO TEST BLOOD SUGAR TWICE DAILY 100 strip 11 025 Active metFORMIN XR (Glucophage-XR) 500 MG 24 hr tabletIndication s:Type 2 diabetes mellitus with other specified complication, without long-term current use of insulin (HCC) TAKE 2 TABLETS BY MOUTH TWICE DAILY IN THE MORNING AND EVENING WITH MEALS DO NOT BREAK, CRUSH, DISSOLVE OR CHEW 120 tablet 5 5 10:06 AM EST 025 Active zinc gluconate 50 MG tabletIndication s:Zinc deficiency Take 1 tablet (50 mg) by mouth Once per day. 30 tablet 11 025 2025 Active glucagon (Baqsimi Two Pack) 3 MG/DOSE nasal powderIndication s:Type 2 diabetes mellitus without complication, without long-term current use of insulin (HCC) USE 1 SPRAY (3MG) IN ONE NOSTRIL FOR A PATIENT WITH SEVERE HYPOGLYCEMIA WHO IS NOT RESPONSIVE AND UNABLE SELF-TREAT WITH GLUCOSE. AFTERWARDS TURN ON SIDE. MAY REPEAT IN 15MINUTES IF PATIENT DOES NOT RESPOND. 2 each 1 025 Active amoxicillin-clav ulanate (Augmentin) 875-125 MG tabletIndication s:Left lower lobe consolidation Take 1 tablet by mouth 2 times daily for 5 days. 10 tablet 025 2024 Active doxycycline (Vibramycin) 100 MG capsuleIndicatio ns:Left lower lobe consolidation Take 1 capsule (100 mg) by mouth 2 times daily for 5 days. Take with at least 8 ounces (large glass) of water, do not lie down for 30 minutes after 10 capsule 025 2024 Active glucagon (Baqsimi Two Pack) 3 MG/DOSE nasal powderIndication s:Type 2 diabetes mellitus without complication, without long-term current use of insulin ([facility]) Administer 3 mg via 1 device into the nostril for hypoglycemia with loss of consciousness. If no response after 15 minutes administer an additional dose via 2nd device into other nostril. 2 each 1 025 2024 Discontinued Active Problems Problem Noted Date Diagnosed Date [...] gastroesophageal mucosa (see comment). 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 Mild cognitive disorder 01/13/2021 Seizure (CMS/HCC) 10/09/2018 Hyperlipidemia 05/09/2012 Chronic nonalcoholic liver disease 01/23/2012 Diabetes mellitus 01/23/2012 Impotence of organic origin 01/23/2012 Intermittent asthma 01/23/2012 Encounters Date Type Department Care Team Description 07/16/2025 9:40 AM EST Office Visit [facility] [address] [address] Productive cough (Primary Dx); Cough in adult; Left lower lobe consolidation 07/16/2025 Travel 07/12/2025 Telephone [facility] [address] [place] [phone] Uriel Woodruff MD 07/12/2025 Refill [facility] [address] [place] [address] Juana Samuels PharmD Type 2 diabetes mellitus without complication, without long-term current use of insulin (HCC) 06/08/2025 9:15 AM EST Office Visit [address] [address] Uriel Woodruff MD Headache, unspecified headache type (Primary Dx); Malignant neoplasm of esophagus, unspecified location (HCC); Type 2 diabetes mellitus with other specified complication, without long-term current use of insulin (HCC); Encounter for vaccination 06/08/2025 Travel 06/07/[address] [address] Demetrio Lizarraga MA chart prep 05/05/2025 [facility] [address] [address] [place] FNP POCT Glucose, Vitamin B1, Vitamin B2 (Riboflavin), Additional followed-up results: 3 05/05/2025 Orders Only [facility] [address] [address] [place] BIODIESEL PRODUCT MANAGER Zinc deficiency (Primary Dx) 05/04/2025 Refill [facility] [address] [place] [address] Uriel Woodruff MD Type 2 diabetes mellitus with other specified complication, without long-term current use of insulin (HCC) 05/03/[address] [address] Uriel Woodruff MD Medication Question 04/23/2025 11:45 AM EDT Office Visit [address] [address] Dariana, Cathi, BIODIESEL PRODUCT MANAGER Numbness and tingling of both lower extremities (Primary Dx); Type 2 diabetes mellitus with other specified complication, without long-term current use of insulin (CMS/HCC); Seizure disorder (CMS/HCC); On total parenteral nutrition (TPN) 04/23/2025 Travel 04/16/2025 Telephone [facility] [address] [place], [place] [phone] Name, MD Uriel Nurse Triage from Last 3 Months Immunizations Immunization Administration [...] (110 lb) 07/16/2025 9:49 AM EST Height 175.3 cm (5' 9 ) 04/23/2025 12:01 PM EDT Body Mass Index 16.24 04/23/2025 12:01 PM EDT Plan of Treatment Upcoming Encounters Date Type Department Care Team (Late st Contact Info) Description 10/12/2025 10:00 AM EDT Office Visit [facility] [address] [place] [address] Name, MD Uriel [address] [place] [address] Health Maintenance Due Date Last Done Comments [...] Additional history exists SDOH Screening 09/16/2025 09/16/2024 COVID-19 Vaccine ( season) 2025 06/08/2025, 09/02/2024, 08/23/2022, Additional history exists Alcohol/Substance Use Screening 04/08/2026 04/08/2025 Diabetes: Foot Exam 04/23/2026 04/23/2025, Dental X-Ray: Full Mouth 05/01/2026 04/30/2023 Tobacco Screening 07/16/2026 07/16/2025 DTaP/Tdap/Td Vaccines (3 - Td or Tdap) 12/15/2034 12/15/2024, 10/01/2014, 05/08/2007 Hepatitis B Vaccines Completed 08/16/2009, 02/04/2007, 08/19/2006, Additional history exists Hepatitis C Screening Completed 04/17/2021, 020 Zoster Vaccines Completed 01/23/2022, 11/21/2021 Pneumococcal Vaccine: 50+ Years Completed 04/30/2022, 05/31/2008 RSV Patients and Patients Aged 60 years or older Completed 07/01/2023 Hepatitis A Vaccines Completed 09/16/2024, 07/01/20 HIB Vaccines Aged Out No longer eligi [...] Result Component 7.1(06/08/20 9:20 AM EST) No Juana Samuels, PharmD [...] Care Plan Patient has chronic kidney disease FalconaireUriel Woodruff MD Patient has chronic kidney disease Care Plan Patient has chronic kidney disease No Tim Nj MA Procedures Procedure Name Priority Date/Time Associated Diagnosis Comments XR CHEST 2 VIEWS Routine 07/16/2025 10:5 0 AM EST POCT RAPID COVID ANTIGEN Routine 07/16/2025 10:19 AM EST Cough in adult POCT INFLUENZA A (ID NOW RAPID MOLECULAR) Routine 07/16/2025 10:19 AM EST Cough in adult POCT INFLUENZA B (ID NOW RAPID MOLECULAR) Routine 07/16/2025 10:19 AM EST Cough in adult BASIC METABOLIC PANEL Routine 06/08/2025 10:39 AM EST Type 2 diabetes mellitus with other specified complication, without long-term current use of insulin (HCC) Headache, unspecified headache type POCT GLYCATED HEMOGLOBIN, TOTAL Routine 06/08/2025 9:20 AM EST Type 2 diabetes mellitus with other specified complication, without long-term current use of insulin ([facility]) POCT GLUCOSE Routine 06/08/2025 9:18 AM EST Type 2 diabetes mellitus with other specified complication, without long-term current use of insulin ([facility]) ZINC Routine 04/26/2025 11:39 AM EDT Type 2 diabetes mellitus with other specified complication, without long-term current use of insulin ([facility]) VITAMIN B6 Routine 04/26/2025 11:39 AM EDT Type 2 diabetes mellitus with other specified complication, without long-term current use of insulin ([facility]) VITAMIN B12/FOLATE, SERUM PANEL Routine 04/26/2025 11:39 AM EDT Type 2 diabetes mellitus with other specified complication, without long-term current use of insulin ([facility]/HCC) VITAMIN B2 (RIBOFLAVIN), PLASMA Routine 04/26/2025 11:39 AM EDT Type 2 diabetes mellitus with other specified complication, without long-term current use of insulin ([facility]) VITAMIN B1 Routine 04/26/2025 11:39 AM EDT Type 2 diabetes mellitus with other specified complication, without long-term current use of insulin ([facility]) POCT GLUCOSE Routine 04/23/2025 12:02 PM EDT Type 2 diabetes mellitus with other specified complication, without long-term current use of insulin ([facility]) PERIODIC ORAL EVALUATION - ESTABLISHED PATIENT Routine [...] Recently Relevant to Health Maintenance Results * XR Chest 2 Views (07/16/2025 10:50 AM EST) Anatomical Region Laterality Modality Chest Radiographic Cari ging 07/16/2025 10:5 0 AM EST Narrative 07/16/2025 11:03 AM EST [address] [address] XRay Report Signed Patient: George Johnson MR#: [id number] : 1955 Acct:[id number] Age/Sex: 69 / M ADM Date: 07/16/25 Loc: HO.HHCX Attending Dr: Cathi Westbrook [facility] Ordering Physician: Cathi Westbrook BIODIESEL PRODUCT MANAGER Date of Service: 07/16/25 Procedure(s): XR chest 2V Accession Number(s): [id number] cc: Uriel Woodruff MD; [place] [facility] Reason for Exam: 69 y.o male with [...] Tab Rojas MD 07/16/2025 11:01 AM EST Dictated By: Tab Rojas MD Signed By: <Electronically signed by Tab Rojas MD in OV> 07/16/25 1101 DD/ 1050 TD/TT: 07/16/25 1056 Software Product Manager: Procedure Note Donotuseinterpreter, Image - 07/16/2025 [facility] [address] [place] [address] XRay Report Signed Patient: George Johnson AMR#: [id number] : 7Acct:[id number] Age/Sex: 69 / MADM Date: 07/16/25 Loc: .HHCX Attending Dr: Cathi FOWLER Ordering Physician: Cathi Westbrook Date of Service: 07/16/25 Procedure(s): XR chest 2V Accession Number(s): [id number] cc: Name,Uriel AARON; DarianaCathi BIODIESEL PRODUCT MANAGER Reason for Exam: 69 y.o male with [...] Tab Rojas MD 07/16/2025 11:01 AM EST Dictated By: Tab Rojas MD Signed By: <Electronically signed by Tab Rojas MD in OV> 07/16/25 1101 DD/ 1050 TD/TT: 07/16/25 1056 Software Product Manager: [facility] IMG XR PROCEDURES Final Resul t * Influenza B (ID NOW Rapid Molecular) (07/16/2025 10:19 AM EST) Influenza B Negative Negative, Indeterminate [facility] Swab 07/16/2025 10:1 9 AM EST [facility] POINT OF CARE TEST ENTER/EDIT ORDERABLES Final Result Performing Organization Address City/[facility]/ZIP Co de Phone Number [facility] [address] [place] [address] [phone] * Influenza A (ID NOW Rapid Molecular) (07/16/2025 10:19 AM EST) Pathologist [facility] Influenza A Negative Negative, Indeterminate [facility] Swab 07/16/2025 10:1 9 AM EST [facility] POINT OF CARE TEST ENTER/EDIT ORDERABLES Final Result Performing Organization Address [facility]/ZIP Co de Phone Number [facility] [address] [place] [address] [phone] * POCT Rapid COVID Ag (07/16/2025 10:19 AM EST) Pathologist [facility] Rapid COVID Ag Negative Swab 07/16/2025 10:1 9 AM EST Result [facility] POINT OF CARE TEST ENTER/EDIT ORDERABLES Final Result * (ABNORMAL) Basic Metabolic Panel (06/08/2025 10:39 AM EST) Pathologist [facility] Sodium 140 135 - 145 mmol/L [facility] Potassium 3.6 3.3 - 5.1 mmol/L [facility] Chloride 109(H) 96 - 108 mmol/L [facility] Carbon Dioxide 22 22 - 29 mmol/L [facility] Anion Gap 13 12 - 20 [facility] Urea Nitrogen (BUN) 18(H) 9 - 16 mg/dL [facility] Creatinine, Serum 1.09 0.5 - 1.4 mg/dL [facility] Estimated Glomerular Filt Rate >60 [facility] Comment:Chronic Kidney Disea se: Estimated GFR < 60 mL/min/1.53e7Jkipxc Kidney Disease: Estimated GFR < 15 mL/min/1.73m2 Glucose 178(H) 60 - 115 mg/dL [facility] Calcium 9.3 8.4 - 10.2 mg/dL [facility] Blood Venous blood specimen / Unknown 06/08/2025 10:39 AM EST 06/08/2025 10:39 AM EST us Uriel Woodruff MD LAB BLOOD ORDERABLES Final Resul t [facility] [address] [place] [phone] * (ABNORMAL) POCT Hgb A1c (06/08/2025 9:20 AM EST) Hemoglobin A1C 7.1(A) 4.0 - 5.7 % QC Media Lot # [id number] Lot# Expiration Date Blood 06/08/2025 9:20 AM EST us Uriel Woodruff MD POINT OF CARE TEST ENTER/EDIT OR DERABLES Final Result * POCT Glucose (06/08/2025 9:18 AM EST) Only the most recent of2 resultswithin the time period is included. Pathologist [facility] Glucose Blood, POC 158 60 - 200 mg/dL QC Media Lot # [id number] Lot# Expiration Date 72 Blood Capillary blood specimen / Unknown 06/08/2025 9:18 AM EST us Uriel Woodruff MD POINT OF CARE TEST ENTER/EDIT OR DERABLES Final Result * (ABNORMAL) Vitamin B2 (Riboflavin) (04/26/2025 11:39 AM EDT) Vitamin B2 (Riboflavin) 46.6(A) 6.2 - 39.0 nmol/L [facility] Comment:Vitamin supplementat ion within 24 hours prior to blooddraw may affect the accuracy of results.This test was developed and its analyticalperformance characteristics have been determinedby [employer] [place], [place].It has not been cleared or approved by the FDA. Thisassay has been validated pursuant to the CLIAregulations and is used for clinical purposes.THIS TEST WAS PERFORMED AT:[employer] [id number] [place] [address]CJGIBPRFRANK ALEXANDER MD,PHD Blood 04/26/2025 11:3 9 AM EDT 04/26/2025 11:39 AM EDT [facility] LAB BLOOD ORDERABLES Final Re sult Performing Organization Address [facility] Co de Phone Number [facility] [address] [place] [phone] * Vitamin B12/Folate, Serum Panel (04/26/2025 11:39 AM EDT) [facility] Vitamin B12 495 200 - 900 pg/mL [facility] Comment:NORMAL 200-900 PG/ML INDETERMINATE 160-199 PG/ML DEFICIENT < 160 PG/ML Folate 12.6 > or = 4.0 ng/mL [facility] Comment:Reference Values:> o r = 4.0 ng/mL< 4.0 ng/mL suggests folate deficiency Methotrexate, aminopterin and folinic acid(leucovorin) are chemotherapeutic agents whose molecularstructures are similar to folate; therefore, the Architectfolate assay cannot be used for patients using these drugs. Blood Venous blood specimen / Unknown 04/26/2025 11:39 AM EDT 04/26/2025 11:39 AM EDT [facility] LAB BLOOD ORDERABLES Final Re sult Performing Organization Address [facility] Co de Phone Number [facility] [address] [place] [phone] * (ABNORMAL) Zinc (04/26/2025 11:39 AM EDT) Zinc 51(A) 60 - 130 mcg/dL [facility] Comment:This test was develo ped and its analytical performancecharacteristics have been determined by [employer] [place], [place]. It hasnot been cleared or approved by the U.S. Food and DrugAdministration. This assay has been validated pursuantto the CLIA regulations and is used for clinicalpurposes.THIS TEST WAS PERFORMED AT:[id number] [place] [address]SLUFJIZFRANK ALEXANDER MD,PHD Blood Venous blood specimen / Unknown 04/26/2025 11:39 AM EDT 04/26/2025 11:39 AM EDT [facility] LAB BLOOD ORDERABLES Final Re sult [facility] [address] [place] [phone] * (ABNORMAL) Vitamin B1 (04/26/2025 11:39 AM EDT) Vitamin B1 57(A) 8 - 30 nmol/L [facility] Comment:Vitamin supplementat ion within 24 hours prior toblood draw may affect the accuracy of the results.This test was developed and its analytical performancecharacteristics have been determined by [employer] [place], [place]. It hasnot been cleared or approved by the U.S. Food and DrugAdministration. This assay has been validated pursuantto the CLIA regulations and is used for clinicalpurposes.THIS TEST WAS PERFORMED AT:[id number] [place] [address]HYWSEEPFRANK ALEXANDER MD,PHD Blood Venous blood specimen / Unknown 04/26/2025 11:39 AM EDT 04/26/2025 11:39 AM EDT [facility] LAB BLOOD ORDERABLES Final Re sult Performing Organization Address [facility]/ZIP Co de Phone Number [facility] [address] [place] [address] [phone] * (ABNORMAL) Vitamin B6 (04/26/2025 11:39 AM EDT) Vitamin B6 27.8(A) 2.1 - 21.7 ng/mL [facility] Comment:Vitamin supplementat ion within 24 hours prior toblood draw may affect the accuracy of the results.This test was developed and its analytical performancecharacteristics have been determined by [employer] [place], [place]. It hasnot been cleared or approved by the U.S. Food and DrugAdministration. This assay has been validated pursuantto the CLIA regulations and is used for clinicalpurposes.THIS TEST WAS PERFORMED AT:[id number] [place] [address]NMNGDQNFRANK ALEXANDER MD,PHD Blood Venous blood specimen / Unknown 04/26/2025 11:39 AM EDT 04/26/2025 11:39 AM EDT [facility] LAB BLOOD ORDERABLES Final Re sult Performing Organization Address [facility] Co de Phone Number [facility] [address] [place] [address] [phone] * Albumin, Random Urine W/Creatinine (09/07/2024 8:10 AM EST) Creatinine, Urine 194.22 mg/dL [facility] Microalbumin Urine 22.0 mg/L [facility] Microalbum Creatinine Ratio Ur 11.3 <30 ug/mg cr [facility] Comment:Albumin/Creatinine R atio Reference Ranges: Normal: < 30 ug/mg creatinine Microalbuminuria: 30 - 300 ug/mg creatinineClinical Albuminuria: > 300 ug/mg creatinine 09/07/2024 8:10 AM EST 09/07/2024 11:02 AM EST us Uriel Woodruff MD LAB URINE ORDERABLES Final Resul t Performing Organization Address [facility] Co de Phone Number [facility] [address] [place] [phone] * (ABNORMAL) Lipid Panel, Standard (09/07/2024 8:10 AM EST) Triglycerides 126 <150 mg/dL [facility] Comment:Desirable Triglyceri de: less than 150 mg/dLBorderline High Triglyceride 150-199 mg/dLHigh Triglyceride: 200-499 mg/dLVery High Triglyceride: greater than or equal to 5OO mg/dL Cholesterol 190 <200 mg/dL [facility] Comment:Desirable Cholestero l: less than 200 mg/dLBorderline High Cholesterol: 200-239 mg/dLHigh Cholesterol: greater than 239 mg/dL LDL Cholesterol Calculated 114(H) <100 mg/dL [facility] Comment:Desirable LDL: less than 100 mg/dLNear Optimal/Above Optimal LDL: 110- 129 mg/dLBorderline High LDL: 130-159 mg/dLHigh LDL: 160-189 mg/dLVery High LDL: greater than or equal to 190 mg/dL HDL Cholesterol 51 >40 mg/dL [facility] Comment:Desirable HDL: great er than 40 mg/dL Note: This HDL assay may give artificially low results in patients with liver disease. 09/07/2024 8:10 AM EST 09/07/2024 11:01 AM EST us Uriel Woodruff MD LAB BLOOD ORDERABLES Final Resul t Performing Organization Address City/[facility]/ZIP Co de Phone Number [facility] [address] [place] [address] [phone] * Hepatitis A,B,C Profile (04/17/2021 8:40 [...] Provider HISTORICAL/NON ORDERABLE LABS Final Result [facility] [address] [place] [address], * (ABNORMAL) Colonoscopy (02/18/2019) Colonoscopy Abnormal(A ) Normal us Uriel Name HEALTH MAINTENANCE Final Result from Last 3 Months or Most Recently Relevant to Health Maintenance Additional Health Concerns Active Problems Noted Date Diagnosed Date Help patients manage their type 2 diabetes 07/12 Patient has chronic kidney disease 07/12/2025 Patient has chronic kidney disease 07/14/2025 Patient has chronic kidney disease 07/16/2025 Insurance [facility] [employer] (O D-SNP) RAJIV PETER [id number] [facility] Care Teams Locksmith Helper Relationship Specialty Start Date End Date Name, MD Uriel [address] [place] [address] PCP - General Family Medicine 05/10/20 [facility] 03/23/25
--- OUTSIDE RECORDS SUMMARY | 2025-07-16 12:17 | XMS_ITS | Encounter Summary ---
Author Organization [employer] Address [address] [facility] 7t [place] [address] Care Team Providers Care Wool Fleece Sorter Name Role Phone Name, Uriel AARON Primary Care Provider [phone] Encounter Details Date Type Department Care Team (Latest Contact Info) Description 07/16/2025 Travel Social History Tobacco Use Types Packs/Day [...] Description 10/12/2025 10:00 AM EDT Office Visit [facility] [address] [place] [address] Uriel Woodruff MD [address] [place] [address] documented as of this encounter Goals Goal [...] Care Plan Patient has chronic kidney disease [place] Woodruff MD Patient has chronic kidney disease Care Plan Patient has chronic kidney disease No Tim Nj [place] documented as of this encounter Visit Diagnoses [...] documented as of this encounter Care Teams Wool Fleece Sorter Relationship Specialty Start Date End Date Uriel Woodruff MD [address] [place] [address] PCP - [facility] documented as of this encounter
--- OUTSIDE RECORDS SUMMARY | 2025-07-16 12:17 | XMS_ITS | Encounter Summary ---
Author Organization [employer] [facility] Address [address] [facility] [address]t [place] [address] Care Team Providers Care Network Architect Name Role Phone Name, Uriel AARON Primary Care Provider [phone] Puia, Juana PharmD Unavailable Puia, Juana PharmD Unavailable Encounter Details Date Type Department Care Team ([facility] Contact Info) Description 01/07/2023 Abstract [facility] [address] [place] [phone] Uriel Woodruff MD [address] [place] [phone] Social History Tobacco Use Types Packs/Day Years [...] Upcoming Encounters Date Type Department Care Team ([facility] Contact Info) Description 10/12/2025 10:00 AM EDT Office Visit [facility] [address] [place] [address] [phone] Uriel Woodruff MD [address] [place] [phone] documented as of this encounter Procedures Procedure Name Priority Date/Time Associated Diagnosis Comments COLONOSCOPY Routine 02/18/2019 2:11 PM EDT documented in this encounter Results * Hm Colonoscopy (02/18/2019 2:11 PM EDT) Colonoscopy Normal Normal Narrative Elsa Christopher - 02/18/2019 2:11 PM EDT Recommended 5 year follow up ( [facility] ) Historical Provider HEALTH MAINTENANCE Final Result documented in this encounter Visit Diagnoses Not on filedocumented in this encounter Care Teams Network Architect Relationship Specialty Start Date End Date Name, MD Uriel [address] [place] [address] PCP - General Family Medicine 05/10/20 Juana Samuels, PharmD [address] [place] [address] Pharmacist Internal Medicine 05/03/22 09/01/23 Juana Samuels, MagnusD [address] [place] [address] Pharmacist Internal Medicine 09/02/24 [facility] documented as of this encounter
== END 2025-07-16 10:38 | disposition home or self-care (01) ==
LOC: HO.HHCX 10:37
PROVIDERS: PCP Internal Medicine Geriatric Medicine; Visit Provider Registered Nurse
DX: R05.8 Other specified cough (principal)
CPT/HCPCS: 71046

== ENCOUNTER → 2025-07-16 10:43 | Outpatient (BNV) | payer OTHER, SELFPAY | PROVIDERS: PCP Internal Medicine Geriatric Medicine; Visit Provider Radiology Diagnostic Radiology | DX: R05.3 Chronic cough (principal) | CPT/HCPCS: 71046 ==